=== PATIENT | female | born 1955 | race Caucasian/White ===

== ENCOUNTER → 2018-02-28 12:44 | Outpatient (CLI) | payer OTHER, SELFPAY ==
[2018-02-28 12:59] LABS: Microscopic, Urine URINE MICROSCOPIC (MICROSCOPIC)
[2018-02-28 13:26] LABS: Basophils % 0.4 % (0.1-2.0); Eosinophils # 0.1 K/mm3 (0.0-0.4); Eosinophils % 1.3 % (0.1-12.0); Hematocrit 43.3 % (37.0-47.0); Hemoglobin 14.2 g/dL (12.2-16.2); Lymphocytes # 1.5 K/mm3 (0.7-4.5); Lymphocytes % 29.9 K/mm3 (10-50); Mean Corpuscular HGB Conc 32.7 g/dL (31.8-35.4); Mean Corpuscular Hemoglobin 31.2 pg (27.0-31.2); Mean Corpuscular Volume 95.4 fl (81-99); Mean Platelet Volume 7.1 fl (7.4-10.4); Monocytes # 0.4 K/mm3 (0.1-1.0); Neutrophils % 60.4 % (37.0-80.0); Platelet Count 285 K/mm3 (142-424); Red Blood Count 4.54 M/mm3 (4.20-5.40); Red Cell Distribution Width 12.8 % (11.5-17.5)
[2018-02-28 13:27] LABS: Appearance,Urine CLEAR (Clear); Bilirubin,Urine Negative (Negative); Blood, Urine TRACE-L (Negative); Color,Urine YELLOW (Yellow); Glucose,Urine (UA) Negative (Negative); Ketones,Urine Negative (Negative); Leukocyte Esterase,Urine TRACE (Negative); Nitrate,Urine Negative (Negative); PH,Urine 5.5 (5.0-8.5); Protein,Urine Negative (Negative); Specific Gravity, Urine 1.015 (1.005-1.030); Urobilinogen,Urine 0.2 EU/dl (0.2)
[2018-02-28 13:50] LABS: Bacteria,Urine Trace /lpf
[2018-02-28 17:15] LABS: Alanine Aminotransferase 34 U/L (12-78); Albumin Level 4.1 gm/dL (3.4-5.0); Albumin/Globulin Ratio 1.1 (1.1-1.8); Alkaline Phosphatase 124 U/L (46-116); Anion Gap 12.9 mEq/L (5-15); Aspartate Amino Transferase 29 U/L (15-37); Bilirubin,Total 0.3 mg/dL (0.2-1.0); Blood Urea Nitrogen 11 mg/dL (7-18); Calcium 9.3 mg/dL (8.5-10.1); Carbon Dioxide 29 mmol/L (21.0-32.0); Chloride 103 mmol/L (98-107); Creatinine,Serum 0.99 mg/dL (0.55-1.02); Estimated Glomerular Filt Rate 57 ml/min (>60); GFR (African American) 69 ML/MIN (>60); Globulin 3.8 gm/dl (1.3-3.2); Glucose 93 mg/dL (74-106); Potassium 3.9 mmoL/L (3.5-5.1); Sodium 141 mmol/L (136-145); Total Protein,Serum 7.9 gm/dL (6.4-8.2)
[2018-03-01 09:12] LABS: Complement C3 163 mg/dL (82-167)
[2018-03-01 14:16] LABS: Sjogren's Anti-SS-A <0.2 AI (0.0-0.9); Sjogren's Anti-SS-B <0.2 AI (0.0-0.9)
[2018-03-02 06:40] LABS: Anti-DNA (DS) Ab Qn 1 IU/mL (0-9); Antinuclear Antibodies, IFA Positive (.)
[2018-03-02 09:15] LABS: Miscellaneous Test <0.2
== END ==
PROVIDERS: Visit Provider Dermatology
DX: L93.0 Discoid lupus erythematosus (principal)
CPT/HCPCS: 36415; 80053; 81001; 85025; 86038; 86161; 86225; 86235

== ENCOUNTER → 2019-07-09 11:09 | Outpatient (POV) | payer OTHER, SELFPAY ==
[2019-07-09 12:17] LABS: Basophils % 0.2 % (0.1-2.0); Eosinophils # 0.1 K/mm3 (0.0-0.4); Eosinophils % 1.2 % (0.1-12.0); Hematocrit 40.5 % (37.0-47.0); Hemoglobin 13.3 g/dL (12.2-16.2); Lymphocytes # 1.3 K/mm3 (0.7-4.5); Lymphocytes % 27.9 % (10-50); Mean Corpuscular HGB Conc 32.9 g/dL (31.8-35.4); Mean Corpuscular Hemoglobin 31.2 pg (27.0-31.2); Mean Platelet Volume 6.9 fl (7.4-10.4); Monocytes # 0.4 K/mm3 (0.1-1.0); Monocytes % 7.4 % (1.7-9.3); Neutrophils % 63.3 % (37.0-80.0); Platelet Count 278 K/mm3 (142-424); Red Blood Count 4.26 M/mm3 (4.20-5.40); Red Cell Distribution Width 13.2 % (11.5-17.5); White Blood Count 4.7 K/mm3 (4.8-10.8)
[2019-07-09 18:29] LABS: Alanine Aminotransferase 35 U/L (12-78); Albumin Level 3.8 gm/dL (3.4-5.0); Albumin/Globulin Ratio 1.1 (1.1-1.8); Alkaline Phosphatase 118 U/L (46-116); Anion Gap 15.2 mEq/L (5-15); Aspartate Amino Transferase 25 U/L (15-37); Bilirubin,Total 0.4 mg/dL (0.2-1.0); Blood Urea Nitrogen 13 mg/dL (7-18); Calcium 9.3 mg/dL (8.5-10.1); Carbon Dioxide 26 mmol/L (21.0-32.0); Chloride 104 mmol/L (98-107); Creatinine,Serum 0.98 mg/dL (0.55-1.02); Estimated Glomerular Filt Rate 58 ml/min (>60); GFR (African American) 70 ML/MIN (>60); Globulin 3.4 gm/dl (1.3-3.2); Glucose 95 mg/dL (74-106); Potassium 4.2 mmoL/L (3.5-5.1); Sodium 141 mmol/L (136-145); Total Protein,Serum 7.2 gm/dL (6.4-8.2)
== END ==
PROVIDERS: Dermatology; Visit Provider Dermatology
DX: L93.0 Discoid lupus erythematosus (principal)
CPT/HCPCS: 36415; 80053; 85025

== ENCOUNTER 2020-05-18 10:12 | Emergency (ER) | payer OTHER, SELFPAY ==
[2020-05-18 10:15] VITALS: BP 159/96; PULSE 71; RESP 20; TEMP 36.1; O2SAT 97; BMI 29.0
[2020-05-18 10:31] VITALS: BMI 29.0
--- NOTE | 2020-05-18 10:33 | CT_ITS ---
PROCEDURE: CT ABDOMEN PELVIS WO/W CON CLINICAL INDICATION: abd pain COMPARISON: No exams were available for comparison TECHNIQUE: IV Contrast: 75ML OPTIRAY 350 Oral Contrast None Axial images obtained with sagittal and coronal reformats. All CT scans at the facility use one or more dose reduction, viz: automated exposure control, ma/kV adjustment per patient size (including targeted exams where dose is matched to indication, i.e. head), or iterative reconstruction technique. FINDINGS: CT scan of the abdomen with without contrast: Lung bases are clear. Heart enlarged and there are coronary artery calcifications. There is a small hiatal hernia. Enhanced liver, adrenal glands, pancreas, spleen, kidneys, aorta, small and large bowel, and the appendix is unremarkable. There are scattered splenic calcifications. The patient is status post cholecystectomy. Soft tissues and bony structures are unremarkable. CT scan of the pelvis with and without contrast: The patient status posthysterectomy. Cervical stump, adnexal structures, bladder, soft tissue and bony structures are unremarkable for mass lesions. IMPRESSION: Status post cholecystectomy and hysterectomy, no mass lesions. Dictated by: Anibal Garcia 05/18/2020 11:58 Electronically signed by Anibal Garcia in [place] 05/18/2020 11:58
[2020-05-18 10:41] LABS: Microscopic, Urine URINE MICROSCOPIC (MICROSCOPIC)
[2020-05-18 10:43] LABS: Appearance,Urine CLEAR (Clear); Bilirubin,Urine Negative (Negative); Blood, Urine Negative (Negative); Color,Urine YELLOW (Yellow); Glucose,Urine (UA) Negative (Negative); Ketones,Urine Negative (Negative); Leukocyte Esterase,Urine 2+ (Negative); Nitrate,Urine Negative (Negative); Protein,Urine Negative (Negative)
[2020-05-18 10:55] LABS: Basophils % 0.6 % (0.1-2.0); Eosinophils # 0.1 K/mm3 (0.0-0.4); Eosinophils % 1.2 % (0.1-12.0); Hematocrit 42.3 % (37.0-47.0); Hemoglobin 14.6 g/dL (12.2-16.2); Lymphocytes # 1.4 K/mm3 (0.7-4.5); Lymphocytes % 21.6 % (10-50); Mean Corpuscular HGB Conc 34.6 g/dL (31.8-35.4); Mean Corpuscular Hemoglobin 32.2 pg (27.0-31.2); Mean Corpuscular Volume 93.1 fl (81-99); Mean Platelet Volume 7.2 fl (7.4-10.4); Monocytes # 0.5 K/mm3 (0.1-1.0); Monocytes % 6.9 % (1.7-9.3); Neutrophils # 4.6 K/mm3 (1.8-7.8); Neutrophils % 69.8 % (37.0-80.0); Platelet Count 290 K/mm3 (142-424); Red Blood Count 4.55 M/mm3 (4.20-5.40); Red Cell Distribution Width 13.1 % (11.5-17.5); White Blood Count 6.5 K/mm3 (4.8-10.8)
[2020-05-18 10:58] LABS: Alanine Aminotransferase 34 U/L (12-78); Albumin Level 4.7 g/dl (3.5-5.0); Albumin/Globulin Ratio 1.3 (1.1-1.8); Alkaline Phosphatase 126 U/L (38-126); Amylase 66 U/L (30-110); Anion Gap 16.2 mEq/L (5-15); Aspartate Amino Transferase 43 U/L (14-36); Bilirubin,Total 0.6 mg/dl (0.2-1.3); Blood Urea Nitrogen 13 mg/dl (7-17); Calcium 9.7 mg/dl (8.4-10.2); Carbon Dioxide 26 mmol/L (22.0-30.0); Chloride 103 mmol/L (98-107); Creatinine Clearance Estimated 77 mL/min (50-200); Estimated Glomerular Filt Rate 63 ml/min (>60); GFR (African American) 77 ML/MIN (>60); Globulin 3.6 g/dL (1.3-3.2); Glucose 105 mg/dl (74-100); Lipase 173 U/L (23-300); Potassium 4.2 mmoL/L (3.5-5.1); Sodium 141 mmol/L (136-145); Total Protein,Serum 8.3 g/dl (6.3-8.2)
[2020-05-18 11:04] LABS: Bacteria,Urine 1+ /lpf
[2020-05-18 12:06] VITALS: BP 132/87; PULSE 68; RESP 20; O2SAT 98
--- NOTE | 2020-05-18 12:08 | PC.NURSE ---
PT BACK FROM CT
--- NOTE | 2020-05-18 12:19 | HMH.EDABDPAI ---
ED Disposition Clinical Impression: UTI (urinary tract infection) Disposition: Home, Self-Care Condition on Discharge: Good Instructions: DI for Acute Abdomen Prescriptions: Sulfamethoxazole/Trimethoprim [Bactrim DS tablet] 1 each PO BID 10 Days #20 tab Prescription Printed Referrals: Cydney Cole APRN [Primary Care Provider] - - Critical Care Critical Care Time: No Attestation: On 05/18/20, the high probability of a clinically significant, sudden or life threatening deterioration of the following system(s) required my full and direct attention, intervention and personal management. The time I documented below is in addition to time spent performing reported procedures but includes the following listed in this critical care notation. Medical Decision Making - Medical Records Medical records reviewed: Yes: I reviewed the patient's medical records. - Adryan Inquiry Pt receiving controlled substance: No Vital Signs: 05/18/20 10:15 05/18/20 12:06 Temperature 97.0 F L Temperature Source Oral Pulse Rate [Right Radial] 71 68 Respiratory Rate 20 20 Blood Pressure [Right Arm] 159/96 H 132/87 Blood Pressure Mean [Right Arm] 117 102 Blood Pressure Source [Right Arm] Automatic Cuff Blood Pressure Position [Right Arm] Sitting 02 Sat by Pulse Oximetry 97 98 Oxygen Delivery Method Room Air Room Air - Lab Data Lab results reviewed: Yes: I reviewed the patient's lab results. Lab Results 05/18/20 10:30: Urine Color Yellow, Urine Appearance Clear, Urine pH 6.0, Ur Specific [place] 1.020, Urine Protein Negative, Urine Glucose (UA) Negative, Urine Ketones Negative, Urine Blood Negative, Urine Nitrate Negative, Urine Bilirubin Negative, Urine Urobilinogen 2.0, Ur Leukocyte Esterase 2+ A, Urine RBC 3-5, Urine WBC 10-20, Ur Squamous Epith Cells 5-10, Urine Bacteria 1+ 05/18/20 10:35: WBC 6.5, RBC 4.55, Hgb 14.6, Hct 42.3, MCV 93.1, MCH 32.2 H, MCHC 34.6, RDW 13.1, Plt Count 290, MPV 7.2 L, Neut % (Auto) 69.8, Lymph % (Auto) 21.6, [place] % (Auto) 6.9, Eos % (Auto) 1.2, Baso % (Auto) 0.6, Neut # (Auto) 4.6, Lymph # (Auto) 1.4, [place] # (Auto) 0.5, Eos # (Auto) 0.1, Baso # (Auto) 0.0 05/18/20 10:35: Sodium 141, Potassium 4.2, Chloride 103, Carbon Dioxide 26, Anion Gap 16.2 H, BUN 13, Creatinine 0.90, Estimated Creat Clear 77, Estimated GFR 63, Est GFR ( Amer) 77, Glucose 105 H, Calcium 9.7, Total Bilirubin 0.6, AST 43 H, ALT 34, Alkaline Phosphatase 126, Total Protein 8.3 H, Albumin 4.7, Globulin 3.6 H, Albumin/Globulin Ratio 1.3, Amylase 66, Lipase 173 Result diagrams: 05/18/20 10:35 05/18/20 10:35 Orders (Tests/Meds): ED MEDICATIONS Discontinued Medications Generic Name Dose Route Start Last Admin Trade Name Freq PRN Reason Stop Dose Admin Ioversol 75 ml 05/18/20 11:45 05/18/20 11:46 Rad-Optiray 350 100ml Vial IV 05/18/20 11:46 75 ml ONCE ONE Administration Protocol Sodium Chloride 10 ml 05/18/20 11:45 05/18/20 11:46 Rad-Saline Flush 10ml Syringe IV 05/18/20 11:46 10 ml ONCE ONE Administration ORDERS Category Date Time Status Urine Culture Stat Micro 05/18/20 10:30 Received - CT Data CT Scan: Abdomen, Pelvis Time Received: 11:30 Preliminary Findings: Normal/NAD Abdominal Pain HPI - General Chief Complaint: Abdominal Pain Stated Complaint: Abdominal Pain Time Seen by Provider: 05/18/20 11:20 Mode of Arrival: Ambulatory Limitations: No Limitations Description of Symptoms (Recalled from ER Triage Doc. by RN): PT C/O HIGH ABD PAIN THAT EXTENDS INTO HER BACK AT TIMES. PT STATES THAT SHE HAS BEEN BATTLING WITH CONSTIPATION X1 MONTH. ADVISES THAT PCP HAS SET HER UP AN APPT WITH [facility] ON JUNE 12, 2020. PT STATES THAT SHE HAS BEEN USING MIRILAX AT HOME, WHICH HAS RESULTED IN SUCCESSFUL BM'S BUT THAT IT'S STILL NOT HER NORMAL . - History of Present Illness MD complaint: abdominal pain Onset (ago): day(s) Consistency: constant Location: diffuse
[2020-05-18 12:40] VITALS: BP 135/78; PULSE 86; RESP 18; TEMP 36.8; O2SAT 98
== END 2020-05-18 12:40 | disposition home or self-care (01) ==
PROVIDERS: Emergency Provider Family Medicine; PCP Nurse Practitioner Family
DX: N30.00 Acute cystitis without hematuria (principal); K59.00 Constipation, unspecified; Z88.5 Allergy status to narcotic agent
CPT/HCPCS: 74178; 80053; 81001; 82150; 83690; 85025; 87086; 99283; Q9967

== ENCOUNTER → 2020-06-02 10:17 | Outpatient (POV) | payer OTHER, SELFPAY | PROVIDERS: PCP Nurse Practitioner Family; Visit Provider Dermatology | DX: Z00.00 Encounter for general adult medical examination without abnormal findings (principal) ==

== ENCOUNTER → 2021-08-11 14:12 | Outpatient (CLI) | payer OTHER, SELFPAY | PROVIDERS: PCP Nurse Practitioner Family; Visit Provider Nurse Practitioner | DX: Z20.822 Contact with and (suspected) exposure to COVID-19 (principal) | CPT/HCPCS: C9803; U0003; U0005 ==

== ENCOUNTER → 2021-08-16 10:32 | Outpatient (CLI) | payer OTHER, SELFPAY | PROVIDERS: PCP Nurse Practitioner Family; Visit Provider Nurse Practitioner | DX: Z20.822 Contact with and (suspected) exposure to COVID-19 (principal) | CPT/HCPCS: C9803; U0003; U0005 ==

== ENCOUNTER 2025-01-27 08:55 | Inpatient (IN) | payer MEDICARE, SELFPAY ==
--- NOTE | 2025-01-27 08:53 | ECG_ITS ---
APPROVED REPORT Exam: Resting ECG HR:132 bpm ECG Measurements Heart Rate 132 AXES QRSd 89 QRS 8 QT 304 T 35 QTc 382 Conclusion ATRIAL FIBRILLATION WITH RAPID VENTRICULAR RESPONSE POSSIBLE ANTERIOR MYOCARDIAL INFARCTION , PROBABLY OLD [30 ms Q WAVE IN V3/V4, OR R < 0.2 mV IN V4] ABNORMAL ECG UNCONFIRMED REPORT Electronically signed by : Sekou Barnard, 01/27/2025 15:34:55
[2025-01-27 08:55] VITALS: BP 170/95; PULSE 128; RESP 18; TEMP 36.6; O2SAT 99; BMI 28.1
--- NOTE | 2025-01-27 09:16 | XR_ITS ---
FINAL REPORT TECHNIQUE: Single view chest CLINICAL HISTORY: new onset afib COMPARISON: 02/14/2020 report FINDINGS: A single view of the chest was obtained. The heart and mediastinum are within normal limits. The lungs are clear. There is no pneumothorax. IMPRESSION: No acute cardiopulmonary process. Reviewed, Interpreted and Dictated by Kulwinder Green MD Transcribed by Suzette Dumont Authenticated and [facility]
[2025-01-27 09:23] LABS: Basophils % 0.4 % (0.1-2.0); Eosinophils % 0.8 % (0.1-12.0); Hematocrit 43.9 % (37.0-47.0); Hemoglobin 14.9 g/dL (12.2-16.2); Lymphocytes # 1.3 K/mm3 (0.7-4.5); Lymphocytes % 26.4 % (10-50); Mean Corpuscular HGB Conc 33.9 g/dL (31.8-35.4); Mean Corpuscular Hemoglobin 31.5 pg (27.0-31.2); Mean Corpuscular Volume 92.8 fl (81-99); Mean Platelet Volume 9.6 fl (7.4-10.4); Monocytes # 0.4 K/mm3 (0.1-1.0); Monocytes % 7.7 % (1.7-9.3); Neutrophils # 3.3 K/mm3 (1.8-7.8); Neutrophils % 64.3 % (37.0-80.0); Platelet Count 250 K/mm3 (142-424); Red Blood Count 4.73 M/mm3 (4.20-5.40); Red Cell Distribution Width 12.8 % (11.5-17.5); White Blood Count 5.1 K/mm3 (4.8-10.8)
[2025-01-27 09:36] LABS: Alanine Aminotransferase 39 U/L (12-78); Albumin Level 4.9 g/dl (3.5-5.0); Albumin/Globulin Ratio 1.4 (1.1-1.8); Alkaline Phosphatase 97 U/L (38-126); Anion Gap 8.3 mEq/L (5-15); Aspartate Amino Transferase 53 U/L (14-36); Bilirubin,Total 0.7 mg/dl (0.2-1.3); Blood Urea Nitrogen 15 mg/dl (7-17); Calcium 9.4 mg/dl (8.4-10.2); Carbon Dioxide 27 mmol/L (22.0-30.0); Chloride 107 mmol/L (98-107); Estimated Glomerular Filt Rate 62 ml/min (>60); GFR (African American) 76 ML/MIN (>60); Globulin 3.4 g/dL (1.3-3.2); Glucose 106 mg/dl (74-100); Magnesium 1.9 mg/dl (1.6-2.3); Potassium 4.3 mmoL/L (3.5-5.1); Sodium 138 mmol/L (136-145); Total Protein,Serum 8.3 g/dl (6.3-8.2)
--- NOTE | 2025-01-27 09:37 | ED_ITS ---
Discharge Plan Disposition Chief Complaint: Chest Pain Prescriptions Prescriptions: No Action amlodipine 5 mg tablet 5 mg PO DAILY Patient Comments: TAKE ONE (1) TABLET DAILY levothyroxine 75 mcg tablet 75 mcg PO DAILY Patient Comments: TAKE ONE (1) TABLET EVERY DAY BY ORAL ROUTE lisinopril 10 mg tablet 10 mg PO DAILY Patient Comments: TAKE ONE (1) TABLET BY MOUTH ONCE DAILY Referrals Follow up/Referrals: Memo Thompson MD [Primary Care Provider] - See instructions Clinical Impressions Clinical Impression: Atrial fibrillation with rapid ventricular response Print Language Print Language: Kosovan Discharge ED Provider: Jett Barnard General Adult HPI General Chief complaint: Chest Pain Stated complaint: Chest Pain Time Seen by Provider: 01/27/25 09:28 History of Present Illness HPI narrative: 69-year-old female with no significant past medical history presents today with just feeling abnormal. She has no history of arrhythmia that she is aware of. No chest pain or shortness of breath. She did feel that her heart was racing today at least. But a few days ago felt abnormal over the weekend as well without the palpitations but definitely did not feel normal at that time. No fevers or chills no chest pain shortness of breath no nausea vomiting diarrhea or other preceding symptoms. No change in medications etc. No strokelike symptoms. Related Data Home Medications ?Medication ?Instructions ?Recorded ?Confirmed amlodipine 5 mg tablet 5 mg PO DAILY 01/27/25 01/27/25 levothyroxine 75 mcg tablet 75 mcg PO DAILY 01/27/25 01/27/25 lisinopril 10 mg tablet 10 mg PO DAILY 01/27/25 01/27/25 Allergies Allergy/AdvReac Type Severity Reaction Status Date / Time codeine (CODEINE) Allergy Unknown Nausea Verified 01/27/25 10:38 cortisone (CORTISONE) Allergy Unknown Rash Verified 01/27/25 10:38 [facility] Disclaimer: The information contained in this section may have been updated after the patient was seen, as this information can be updated by other users. Social History Smoking Status: Never smoker alcohol intake: never current occupational status: other Travel in the last 8 weeks: None Have you lived/traveled outside US in past 30 days?: No Contact w/someone who lives/traveled outside US past 30 days?: No Exposure to someone with infectious disease in past 14 days?: No Do you have a fever (greater than 100.4 F or 38 C)?: No Have you tested positive for COVID-19: No Exposed to someone with COVID-19 in past 14 days?: No Do you have a sore throat?: No Do you have a cough?: No Do you have any weakness?: No Do you have any diarrhea?: No Are you experiencing any unusual bleeding?: No Do you have any muscle aches/pain?: No Do you have any abdominal pain?: No Are you experiencing loss of taste or smell?: No Other Medical History Have you received the Flu Vaccine for this season: No Have you received the Pneumonia Vaccine: No ROS Obtained: Yes All systems reviewed & no additional complaints except as documented Physical Exam General General appearance: alert and in no apparent distress Respiratory Respiratory exam: Present normal lung sounds bilaterally Cardiovascular Cardiovascular exam: Present tachycardia and irregular rhythm Neurological Exam Neurological exam: Present alert and oriented X3 Medical Decision Making Medical Records Screening: Per USPSTF and CDC recommendations, given the prevalence of disease in our region, it is our hospital?s policy to screen for HIV and viral Hepatitis for all patients aged 18 and over and those with ongoing risk factors. Adryan Inquiry Pt receiving controlled substance: No Vital Signs: 01/27/25 08:55 Temperature 97.9 F Temperature Source Oral Pulse Rate [Apical] 128 H Respiratory Rate 18 Blood Pressure [Right Arm] 170/95 H Blood Pressure Mean [Right Arm] 120 Blood Pressure Source [Right Arm] Automatic Cuff Blood Pressure Position [Right Arm] Sitting 02 Sat by Pulse Oximetry 99 Oxygen Delivery Method Room Air Lab Data Lab results reviewed: Yes I reviewed the patient's lab results. Lab Results 01/27/25 09:05: WBC 5.1, RBC 4.73, Hgb 14.9, Hct 43.9, MCV 92.8, MCH 31.5 H, MCHC 33.9, RDW 12.8, Plt Count 250, MPV 9.6, Neut % (Auto) 64.3, Lymph % (Auto) 26.4, [place] % (Auto) 7.7, Eos % (Auto) 0.8, Baso % (Auto) 0.4, Neut # (Auto) 3.3, Lymph # (Auto) 1.3, [place] # (Auto) 0.4, Eos # (Auto) 0.0, Baso # (Auto) 0.0, Sodium 138, Potassium 4.3, Chloride 107, Carbon Dioxide 27, Anion Gap 8.3, BUN 15, Creatinine 0.90, Estimated GFR 62, Est GFR ( Amer) 76, Glucose 106 H, Calcium 9.4, Magnesium 1.9, Total Bilirubin 0.7, AST 53 H, ALT 39, Alkaline Phosphatase 97, Troponin I < 0.01, Total Protein 8.3 H, Albumin 4.9, Globulin 3.4 H, Albumin/Globulin Ratio 1.4, TSH 1.88, Thyroxine (T4) 11.9 H 01/27/25 09:05 01/27/25 09:05 Orders (Tests/Meds): ED MEDICATIONS Generic Name Dose Route Start Last Admin Trade Name Freq PRN Reason Stop Dose Admin Diltiazem HCl 100 mg/ Sodium 100 mls @ 5 mls/hr 01/27/25 10:00 01/27/25 09:55 Chloride IV 02/26/25 09:59 5 mg/hr .Q20H HUYEN 5 mls/hr Administration Protocol 5 MG/HR Discontinued Medications Generic Name Dose Route Start Last Admin Trade Name Freq PRN Reason Stop Dose Admin Diltiazem HCl 20 mg 01/27/25 09:35 01/27/25 09:55 Diltiazem 25mg/5ml Vial IV 01/27/25 09:36 20 mg ONCE ONE Administration Lactated Ringer's 500 mls @ 999 mls/hr 01/27/25 09:45 01/27/25 09:56 Lactated Ringer's 1000 Ml Bag IV 01/27/25 10:15 999 mls/hr .Q31M HUYEN Administration ORDERS Category Date Time Status CXR --portable [XR chest portable] Stat Exams 01/27/25 09:16 Completed Complete Blood Count Auto Diff Stat Lab 01/27/25 09:05 Completed Comprehensive Metabolic Panel Stat Lab 01/27/25 09:05 Completed Magnesium Stat Lab 01/27/25 09:05 Completed T4 (Thyroxine) Stat Lab 01/27/25 09:05 Completed Thyroid Stimulating Hormone Stat Lab 01/27/25 09:05 Completed Troponin I Q3H Lab 01/27/25 09:05 Completed Troponin I Q3H Lab 01/27/25 12:30 Ordered ECG Data Tracing #1: I reviewed this ECG and interpreted as documented below: Ventricular rate of 132 A-fib with RVR no acute ischemic changes noted indeterminate axis Medical Decision Narrative: 69-year-old presenting today with an irregular irregular rhythm A-fib with RVR on EKG. This is a new diagnosis for her. She has no preceding symptoms to suggest a definitive cause of the etiology of this. Will get basic blood work including magnesium electrolytes troponin etc. However she did not have any ischemic symptoms preceding this. Goal will be rate control in this particular patient as the timing of this is unclear most likely started over the weekend. Will not cardiovert her at the moment. Anticipate admission with rate control transitioning to oral medications and anticoagulation and follow-up. Will reassess shortly after diltiazem bolus and infusion have begun. Reassessment 11:12 AM patient has spontaneously converted into normal sinus rhythm however is still on the diltiazem infusion. I gave the patient the opportunity to transition to oral medications and try to outpatient follow-up with anticoagulation however she is very anxious about this and would like to come in the hospital for that transition and observation. Which is reasonable. I discussed the case with hospital medicine. They are aware that I have not initiated any anticoagulation which they will do inpatient patient admitted still on the diltiazem infusion at the moment but stable. Critical Care Critical Care Time Critical Care Time: Yes Attestation: On 01/27/25, the high probability of a clinically significant, sudden or life threatening deterioration of the following system(s) required my full and direct attention, intervention and personal management. The time I documented below is in addition to time spent performing reported procedures but includes the following listed in this critical care notation. Total Time Total Critical Care Time: 35
[2025-01-27 09:48] LABS: Troponin I < 0.01 ng/ml (0.00-0.034)
[2025-01-27 09:52] LABS: T4 (Thyroxine) 11.9 ug/dl (5.53-11.0)
[2025-01-27] MEDS: dilTIAZem HCL 100 MG in 0.9 % SODIUM CHLORIDE 100 ML IV (09:55)
[2025-01-27] MEDS: dilTIAZem 25MG/5ML VIAL 20 MG IV (09:55)
[2025-01-27] MEDS: LACTATED RINGERS 1000ML 500 ML 999 ML IV (09:56)
[2025-01-27 10:06] LABS: Thyroid Stimulating Hormone 1.88 uIU/mL (0.465-4.68)
--- NOTE | 2025-01-27 10:37 | ECG_ITS ---
APPROVED REPORT Exam: Resting ECG HR:67 bpm ECG Measurements Heart Rate 67 AXES [place] 196 P 45 QRSd 96 QRS -8 QT 418 T 31 QTc 434 Conclusion SINUS RHYTHM POSSIBLE ANTERIOR MYOCARDIAL INFARCTION , OF INDETERMINATE AGE [30 ms Q WAVE IN V3/V4, OR R < 0.2 mV IN V4] ABNORMAL ECG UNCONFIRMED REPORT Electronically signed by : Sekou Barnard, 01/27/2025 15:34:37
--- NOTE | 2025-01-27 11:05 | PC.NURSE ---
DR HERNANDEZ SPEAKING WITH HOSPITALIST FOR ADMISSION
--- NOTE | 2025-01-27 11:10 | PC.NURSE ---
PACKAGING LINE ATTENDANT NOTIFIED OF ADMISSION
--- NOTE | 2025-01-27 11:22 | HMH.PHAINT1 ---
Pharmacy Intervention Comments: MEDICATION RECONCILIATION COMPLETED ON PATIENT USING EXTERNAL FILL HISTORY FROM PHARMACY. -XAVIER GRAVES, GIUSEPPED
[2025-01-27 11:34] VITALS: BP 136/80; PULSE 62; RESP 18; TEMP 36.6; O2SAT 97
--- NOTE | 2025-01-27 11:34 | PC.NURSE ---
REPORT CALLED TO Alana SHAHID RN
[2025-01-27 12:11] VITALS: BP 133/75; PULSE 54; RESP 11; O2SAT 97
--- NOTE | 2025-01-27 12:14 | CA_ITS ---
APPROVED REPORT EXAM: Comprehensive 2D, Doppler, and color-flow Echocardiogram Dry Goods Inspector: Gilda Duckworth RT(R) Ht: 5 ft 7 in Wt: 180lbs BSA: 1.93 BP: 170/95 mmHg Indications: AFIB, HTN, palpitatoins, fatigue 2D Dimensions LA Volume 47.80 mL LA Volume Index 24.64 mL/m2 (M/F) 16-34 EF AP4 82.40 % GL Strain -24.1 % M-Mode Dimensions RVDd 3.53 cm (0.9-2.6) LA Diam 4.04 cm (1.9-4.0) LVDd 4.42 cm (3.5-5.7) LVDs 3.29 cm (3.5-5.7) IVSd 0.80 cm (0.6-1.1) PWd 0.88 cm (0.6-1.1) EF (Teich) 50.60% FS 25.60% EDV (Teich) 88.60 mL ESV (Teich) 43.80 mL LV Diastology E Decel Time 197 (160-240 msec) E/A Ratio 1.6 Mitral Valve MV E Max Miguel Angel. 84.0 (40-130 cm/s) MV A Velocity 51.0 (40-130 cm/s) E/A Ratio 1.64 MV PHT 58.0 ms Left Ventricle The left ventricle is normal size. The left ventricular systolic function is normal. The left ventricular ejection fraction is within the normal range. Proximal septal thickening is noted. There is normal LV segmental wall motion. Diastolic function is indeterminate. LVEF is 65%. Right Ventricle The right ventricle is not very well-visualized, but grossly appears normal in size and function. Atria The left atrium is mildly dilated. Right atrium is mildly dilated. There is no Doppler evidence of interatrial shunt. Aortic Valve Aortic valve is mildly thickened. There is no aortic valvular stenosis. Trace aortic regurgitation. Mitral Valve The mitral valve leaflets are mildly thickened. No evidence of mitral valve stenosis. Trace mitral regurgitation. Tricuspid Valve Tricuspid valve is grossly normal in structure and function. Trace tricuspid regurgitation. There is insufficient TR jet to estimate RVSP. Pulmonic Valve The pulmonary valve is normal in structure. Trace pulmonic regurgitation. Great Vessels The aortic root is normal in size. The IVC is not well-visualized. Pericardium There is no pericardial effusion. Other Information Study Quality: Fair Conclusion Normal biventricular systolic function. Mild biatrial dilation. No significant valvular stenosis or regurgitation. Electronically signed by : Lucila Rubio MD 01/28/2025 11:54:52
[2025-01-27] MEDS: dilTIAZem ER 120MG CAPSULE 120 MG PO (12:48)
[2025-01-27] MEDS: ENOXAPARIN 80MG/0.8ML SYRINGE 80 MG SUBCUT (12:48)
--- NOTE | 2025-01-27 13:04 | ECG_ITS ---
APPROVED REPORT Exam: Resting ECG HR:52 bpm ECG Measurements Heart Rate 52 AXES [place] 179 P 21 QRSd 90 QRS -6 QT 452 T 20 QTc 432 Conclusion SINUS BRADYCARDIA BORDERLINE ECG UNCONFIRMED REPORT Electronically signed by : Radhames Figueroa MD 01/28/2025 08:05:15
[2025-01-27 13:08] LABS: Troponin I 0.06 ng/ml (0.00-0.034)
[2025-01-27 14:00] VITALS: BP 158/78; PULSE 54; RESP 18; O2SAT 97
--- NOTE | 2025-01-27 15:01 | P.HP_ITS ---
History of Present Illness *Admission Date: 01/27/25 *Reason for visit:: Heart racing *History of present illness: Gregg Otoole is a 69-year-old female with a medical history significant for hypertension, hypothyroidism who presents with symptoms of heart racing. She states that she she was feeling significant fatigue over the weekend, and woke up this morning feeling like her heart was racing. Denies chest pain, shortness of breath, abdominal pain, fever/chills, upper respiratory symptoms. No known cardiac, lung history. Non-smoker. Workup in the ED significant for HR 132 A- fib RVR converted to NSR after diltiazem bolus and drip. Patient remained stable, and was discussed whether patient wanted to go home with close follow-up with cardiology with new meds. However, patient wanted to be admitted for monitoring. Case discussed with ED provider and decision was made to admit patient for new onset A-fib RVR. [facility] Disclaimer: The information contained in this section may have been updated after the patient was seen, as this information can be updated by other users. Medical History (Updated 01/27/25 @ 12:46 by Joanna Miller RN) HTN (hypertension) Interstitial cystitis Social History (Updated 01/27/25 @ 12:46 by Joanna Miller RN) Smoking Status: Never smoker alcohol intake: never current occupational status: other Travel in the last 8 weeks: None Have you lived/traveled outside US in past 30 days?: No Contact w/someone who lives/traveled outside US past 30 days?: No Exposure to someone with infectious disease in past 14 days?: No Do you have a fever (greater than 100.4 F or 38 C)?: No Have you tested positive for COVID-19: No Exposed to someone with COVID-19 in past 14 days?: No Do you have a sore throat?: No Do you have a cough?: No Do you have any weakness?: No Are you experiencing any nausea/vomitting?: No Do you have any diarrhea?: No Are you experiencing any unusual bleeding?: No Do you have any muscle aches/pain?: No Do you have any abdominal pain?: No Are you experiencing loss of taste or smell?: No Other Medical History Have you received the Flu Vaccine for this season: No Have you received the Pneumonia Vaccine: No Meds Home Medications and Allergies Home Medications ?Medication ?Instructions ?Recorded ?Confirmed ?Type amlodipine 5 mg tablet 5 mg PO DAILY 01/27/25 01/27/25 History levothyroxine 75 mcg tablet 75 mcg PO DAILY 01/27/25 01/27/25 History lisinopril 10 mg tablet 10 mg PO DAILY 01/27/25 01/27/25 History New Prescriptions to Start Prescriptions: Allergies Allergy/AdvReac Type Severity Reaction Status Date / Time codeine (CODEINE) Allergy Unknown Nausea Verified 01/27/25 10:38 cortisone (CORTISONE) Allergy Unknown Rash Verified 01/27/25 10:38 Exam Data for Last 24 hours Vital signs and Labs for Last 24 Hours: Temp Pulse Resp BP Pulse Ox O2 Del Method 97.8 F 54 L 18 158/78 H 97 Room Air 01/27/25 11:34 01/27/25 14:00 01/27/25 14:00 01/27/25 14:00 01/27/25 14:00 01/27/25 14:00 Laboratory Results - last 24 hr 01/27/25 09:05: WBC 5.1, RBC 4.73, Hgb 14.9, Hct 43.9, MCV 92.8, MCH 31.5 H, MCHC 33.9, RDW 12.8, Plt Count 250, MPV 9.6, Neut % (Auto) 64.3, Lymph % (Auto) 26.4, [place] % (Auto) 7.7, Eos % (Auto) 0.8, Baso % (Auto) 0.4, Neut # (Auto) 3.3, Lymph # (Auto) 1.3, [place] # (Auto) 0.4, Eos # (Auto) 0.0, Baso # (Auto) 0.0, Sodium 138, Potassium 4.3, Chloride 107, Carbon Dioxide 27, Anion Gap 8.3, BUN 15, Creatinine 0.90, Estimated GFR 62, Est GFR ( Amer) 76, Glucose 106 H, Calcium 9.4, Magnesium 1.9, Total Bilirubin 0.7, AST 53 H, ALT 39, Alkaline Phosphatase 97, Troponin I < 0.01, Total Protein 8.3 H, Albumin 4.9, Globulin 3.4 H, Albumin/Globulin Ratio 1.4, TSH 1.88, Thyroxine (T4) 11.9 H 01/27/25 11:38: Troponin I 0.06 H I & O for Last 24 hours: Intake & Output 01/24/25 01/25/25 01/26/25 01/27/25 23:59 23:59 23:59 23:59 Intake Total Balance Weight 81.647 kg Constitutional Constitutional: no acute distress *Routine HEENT Exam Head: Present normocephalic Eye: Present EOMI and PERRL ENT: Present mucous membranes moist *Routine Neck Exam Neck: Present supple; Absent lymphadenopathy *Routine Respiratory Exam Respiratory: Present CTA bilaterally *Routine Cardiovascular Exam Cardiovascular: Present RRR *Routine Abdominal Exam Abdominal: Present soft and normoactive bowel sounds; Absent tenderness *Routine Rectal Exam Rectal:: deferred *Routine Genitalia Exam Genitalia:: deferred *Routine Extremities Exam Extremities: Absent cyanosis, clubbing or edema *Routine Skin Exam Skin: Present warm; Absent rash *Routine Neurological Exam Neurological: Present alert and oriented X3 Assessment and Plan *Assessment and plan (1) Atrial fibrillation with rapid ventricular response: Status: Acute Category: Medical Code(s): I48.91 - Unspecified atrial fibrillation Plan Gregg Otoole is a 69-year-old female with a medical history significant for hypertension, hypothyroidism who presents with symptoms of heart racing. She states that she she was feeling significant fatigue over the weekend, and woke up this morning feeling like her heart was racing. Denies chest pain, shortness of breath, abdominal pain, fever/chills, upper respiratory symptoms. No known cardiac, lung history. Non-smoker. Workup in the ED significant for HR 132 A- fib RVR converted to NSR after diltiazem bolus and drip. Patient remained stable, and was discussed whether patient wanted to go home with close follow-up with cardiology with new meds. However, patient wanted to be admitted for monitoring. Case discussed with ED provider and decision was made to admit patient for new onset A-fib RVR. #New onset A-fib #RVR, resolved ? Patient currently pleasant, comfortable. Vital stable. HR 54 NSR. ? Started diltiazem 120 mg daily. IV diltiazem drip stopped. ? Started Eliquis 5 mg twice daily. [id number] score 3. Therapeutic Lovenox initially given. ? Follow-up ECHO. ? Follow-up respiratory panel. ? TSH normal. No signs of infection at this time. ? Cardiology consulted, pending further recommendations. #NSTEMI, likely type II ? Troponin uptrending to 0.06. EKG without acute ischemic changes. ? Likely NSTEMI type II from demand from A-fib RVR. ? Follow-up repeat troponin. ? Aspirin, statin until cardiology evaluation. #Hypertension ? Continue home lisinopril 10 mg. Discontinue amlodipine after starting diltiazem as above. Full code DVT prophylaxis: Ilya
[2025-01-27] MEDS: ASPIRIN EC 81MG TABLET 81 MG PO (16:20)
[2025-01-27] MEDS: ACETAMINOPHEN 325MG TAB 650 MG PO (16:21)
[2025-01-27 20:00] VITALS: BP 136/89; PULSE 55; PULSE 56; TEMP 36.7; O2SAT 97
--- NOTE | 2025-01-27 21:20 | PC.NURSE ---
Pt refused HS meds stating that she would wait to see cardiology to take her eliquis and that Atorvastatin upset her stomach and she wasn't able to take it.
[2025-01-27 23:02] LABS: Adenovirus,PCR Not Detected (NotDetected); Bordetella Pertussis Not Detected (NotDetected); Chlamydophila Pneumoniae, PCR Not Detected (NotDetected); Coronavirus 19, PCR Not Detected (NotDetected); Coronavirus 229E Not Detected (NotDetected); Coronavirus NL63 Not Detected (NotDetected); Coronavirus OC43 Not Detected (NotDetected); Coronovirus HKU1,PCR Not Detected (NotDetected); Human Metapneumovirus Not Detected (NotDetected); Influenza A, PCR Not Detected (NotDetected); Influenza AH1, 2009 Not Detected (NotDetected); Influenza AH1, PCR Not Detected (NotDetected); Influenza AH3,PCR Not Detected (NotDetected); Influenza B, PCR Not Detected (NotDetected); Mycoplasma Pneumoniae, PCR Not Detected (NotDetected); Parainfluenza 1, PCR Not Detected (NotDetected); Parainfluenza 2, PCR Not Detected (NotDetected); Parainfluenza 3, PCR Not Detected (NotDetected); Parainfluenza 4, PCR Not Detected (NotDetected); Respiratory Syncytial Virus Not Detected (NotDetected); Rhinovirus/Enterovirus Not Detected (NotDetected)
[2025-01-28] VITALS: BP 106/57; PULSE 50; PULSE 55; TEMP 36.3; O2SAT 95
[2025-01-28 00:04] LABS: Troponin I 0.14 ng/ml (0.00-0.034)
[2025-01-28 01:40] LABS: PTT Heparin (inpatient only) 26.2 Seconds (50-75)
[2025-01-28] MEDS: HEPARIN SODIUM,PORCINE/D5W 500 ML 20 UNIT IV (01:46)
[2025-01-28] MEDS: HEPARIN SODIUM 5,000 UNIT/ML VIAL 5000 UNIT IV (01:46)
[2025-01-28] MEDS: HEPARIN DRIP CONSULT 1 EACH NOTAPPLIC (01:47)
[2025-01-28 03:56] VITALS: BMI 28.2
[2025-01-28 04:00] VITALS: BP 119/66; PULSE 50; PULSE 56; O2SAT 96
--- NOTE | 2025-01-28 05:20 | PC.NURSE ---
Pt is alert and oriented x4 and currently tolerating RA well at this time. Pt remains in NSR on telemetry. Pt did refuse her HS meds (see previous note). Heparin bolus and drip was started approx 0145. PT denies pain and other needs at this time. Pt has had no other acute changes this shift.
[2025-01-28] MEDS: LEVOTHYROXINE 75MCG (0.075MG) TAB 75 MCG PO (06:35)
[2025-01-28 07:51] LABS: Basophils % 0.2 % (0.1-2.0); Eosinophils # 0.1 K/mm3 (0.0-0.4); Eosinophils % 1.1 % (0.1-12.0); Hematocrit 41.1 % (37.0-47.0); Lymphocytes # 1.6 K/mm3 (0.7-4.5); Mean Corpuscular HGB Conc 34.1 g/dL (31.8-35.4); Mean Corpuscular Volume 94.1 fl (81-99); Mean Platelet Volume 9.5 fl (7.4-10.4); Monocytes # 0.3 K/mm3 (0.1-1.0); Monocytes % 4.7 % (1.7-9.3); Neutrophils # 3.5 K/mm3 (1.8-7.8); Neutrophils % 64.3 % (37.0-80.0); Platelet Count 232 K/mm3 (142-424); Red Blood Count 4.37 M/mm3 (4.20-5.40); Red Cell Distribution Width 13.1 % (11.5-17.5); White Blood Count 5.5 K/mm3 (4.8-10.8)
[2025-01-28 08:00] VITALS: BP 118/69; PULSE 50; PULSE 55; RESP 18; TEMP 36.6; O2SAT 97
[2025-01-28 08:03] LABS: Alanine Aminotransferase 40 U/L (12-78); Albumin Level 4.5 g/dl (3.5-5.0); Albumin/Globulin Ratio 1.6 (1.1-1.8); Alkaline Phosphatase 104 U/L (38-126); Anion Gap 11.7 mEq/L (5-15); Aspartate Amino Transferase 46 U/L (14-36); Bilirubin,Total 0.6 mg/dl (0.2-1.3); Blood Urea Nitrogen 13 mg/dl (7-17); Calcium 9.1 mg/dl (8.4-10.2); Carbon Dioxide 25 mmol/L (22.0-30.0); Chloride 106 mmol/L (98-107); Chol/HDL Ratio 4.4 (1-3.5); Cholesterol 302 mg/dl (140-200); Creatinine Clearance Estimated 70 mL/min (50-200); Estimated Glomerular Filt Rate 62 ml/min (>60); GFR (African American) 76 ML/MIN (>60); Globulin 2.8 g/dL (1.3-3.2); Glucose 107 mg/dl (74-100); HDL Cholesterol 68 mg/dl (40-60); Magnesium 1.9 mg/dl (1.6-2.3); Potassium 3.7 mmoL/L (3.5-5.1); Sodium 139 mmol/L (136-145); Total Protein,Serum 7.3 g/dl (6.3-8.2); Triglycerides 176 mg/dl (30-150); VLDL Cholesterol 35 mg/dL (0-40)
[2025-01-28] MEDS: ASPIRIN EC 81MG TABLET 81 MG PO (08:20)
[2025-01-28 08:46] LABS: PTT Heparin (inpatient only) 49.7 Seconds (50-75)
--- NOTE | 2025-01-28 08:49 | HMH.PHAHEP ---
[facility] Pharmacy Heparin Dosing Demographic Data Admission date:: 01/27/25 Date: 01/28/25 Time: 08:50 Allergies Allergy/AdvReac Type Severity Reaction Status Date / Time codeine (CODEINE) Allergy Unknown Nausea Verified 01/27/25 10:38 cortisone (CORTISONE) Allergy Unknown Rash Verified 01/27/25 10:38 Height: 1.7 m Weight: 81.647 kg Indication Medication therapy:: Heparin Current Indications:: ATRIAL FIBRILLATION - MEDIUM DOSE PROTOCOL Current Active Problems (Updated 01/29/25 @ 10:45 by Jocelyn Browne APRN) CAD (coronary artery disease) (Acute) Abnormal findings diagnostic imaging of heart and coronary circulation (Acute) Heart murmur (Acute) HTN (hypertension) (Acute) Elevated troponin (Acute) Atrial fibrillation with rapid ventricular response (Acute) CVA?: No Bleeding problem?: No Kidney disease?: No NM?: No Additional History:: CHEST PAIN, UTI, ATRIAL FIBRILLATION Desired PTT range:: 50-75 seconds Comments:: BASELINE PTT: 26.2 SECONDS Labs Anticoagulation Lab Results:: 01/27/25 01/28/25 09:05 07:35 Hgb 14.9 14.0 Hct 43.9 41.1 Plt Count 250 232 Monitoring Dose Monitor 1: Date: 01/28/25 Time: 01:13 PTT Result:: 26.2 SECONDS Infusion Rate:: FRANCINE RECOMMENDED INITIATING HEPARIN DRIP AT 1000 UNITS/HOUR = 20 ML/HOUR AND BOLUSING 5000 UNITS HEPARIN IV ONCE. Comment:: PLATELET COUNT = 232,000 Dose Monitor 2: Date: 01/28/25 Time: 07:35 PTT Result:: 49.7 SECONDS Infusion Rate:: RECOMMEND INCREASING HEPARIN DRIP TO 1150 UNITS/HOUR = 23 ML/HOUR. Dose Monitor 3: Date: 01/28/25 Time: 13:30 PTT Result:: 43.2 SECONDS Infusion Rate:: RECOMMEND INCREASING HEPARIN DRIP RATE TO 1300 UNITS/HOUR = 26 ML/HOUR AND BOLUSING 3000 UNITS HEPARIN IV ONCE. Dose Monitor 4: Date: 01/28/25 Time: 21:00 PTT Result:: 69.7 SECONDS Infusion Rate:: FRANCINE RECOMMENDED CONTINUING HEPARIN DRIP RATE AT 1300 UNITS/HOUR = 26 ML/HOUR Dose Monitor 5: Date: 01/29/25 Time: 02:59 PTT Result:: 71.7 SECONDS Infusion Rate:: FRANCINE RECOMMENDED CONTINUING HEPARIN DRIP RATE AT 1300 UNITS/HOUR = 26 ML/HOUR Dose Monitor 6: Date: 01/29/25 Time: 09:00 PTT Result:: 68.0 SECONDS Infusion Rate:: RECOMMENDED CONTINUING HEPARIN DRIP RATE AT 1300 UNITS/HOUR = 26 ML/HOUR Comment:: PLATELET COUNT = 232,000, PATIENT LIKELY GOING TO [facility] TODAY ([facility] ORDERS ENTERED BY DR BOO). Core Measures Is INR > or = 2 at discharge?: No Most Recent Labs:: Laboratory Results - last 24 hr 01/27/25 09:05: WBC 5.1, RBC 4.73, Hgb 14.9, Hct 43.9, MCV 92.8, MCH 31.5 H, MCHC 33.9, RDW 12.8, Plt Count 250, MPV 9.6, Neut % (Auto) 64.3, Lymph % (Auto) 26.4, [place] % (Auto) 7.7, Eos % (Auto) 0.8, Baso % (Auto) 0.4, Neut # (Auto) 3.3, Lymph # (Auto) 1.3, [place] # (Auto) 0.4, Eos # (Auto) 0.0, Baso # (Auto) 0.0, Sodium 138, Potassium 4.3, Chloride 107, Carbon Dioxide 27, Anion Gap 8.3, BUN 15, Creatinine 0.90, Estimated GFR 62, Est GFR ( Amer) 76, Glucose 106 H, Calcium 9.4, Magnesium 1.9, Total Bilirubin 0.7, AST 53 H, ALT 39, Alkaline Phosphatase 97, Troponin I < 0.01, Total Protein 8.3 H, Albumin 4.9, Globulin 3.4 H, Albumin/Globulin Ratio 1.4, TSH 1.88, Thyroxine (T4) 11.9 H 01/27/25 11:38: Troponin I 0.06 H 01/27/25 22:41: Chlamy pneumoniae PCR Not detected, Adenovirus (PCR) Not detected, B. pertussis DNA (PCR) Not detected, Coronavirus OC43 (PCR) Not detected, Coronavirus HKU1 (PCR) Not detected, Coronavirus 229E (PCR) Not detected, SARS-CoV-2 (PCR) Not detected, Coronavirus NL63 (PCR) Not detected, Human Metapneumovir PCR Not detected, Influenza A (H1) PCR Not detected, Influ A (H1N1/09) PCR Not detected, Influenza A (H3) PCR Not detected, Influenza Type A (PCR) Not detected, Influenza Type B (PCR) Not detected, M. pneumoniae (PCR) Not detected, Parainfluenza 1 (PCR) Not detected, Parainfluenza 2 (PCR) Not detected, Parainfluenza 3 (PCR) Not detected, Parainfluenza 4 (PCR) Not detected, RSV (PCR) Not detected, Entero/Rhino (PCR) Not detected 01/27/25 23:13: Troponin I 0.14 H 01/28/25 01:13: APTT 26.2 L 01/28/25 07:35: WBC 5.5, RBC 4.37, Hgb 14.0, Hct 41.1, MCV 94.1, MCH 32.0 H, MCHC 34.1, RDW 13.1, Plt Count 232, MPV 9.5, Neut % (Auto) 64.3, Lymph % (Auto) 29.0, [place] % (Auto) 4.7, Eos % (Auto) 1.1, Baso % (Auto) 0.2, Neut # (Auto) 3.5, Lymph # (Auto) 1.6, [place] # (Auto) 0.3, Eos # (Auto) 0.1, Baso # (Auto) 0.0, APTT 49.7 L, Sodium 139, Potassium 3.7, Chloride 106, Carbon Dioxide 25, Anion Gap 11.7, BUN 13, Creatinine 0.90, Estimated Creat Clear 70, Estimated GFR 62, Est GFR ( Amer) 76, Glucose 107 H, Calcium 9.1, Magnesium 1.9, Total Bilirubin 0.6, AST 46 H, ALT 40, Alkaline Phosphatase 104, Total Protein 7.3, Albumin 4.5, Globulin 2.8, Albumin/Globulin Ratio 1.6, Triglycerides 176 H, Cholesterol 302 H, LDL Cholesterol Direct 149.60 H, VLDL Cholesterol 35, HDL Cholesterol 68 H, Cholesterol/HDL Ratio 4.4 H Were Heparin and Warfarin started on the same day?: No If not, why?: STOPPED FOLLOWING [facility] PER NEELIMA.
--- NOTE | 2025-01-28 09:53 | PC.NURSE ---
wendy from pharmacy called and advised to increase heparin drip to 23 based on ptt result. pump increased and pt educated
[2025-01-28] MEDS: LISINOPRIL 10MG TABLET 10 MG PO (10:35)
[2025-01-28] MEDS: dilTIAZem ER 120MG CAPSULE 120 MG PO (10:36)
--- NOTE | 2025-01-28 10:36 | CT_ITS ---
APPROVED REPORT [employer] Consultant: CLINICAL INDICATION Elevated serum troponin TECHNIQUE Image Acquisition: A 128 slice MDCT scanner ([employer] View) was used for data acquisition. A noncontrast coronary calcium scan was performed. A CT attenuation threshold of 130 Hounsfield units (HU) was used for the detection of calcium in contiguous voxels of 1 sq mm in area to be counted as individual lesions. Bolus tracking in the ascending aorta with a threshold of 180 HU was performed. Immediately afterwards, ECG synchronized cardiac CT was then performed from the cardiac base to apex using retrospective gating with ECG tube current modulation. A total of 85 mL of Isovue 370 mg/mL contrast medium was administered at 5 mL/sec followed by a saline flush using a biphasic injection protocol. A tube voltage of 120 KVp was used. The patient received the following medications prior to the cardiac CT. 0.8 mg of sublingual nitroglycerin The average heart rate at the time of acquisition was 51 bpm and regular. Image Reconstruction Transaxial images were reconstructed at 0.67 mm slide thickness. Data was reviewed interactively on an advanced workstation capable of 2 and 3-dimensional displays in all conventional reconstruction formats, including multiplanar reformations, maximum intensity projections, curved multiplanar reformations, and volume rendered reconstructions. When applicable, selected routine images describing the relevant coronary anatomy and pathology were saved and sent to PACS. Complications None Technical Quality Overall image quality was suboptimal due to significant motion and blurring artifact. Coronary artery opacification was adequate. Total DLP (Dose-Length Product) is 3310.8 mGy-cm. The reported value represents the total of one or more individual components during the CT acquisition of this date and at this time, and as such, the same value may appear in more than one CT report depending on the interpreting/reporting physicians. COMPARISON None FINDINGS CT Coronary Calcium Scoring LMA (Left Main Artery) = 360 LAD (Left Anterior Descending) = 280 LCX (Left Coronary Circumflex) = 461 RCA (Right Coronary Artery) = 859 Total Calcium Score = 1960 using the AJ-130 method. The observed calcium score of 1960 is at 99th percentile for subjects of the same age, sex, and race/ethnicity. The interpretation of the calcium heart score is based on the following continuum*: 0 = no calcified plaque detected (risk of coronary artery disease is very low ??? less than 5%) 1-10 = calcium detected in extremely minimal levels (risk of coronary diseases is still low ??? less than 10%) 11-100 = mild levels of plaque detected with certainty (mild or minimal narrowing of heart arteries is likely) 101-400 = definite,at least moderate levels of plaque detected (relatively high risk of a heart attack within 3-5 years) >401-999 = extensive levels of plaque detected (high risk of heart attack, high levels of vascular disease are present, high likelihood of at least one significant coronary narrowing) *The calcium heart score quantifies the burden of coronary calcification/plaque in the coronary arteries. The calcium heart score is not able to evaluate the presence or burden of non-calcified (i.e. soft) plaque. There is also identifiable calcification in the aortic valve, mitral annulus, and the ascending, transverse, and descending thoracic aorta. Coronary CT Angiography The coronary arterial system is dominant. Quantitative Stenosis Grading: Left Main (LM): The left main originates normally from the left sinus of Valsalva. The LM bifurcates into the left anterior descending artery and left circumflex artery. There is mixed calcified/noncalcified plaque in the proximal LM, with luminal stenosis. < 25% Left Anterior Descending (LAD) and Diagonal Branches: The LAD gives off 3 diagonal branch(es). There is mixed calcified/noncalcified plaque in the proximal and mid LAD segments, with up to 50-70% luminal stenosis. There is no evidence of LAD-myocardial bridge. Left Circumflex (LCX) and Obtuse Marginals (OM): The LCX gives off 1 Obtuse Marginal (OM) branch(es). There is mixed calcified/noncalcified plaque in the proximal and mid LCx segments with up to 70-90% luminal stenosis. Right Coronary Artery (RCA): The RCA originates normally from the right sinus of Valsalva. The RCA gives off a posterior descending artery (PDA) and posterolateral (PL) branches. There is mixed calcified/noncalcified plaque along the RCA, with minimal flow after the proximal RCA segment, suggestive of possible subtotal or total occlusion. Non-Coronary Cardiac Findings: Analysis of the left ventricular (LV) structure and function was performed after 3-D reconstruction of the LV from axial images, with user-corrected automatic contouring for assessment of LV volumes and user-defined reconstruction from oblique planes for measurement of 3-D cardiac structure and function. -The left ventricle systolic function is normal. -There is no left atrial appendage filling defect. Two right pulmonary veins and two left pulmonary veins drain normally into the left atrium. -No pericardial thickening or calcification. -Central and branch pulmonary arteries in the [id number] are unremarkable. -Thoracic aorta within the visualized thoracic aortic-branches in the [id number] is unremarkable. Extracardiac Structures No significant extra-cardiac findings. Note, however, that this study is focused on the cardiac findings. IMPRESSION -Suboptimal image quality due to significant motion and blurring artifact. This may affect the diagnostic interpretation of the study findings. -Presence of extensive coronary calcification with an Agatston score = 1960 using the AJ-130 method. -The observed calcium score of 1960 is at 99th percentile for subjects of the same age, sex, and race/ethnicity. -Significant multivessel atherosclerotic coronary disease, with evidence of significant flow-limiting atherosclerosis of the coronary arteries, particularly in the proximal RCA and mid LCx segments. -CAD-RADS 5. Management recommendations per ACC/AHA guidelines*, as clinically appropriate. *Recommendations: CAD RADS 0: Reassurance. Consider non-atherosclerotic causes of chest pain. CAD RADS 1: Consider non-atherosclerotic causes of chest pain. Consider preventive therapy and risk factor modification. CAD RADS 2: Consider non-atherosclerotic causes of chest pain. Consider preventive therapy and risk factor modification, particularly for patients with nonobstructive plaque in multiple segments. CAD RADS 3: Consider further functional testing. Consider symptom-guided anti-ischemic and preventive pharmacotherapy as well as risk factor modification per published guideline statements. CAD RADS 4A: Consider further functional testing or invasive coronary angiography with revascularization per published guideline statements. Consider symptom-guided anti-ischemic and preventive pharmacotherapy as well as risk factor modification per published guideline statements. CAD RADS 4B: Invasive coronary angiography recommended with revascularization per published guideline statements. Consider symptom-guided anti-ischemic and preventive pharmacotherapy as well as risk factor modification per published guideline statements. CAD RADS 5: Consider invasive angiography and/or viability assessment with revascularization per published guideline statements. Consider symptom-guided anti-ischemic and preventive pharmacotherapy as well as risk factor modification per published guideline statements. CRITICAL RESULT None COMMUNICATION The above findings were communicated with the inpatient cardiology consult team at the time of image acquisition (prior to dictation of this report). The coronary and cardiac findings of this CCTA were reviewed, reported, and signed by Aime Rubio MD (Cooker Operator) Conclusion Electronically signed by : Lucila Rubio MD 01/30/2025 14:00:58
--- NOTE | 2025-01-28 10:59 | HMH.ITSTN ---
cholo nix to call back regarding cta coronary
--- NOTE | 2025-01-28 11:49 | P.CONCA_ITS ---
History of Present Illness History of Present Illness Consult date: 01/28/25 Requesting physician: Joe Enrique Consult reason: atrial fibrillation Chief complaint: racing of the heart History of present illness: This is a 69-year-old female who presented to the emergency department with complaints of palpitations/racing of the heart. The patient has a past medical history of hypertension and hypothyroidism. The patient reports feeling weak over the weekend and having intermittent episodes of dizziness. She states that she just kind of fell off and woke up yesterday morning with her heart racing. She states that after being up for approximately 10 minutes the racing heart would not subside so she decided to come to the emergency department. When she got to the emergency department she was found to have atrial fibrillation with RVR, heart rate was in the 130s. The patient was treated with a diltiazem bolus and drip and converted back to sinus rhythm. She denies any chest pain or pressure. She denies any shortness of breath or edema. She denies any fever, chills, nausea, vomiting, diarrhea, PND or orthopnea. She states that she has been feeling clammy and diaphoretic intermittently as well since having the palpitations of the heart. The patient's troponin did elevate consistent with a non-STEMI. [facility] Disclaimer: The information contained in this section may have been updated after the patient was seen, as this information can be updated by other users. Medical History (Updated 01/28/25 @ 14:41 by Jocelyn Browne APRN) Atrial fibrillation with rapid ventricular response Abnormal findings diagnostic imaging of heart and coronary circulation Heart murmur Elevated troponin HTN (hypertension) Interstitial cystitis Social History (Updated 01/27/25 @ 12:46 by Joanna Miller RN) Smoking Status: Never smoker alcohol intake: never current occupational status: other Travel in the last 8 weeks: None Have you lived/traveled outside [place] in past 30 days?: No Contact w/someone who lives/traveled outside US past 30 days?: No Exposure to someone with infectious disease in past 14 days?: No Do you have a fever (greater than 100.4 F or 38 C)?: No Have you tested positive for COVID-19: No Exposed to someone with COVID-19 in past 14 days?: No Do you have a sore throat?: No Do you have a cough?: No Do you have any weakness?: No Are you experiencing any nausea/vomitting?: No Do you have any diarrhea?: No Are you experiencing any unusual bleeding?: No Do you have any muscle aches/pain?: No Do you have any abdominal pain?: No Are you experiencing loss of taste or smell?: No Review of Systems Review of Systems Review of systems:: pertinent systems reviewed and negative unless documented below Constitutional Constitutional: Reports system reviewed and no additional complaints, except as documented, Reports fatigue and Reports lethargy Eyes Eyes: Reports system reviewed and no additional complaints, except as documented ENT Ears, Nose, Mouth, and Throat: Reports system reviewed and no additional complaints, except as documented *Cardiovascular Cardiovascular: Reports system reviewed and no additional complaints, except as documented, Reports diaphoresis, Reports palpitations and Reports rapid heart rate *Respiratory Respiratory: Reports system reviewed and no additional complaints, except as documented *Gastrointestinal Gastrointestinal: Reports system reviewed and no additional complaints, except as documented *Genitourinary Genitourinary: Reports system reviewed and no additional complaints, except as documented *Musculoskeletal Musculoskeletal: Reports system reviewed and no additional complaints, except as documented Integumentary/Breasts Skin/Breast: Reports system reviewed and no additional complaints, except as documented *Neurologic Neurologic: Reports system reviewed and no additional complaints, except as documented Psychiatric Psychiatric: Reports system reviewed and no additional complaints, except as documented Endocrine Endocrine: Reports system reviewed and no additional complaints, except as documented, Reports fatigue and Reports palpitations Hematologic/Lymphatic Hematologic/Lymphatic: Reports system reviewed and no additional complaints, except as documented Allergic/Immunologic Allergic/Immunologic: Reports system reviewed and no additional complaints, except as documented Exam Data for Last 24 hours Vital signs and Labs for Last 24 Hours: Temp Pulse Resp BP Pulse Ox O2 Del Method 97.8 F 55 L 18 118/69 97 Room Air 01/28/25 08:00 01/28/25 08:00 01/28/25 08:00 01/28/25 08:00 01/28/25 08:00 01/28/25 09:00 Laboratory Results - last 24 hr 01/27/25 11:38: Troponin I 0.06 H 01/27/25 22:41: Chlamy pneumoniae PCR Not detected, Adenovirus (PCR) Not detected, B. pertussis DNA (PCR) Not detected, Coronavirus OC43 (PCR) Not detected, Coronavirus HKU1 (PCR) Not detected, Coronavirus 229E (PCR) Not detected, SARS-CoV-2 (PCR) Not detected, Coronavirus NL63 (PCR) Not detected, Human Metapneumovir PCR Not detected, Influenza A (H1) PCR Not detected, Influ A (H1N1/09) PCR Not detected, Influenza A (H3) PCR Not detected, Influenza Type A (PCR) Not detected, Influenza Type B (PCR) Not detected, M. pneumoniae (PCR) Not detected, Parainfluenza 1 (PCR) Not detected, Parainfluenza 2 (PCR) Not detected, Parainfluenza 3 (PCR) Not detected, Parainfluenza 4 (PCR) Not detected, RSV (PCR) Not detected, Entero/Rhino (PCR) Not detected 01/27/25 23:13: Troponin I 0.14 H 01/28/25 01:13: APTT 26.2 L 01/28/25 07:35: WBC 5.5, RBC 4.37, Hgb 14.0, Hct 41.1, MCV 94.1, MCH 32.0 H, MCHC 34.1, RDW 13.1, Plt Count 232, MPV 9.5, Neut % (Auto) 64.3, Lymph % (Auto) 29.0, [place] % (Auto) 4.7, Eos % (Auto) 1.1, Baso % (Auto) 0.2, Neut # (Auto) 3.5, Lymph # (Auto) 1.6, [place] # (Auto) 0.3, Eos # (Auto) 0.1, Baso # (Auto) 0.0, APTT 49.7 L, Sodium 139, Potassium 3.7, Chloride 106, Carbon Dioxide 25, Anion Gap 11.7, BUN 13, Creatinine 0.90, Estimated Creat Clear 70, Estimated GFR 62, Est GFR ( Amer) 76, Glucose 107 H, Calcium 9.1, Magnesium 1.9, Total Bilirubin 0.6, AST 46 H, ALT 40, Alkaline Phosphatase 104, Total Protein 7.3, Albumin 4.5, Globulin 2.8, Albumin/Globulin Ratio 1.6, Triglycerides 176 H, Cholesterol 302 H, LDL Cholesterol Direct 149.60 H, VLDL Cholesterol 35, HDL Cholesterol 68 H, Cholesterol/HDL Ratio 4.4 H I & O for Last 24 hours: Intake & Output 01/25/25 01/26/25 01/27/25 01/28/25 23:59 23:59 23:59 23:59 Intake Total 311.167 / 671.167 600 / 600 Output Total 0 / 0 0 / 0 Balance 311.167 / 671.167 600 / 600 Weight 180 lb 180 lb 0.013 oz Constitutional Constitutional: no acute distress and average body habitus *Routine HEENT Exam Head: Present normocephalic and atraumatic ENT: Present mucous membranes moist *Routine Neck Exam Neck: Present supple, full ROM and normal carotid upstroke; Absent JVD, carotid bruit or lymphadenopathy *Routine Respiratory Exam Respiratory: Present CTA bilaterally, normal respiratory effort, able to speak in complete sentences and symmetric chest movement *Routine Cardiovascular Exam Cardiovascular: Present RRR, Normal S1, Normal S2 and murmur; Absent gallop *Routine Abdominal Exam Abdominal: Present soft and normoactive bowel sounds; Absent tenderness, distended or organomegaly *Routine Extremities Exam Extremities: Present full ROM, pulses intact and normal capillary refill; Absent cyanosis, clubbing or edema *Routine Skin Exam Skin: Present intact and warm; Absent erythema *Routine Neurological Exam Neurological: Present alert, oriented X3 and CN II-XII intact; Absent sensory deficit or motor deficit Routine Psychiatric Exam Psychiatric: Present normal affect Meds Home Medications and Allergies Home Medications ?Medication ?Instructions ?Recorded ?Confirmed ?Type amlodipine 5 mg tablet 5 mg PO DAILY 01/27/25 01/27/25 History levothyroxine 75 mcg tablet 75 mcg PO DAILY 01/27/25 01/27/25 History lisinopril 10 mg tablet 10 mg PO DAILY 01/27/25 01/27/25 History New Prescriptions to Start Prescriptions: Allergies Allergy/AdvReac Type Severity Reaction Status Date / Time codeine (CODEINE) Allergy Unknown Nausea Verified 01/27/25 10:38 cortisone (CORTISONE) Allergy Unknown Rash Verified 01/27/25 10:38 Assessment and Plan *Assessment and plan (1) Atrial fibrillation with rapid ventricular response: Status: Acute Category: Medical Code(s): I48.91 - Unspecified atrial fibrillation (2) Elevated troponin: Status: Acute Category: Medical Code(s): R79.89 - Other specified abnormal findings of blood chemistry (3) HTN (hypertension): Status: Acute Qualifiers: Hypertension type: primary hypertension Qualified Code(s): I10 - Essential (primary) hypertension Category: Medical Code(s): I10 - Essential (primary) hypertension (4) Heart murmur: Status: Acute Category: Medical Code(s): R01.1 - Cardiac murmur, unspecified (5) Abnormal findings diagnostic imaging of heart and coronary circulation: Status: Acute Category: Medical Code(s): R93.1 - Abnormal findings on diagnostic imaging of heart and coronary circulation Plan Plan: 1. The patient was admitted to the hospital with atrial fibrillation with RVR. She was given diltiazem bolus and drip and converted back to sinus rhythm. The diltiazem drip has been stopped and she has been started on oral diltiazem CD 120 mg daily. Continue oral diltiazem. 2. She is currently on heparin for anticoagulation. This will need to be switched over to Eliquis prior to discharge home. 3. The patient does have an elevated troponin consistent with a non-STEMI. Will proceed with a CTA of the coronary arteries to rule out ischemia due to her elevated troponin and new onset atrial fibrillation. 4. We will obtain an echocardiogram to evaluate her LV function secondary to her elevated troponin and heart murmur. 5. Her blood pressure is well-controlled. Continue lisinopril. 6. Her LDL goal is less than 55. Her LDL is 149. She has been started on a statin. She states that she has a history of not being able to tolerate cholesterol medications due to GI upset. She does not recall ever being on Lipitor. Will continue this medication at this time. 7. Continue aspirin 81 mg daily. 8. Further recommendations will be made pending the patient's response to treatment and the results of her echocardiogram and CTA of the coronary arteries today. Thank you for the opportunity to have participate in the care of this patient. All recommendations and orders are per Dr. Rubio. Addendum: CCTA is abnormal. The patient does have coronary calcifications to the LAD which are mild. The circumflex artery and right coronary arteries are inconclusive but she does have a heavy calcification burden to the circumflex artery and right coronary arteries. Left cardiac catheterization tomorrow is recommended due to her abnormal CCTA showing significant coronary calcifications possibly to the circumflex artery and right coronary artery. Continue aspirin and Lipitor. She will be n.p.o. after lunch tomorrow in preparation for left cardiac catheterization tomorrow afternoon.
[2025-01-28] MEDS: 0.9 % SODIUM CHLORIDE 50 ML VIAL IV ×2 (12:31→12:32)
[2025-01-28] MEDS: SODIUM CHLORIDE 0.9% 10ML SYR (RAD ONLY) 10 ML IV ×2 (12:32)
[2025-01-28] MEDS: IOPAMIDOL-370 (76%);100ML BOTTLE 85 ML IV ×2 (12:32)
[2025-01-28 14:56] LABS: PTT Heparin (inpatient only) 43.2 Seconds (50-75)
[2025-01-28] MEDS: ACETAMINOPHEN 325MG TAB 650 MG PO (14:57)
--- NOTE | 2025-01-28 15:06 | P.PN_ITS ---
Subjective *Date: 01/28/25 *Time: 16:19 Interval history: Patient denies any chest pain today. Heart rate better controlled. In sinus rhythm at this time. Did have a bump in troponin however. Cardiology assisting with care today. Respiratory panel returned negative, stable on room air. Medical Exam Vital signs and Labs for Last 24 Hours: Vital Signs Temp Pulse Pulse Resp BP Pulse Ox O2 Del Method 01/28/25 11:00 Room Air 01/28/25 09:00 Room Air 01/28/25 08:00 97.8 F 55 L 18 118/69 97 Room Air 01/28/25 08:00 50 L 01/28/25 06:41 Room Air 01/28/25 05:00 Room Air 01/28/25 04:00 50 L 01/28/25 04:00 56 L 119/66 96 Room Air 01/28/25 03:00 Room Air 01/28/25 01:00 Room Air 01/28/25 00:00 97.4 F L 50 L 106/57 L 95 Room Air 01/28/25 00:00 55 L 01/27/25 23:00 Room Air 01/27/25 21:00 Room Air 01/27/25 20:00 55 L 01/27/25 20:00 Room Air 01/27/25 20:00 98.0 F 56 L 136/89 97 Room Air 01/27/25 19:00 Room Air 01/27/25 17:00 Room Air Intake and Output 01/27/25 01/28/25 01/28/25 23:59 07:59 15:59 Intake Total 300 / 671.167 360 / 840 480 / 840 Output Total 0 / 0 0 / 0 Balance 300 / 671.167 360 / 840 480 / 840 Intake: Intake, Oral Amount 300 / 660 360 / 840 480 / 840 Output: Output, Urine Amount 0 / 0 0 / 0 Other: Number of Unmeasured Voids 1 1 Weight 81.647 kg 81.647 kg Patient Weight 01/28/25 23:59 Weight 81.647 kg Laboratory Results - last 24 hr 01/27/25 22:41: Chlamy pneumoniae PCR Not detected, Adenovirus (PCR) Not detected, B. pertussis DNA (PCR) Not detected, Coronavirus OC43 (PCR) Not detected, Coronavirus HKU1 (PCR) Not detected, Coronavirus 229E (PCR) Not detected, SARS-CoV-2 (PCR) Not detected, Coronavirus NL63 (PCR) Not detected, Human Metapneumovir PCR Not detected, Influenza A (H1) PCR Not detected, Influ A (H1N1/09) PCR Not detected, Influenza A (H3) PCR Not detected, Influenza Type A (PCR) Not detected, Influenza Type B (PCR) Not detected, M. pneumoniae (PCR) Not detected, Parainfluenza 1 (PCR) Not detected, Parainfluenza 2 (PCR) Not detected, Parainfluenza 3 (PCR) Not detected, Parainfluenza 4 (PCR) Not detected, RSV (PCR) Not detected, Entero/Rhino (PCR) Not detected 01/27/25 23:13: Troponin I 0.14 H 01/28/25 01:13: APTT 26.2 L 01/28/25 07:35: WBC 5.5, RBC 4.37, Hgb 14.0, Hct 41.1, MCV 94.1, MCH 32.0 H, MCHC 34.1, RDW 13.1, Plt Count 232, MPV 9.5, Neut % (Auto) 64.3, Lymph % (Auto) 29.0, [place] % (Auto) 4.7, Eos % (Auto) 1.1, Baso % (Auto) 0.2, Neut # (Auto) 3.5, Lymph # (Auto) 1.6, [place] # (Auto) 0.3, Eos # (Auto) 0.1, Baso # (Auto) 0.0, APTT 49.7 L, Sodium 139, Potassium 3.7, Chloride 106, Carbon Dioxide 25, Anion Gap 11.7, BUN 13, Creatinine 0.90, Estimated Creat Clear 70, Estimated GFR 62, Est GFR ( Amer) 76, Glucose 107 H, Calcium 9.1, Magnesium 1.9, Total Bilirubin 0.6, AST 46 H, ALT 40, Alkaline Phosphatase 104, Total Protein 7.3, Albumin 4.5, Globulin 2.8, Albumin/Globulin Ratio 1.6, Triglycerides 176 H, Cholesterol 302 H, LDL Cholesterol Direct 149.60 H, VLDL Cholesterol 35, HDL Cholesterol 68 H, Cholesterol/HDL Ratio 4.4 H 01/28/25 13:40: APTT 43.2 L I & O for Labs for Last 24 Hours: Intake & Output 01/25/25 01/26/25 01/27/25 01/28/25 23:59 23:59 23:59 23:59 Intake Total 311.167 / 671.167 840 / 840 Output Total 0 / 0 0 / 0 Balance 311.167 / 671.167 840 / 840 Weight 81.647 kg 81.647 kg Constitutional: Present no acute distress, average body habitus, chronically ill appearing and cooperative Head: Present atraumatic and normocephalic ENT: Present normal exam Respiratory: Present normal respiratory effort; Absent respiratory distress, rhonchi, stridor, wheezes or crackles Cardiac: Present Reg Rate and Rhythm GI: Present soft and normal bowel sounds; Absent distention or tenderness Extremities: Present normal inspection and full ROM Skin: Present intact; Absent erythema Neuro: Present Grossly Intact, alert, awake, oriented x 3 and moves all extremities Assessment and Plan *Assessment and plan (1) Atrial fibrillation with rapid ventricular response: Status: Acute Category: Medical Code(s): I48.91 - Unspecified atrial fibrillation (2) Abnormal findings diagnostic imaging of heart and coronary circulation: Status: Acute Category: Medical Code(s): R93.1 - Abnormal findings on diagnostic imaging of heart and coronary circulation (3) HTN (hypertension): Status: Acute Qualifiers: Hypertension type: primary hypertension Qualified Code(s): I10 - Essential (primary) hypertension Category: Medical Code(s): I10 - Essential (primary) hypertension (4) Elevated troponin: Status: Acute Category: Medical Code(s): R79.89 - Other specified abnormal findings of blood chemistry (5) CAD (coronary artery disease): Status: Acute Category: Medical Code(s): I25.10 - Atherosclerotic heart disease of [place] coronary artery without angina pectoris Randall Otoole is a 69-year-old female with a medical history significant for hypertension, hypothyroidism who presents with symptoms of heart racing. She states that she she was feeling significant fatigue over the weekend, and woke up this morning feeling like her heart was racing. Denies chest pain, shortness of breath, abdominal pain, fever/chills, upper respiratory symptoms. No known cardiac, lung history. Non-smoker. Workup in the ED significant for HR 132 A- fib RVR converted to NSR after diltiazem bolus and drip. Patient remained stable, and was discussed whether patient wanted to go home with close follow-up with cardiology with new meds. However, patient wanted to be admitted for monitoring. Case discussed with ED provider and decision was made to admit patient for new onset A-fib RVR. Patient's heart rate converted to sinus rhythm however given her bump in troponin, cardiology evaluating today. CCTA with abnormal calcium score. Planning on heart cath in the morning. Problems addressed as follows: #New onset A-fib #RVR, resolved # NSTEMI # CAD ? Patient currently pleasant, comfortable. Vital stable. HR 54 NSR. -Continued heparin drip as patient was unsure about Eliquis. [id number] score 3. Consider transitioning to NOAC tomorrow after heart cath -Discussed case with cardiology today, given patient's troponin of 0.14, recommend heart cath. Patient wanted to proceed with CCTA first. Found to have elevated calcium score and abnormal calcium burden in LAD. Will proceed with left heart cath in the morning. Further management pending thereafter. - Echo obtained, formal read pending. - Transition to oral diltiazem 120 mg daily ? TSH normal. No signs of infection at this time. -Statin and DAPT therapy pending cardiology eval and recommendations -White count normal at 5.5, hemoglobin stable at 14. Kidney function normal with BUN 13, creatinine 0.9. Repeat CBC, CMP, magnesium ordered for the morning. #Hypertension ? Continue home lisinopril 10 mg. Discontinue amlodipine after starting diltiazem as above. Full code DVT prophylaxis: Eliquis N.p.o. after midnight
[2025-01-28] MEDS: HEPARIN SODIUM 5,000 UNIT/ML VIAL 3000 UNIT IV (15:44)
[2025-01-28 16:00] VITALS: BP 106/57; PULSE 50; PULSE 51; RESP 18; TEMP 36.7; O2SAT 95
--- NOTE | 2025-01-28 17:42 | PC.NURSE ---
pt resting in the chair currently. pt tolerating RA with sats >90%. HR has remained bradycardic. no A fib noted on tele. pt had a CTA this shift and was very apprehensive. pt ended up tolerating well. vss. pt to have heart cath tomorrow. consent signed and on the chart. no chest pain reported. no needs at this time. call light within reach.
[2025-01-28] MEDS: NITROGLYCERIN 0.4MG SL TABLET SL (18:15)
[2025-01-28 20:00] VITALS: BP 103/63; PULSE 50; PULSE 55; RESP 17; TEMP 36.7; O2SAT 95
[2025-01-28] MEDS: ATORVASTATIN 40MG TABLET 40 MG PO (21:20)
[2025-01-28 21:34] LABS: PTT Heparin (inpatient only) 69.7 Seconds (50-75)
[2025-01-29] VITALS (17 sets, daily range): BP systolic 88–144; BP diastolic 52–76; PULSE 45–90; RESP 16–20; TEMP 36.5–37.3; O2SAT 92–99; BMI 32.3
[2025-01-29] MEDS: HEPARIN SODIUM,PORCINE/D5W 500 ML 26 UNIT IV (00:34)
[2025-01-29 03:21] LABS: PTT Heparin (inpatient only) 71.7 Seconds (50-75)
--- NOTE | 2025-01-29 03:30 | PC.NURSE ---
spoke with Delroy from [facility] regarding patient PTT results, continue heparin drip at 1300 units/hr, order next PTT for 0900
[2025-01-29] MEDS: LEVOTHYROXINE 75MCG (0.075MG) TAB 75 MCG PO (06:07)
[2025-01-29 07:04] LABS: Alanine Aminotransferase 36 U/L (12-78); Albumin Level 3.9 g/dl (3.5-5.0); Albumin/Globulin Ratio 1.6 (1.1-1.8); Alkaline Phosphatase 96 U/L (38-126); Anion Gap 7.7 mEq/L (5-15); Aspartate Amino Transferase 43 U/L (14-36); Bilirubin,Total 0.4 mg/dl (0.2-1.3); Blood Urea Nitrogen 13 mg/dl (7-17); Calcium 9.1 mg/dl (8.4-10.2); Carbon Dioxide 25 mmol/L (22.0-30.0); Chloride 108 mmol/L (98-107); Creatinine Clearance Estimated 81 mL/min (50-200); Estimated Glomerular Filt Rate 62 ml/min (>60); GFR (African American) 76 ML/MIN (>60); Globulin 2.5 g/dL (1.3-3.2); Glucose 100 mg/dl (74-100); Potassium 3.7 mmoL/L (3.5-5.1); Sodium 137 mmol/L (136-145); Total Protein,Serum 6.4 g/dl (6.3-8.2)
[2025-01-29 08:17] LABS: Eosinophils # 0.1 K/mm3 (0.0-0.4); Monocytes # 0.4 K/mm3 (0.1-1.0); Red Cell Distribution Width 13.2 % (11.5-17.5)
[2025-01-29 08:20] LABS: Basophils % 0.3 % (0.1-2.0); Eosinophils % 1.2 % (0.1-12.0); Hematocrit 37.6 % (37.0-47.0); Hemoglobin 12.5 g/dL (12.2-16.2); Lymphocytes % 33.4 % (10-50); Mean Corpuscular HGB Conc 33.2 g/dL (31.8-35.4); Mean Corpuscular Hemoglobin 31.1 pg (27.0-31.2); Mean Corpuscular Volume 93.5 fl (81-99); Mean Platelet Volume 10.5 fl (7.4-10.4); Monocytes % 6.8 % (1.7-9.3); Neutrophils # 3.4 K/mm3 (1.8-7.8); Neutrophils % 57.8 % (37.0-80.0); Platelet Count 229 K/mm3 (142-424); Red Blood Count 4.02 M/mm3 (4.20-5.40); White Blood Count 5.8 K/mm3 (4.8-10.8)
[2025-01-29] MEDS: LISINOPRIL 10MG TABLET 10 MG PO (08:49)
[2025-01-29] MEDS: dilTIAZem ER 120MG CAPSULE 120 MG PO (08:49)
[2025-01-29] MEDS: ASPIRIN EC 81MG TABLET 81 MG PO (08:49)
--- NOTE | 2025-01-29 10:35 | PC.NURSE ---
pt NPO ordered for 1230. cath scheduled for 1400. pt given breakfast. inside steward/stewardess spoke with lab technician RN and advised that pt be NPO immediately. educated pt on NPO status and agreeable.
--- NOTE | 2025-01-29 10:41 | EXP.CARD.PN ---
Subjective Subjective Date: 01/29/25 Time: 08:30 Interval history: This is a 69-year-old female who presented to the hospital with palpitations and racing of the heart. She was found to be in atrial fibrillation with RVR. She converted after receiving a bolus of diltiazem and being started on a drip. She remains in sinus rhythm at this time and is now on oral diltiazem. The patient also had an elevated troponin consistent with a non-STEMI and is scheduled to undergo left cardiac catheterization this morning. She denies any palpitations or racing of the heart today. She denies any chest pain or pressure. She denies any shortness of breath or edema. She denies any fever, chills, nausea, vomiting, diarrhea, PND or orthopnea. She states that she has been feeling clammy and diaphoretic intermittently as well since having the palpitations of the heart. Exam Data for Last 24 hours Vital signs and Labs for Last 24 Hours: Temp Pulse Resp BP Pulse Ox O2 Del Method 97.9 F 45 L 17 109/58 L 95 Room Air 01/29/25 08:00 01/29/25 08:00 01/29/25 08:00 01/29/25 08:00 01/29/25 08:00 01/29/25 09:00 Laboratory Results - last 24 hr 01/28/25 13:40: APTT 43.2 L 01/28/25 21:00: APTT 69.7 01/29/25 02:59: APTT 71.7 01/29/25 05:31: WBC 5.8, RBC 4.02 L, Hgb 12.5 D, Hct 37.6, MCV 93.5, MCH 31.1, MCHC 33.2, RDW 13.2, Plt Count 229, MPV 10.5 H, Neut % (Auto) 57.8, Lymph % (Auto) 33.4, [place] % (Auto) 6.8, Eos % (Auto) 1.2, Baso % (Auto) 0.3, Neut # (Auto) 3.4, Lymph # (Auto) 2.0, [place] # (Auto) 0.4, Eos # (Auto) 0.1, Baso # (Auto) 0.0, Sodium 137, Potassium 3.7, Chloride 108 H, Carbon Dioxide 25, Anion Gap 7.7, BUN 13, Creatinine 0.90, Estimated Creat Clear 81, Estimated GFR 62, Est GFR ( Amer) 76, Glucose 100, Calcium 9.1, Magnesium 2.0, Total Bilirubin 0.4, AST 43 H, ALT 36, Alkaline Phosphatase 96, Total Protein 6.4, Albumin 3.9 D, Globulin 2.5, Albumin/Globulin Ratio 1.6 01/29/25 09:00: APTT 68.0 I & O for Last 24 hours: Intake & Output 01/26/25 01/27/25 01/28/25 01/29/25 23:59 23:59 23:59 23:59 Intake Total 311.167 / 888.862 1827 / 2360 679 / 679 Output Total 0 / 0 0 / 0 Balance 311.167 / 153.654 1241 / 2360 679 / 679 Weight 180 lb 180 lb 0.013 oz 206 lb 4.8 oz Constitutional Constitutional: no acute distress and average body habitus *Routine HEENT Exam Head: Present normocephalic and atraumatic ENT: Present mucous membranes moist *Routine Neck Exam Neck: Present supple, full ROM and normal carotid upstroke; Absent JVD, carotid bruit or lymphadenopathy *Routine Respiratory Exam Respiratory: Present CTA bilaterally, normal respiratory effort, able to speak in complete sentences and symmetric chest movement *Routine Cardiovascular Exam Cardiovascular: Present RRR, Normal S1, Normal S2 and murmur; Absent gallop *Routine Abdominal Exam Abdominal: Present soft and normoactive bowel sounds; Absent tenderness, distended or organomegaly *Routine Extremities Exam Extremities: Present full ROM, pulses intact and normal capillary refill; Absent cyanosis, clubbing or edema *Routine Skin Exam Skin: Present intact and warm; Absent erythema *Routine Neurological Exam Neurological: Present alert, oriented X3 and CN II-XII intact; Absent sensory deficit or motor deficit Routine Psychiatric Exam Psychiatric: Present normal affect Progress Note: A&P Assessment and plan (1) Elevated troponin: Status: Acute (2) Atrial fibrillation with rapid ventricular response: Status: Acute (3) Abnormal findings diagnostic imaging of heart and coronary circulation: Status: Acute (4) HTN (hypertension): Status: Acute (5) CAD (coronary artery disease): Status: Acute (6) Hyperlipidemia: Status: Acute (7) Heart murmur: Status: Acute Assessment and Plan Assessment and Plan for All Diagnoses:: Plan: 1. The patient was admitted to the hospital with atrial fibrillation with RVR. She was given diltiazem bolus and drip and converted back to sinus rhythm. The diltiazem drip has been stopped and she has been started on oral diltiazem CD 120 mg daily. Continue oral diltiazem. 2. She is currently on heparin for anticoagulation. This will need to be switched over to Eliquis prior to discharge home. 3. The patient does have an elevated troponin consistent with a non-STEMI. Radha score is 106. CCTA did show possible significant coronary calcifications to the circumflex artery and right coronary arteries. The study was inconclusive. In the setting of her non-STEMI and new onset atrial fibrillation we will plan to proceed with left cardiac catheterization today to evaluate for coronary artery disease. 4. The patient has been educated risk and benefits of proceeding with left cardiac catheterization. The patient verbalized understanding and is agreeable to proceeding with the procedure. 5. The patient will be n.p.o. after lunch today in preparation for left cardiac catheterization. 6. Echocardiogram shows a normal ejection fraction and no significant valve disease. 7. Her blood pressure is well-controlled. Continue lisinopril. 8. Her LDL goal is less than 55. Her LDL is 149. She has been started on a statin. She states that she has a history of not being able to tolerate cholesterol medications due to GI upset. She does not recall ever being on Lipitor. Will continue this medication at this time. 9. Continue aspirin 81 mg daily. 10. Further recommendations will be made pending the patient's response to treatment and results of left cardiac catheterization today. Thank you for the opportunity to have participate in the care of this patient. All recommendations and orders are per Dr. Rubio.
--- NOTE | 2025-01-29 12:00 | IR_ITS ---
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 Left heart catheterization 2. Selective coronary arteriography 3. Left ventriculography 4. PTCA of the left circumflex INDICATION 1. Non-Q wave myocardial infarction, 2. Coronary artery disease SCAI INDICATION Patient is 69-year-old white female who had presented with tachycardia non-Q wave myocardial infarction. She will underwent a CT angio of the chest which showed calcification in the circumflex and right coronary artery and stenosis could not be excluded. Secondary to this referred for left heart catheterization Informed consent was obtained prior to the procedure. COMPLICATIONS None Estimated Blood Loss: Less than 10 mls TECHNIQUE One percent lidocaine used to anesthetize the right anterior aspect of the wrist. The right radial artery was accessed via the Seldinger technique. A 6 Prydeinig sheath was placed in the right radial artery. 2.5 mg of Verapamil, 800 mcg of nitroglycerin, 1mg Lidocaine and 5000 U Heparin were given through the arterial sheath. The papa catheter was also used to perform left heart catheterization, left ventriculogram and selective coronary angiogram. At the end of the procedure the sheath was removed good hemostasis was achieved using Traclet band, patient was transferred to the postop holding area in stable condition. ANGIOGRAPHIC RESULTS The left main artery Angiographically normal The left anterior descending artery With smooth 20% proximal and smooth 20% mid stenosis. Large first diagonal branch with mild luminal regularities The circumflex artery Had critical 99.9% proximal stenosis. This was right at the takeoff of a small obtuse marginal branch. There was a ramus intermedius as well that was moderate in size and angiographically normal. Right at that 99.9% stenoses patient then right after had the takeoff of a second obtuse marginal branch which was moderate in size and the true circumflex. The true circumflex itself was also subtotally occluded in its mid/distal portion. The vessel was very small at this area at 1.5 mm The right coronary artery Large and dominant. The right coronary artery was 100% occluded in its midportion. There is a very large acute marginal/high atrial branch that comes off that collateralizes briskly the distal right coronary artery. The distal right coronary artery is also being collateralized from the left coronary system The GOLDS[place]ITH ventriculogram reveals Normal left ventricular systolic function with an ejection fraction of 60 to 65% The left ventricular end-diastolic pressure 12 After diagnostic cardiac catheterization was performed I went in immediately to fix the circumflex artery. The right coronary artery has excellent collaterals. We gave additional heparin and the ACT was greater than 400. I went in with a Choice PT wire was able to cross the lesion into the second obtuse marginal branch. We ballooned a couple of times in the proximal vessel going into the obtuse marginal branch. We used multiple balloons. We used 1.25 balloons as well as 1.5 and even a 2.0 balloon. The only balloon that would go past the subtotally occluded area was a 1.25. Despite prolonged inflation the lesion at that level would not crack. We could not get a stent across. We cannot get any larger balloons across. This is despite even using a guide liner support system. We did get a little bit again with a 1.25 with a residual stenosis of around 80% and there was excellent KJ-3 flow to the second obtuse marginal when the procedure was complete but we were unable to pass any other hardware across that subtotal occlusion then a 1.25 mm balloon. The 1.5 mm would only cross into the very proximal portion and would not cross any further even with a guide liner catheter. Secondary to this we felt like we would continue with aggressive medical therapy. If patient fails aggressive medical therapy she may benefit from being brought back with a groin approach to try to use more supportive catheters. Radial sheath removed and right radial band placed without difficulty IMPRESSION 1. Critical 100% mid occlusion of the large dominant right coronary artery with moderate calcification at that level 2. Brisk right to right and [id number] collaterals filling the distal right coronary artery in its posterior descending and posterior lateral branches 3. Critical stenosis noted in the proximal/mid left circumflex prior to the takeoff of a moderate obtuse marginal branch. True circumflex in its mid/distal portion also with subtotal occlusion where the vessel was very small at 1.5 mm in size 4. Mild disease down the large left anterior descending 5. Preserved normal left ventricular systolic function 6. Normal left ventricular end-diastolic pressure 7. Angioplasty of the proximal/mid left circumflex at an area of moderate calcification with a residual 80% stenosis and inability to pass the stent at that level 8. Successful placement of a radial band on the right radial artery PLAN 1. Patient will continue with aggressive medical therapy. The right coronary artery is collateralized through 2 separate locations. There is a large collateral coming from a high acute marginal branch/atrial branch that comes around and feeds the distal vessel. There are also [id number] collaterals filling the distal vessel. Left anterior descending has minimal disease and this is very large in size. Ramus intermedius is moderate in size and angiographically normal. The circumflex does have critical stenosis with heavy calcification in the proximal/mid vessel. The true circumflex itself is subtotally occluded and small after the takeoff of the second obtuse marginal branch. Less than 1.5 mm in size. We attempted to intervene on the proximal/mid left circumflex to provide better flow to the second obtuse marginal branch. We used multiple balloons including 1.25, 1.5 and 2.0 balloons but the only balloon that would cross that heavily calcified stenosis in the proximal/mid circumflex was a 1.25 balloon. Despite taking that up to 22 janes and a couple of balloons actually rupturing because of the calcium we were unable to gain any ground in order to get anything else across even with a guide liner catheter. We will treat this medically. My recommendation is Plavix 600 mg x 1 and 75 mg daily. Ejection fraction is normal. Aggressive titration of medications as tolerated. If she fails aggressive medical therapy she can be brought back with an intervention on that circumflex tried via the groin approach as there may be more support. I will leave that up to her primary jinrikisha driver. In the meantime continue with aggressive medical therapy. Electronically signed by : Bradley Garrett MD 01/29/2025 15:45:39
[2025-01-29] MEDS: MIDAZOLAM HCL 1MG/ML 5ML VIAL 1 MG IV (14:39)
[2025-01-29] MEDS: diphenhydrAMINE 50MG/ML VIAL 50 MG IV (14:39)
[2025-01-29] MEDS: LIDOCAINE 1% 10ML MDV 20 ML IJ (14:39)
[2025-01-29] MEDS: FENTANYL 100MCG/2ML VIAL 50 MCG IV (14:39)
[2025-01-29] MEDS: VERAPAMIL 2.5MG/ML 2ML VIAL 2.5 MG IV (14:39)
[2025-01-29] MEDS: HEPARIN 1,000 UNITS/ML 10ML VIAL (CATH LAB) 10000 UNIT IV (14:40)
[2025-01-29] MEDS: NITROGLYCERIN 800MCG/8ML SYR (CATH LAB) 800 MCG IA (14:40)
[2025-01-29] MEDS: HEPARIN 1,000 UNITS/500ML NS (CATH LAB) 3000 UNIT IV (15:22)
[2025-01-29] MEDS: 0.9 % SODIUM CHLORIDE 500 ML 25 ML IV (15:23)
[2025-01-29] MEDS: IOPAMIDOL-370 (76%);100ML BOTTLE 150 ML IV (15:51)
[2025-01-29 15:55] LABS: CATHL Activated Clotting Time 188 SEC (74-125)
[2025-01-29 15:56] LABS: CATHL Activated Clotting Time > 400 SEC (74-125)
[2025-01-29] MEDS: CLOPIDOGREL 300MG TABLET 600 MG PO (15:58)
--- NOTE | 2025-01-29 18:49 | EXP.ACUTE.PN ---
Subjective *Date: 01/29/25 *Time: 19:55 Interval history: Remained stable on room air. Denies any chest pain or shortness of breath. No nausea or vomiting. Going for left heart cath today. Medical Exam Vital signs and Labs for Last 24 Hours: Vital Signs Temp Pulse Pulse Resp BP Pulse Ox O2 Del Method 01/29/25 18:45 55 L 18 141/76 H 97 Room Air 01/29/25 18:15 54 L 20 106/65 L 97 Room Air 01/29/25 17:45 57 L 20 144/73 H 96 Room Air 01/29/25 17:15 55 L 18 144/75 H 97 Room Air 01/29/25 17:00 Room Air 01/29/25 16:45 48 L 16 120/57 L 95 Room Air 01/29/25 16:30 47 L 20 97/72 L 93 L Room Air 01/29/25 16:15 98.1 F 55 L 18 97/61 L 94 L Room Air 01/29/25 16:00 98.2 F 57 L 20 138/68 97 Room Air 01/29/25 15:00 Room Air 01/29/25 13:00 Room Air 01/29/25 12:00 98 F 48 L 16 117/62 99 01/29/25 11:00 Room Air 01/29/25 09:00 Room Air 01/29/25 08:00 90 01/29/25 08:00 45 L Room Air 01/29/25 08:00 97.9 F 50 L 17 109/58 L 95 01/29/25 06:36 Room Air 01/29/25 05:00 Room Air 01/29/25 04:00 45 L 01/29/25 04:00 97.9 F 72 18 105/52 L 95 Room Air 01/29/25 03:00 Room Air 01/29/25 01:00 Room Air 01/29/25 00:00 98.0 F 45 L 19 101/58 L 96 Room Air 01/29/25 00:00 50 L 01/28/25 23:00 Room Air 01/28/25 21:00 Room Air 01/28/25 20:00 55 L 01/28/25 20:00 Room Air 01/28/25 20:00 98.1 F 50 L 17 103/63 L 95 Room Air Intake and Output 01/29/25 01/29/25 01/29/25 07:59 15:59 23:59 Intake Total 679 / 919 240 / 919 Balance 679 / 919 240 / 919 Intake: Intake, Oral Amount 240 / 480 240 / 480 Intake, Total IV Amount 439 / 439 Heparin Sodium,Porcine/D5w 500 439 / 439 ml @ 1,300 UNITS/HR 26 mls/hr IV .[id number] COUNTS INCLUDE 234 BEDS AT THE [facility] Rx#:[id number] Other: Weight 93.576 kg Patient Weight 01/29/25 23:59 Weight 93.576 kg Laboratory Results - last 24 hr 01/28/25 21:00: APTT 69.7 01/29/25 02:59: APTT 71.7 01/29/25 05:31: WBC 5.8, RBC 4.02 L, Hgb 12.5 D, Hct 37.6, MCV 93.5, MCH 31.1, MCHC 33.2, RDW 13.2, Plt Count 229, MPV 10.5 H, Neut % (Auto) 57.8, Lymph % (Auto) 33.4, [place] % (Auto) 6.8, Eos % (Auto) 1.2, Baso % (Auto) 0.3, Neut # (Auto) 3.4, Lymph # (Auto) 2.0, [place] # (Auto) 0.4, Eos # (Auto) 0.1, Baso # (Auto) 0.0, Sodium 137, Potassium 3.7, Chloride 108 H, Carbon Dioxide 25, Anion Gap 7.7, BUN 13, Creatinine 0.90, Estimated Creat Clear 81, Estimated GFR 62, Est GFR ( Amer) 76, Glucose 100, Calcium 9.1, Magnesium 2.0, Total Bilirubin 0.4, AST 43 H, ALT 36, Alkaline Phosphatase 96, Total Protein 6.4, Albumin 3.9 D, Globulin 2.5, Albumin/Globulin Ratio 1.6 01/29/25 09:00: APTT 68.0 01/29/25 16:01: Activated Clotting Time > 400 H* 01/29/25 16:33: Activated Clotting Time 188 H* D I & O for Labs for Last 24 Hours: Intake & Output 01/26/25 01/27/25 01/28/25 01/29/25 23:59 23:59 23:59 23:59 Intake Total 311.167 / 697.764 1107 / 0 Output Total 0 / 0 0 / 0 Balance 311.167 / 000.134 4158 / 2360 / Weight 81.647 kg 81.647 kg 93.576 kg Constitutional: Present no acute distress, average body habitus, chronically ill appearing and cooperative Head: Present atraumatic and normocephalic ENT: Present normal exam Respiratory: Present normal respiratory effort; Absent respiratory distress, rhonchi, stridor, wheezes or crackles Cardiac: Present Reg Rate and Rhythm GI: Present soft and normal bowel sounds; Absent distention or tenderness Extremities: Present normal inspection and full ROM Skin: Present intact; Absent erythema Neuro: Present Grossly Intact, alert, awake, oriented x 3 and moves all extremities Assessment and Plan *Assessment and plan (1) Atrial fibrillation with rapid ventricular response: Status: Acute Category: Medical Code(s): I48.91 - Unspecified atrial fibrillation (2) Abnormal findings diagnostic imaging of heart and coronary circulation: Status: Acute Category: Medical Code(s): R93.1 - Abnormal findings on diagnostic imaging of heart and coronary circulation (3) HTN (hypertension): Status: Acute Qualifiers: Hypertension type: primary hypertension Qualified Code(s): I10 - Essential (primary) hypertension Category: Medical Code(s): I10 - Essential (primary) hypertension (4) Elevated troponin: Status: Acute Category: Medical Code(s): R79.89 - Other specified abnormal findings of blood chemistry (5) CAD (coronary artery disease): Status: Acute Category: Medical Code(s): I25.10 - Atherosclerotic heart disease of [place] coronary artery without angina pectoris Randall Otoole is a 69-year-old female with a medical history significant for hypertension, hypothyroidism who presents with symptoms of heart racing. She states that she she was feeling significant fatigue over the weekend, and woke up this morning feeling like her heart was racing. Denies chest pain, shortness of breath, abdominal pain, fever/chills, upper respiratory symptoms. No known cardiac, lung history. Non-smoker. Workup in the ED significant for HR 132 A-fib RVR converted to NSR after diltiazem bolus and drip. Patient remained stable, and was discussed whether patient wanted to go home with close follow-up with cardiology with new meds. However, patient wanted to be admitted for monitoring. Case discussed with ED provider and decision was made to admit patient for new onset A-fib RVR. Patient's heart rate converted to sinus rhythm however given her bump in troponin, cardiology evaluating today. CCTA with abnormal calcium score. Taken for left heart cath today. Unable to intervene on stenotic lesions. Will monitor overnight. Anticipate discharge tomorrow. Problems addressed as follows: #New onset A-fib #RVR, resolved # NSTEMI # CAD ? Remains in sinus rhythm. Continue heparin drip, anticipate transition to Eliquis tomorrow. [id number] score 3. -Discussed case with cardiology today, taken for left heart cath today. Per cath report, patient had occlusion of RCA with collateralization. Has 80% stenosis of circumflex that was not amenable to angioplasty. Will manage medically aggressively at this time. Continue aspirin 81 mg daily and Plavix 75 mg daily. Cardiology to evaluate in the morning for further recommendations and close outpatient follow-up. No stents placed - Echo obtained, formal read with heart function appears preserved. -Continue diltiazem 120 mg daily ? TSH normal. -White count normal at 5, hemoglobin 12. Kidney function normal BUN 13, creatinine 0.9. Potassium 3.7, magnesium 2.0 Repeat CBC, CMP, magnesium ordered for the morning. #Hypertension ? Continue home lisinopril 10 mg. Discontinued amlodipine after starting diltiazem as above. Full code DVT prophylaxis: hep gtt Cardiac diet
--- NOTE | 2025-01-29 19:16 | PC.NURSE ---
pt resting supine in bed. a&ox4. vss. radial band removed and site c/d/i. tegaderm and gauze applied. hospitalist updated pt on procedure findings. pt tolerating po intake. no complaints of pain. call light within reach. no needs at this time.
[2025-01-29] MEDS: ATORVASTATIN 40MG TABLET 40 MG PO (21:03)
[2025-01-30] VITALS: BP 97/58; PULSE 51; RESP 18; TEMP 36.6; O2SAT 95
[2025-01-30 04:00] VITALS: BP 107/45; PULSE 49; RESP 16; TEMP 36.6; O2SAT 96; BMI 32.8
--- NOTE | 2025-01-30 04:00 | PC.NURSE ---
Patient is alert and oriented x4. Upon assessment, she stated that she has been feeling very tired since returning from her cath procedure but is overall well. She was observed to have eyes closed, respirations even and unlabored on room air, and no apparent distress for the majority of the night. Post-angio + vital sign assessments were completed this shift. Right radial cath site and dressing remain clean, dry, and intact, with no bleeding or pain around the site present. Pulses intact, +2. Patient verbalized awareness/understanding to avoid putting pressure on her right wrist. Blood pressures remain soft and heart rate remains bradycardic. Normal sinus rhythm. Other vital signs stable. She has not had any complaints of dizziness or lightheadedness this shift. Auscultation of her heart, lungs, and bowel sounds were within normal findings. Scheduled medications administered as appropriately per JAN. Patient is ambulatory (baseline independent). She has been self-turning in bed. At this time, the patient is resting in bed without any further complaints. No acute changes noted thus far. Call light within reach.
[2025-01-30] MEDS: LEVOTHYROXINE 75MCG (0.075MG) TAB 75 MCG PO (06:18)
[2025-01-30 06:31] LABS: Basophils % 0.5 % (0.1-2.0); Eosinophils # 0.1 K/mm3 (0.0-0.4); Eosinophils % 0.9 % (0.1-12.0); Hematocrit 38.4 % (37.0-47.0); Hemoglobin 12.8 g/dL (12.2-16.2); Lymphocytes # 1.4 K/mm3 (0.7-4.5); Lymphocytes % 23.4 % (10-50); Mean Corpuscular HGB Conc 33.3 g/dL (31.8-35.4); Mean Corpuscular Hemoglobin 31.2 pg (27.0-31.2); Mean Corpuscular Volume 93.7 fl (81-99); Mean Platelet Volume 9.8 fl (7.4-10.4); Monocytes # 0.4 K/mm3 (0.1-1.0); Monocytes % 7.6 % (1.7-9.3); Neutrophils # 3.9 K/mm3 (1.8-7.8); Neutrophils % 67.1 % (37.0-80.0); Platelet Count 210 K/mm3 (142-424); Red Cell Distribution Width 13.2 % (11.5-17.5); White Blood Count 5.8 K/mm3 (4.8-10.8)
[2025-01-30 06:47] LABS: Alanine Aminotransferase 40 U/L (12-78); Albumin Level 3.7 g/dl (3.5-5.0); Albumin/Globulin Ratio 1.4 (1.1-1.8); Alkaline Phosphatase 90 U/L (38-126); Anion Gap 7.9 mEq/L (5-15); Aspartate Amino Transferase 51 U/L (14-36); Bilirubin,Total 0.4 mg/dl (0.2-1.3); Blood Urea Nitrogen 14 mg/dl (7-17); Calcium 8.5 mg/dl (8.4-10.2); Carbon Dioxide 26 mmol/L (22.0-30.0); Chloride 108 mmol/L (98-107); Creatinine Clearance Estimated 82 mL/min (50-200); Estimated Glomerular Filt Rate 55 ml/min (>60); GFR (African American) 67 ML/MIN (>60); Globulin 2.6 g/dL (1.3-3.2); Glucose 92 mg/dl (74-100); Potassium 3.9 mmoL/L (3.5-5.1); Sodium 138 mmol/L (136-145); Total Protein,Serum 6.3 g/dl (6.3-8.2)
--- NOTE | 2025-01-30 07:05 | P.DS_ITS ---
General Admission date:: 01/27/25 Discharge date: 01/30/25 HPI HPI HPI: Gregg Otoole is a 69-year-old female with a medical history significant for hypertension, hypothyroidism who presents with symptoms of heart racing. She states that she she was feeling significant fatigue over the weekend, and woke up this morning feeling like her heart was racing. Denies chest pain, shortness of breath, abdominal pain, fever/chills, upper respiratory symptoms. No known cardiac, lung history. Non-smoker. Workup in the ED significant for HR 132 A- fib RVR converted to NSR after diltiazem bolus and drip. Patient remained stable, and was discussed whether patient wanted to go home with close follow-up with cardiology with new meds. However, patient wanted to be admitted for monitoring. Case discussed with ED provider and decision was made to admit patient for new onset A-fib RVR. Hospital Course Hospital Course Hospital Course: Gregg Otoole is a 69-year-old female with a medical history significant for hypertension, hypothyroidism who presents with symptoms of heart racing. She states that she she was feeling significant fatigue over the weekend, and woke up this morning feeling like her heart was racing. Denies chest pain, shortness of breath, abdominal pain, fever/chills, upper respiratory symptoms. No known cardiac, lung history. Non-smoker. Workup in the ED significant for HR 132 A- fib RVR converted to NSR after diltiazem bolus and drip. Patient remained stable, and was discussed whether patient wanted to go home with close follow-up with cardiology with new meds. However, patient wanted to be admitted for monitoring. Case discussed with ED provider and decision was made to admit patient for new onset A-fib RVR. Patient's heart rate converted to sinus rhythm however given her bump in troponin, cardiology was consulted. CCTA showed abnormal calcium score. Was taken for left heart cath but had chronic blockages that were not amenable to stenting. Recommended aggressive medical management at this time. Will reevaluate as an outpatient for further intervention if symptoms recur. Stable to discharge home. Problems addressed as follows: #New onset A-fib #RVR, resolved # NSTEMI # CAD # Hypertension ? Patient presented in A-fib. Converted to sinus rhythm after starting diltiazem drip. Was continued on heparin drip and diltiazem orally until day of discharge. At that time was transition to Eliquis 5 mg twice daily due to a [id number] score of 3. In light of her CAD, decision made to transition to metoprolol succinate 50 mg daily for rate control and benefit to heart function. Will also continue Plavix due to CAD 75 mg daily and lisinopril 10 mg daily. Initiated on Lipitor 40 mg nightly for hyperlipidemia. Was taken for left heart cath on 01/29/2025, patient had occlusion of RCA with collateralization. Has 80% stenosis of circumflex that was not amenable to angioplasty. Will manage medically aggressively at this time. Plan for close follow-up as an outpatient. - Echo obtained, formal read with heart function appears preserved. -Discontinued home amlodipine #Hypothyroid: TSH normal. Continue levothyroxine 75 mcg daily Total time spent on discharge 32 minutes in counseling, documentation, chart review, and direct care with patient. Exam Data for Last 24 hours Vital signs and Labs for Last 24 Hours: Temp Pulse Resp BP Pulse Ox O2 Del Method 97.9 F 72 18 105/52 L 95 Room Air 01/29/25 04:00 01/29/25 04:00 01/29/25 04:00 01/29/25 04:00 01/29/25 04:00 01/29/25 06:36 Laboratory Results - last 24 hr 01/28/25 07:35: WBC 5.5, RBC 4.37, Hgb 14.0, Hct 41.1, MCV 94.1, MCH 32.0 H, MCHC 34.1, RDW 13.1, Plt Count 232, MPV 9.5, Neut % (Auto) 64.3, Lymph % (Auto) 29.0, [place] % (Auto) 4.7, Eos % (Auto) 1.1, Baso % (Auto) 0.2, Neut # (Auto) 3.5, Lymph # (Auto) 1.6, [place] # (Auto) 0.3, Eos # (Auto) 0.1, Baso # (Auto) 0.0, APTT 49.7 L, Sodium 139, Potassium 3.7, Chloride 106, Carbon Dioxide 25, Anion Gap 11.7, BUN 13, Creatinine 0.90, Estimated Creat Clear 70, Estimated GFR 62, Est GFR ( Amer) 76, Glucose 107 H, Calcium 9.1, Magnesium 1.9, Total Bilirubin 0.6, AST 46 H, ALT 40, Alkaline Phosphatase 104, Total Protein 7.3, Albumin 4.5, Globulin 2.8, Albumin/Globulin Ratio 1.6, Triglycerides 176 H, Cholesterol 302 H, LDL Cholesterol Direct 149.60 H, VLDL Cholesterol 35, HDL Cholesterol 68 H, Cholesterol/HDL Ratio 4.4 H 01/28/25 13:40: APTT 43.2 L 01/28/25 21:00: APTT 69.7 01/29/25 02:59: APTT 71.7 01/29/25 05:31: Sodium 137, Potassium 3.7, Chloride 108 H, Carbon Dioxide 25, Anion Gap 7.7, BUN 13, Creatinine 0.90, Estimated Creat Clear 81, Estimated GFR 62, Est GFR ( Amer) 76, Glucose 100, Calcium 9.1, Magnesium 2.0, Total Bilirubin 0.4, AST 43 H, ALT 36, Alkaline Phosphatase 96, Total Protein 6.4, Albumin 3.9 D, Globulin 2.5, Albumin/Globulin Ratio 1.6 I & O for Last 24 hours: Intake & Output 01/26/25 01/27/25 01/28/25 01/29/25 23:59 23:59 23:59 23:59 Intake Total 311.167 / 430.601 6589 / 2360 Output Total 0 / 0 0 / 0 Balance 311.167 / 402.659 6989 / 2360 Weight 81.647 kg 81.647 kg 93.576 kg Constitutional Constitutional: no acute distress, obese and cooperative *Routine HEENT Exam Head: Present normocephalic Eye: Present EOMI and PERRL ENT: Present mucous membranes moist *Routine Neck Exam Neck: Present supple; Absent lymphadenopathy *Routine Respiratory Exam Respiratory: Present CTA bilaterally; Absent respiratory distress, rhonchi, stridor, wheezes or crackles *Routine Cardiovascular Exam Cardiovascular: Present RRR *Routine Abdominal Exam Abdominal: Present soft and normoactive bowel sounds; Absent tenderness *Routine Rectal Exam Patient deferred: visual exam *Routine Exam Patient deferred: external exam *Routine Extremities Exam Extremities: Absent cyanosis, clubbing or edema *Routine Skin Exam Skin: Present warm; Absent rash *Routine Neurological Exam Neurological: Present alert, oriented X3 and moving all extremities; Absent altered mental status Results Data Completed and Pending Labs on day of discharge: Labs from last 24 hours 01/29/25 01/29/25 01/28/25 05:31 02:59 21:00 WBC RBC Hgb Hct MCV MCH MCHC RDW Plt Count MPV Neut % (Auto) Lymph % (Auto) [place] % (Auto) Eos % (Auto) Baso % (Auto) Neut # (Auto) Lymph # (Auto) [place] # (Auto) Eos # (Auto) Baso # (Auto) APTT 71.7 69.7 Sodium 137 Potassium 3.7 Chloride 108 H Carbon Dioxide 25 Anion Gap 7.7 BUN 13 Creatinine 0.90 Estimated Creat Clear 81 Estimated GFR 62 Est GFR ( Amer) 76 Glucose 100 Calcium 9.1 Magnesium 2.0 Total Bilirubin 0.4 AST 43 H ALT 36 Alkaline Phosphatase 96 Total Protein 6.4 Albumin 3.9 D Globulin 2.5 Albumin/Globulin Ratio 1.6 Triglycerides Cholesterol LDL Cholesterol Direct VLDL Cholesterol HDL Cholesterol Cholesterol/HDL Ratio 01/28/25 01/28/25 13:40 07:35 WBC 5.5 RBC 4.37 Hgb 14.0 Hct 41.1 MCV 94.1 MCH 32.0 H MCHC 34.1 RDW 13.1 Plt Count 232 MPV 9.5 Neut % (Auto) 64.3 Lymph % (Auto) 29.0 Cotton % (Auto) 4.7 Eos % (Auto) 1.1 Baso % (Auto) 0.2 Neut # (Auto) 3.5 Lymph # (Auto) 1.6 [place] # (Auto) 0.3 Eos # (Auto) 0.1 Baso # (Auto) 0.0 APTT 43.2 L 49.7 L Sodium 139 Potassium 3.7 Chloride 106 Carbon Dioxide 25 Anion Gap 11.7 BUN 13 Creatinine 0.90 Estimated Creat Clear 70 Estimated GFR 62 Est GFR ( Amer) 76 Glucose 107 H Calcium 9.1 Magnesium 1.9 Total Bilirubin 0.6 AST 46 H ALT 40 Alkaline Phosphatase 104 Total Protein 7.3 Albumin 4.5 Globulin 2.8 Albumin/Globulin Ratio 1.6 Triglycerides 176 H Cholesterol 302 H LDL Cholesterol Direct 149.60 H VLDL Cholesterol 35 HDL Cholesterol 68 H Cholesterol/HDL Ratio 4.4 H DS: Diagnosis Discharge Diagnosis (1) Atrial fibrillation with rapid ventricular response: Status: Acute Code(s): I48.91 - Unspecified atrial fibrillation (2) Abnormal findings diagnostic imaging of heart and coronary circulation: Status: Acute Code(s): R93.1 - Abnormal findings on diagnostic imaging of heart and coronary circulation (3) HTN (hypertension): Status: Acute Code(s): I10 - Essential (primary) hypertension Qualifiers: Hypertension type: primary hypertension Qualified Code(s): I10 - Essential (primary) hypertension (4) Elevated troponin: Status: Acute Code(s): R79.89 - Other specified abnormal findings of blood chemistry (5) CAD (coronary artery disease): Status: Acute Code(s): I25.10 - Atherosclerotic heart disease of [place] coronary artery without angina pectoris Meds Home Medications and Allergies Home Medications ?Medication ?Instructions ?Recorded ?Confirmed ?Type levothyroxine 75 mcg tablet 75 mcg PO DAILY 01/27/25 01/27/25 History lisinopril 10 mg tablet 10 mg PO DAILY 01/27/25 01/27/25 History apixaban 5 mg tablet (Eliquis) 5 mg PO BID 30 days #60 tabs 01/30/25 Rx atorvastatin 40 mg tablet 40 mg PO HS 30 days #30 tabs 01/30/25 Rx clopidogrel 75 mg tablet 75 mg PO DAILY 30 days #30 tabs 01/30/25 Rx metoprolol succinate 50 mg 50 mg PO DAILY #30 tabs 01/30/25 Rx tablet,extended release 24 hr New Prescriptions to Start Prescriptions: apixaban [Eliquis] Sekou Sandhu atorvastatin Sekou Sandhu clopidogrel Sekou Sandhu metoprolol succinate Sekou Sandhu Allergies Allergy/AdvReac Type Severity Reaction Status Date / Time codeine (CODEINE) Allergy Unknown Nausea Verified 01/27/25 10:38 cortisone (CORTISONE) Allergy Unknown Rash Verified 01/27/25 10:38 Discharge Plan Disposition Patient Disposition: Home, Self-Care Condition: Fair Discharge Order Discharge Orders: Discharge Order (Routine); Ordered 01/30/25 Ordered By: Sekou Sandhu Follow up Plan Follow up with: Jocelyn Browne APRN [Nurse Practitioner] - 02/11/25 10:15 am Memo Thompson MD [Primary Care Provider] - 02/04/25 11:20 am Prescriptions/Medication Reconciliation: New atorvastatin 40 mg Tablet 40 mg PO HS 30 Days Qty: 30 0RF clopidogrel 75 mg Tablet 75 mg PO DAILY 30 Days Qty: 30 0RF Eliquis 5 mg Tablet 5 mg PO BID 30 Days Qty: 60 0RF metoprolol succinate 50 mg tablet extended release 24 hr 50 mg PO DAILY Qty: 30 0RF Continued levothyroxine 75 mcg tablet 75 mcg PO DAILY Patient Comments: TAKE ONE (1) TABLET EVERY DAY BY ORAL ROUTE lisinopril 10 mg tablet 10 mg PO DAILY Patient Comments: TAKE ONE (1) TABLET BY MOUTH ONCE DAILY Discontinued amlodipine 5 mg tablet 5 mg PO DAILY Patient Comments: TAKE ONE (1) TABLET DAILY Problem Reconciliation Problems Reviewed?: Yes Patient Discharge Instructions ACTIVITY: Continue current activity DIET: continue same diet Patient Instructions: DI for Cardiac Catheterization, DI for Coronary Stenting, DI for Atrial Fibrillation, DI for Surgical Site Infection Print Language: Azeri Providers Primary Care Provider: Memo Thompson Admit Provider: Joe Enrique Attending Provider: Joe Enrique
[2025-01-30 08:00] VITALS: BP 115/63; PULSE 57; RESP 16; TEMP 36.6; O2SAT 97
[2025-01-30] MEDS: CLOPIDOGREL 75MG TAB 75 MG PO (09:04)
[2025-01-30] MEDS: dilTIAZem ER 120MG CAPSULE 120 MG PO (09:04)
[2025-01-30] MEDS: ASPIRIN EC 81MG TABLET 81 MG PO (09:04)
[2025-01-30] MEDS: LISINOPRIL 10MG TABLET 10 MG PO (09:04)
--- NOTE | 2025-01-30 12:54 | P.PN_ITS ---
Subjective Subjective Date: 01/30/25 Time: 09:00 Principal diagnosis: Afib with RVR, non-stemi Interval history: This is a 69-year-old female who presented to hospital with palpitations and racing of the heart. She was found to be in atrial fibrillation with RVR and converted back to sinus rhythm with a diltiazem bolus and drip. She remains in sinus rhythm on oral diltiazem. She also had an elevated troponin consistent with a non-STEMI. Patient underwent left cardiac catheterization yesterday and was found to have 100% occluded right coronary artery filling via right to right and [id number] collaterals. She also had critical stenosis noted to the proximal/mid left circumflex artery and a subtotal occlusion in the mid to distal portion. Intervention was attempted on the proximal/mid left circumflex artery. Multiple balloons were used but he was not able to cross the lesion. She was started on Plavix and had a residual 80% stenosis left to the circumflex artery following the procedure. This morning she denies any chest pain or pressure. She denies any shortness of breath or edema. She denies any fever, chills, nausea, vomiting, diarrhea, PND orthopnea. She states that she still feels a little tired from the sedation yesterday. Exam Data for Last 24 hours Vital signs and Labs for Last 24 Hours: Temp Pulse Resp BP Pulse Ox O2 Del Method 98 F 57 L 16 115/63 97 Room Air 01/30/25 08:00 01/30/25 08:00 01/30/25 08:00 01/30/25 08:00 01/30/25 08:00 01/30/25 11:00 Laboratory Results - last 24 hr 01/29/25 16:01: Activated Clotting Time > 400 H* 01/29/25 16:33: Activated Clotting Time 188 H* D 01/30/25 05:50: WBC 5.8, RBC 4.10 L, Hgb 12.8, Hct 38.4, MCV 93.7, MCH 31.2, MCHC 33.3, RDW 13.2, Plt Count 210, MPV 9.8, Neut % (Auto) 67.1, Lymph % (Auto) 23.4, [place] % (Auto) 7.6, Eos % (Auto) 0.9, Baso % (Auto) 0.5, Neut # (Auto) 3.9, Lymph # (Auto) 1.4, [place] # (Auto) 0.4, Eos # (Auto) 0.1, Baso # (Auto) 0.0, Sodium 138, Potassium 3.9, Chloride 108 H, Carbon Dioxide 26, Anion Gap 7.9, BUN 14, Creatinine 1.00, Estimated Creat Clear 82, Estimated GFR 55 L, Est GFR ( Amer) 67, Glucose 92, Calcium 8.5, Magnesium 2.0, Total Bilirubin 0.4, AST 51 H, ALT 40, Alkaline Phosphatase 90, Total Protein 6.3, Albumin 3.7, Globulin 2.6, Albumin/Globulin Ratio 1.4 I & O for Last 24 hours: Intake & Output 01/27/25 01/28/25 01/29/25 01/30/25 23:59 23:59 23:59 23:59 Intake Total 311.167 / 327.896 2683 / 2360 919 / 1119 440 / 440 Output Total 0 / 0 0 / 0 0 / 0 Balance 311.167 / 991.240 1199 / 2360 919 / 1119 440 / 440 Weight 180 lb 180 lb 0.013 oz 206 lb 4.8 oz 209 lb 9.6 oz Constitutional Constitutional: no acute distress and average body habitus *Routine HEENT Exam Head: Present normocephalic and atraumatic ENT: Present mucous membranes moist *Routine Neck Exam Neck: Present supple, full ROM and normal carotid upstroke; Absent JVD, carotid bruit or lymphadenopathy *Routine Respiratory Exam Respiratory: Present CTA bilaterally, normal respiratory effort, able to speak in complete sentences and symmetric chest movement *Routine Cardiovascular Exam Cardiovascular: Present RRR, Normal S1, Normal S2 and murmur; Absent gallop *Routine Abdominal Exam Abdominal: Present soft and normoactive bowel sounds; Absent tenderness, distend ed or organomegaly *Routine Extremities Exam Extremities: Present full ROM, pulses intact and normal capillary refill; Absent cyanosis, clubbing or edema *Routine Skin Exam Skin: Present intact and warm; Absent erythema *Routine Neurological Exam Neurological: Present alert, oriented X3 and CN II-XII intact; Absent sensory deficit or motor deficit Routine Psychiatric Exam Psychiatric: Present normal affect Progress Note: A&P Assessment and plan (1) Elevated troponin: Status: Acute (2) CAD (coronary artery disease): Status: Acute (3) Atrial fibrillation with rapid ventricular response: Status: Acute (4) Abnormal findings diagnostic imaging of heart and coronary circulation: Status: Acute (5) HTN (hypertension): Status: Acute (6) Hyperlipidemia: Status: Acute Assessment and Plan Assessment and Plan for All Diagnoses:: Plan: 1. The patient was admitted to the hospital with atrial fibrillation with RVR. She was given diltiazem bolus and drip and converted back to sinus rhythm. The diltiazem drip has been stopped and she has been started on oral diltiazem CD 120 mg daily. 2. Stop diltiazem and switch her to Toprol XL 50 mg p.o. daily because she does have coronary artery disease and also to suppress her atrial fibrillation. 3. The patient will be started on Eliquis 5 mg p.o. twice daily for long-term anticoagulation secondary to her paroxysmal atrial fibrillation. 4. The patient had an elevated troponin consistent with a non-STEMI. Patient underwent left cardiac catheterization yesterday and was found to have 100% occluded right coronary artery filling via right to right and [id number] collaterals. She also had critical stenosis noted to the proximal/mid left circumflex artery and a subtotal occlusion in the mid to distal portion. Intervention was attempted on the proximal/mid left circumflex artery. Multiple balloons were used but he was not able to cross the lesion. She was started on Plavix and had a residual 80% stenosis left to the circumflex artery following the procedure. Continue Plavix [address] Downs will review films when he returns from vacation to see if lithrotripsy would be an option for this patient. However, she is asymptomatic so medical management for CAD at this time. 6. Echocardiogram shows a normal ejection fraction and no significant valve disease. 7. Her blood pressure is well-controlled. Continue lisinopril. 8. Her LDL goal is less than 55. Her LDL is 149. She has been started on a statin. She states that she has a history of not being able to tolerate cholesterol medications due to GI upset. She does not recall ever being on Lipitor. Continue Lipitor 9. No further recommendations at this time from a cardiac standpoint. She is stable for discharge home today from a cardiac standpoint with follow-up in cardiology clinic next week. 10. The patient will need to be discharged on the following cardiac medications: Eliquis 5 mg p.o. twice daily, Lipitor 40 mg p.o. nightly, Plavix 75 mg daily, lisinopril 10 mg daily and Toprol XL 50 mg daily. Thank you for the opportunity to have participate in the care of this patient. All recommendations and orders are per Dr. Rubio.
[2025-01-30] MEDS: APIXABAN 5MG TABLET 5 MG PO (13:02)
--- NOTE | 2025-01-31 10:31 | SW/DCPLANNER ---
Spoke with patient on the phone. Patient stated that she had a dizzy spell and came back to the er to have her blood pressure taken. Patient stated that she got a blood pressure cuff last night and have been taking her blood pressure. Patient stated that she was able to get her medicine picked up. Patient stated that she has no concerns or questions at this time. Patient wanted a number for she can call to express her gratitude for the care she was given by her nurses. Maude Giraldo
== END 2025-01-30 13:59 | disposition home or self-care (01) | DRG 250 ==
LOC: ER 09:19 → ICU 11:23 → 2ND 15:27
PROVIDERS: Internal Medicine Adolescent Medicine; Internal Medicine Cardiovascular Disease; Admitting Provider Student in an Organized Health Care Education/Training Program; Emergency Provider Student in an Organized Health Care Education/Training Program; PCP Family Medicine; Visit Provider Student in an Organized Health Care Education/Training Program
PROC: 02703ZZ Dilation of Coronary Artery, One Artery, Percutaneous Approach (ICD-10-PCS; principal; 2025-01-29 14:00)
DX: I48.20 Chronic atrial fibrillation, unspecified (principal); I21.4 Non-ST elevation (NSTEMI) myocardial infarction; I21.A1 Myocardial infarction type 2; I10 Essential (primary) hypertension; I25.10 Atherosclerotic heart disease of native coronary artery without angina pectoris; E78.5 Hyperlipidemia, unspecified; I77.1 Stricture of artery; E03.9 Hypothyroidism, unspecified; N30.10 Interstitial cystitis (chronic) without hematuria; Z79.01 Long term (current) use of anticoagulants; Z79.899 Other long term (current) drug therapy; Z88.5 Allergy status to narcotic agent
CPT/HCPCS: 36415; 71045; 75574; 80053; 80061; 83735; 84436; 84443; 84484; 85025; 85347; 85730; 87633; 92920; 93005; 93306; 99152; 99153; 99291; C1725; C1769; J1200; J1644; J1650; J2250; J3010; J7120; Q9967

== ENCOUNTER 2025-02-01 18:55 | Emergency (ER) | payer MEDICARE, SELFPAY ==
[2025-02-01 18:56] VITALS: BP 164/68; PULSE 43; RESP 18; TEMP 36.7; O2SAT 98; BMI 28.1
--- NOTE | 2025-02-01 19:02 | ECG_ITS ---
APPROVED REPORT Exam: Resting ECG HR:44 bpm ECG Measurements Heart Rate 44 AXES IA 181 P 150 QRSd 112 QRS 196 QT 496 T 154 QTc 448 Conclusion ECTOPIC ATRIAL BRADYCARDIA POSSIBLE RIGHT VENTRICULAR HYPERTROPHY [SOME/ALL OF: PROMINENT R IN V1, LATE TRANSITION, RAD, VICKIE, SSS] ABNORMAL ECG Electronically signed by : HANH MAGAÑA, 02/04/2025 23:41:49
--- NOTE | 2025-02-01 19:04 | PC.NURSE ---
Report given to Dena Banerjee RN. abstract searcher performing EKG at this time.
--- NOTE | 2025-02-01 19:06 | ED_ITS ---
Discharge Plan Disposition Patient Disposition: Home, Self-Care Prescriptions Prescriptions: No Action levothyroxine 75 mcg tablet 75 mcg PO DAILY Patient Comments: TAKE ONE (1) TABLET EVERY DAY BY ORAL ROUTE lisinopril 10 mg tablet 10 mg PO DAILY Patient Comments: TAKE ONE (1) TABLET BY MOUTH ONCE DAILY atorvastatin 40 mg Tablet 40 mg PO HS 30 Days Qty: 30 0RF clopidogrel 75 mg Tablet 75 mg PO DAILY 30 Days Qty: 30 0RF Eliquis 5 mg Tablet 5 mg PO BID 30 Days Qty: 60 0RF metoprolol succinate 50 mg tablet extended release 24 hr 50 mg PO DAILY Qty: 30 0RF Referrals Follow up/Referrals: Memo Thompson MD [Primary Care Provider] - See instructions Activity Restrictions/Add. Instructions Additional Instructions/Restrictions: Continue home medications as previously prescribed. Follow-up with primary care doctor. Please return the emerged part with any new, concerning, worsening symptoms. Clinical Impressions Clinical Impression: Hypertension Headache Qualifiers: Headache type: unspecified Headache chronicity pattern: acute headache I ntractability: not intractable Qualified Code(s): R51.9 - Headache, unspecified Print Language Print Language: Uzbek Discharge ED Provider: Alli Hair General Adult HPI General Chief complaint: Headache Stated complaint: HBP Time Seen by Provider: 02/01/25 19:06 Mode of Arrival: Ambulatory Source of Information: Patient Description of Symptoms (Recalled from ER Triage Doc. by RN): Patient presents ambulatory to triage. States she was admitted to the hospital on Monday for A- fib and underwent a heart catheterization. States she was discharged on Monday. States she has been checking her blood pressure at home and it, shot up. Reports the highest at home was 180/85. Patient states she is on blood pressure medication. States it is only daily with no breakthrough medication. History of Present Illness HPI narrative: This is a 69-year-old female with a history of hypertension, hypothyroidism, CAD, recently diagnosed atrial fibrillation on Eliquis presenting with concern for hypertension. States that she has been checking her blood pressure at home and it shot up. States that the highest at home was 180/85. Has been taking her antihypertensives as prescribed. States that she has a headache that began about an hour ago. Denies any chest pain or shortness of breath. Related Data Home Medications ?Medication ?Instructions ?Recorded ?Confirmed levothyroxine 75 mcg tablet 75 mcg PO DAILY 01/27/25 02/01/25 lisinopril 10 mg tablet 10 mg PO DAILY 01/27/25 02/01/25 Previous Rx's ?Medication ?Instructions ?Recorded apixaban 5 mg tablet (Eliquis) 5 mg PO BID 30 days #60 tabs 01/30/25 atorvastatin 40 mg tablet 40 mg PO HS 30 days #30 tabs 01/30/25 clopidogrel 75 mg tablet 75 mg PO DAILY 30 days #30 tabs 01/30/25 metoprolol succinate 50 mg 50 mg PO DAILY #30 tabs 01/30/25 tablet,extended release 24 hr Allergies Allergy/AdvReac Type Severity Reaction Status Date / Time codeine (CODEINE) Allergy Unknown Nausea Verified 01/27/25 10:38 cortisone (CORTISONE) Allergy Unknown Rash Verified 01/27/25 10:38 [facility] Disclaimer: The information contained in this section may have been updated after the patient was seen, as this information can be updated by other users. Medical History (Updated 02/01/25 @ 19:56 by Alli Hair MD) Hyperlipidemia Atrial fibrillation with rapid ventricular response Abnormal findings diagnostic imaging of heart and coronary circulation Heart murmur Elevated troponin HTN (hypertension) Interstitial cystitis Surgical History (Updated 02/01/25 @ 19:23 by Cary Banerjee RN) Hx of cardiac cath Social History Smoking Status: Never smoker alcohol intake: never current occupational status: other Travel in the last 8 weeks: None Have you lived/traveled outside [place] in past 30 days?: No Contact w/someone who lives/traveled outside [place] past 30 days?: No Exposure to someone with infectious disease in past 14 days?: No Do you have a fever (greater than 100.4 F or 38 C)?: No Have you tested positive for COVID-19: No Exposed to someone with COVID-19 in past 14 days?: No Do you have a sore throat?: No Do you have a cough?: No Do you have any weakness?: No Do you have any diarrhea?: No Are you experiencing any unusual bleeding?: No Do you have any muscle aches/pain?: No Do you have any abdominal pain?: No Are you experiencing loss of taste or smell?: No Other Medical History Have you received the Flu Vaccine for this season: No Have you received the Pneumonia Vaccine: No ROS Obtained: Yes All systems reviewed & no additional complaints except as documented Physical Exam General General appearance: alert and in no apparent distress Eye Eye exam: Present normal appearance, PERRL and EOMI Respiratory Respiratory exam: Present normal lung sounds bilaterally; Absent respiratory distress Cardiovascular Cardiovascular exam: Present regular rate and normal rhythm Abdominal Exam Abdominal exam: Present soft and distention; Absent tenderness, guarding or rebound Extremities Exam Extremities exam: Present normal inspection Neurological Exam Neurological exam: Present alert and oriented X3 Skin Skin exam: Present warm and dry Medical Decision Making Medical Records Medical records reviewed: Yes I reviewed the patient's medical records. Screening: Per USPSTF and CDC recommendations, given the prevalence of disease in our region, it is our hospital?s policy to screen for HIV and viral Hepatitis for all patients aged 18 and over and those with ongoing risk factors. MR Comment: Reviewed internal medicine discharge summary from 01/30/2025 notable for patient's past medical history of hypertension, hypothyroidism, atrial fibrillation Adryan Inquiry Pt receiving controlled substance: No Vital Signs: 02/01/25 18:56 02/01/25 19:16 02/01/25 19:31 Temperature 98.0 F Temperature Source Oral Pulse Rate 45 L 45 L Pulse Rate [Radial] 43 L Respiratory Rate 18 15 16 Blood Pressure 144/76 H 132/72 Blood Pressure [R Arm] 164/68 H Blood Pressure Mean [R Arm] 100 Blood Pressure Source [R Arm] Automatic Cuff Blood Pressure Position [R Arm] Sitting 02 Sat by Pulse Oximetry 98 98 97 02/01/25 19:45 Temperature Temperature Source Pulse Rate 51 L Pulse Rate [Radial] Respiratory Rate 13 Blood Pressure 149/101 H Blood Pressure [R Arm] Blood Pressure Mean [R Arm] Blood Pressure Source [R Arm] Blood Pressure Position [R Arm] 02 Sat by Pulse Oximetry 97 Lab Data Lab Results 02/01/25 19:15: WBC 6.5, RBC 4.13 L, Hgb 13.0, Hct 38.7, MCV 93.7, MCH 31.5 H, MCHC 33.6, RDW 12.9, Plt Count 257, MPV 9.7, Neut % (Auto) 59.4, Lymph % (Auto) 30.9, [place] % (Auto) 7.1, Eos % (Auto) 1.5, Baso % (Auto) 0.5, Neut # (Auto) 3.9, Lymph # (Auto) 2.0, [place] # (Auto) 0.5, Eos # (Auto) 0.1, Baso # (Auto) 0.0, Sodium 136, Potassium 4.3, Chloride 102, Carbon Dioxide 29, Anion Gap 9.3, BUN 14, Creatinine 1.00, Estimated Creat Clear 70, Estimated GFR 55 L, Est GFR ( Amer) 67, Glucose 107 H, Calcium 9.5, Total Bilirubin 0.4, AST 51 H, ALT 45, Alkaline Phosphatase 101, Total Protein 7.8, Albumin 4.7, Globulin 3.1, Albumin/Globulin Ratio 1.5 02/01/25 19:15 02/01/25 19:15 Orders (Tests/Meds): ED MEDICATIONS Generic Name Dose Route Start Last Admin Trade Name Freq PRN Reason Stop Dose Admin Levothyroxine Sodium 75 mcg 02/01/25 19:47 Levothyroxine 100mcg (0.1mg) Tab PO 02/01/25 19:48 ONCE ONE Lisinopril 10 mg 02/01/25 19:47 Lisinopril 10mg Tablet PO 02/01/25 19:48 ONCE ONE ORDERS Category Date Time Status CBC w/Auto Diff [Complete Blood Count Auto Diff] Stat Lab 02/01/25 19:15 Completed CMP [Comprehensive Metabolic Panel] Stat Lab 02/01/25 19:15 Completed ECG Data Tracing #1: I reviewed this ECG and interpreted as documented below: Ectopic atrial bradycardia at a rate of 44, QTc 448, normal axis, no STEMI Medical Decision Narrative: In summary, this 69-year-old female with a history of hypertension, hyperlipidemia, CAD, recently diagnosed atrial fibrillation presents to the emergency department today with hypertension and headache. On initial evaluation patient is afebrile, hemodynamically stable, nontoxic-appearing, mildly hypertensive with SBP in the 150s, GCS 15 and neurologically intact. Differential diagnosis includes but is not limited to subarachnoid hemorrhage, hypertensive urgency, hypertensive emergency. Based on these concerns, I ordered CBC, CMP, CT head, CTAs of the head and neck, EKG. ECG personally interpreted as noted above. She was bradycardic however reported that she was bradycardic during her hospital admission after rate control was initiated. Was otherwise asymptomatic and hypertensive. Labs personally reviewed demonstrate unremarkable CBC and CMP. Prior to obtaining CT imaging, the patient stated that she did not realize that she was prescribed lisinopril 10 mg to take at home. She has not been taking this since she was discharged a couple days ago. She declined CT imaging and stated that her headache was consistent with chronic headaches that she has had in the past. Denied thunderclap headache. Requested discharge so she could just resume her home medications. Was given a dose of lisinopril and levothyroxine here and ultimately discharged in stable condition. Critical Care Critical Care Time Critical Care Time: No
[2025-02-01 19:16] VITALS: BP 144/76; PULSE 45; RESP 15; O2SAT 98
[2025-02-01 19:29] LABS: Basophils % 0.5 % (0.1-2.0); Eosinophils # 0.1 K/mm3 (0.0-0.4); Eosinophils % 1.5 % (0.1-12.0); Hematocrit 38.7 % (37.0-47.0); Lymphocytes % 30.9 % (10-50); Mean Corpuscular HGB Conc 33.6 g/dL (31.8-35.4); Mean Corpuscular Hemoglobin 31.5 pg (27.0-31.2); Mean Corpuscular Volume 93.7 fl (81-99); Mean Platelet Volume 9.7 fl (7.4-10.4); Monocytes # 0.5 K/mm3 (0.1-1.0); Monocytes % 7.1 % (1.7-9.3); Neutrophils # 3.9 K/mm3 (1.8-7.8); Neutrophils % 59.4 % (37.0-80.0); Platelet Count 257 K/mm3 (142-424); Red Blood Count 4.13 M/mm3 (4.20-5.40); Red Cell Distribution Width 12.9 % (11.5-17.5); White Blood Count 6.5 K/mm3 (4.8-10.8)
[2025-02-01 19:30] LABS: Albumin Level 4.7 g/dl (3.5-5.0); Chloride 102 mmol/L (98-107); Potassium 4.3 mmoL/L (3.5-5.1); Sodium 136 mmol/L (136-145)
[2025-02-01 19:31] VITALS: BP 132/72; PULSE 45; RESP 16; O2SAT 97
[2025-02-01 19:32] LABS: Blood Urea Nitrogen 14 mg/dl (7-17); Creatinine Clearance Estimated 70 mL/min (50-200); Estimated Glomerular Filt Rate 55 ml/min (>60); GFR (African American) 67 ML/MIN (>60)
[2025-02-01 19:33] LABS: Alanine Aminotransferase 45 U/L (12-78); Albumin/Globulin Ratio 1.5 (1.1-1.8); Alkaline Phosphatase 101 U/L (38-126); Anion Gap 9.3 mEq/L (5-15); Aspartate Amino Transferase 51 U/L (14-36); Bilirubin,Total 0.4 mg/dl (0.2-1.3); Calcium 9.5 mg/dl (8.4-10.2); Carbon Dioxide 29 mmol/L (22.0-30.0); Globulin 3.1 g/dL (1.3-3.2); Glucose 107 mg/dl (74-100); Total Protein,Serum 7.8 g/dl (6.3-8.2)
[2025-02-01 19:45] VITALS: BP 149/101; PULSE 51; RESP 13; O2SAT 97
[2025-02-01] MEDS: LISINOPRIL 10MG TABLET 10 MG PO (20:05)
[2025-02-01 20:16] VITALS: BP 139/69; PULSE 45; RESP 14; TEMP 36.6; O2SAT 94
== END 2025-02-01 20:18 | disposition home or self-care (01) ==
PROVIDERS: Emergency Provider Student in an Organized Health Care Education/Training Program; PCP Family Medicine
DX: R51.9 Headache, unspecified (principal); I10 Essential (primary) hypertension
CPT/HCPCS: 80053; 85025; 93005; 99283

== ENCOUNTER 2025-02-11 09:25 | Outpatient (CLI) | payer MEDICARE, SELFPAY ==
[2025-02-11 10:00] LABS: Basophils % 0.2 % (0.1-2.0); Eosinophils # 0.1 K/mm3 (0.0-0.4); Eosinophils % 1.3 % (0.1-12.0); Hematocrit 38.2 % (37.0-47.0); Hemoglobin 12.6 g/dL (12.2-16.2); Lymphocytes # 1.2 K/mm3 (0.7-4.5); Lymphocytes % 22.1 % (10-50); Mean Corpuscular Hemoglobin 31.1 pg (27.0-31.2); Mean Corpuscular Volume 94.3 fl (81-99); Mean Platelet Volume 9.8 fl (7.4-10.4); Monocytes # 0.4 K/mm3 (0.1-1.0); Neutrophils # 3.8 K/mm3 (1.8-7.8); Neutrophils % 68.9 % (37.0-80.0); Platelet Count 260 K/mm3 (142-424); Red Blood Count 4.05 M/mm3 (4.20-5.40); Red Cell Distribution Width 13.1 % (11.5-17.5); White Blood Count 5.6 K/mm3 (4.8-10.8)
[2025-02-11 10:21] LABS: Anion Gap 9.2 mEq/L (5-15); Blood Urea Nitrogen 13 mg/dl (7-17); Calcium 9.1 mg/dl (8.4-10.2); Carbon Dioxide 29 mmol/L (22.0-30.0); Chloride 105 mmol/L (98-107); Estimated Glomerular Filt Rate 55 ml/min (>60); GFR (African American) 67 ML/MIN (>60); Glucose 105 mg/dl (74-100); Potassium 4.2 mmoL/L (3.5-5.1); Sodium 139 mmol/L (136-145)
== END 2025-02-11 23:59 | disposition home or self-care (01) ==
LOC: LAB 09:26
PROVIDERS: PCP Family Medicine; Visit Provider Nurse Practitioner Family
DX: I25.10 Atherosclerotic heart disease of native coronary artery without angina pectoris (principal); I10 Essential (primary) hypertension; R53.83 Other fatigue
CPT/HCPCS: 36415; 80048; 85025

== ENCOUNTER 2025-02-14 09:07 | Outpatient (CLI) | payer MEDICARE, SELFPAY ==
--- NOTE | 2025-02-14 09:26 | CA_ITS ---
FINAL REPORT TECHNIQUE: Arterial Doppler examination of the right radial and brachial arteries CLINICAL HISTORY: Patient had a heart cath with right radial access 01/29/25. She states she has had pain in right wrist, elbow, and shoulder since 1 week post cath. No knot or bruising noted. She currently takes blood thinners, HTN, HLD. COMPARISON: None FINDINGS: DUPLEX RIGHT WRIST ARTERIAL DOPPLER: The brachial and radial arteries visualized are patent with normal triphasic waveforms. No evidence of pseudoaneurysm, fistula, or arterial thrombosis is identified in either artery. IMPRESSION: Unremarkable brachial and radial arteries, which are patent with normal triphasic waveforms. Reviewed, Interpreted and Dictated by Kulwinder Green MD Transcribed by Erika Haque Authenticated and [facility]
== END 2025-02-14 23:59 | disposition home or self-care (01) ==
LOC: RT 09:07
PROVIDERS: PCP Family Medicine; Visit Provider Nurse Practitioner Family
DX: Z03.89 Encounter for observation for other suspected diseases and conditions ruled out (principal); M25.531 Pain in right wrist; M89.8X3 Other specified disorders of bone, forearm; Z98.890 Other specified postprocedural states
CPT/HCPCS: 93931

== ENCOUNTER 2025-03-01 17:47 | Emergency (ER) | payer MEDICARE, SELFPAY ==
--- NOTE | 2025-03-01 17:45 | ECG_ITS ---
APPROVED REPORT Exam: Resting ECG HR:64 bpm ECG Measurements Heart Rate 64 AXES MA 182 P 38 QRSd 106 QRS -2 QT 450 T 42 QTc 459 Conclusion Sinus rhythm Electronically signed by : PERCY KEANE, 03/01/2025 23:09:53
[2025-03-01 17:52] VITALS: BP 133/68; PULSE 60; RESP 16; TEMP 36.7; O2SAT 97; BMI 24.3
--- NOTE | 2025-03-01 17:57 | XR_ITS ---
PROCEDURE INFORMATION: Exam: XR Chest Exam date and time: 03/01/2025 5:59 PM Age: 69 years old Clinical indication: Shortness of breath; Additional info: yun VALERA TECHNIQUE: Imaging protocol: Radiologic exam of the chest. Views: 2 views. COMPARISON: CR XR CHEST PORTABLE 01/27/2025 9:20 AM FINDINGS: Lungs: Lung volumes are mildly diminished. A few granulomata are stable. The lungs appear otherwise clear. No focal areas of consolidation. Pleural spaces: No pleural effusions. Negative for pneumothorax. Heart/Mediastinum: Cardiac silhouette and pulmonary vasculature are within range of normal. Bones/joints: There is no evidence of acute fracture. The thoracic spine demonstrates mild degenerative changes at multiple levels. IMPRESSION: Negative for an acute cardiopulmonary abnormality. Stable chest radiograph.
[2025-03-01 18:00] VITALS: BP 133/68; PULSE 52; RESP 14; O2SAT 95
--- NOTE | 2025-03-01 18:01 | [facility].EDCP ---
Discharge Plan Disposition Patient Disposition: Home, Self-Care Condition: Good Prescriptions Prescriptions: No Action lisinopril 10 mg tablet 10 mg PO DAILY Qty: 90 3RF Eliquis 5 mg tablet 0RF metoprolol succinate 25 mg tablet extended release 24 hr 12.5 mg PO DAILY Qty: 90 3RF Eliquis 5 mg tablet 5 mg PO BID 90 Days Qty: 180 3RF clopidogrel 75 mg tablet 75 mg PO DAILY 90 Days Qty: 90 3RF atorvastatin 40 mg tablet 40 mg PO HS 90 Days Qty: 90 3RF levothyroxine 75 mcg tablet 75 mcg PO DAILY Patient Comments: TAKE ONE (1) TABLET EVERY DAY BY ORAL ROUTE Referrals Follow up/Referrals: Provider,Referral, MD [Primary Care Provider] - See instructions Activity Restrictions/Add. Instructions Additional Instructions/Restrictions: Follow-up with cardiology as soon as possible If symptoms return or worsen return to the ER for eval Clinical Impressions Clinical Impression: Chest pain Qualifiers: Chest pain type: other chest pain Qualified Code(s): R07.89 - Other chest pain Instructions Patient Instructions: DI for Atypical Chest Pain Print Language Print Language: Albanian Discharge ED Provider: Chivo Hamilton HPI <Ana Paula Medina ([facility]), CREDIT ADMINISTRATION SPECIALIST - Last Filed: 03/01/25 19:51> General Chief Complaint: Chest Pain Stated Complaint: Chest Pain Time Seen by Provider: 03/01/25 17:56 History of Present Illness HPI narrative: 69-year-old female presents for complaints of chest pain and pressure that started yesterday. Patient states she chose to come in today because the pain was still there. Patient states she was in the hospital about a month ago had a heart cath and did not need stents. Related Data Home Medications ?Medication ?Instructions ?Recorded ?Confirmed levothyroxine 75 mcg tablet 75 mcg PO DAILY 01/27/25 02/20/25 Previous Rx's ?Medication ?Instructions ?Recorded lisinopril 10 mg tablet 10 mg PO DAILY #90 tabs 02/11/25 metoprolol succinate 25 mg 12.5 mg (1/2 x 25 mg) PO DAILY #90 02/20/25 tablet,extended release 24 hr tabs apixaban 5 mg tablet (Eliquis) 5 mg PO BID 90 days #180 tabs 02/24/25 atorvastatin 40 mg tablet 40 mg PO HS 90 days #90 tabs 02/24/25 clopidogrel 75 mg tablet 75 mg PO DAILY 90 days #90 tabs 02/24/25 Allergies Allergy/AdvReac Type Severity Reaction Status Date / Time codeine (CODEINE) Allergy Unknown Nausea Verified 02/20/25 10:53 cortisone (CORTISONE) Allergy Unknown Rash Verified 02/20/25 10:53 PFSH <[facility] CREDIT ADMINISTRATION SPECIALIST - Last Filed: 03/01/25 19:51> PFS Disclaimer: The information contained in this section may have been updated after the patient was seen, as this information can be updated by other users. Medical History , CREDIT ADMINISTRATION SPECIALIST) Bruising Fatigue Pain in right radius Abnormal ECG Bradycardia NSTEMI (non-ST elevated myocardial infarction) PAF (paroxysmal atrial fibrillation) Hyperlipidemia Atrial fibrillation with rapid ventricular response Abnormal findings diagnostic imaging of heart and coronary circulation Heart murmur Elevated troponin HTN (hypertension) Interstitial cystitis Surgical History , CREDIT ADMINISTRATION SPECIALIST) Hx of cardiac cath Social History , CREDIT ADMINISTRATION SPECIALIST) Smoking Status: Never smoker alcohol intake: never current occupational status: other Travel in the last 8 weeks: None Have you lived/traveled outside [place] in past 30 days?: No Contact w/someone who lives/traveled outside US past 30 days?: No Exposure to someone with infectious disease in past 14 days?: No Do you have a fever (greater than 100.4 F or 38 C)?: No Have you tested positive for COVID-19: No Exposed to someone with COVID-19 in past 14 days?: No Do you have a sore throat?: No Do you have a cough?: No Do you have any weakness?: No Do you have any diarrhea?: No Are you experiencing any unusual bleeding?: No Do you have any muscle aches/pain?: No Do you have any abdominal pain?: No Are you experiencing loss of taste or smell?: No Other Medical History Have you received the Flu Vaccine for this season: No Have you received the Pneumonia Vaccine: No <[facility] CREDIT ADMINISTRATION SPECIALIST - Last Filed: 03/01/25 19:51> ROS Obtained: Yes Systems reviewed as appropriate & no additional complaints except as documented Cardiovascular Cardiovascular: Reports system reviewed and no additional complaints, except as documented, Reports as per HPI and Reports chest pain Physical Exam <Betocoltkhushboo Ratliffkelly ([facility]), CREDIT ADMINISTRATION SPECIALIST - Last Filed: 03/01/25 19:51> General General appearance: alert and in no apparent distress ENT ENT exam: Present normal exam Respiratory Respiratory exam: Present normal lung sounds bilaterally Cardiovascular Cardiovascular exam: Present regular rate and normal rhythm Neurological Exam Neurological exam: Present alert and oriented X3 Skin Skin exam: Present warm and intact HEART Score <Betosammy kelly ([facility]), CREDIT ADMINISTRATION SPECIALIST - Last Filed: 03/01/25 19:51> HEART Score HEART Score assessment performed?: Yes History (anamnesis): Slightly suspicious ECG: Normal Age: >65 years Risk factors: 3 or more risk factors Troponin: </= normal limit HEART Score: 4 <Chivo Hamilton MD - Last Filed: 03/01/25 20:07> HEART Score HEART Score: 4 Critical Care <Ana Paula Ratliffkelly ([facility]), CREDIT ADMINISTRATION SPECIALIST - Last Filed: 03/01/25 19:51> Critical Care Time Critical Care Time: Yes Attestation: On 03/01/25, the high probability of a clinically significant, sudden or life threatening deterioration of the following system(s) required my full and direct attention, intervention and personal management. The time I documented below is in addition to time spent performing reported procedures but includes the following listed in this critical care notation. Total Time Total Critical Care Time: 35 Medical Decision Making <Betosammy kelly ([facility]), CREDIT ADMINISTRATION SPECIALIST - Last Filed: 03/01/25 19:51> Medical Records Medical records reviewed: Yes I reviewed the patient's medical records. Adryan Inquiry Pt receiving controlled substance: No Adryan was queried for this patient: No Vital Signs Vital Signs: 03/01/25 17:52 03/01/25 18:00 03/01/25 18:30 Temperature 98.0 F Temperature Source Oral Pulse Rate 52 L 48 L Pulse Rate [Right] 60 Respiratory Rate 16 14 18 Blood Pressure 133/68 147/70 H Blood Pressure [Right Arm] 133/68 Blood Pressure Mean [Right Arm] 89 Blood Pressure Source Blood Pressure Position 02 Sat by Pulse Oximetry 97 95 96 Oxygen Delivery Method Room Air Room Air Room Air 03/01/25 19:00 03/01/25 19:58 Temperature 98.0 F Temperature Source Oral Pulse Rate 48 L 48 L Pulse Rate [Right] Respiratory Rate 18 20 Blood Pressure 140/76 137/65 Blood Pressure [Right Arm] Blood Pressure Mean [Right Arm] Blood Pressure Source Automatic Cuff Blood Pressure Position Sitting 02 Sat by Pulse Oximetry 97 Oxygen Delivery Method Room Air Lab Data Lab results reviewed: Yes I reviewed the patient's lab results. Labs: Lab Results 03/01/25 17:54: WBC 7.2, RBC 4.15 L, Hgb 13.3, Hct 38.6, MCV 93.0, MCH 32.0 H, MCHC 34.5, RDW 13.0, Plt Count 232, MPV 9.4, Neut % (Auto) 77.7, Lymph % (Auto) 14.4, Emanuel % (Auto) 6.5, Eos % (Auto) 0.7, Baso % (Auto) 0.3, Neut # (Auto) 5.6, Lymph # (Auto) 1.0, Emanuel # (Auto) 0.5, Eos # (Auto) 0.1, Baso # (Auto) 0.0, Total Counted 100, Neutrophils % (Manual) 81 H, Lymphocytes % (Manual) 18, Eosinophils % (Manual) 1, Platelet Estimate Normal, RBC Morphology Normal, Sodium 140, Potassium 4.0, Chloride 105, Carbon Dioxide 27, Anion Gap 12.0, BUN 13, Creatinine 0.90, Estimated Creat Clear 66, Estimated GFR 62, Est GFR ( Amer) 76, Glucose 103 H, Calcium 9.7, Total Bilirubin 0.7, AST 41 H, ALT 30, Alkaline Phosphatase 130 H, Troponin I < 0.01, NT-Pro-B Natriuret Pep 170 H, Total Protein 7.9, Albumin 4.5, Globulin 3.4 H, Albumin/Globulin Ratio 1.3 03/01/25 17:54 03/01/25 17:54 Response Orders (Tests/Meds): ORDERS Category Date Time Status Chest XR 2 view (NOT portable) [XR chest 2V] Stat Exams 03/01/25 17:57 Completed BNP [NT Pro Brain Natriuretic Pep.] Stat Lab 03/01/25 17:54 Completed CBC Man Diff [Complete Blood Count Man Dif] Stat Lab 03/01/25 17:54 Completed CMP [Comprehensive Metabolic Panel] Stat Lab 03/01/25 17:54 Completed Trop I [Troponin I] Stat Lab 03/01/25 17:54 Completed MDM Narrative Medical Decision Narrative: In summary patient is a 69-year-old female who presents to the emergency department for evaluation of chest pain, and pressure since yesterday. Patient states she waited on coming in to see if the pain would go away and as the day progressed the pain and pressure remained. Patient states she was seen at [facility] a month ago and had a heart cath and did not need stents. Patient is hemodynamically stable upon arrival, afebrile. Unremarkable physical exam. Differential diagnosis includes RI, angina. Initial workup will be conducted with labs, chest x-ray, EKG. Initial inventions include EKG. Initial workup reviewed by de labs unremarkable, EKG and chest x-ray normal. Upon repeat evaluation patient was laying comfortably in bed with no complaints. Given this patient is appropriate for discharge at this time will discharge home with close follow-up with cardiology on Monday. <Chivo Hamilton MD - Last Filed: 03/01/25 20:07> Vital Signs Vital Signs: 03/01/25 17:52 03/01/25 18:00 03/01/25 18:30 Temperature 98.0 F Temperature Source Oral Pulse Rate 52 L 48 L Pulse Rate [Right] 60 Respiratory Rate 16 14 18 Blood Pressure 133/68 147/70 H Blood Pressure [Right Arm] 133/68 Blood Pressure Mean [Right Arm] 89 Blood Pressure Source Blood Pressure Position 02 Sat by Pulse Oximetry 97 95 96 Oxygen Delivery Method Room Air Room Air Room Air 03/01/25 19:00 03/01/25 19:58 Temperature 98.0 F Temperature Source Oral Pulse Rate 48 L 48 L Pulse Rate [Right] Respiratory Rate 18 20 Blood Pressure 140/76 137/65 Blood Pressure [Right Arm] Blood Pressure Mean [Right Arm] Blood Pressure Source Automatic Cuff Blood Pressure Position Sitting 02 Sat by Pulse Oximetry 97 Oxygen Delivery Method Room Air Lab Data Labs: Lab Results 03/01/25 17:54: WBC 7.2, RBC 4.15 L, Hgb 13.3, Hct 38.6, MCV 93.0, MCH 32.0 H, MCHC 34.5, RDW 13.0, Plt Count 232, MPV 9.4, Neut % (Auto) 77.7, Lymph % (Auto) 14.4, Emanuel % (Auto) 6.5, Eos % (Auto) 0.7, Baso % (Auto) 0.3, Neut # (Auto) 5.6, Lymph # (Auto) 1.0, Emanuel # (Auto) 0.5, Eos # (Auto) 0.1, Baso # (Auto) 0.0, Total Counted 100, Neutrophils % (Manual) 81 H, Lymphocytes % (Manual) 18, Eosinophils % (Manual) 1, Platelet Estimate Normal, RBC Morphology Normal, Sodium 140, Potassium 4.0, Chloride 105, Carbon Dioxide 27, Anion Gap 12.0, BUN 13, Creatinine 0.90, Estimated Creat Clear 66, Estimated GFR 62, Est GFR ( Amer) 76, Glucose 103 H, Calcium 9.7, Total Bilirubin 0.7, AST 41 H, ALT 30, Alkaline Phosphatase 130 H, Troponin I < 0.01, NT-Pro-B Natriuret Pep 170 H, Total Protein 7.9, Albumin 4.5, Globulin 3.4 H, Albumin/Globulin Ratio 1.3 Response Orders (Tests/Meds): ORDERS Category Date Time Status Chest XR 2 view (NOT portable) [XR chest 2V] Stat Exams 03/01/25 17:57 Completed BNP [NT Pro Brain Natriuretic Pep.] Stat Lab 03/01/25 17:54 Completed CBC Man Diff [Complete Blood Count Man Dif] Stat Lab 03/01/25 17:54 Completed CMP [Comprehensive Metabolic Panel] Stat Lab 03/01/25 17:54 Completed Trop I [Troponin I] Stat Lab 03/01/25 17:54 Completed ECG Data Tracing #1: Attestation: I reviewed this ECG and interpreted as documented below: (1745: Sinus rhythm 64 bpm with TN 182, QRS 106, QTc 459. No acute ischemic change and normal axis) MDM Narrative Medical Decision Narrative: In summary patient is a 69-year-old female who presents to the emergency department for evaluation of chest pain, and pressure since yesterday. Patient states she waited on coming in to see if the pain would go away and as the day progressed the pain and pressure remained. Patient states she was seen at [facility] a month ago and had a heart cath and did not need stents. Patient is hemodynamically stable upon arrival, afebrile. Unremarkable physical exam. Differential diagnosis includes RI, angina. Initial workup will be conducted with labs, chest x-ray, EKG. Initial inventions include EKG. Initial workup reviewed by me labs unremarkable, EKG and chest x-ray normal. Upon repeat evaluation patient was laying comfortably in bed with no complaints. Given this patient is appropriate for discharge at this time will discharge home with close follow-up with cardiology on Monday. I was consulted by the RUSS, and we discussed the complexity of the problems being addressed. I approved the treatment and management plan for this patient's care in the Emergency Department, thus performing a substantive portion of the medical decision making. Chivo Hamilton MD
[2025-03-01 18:02] LABS: MANUAL DIFFERENTIAL MANUAL DIFFERENTIAL (MANUAL DIFF)
[2025-03-01 18:05] LABS: Basophils % 0.3 % (0.1-2.0); Eosinophils # 0.1 K/mm3 (0.0-0.4); Eosinophils % 0.7 % (0.1-12.0); Hematocrit 38.6 % (37.0-47.0); Hemoglobin 13.3 g/dL (12.2-16.2); Lymphocytes % 14.4 % (10-50); Mean Corpuscular HGB Conc 34.5 g/dL (31.8-35.4); Mean Platelet Volume 9.4 fl (7.4-10.4); Monocytes # 0.5 K/mm3 (0.1-1.0); Monocytes % 6.5 % (1.7-9.3); Neutrophils # 5.6 K/mm3 (1.8-7.8); Neutrophils % 77.7 % (37.0-80.0); Platelet Count 232 K/mm3 (142-424); Red Blood Count 4.15 M/mm3 (4.20-5.40); White Blood Count 7.2 K/mm3 (4.8-10.8)
[2025-03-01 18:07] LABS: Albumin Level 4.5 g/dl (3.5-5.0); Chloride 105 mmol/L (98-107); Sodium 140 mmol/L (136-145)
[2025-03-01 18:10] LABS: Alanine Aminotransferase 30 U/L (12-78); Albumin/Globulin Ratio 1.3 (1.1-1.8); Alkaline Phosphatase 130 U/L (38-126); Aspartate Amino Transferase 41 U/L (14-36); Bilirubin,Total 0.7 mg/dl (0.2-1.3); Blood Urea Nitrogen 13 mg/dl (7-17); Calcium 9.7 mg/dl (8.4-10.2); Carbon Dioxide 27 mmol/L (22.0-30.0); Creatinine Clearance Estimated 66 mL/min (50-200); Estimated Glomerular Filt Rate 62 ml/min (>60); GFR (African American) 76 ML/MIN (>60); Globulin 3.4 g/dL (1.3-3.2); Glucose 103 mg/dl (74-100); Total Protein,Serum 7.9 g/dl (6.3-8.2)
[2025-03-01 18:20] LABS: NT Pro Brain Natriuretic Pep. 170 pg/mL (0-125)
[2025-03-01 18:30] VITALS: BP 147/70; PULSE 48; RESP 18; O2SAT 96
[2025-03-01 18:54] LABS: Eosinophils % 1 % (0-3); Lymphocytes % 18 % (10-50); Neutrophils % 81 % (42-76); Total Cells Counted 100
[2025-03-01 18:59] LABS: Platelet Estimate Normal; RBC Morphology Normal
[2025-03-01 19:00] VITALS: BP 140/76; PULSE 48; RESP 18; O2SAT 97
[2025-03-01 19:30] LABS: Troponin I < 0.01 ng/ml (0.00-0.034)
[2025-03-01 19:58] VITALS: BP 137/65; PULSE 48; RESP 20; TEMP 36.7; O2SAT 97
--- OUTSIDE RECORDS SUMMARY | 2025-03-06 19:50 | XMS_ITS | Data Portability ---
Author Organization [facility] Address [address] [place] [id number] Care Team Providers Care Sieve Grader Tender Name Role Phone ALIN DAN Primary Care Provider Assessment No assessment recorded. Plan of Treatment Reminders Order Date Submit Date Provider Last Modified By Organization Details Last Modified Time Details Appointments None record ed. Lab amylas e + lipase , serum 2023 024 [facility] (Registration ), [place], [address], 4 16:07:27 hepati c functi on panel, serum 2023 024 [facility] (Registration ), [place], [address], 4 14:40:07 Referral None record ed. Procedures esopha gogast roduod enosco py with biopsy (PROC) - PHYSIC PILAR ORDERS 1. Ensure patien t is NPO.0. 9% normal saline @kvo prefer ably in right arm; IV patent to gravit y.3. verify consen t. EGD with possib le biopsy with possib le dilati on.4. On-Klaus l to Endosc opy.5. Draw pt/inr if patien t on Coumad in Hold 2023 024 [facility] (Outpatient Surgery), [place], [address], 4 16:08:07 Surgeries None record ed. Imaging None record ed. Medication Orders sucral fate 1 gram tablet 2023 024 [facility] - [address], [address], 4 14:25:49 sucral fate 1 gram tablet 2023 024 [facility] - [address], [address], 4 13:40:44 Pepcid 40 mg tablet 2023 024 sarabjit sanz [facility] - [address], [address], 4 13:07:02 Patient TargetsNo targets recorded. Patient InstructionsNo instructions recorded. Reason for Referral None Reported. Results Created Date Observation Date Name Description Value Unit Range Abnormal Flag Note LastModifiedBy Organization Detail LastModifiedTime 02/08/2002/08/2024 LIVER PROFI LE note SEE NOTE Order ing Provi zane: Rashad faith MD Not Available [address] , [place], [address], 02/08/2024 14:40:07 02/08/20 24 02/08/2024 LIVER PROFI LE total protein 7.3 g/dL 6.4-8. 2 normal Not Available [address] [place], [address], 02/08/2024 14:40:07 02/08/20 24 02/08/2024 LIVER PROFI LE albumin 3.8 g/dL 3.4-5. 0 normal Not Available [address] , [place], [address], 02/08/2024 14:40:07 02/08/20 24 02/08/2024 LIVER PROFI LE bilirubin total 0.5 mg/dL 0.2-1. 0 normal Use of this assay is not recom darren d for patie nts under going treat ment with Eltro mbopa g due to the poten tial for false ly eleva quan resul ts. Not Available [address] , [place], [address], 02/08/2024 14:40:07 02/08/20 24 02/08/2024 LIVER PROFI LE bilirubin direct 0.1 mg/dL 0.0-0. 3 normal Not Available [address] , [place], [address], 02/08/2024 14:40:07 02/08/20 24 02/08/2024 LIVER PROFI LE bilirubin indirect 0.4 mg/dL 0-0.7 normal Not Available [address] , [place], [address], 02/08/2024 14:40:07 02/08/20 24 02/08/2024 LIVER PROFI LE SGOT/AST 36 U/L 15-37 normal Not Available [address] , [place], [address], 02/08/2024 14:40:07 02/08/20 24 02/08/2024 LIVER PROFI LE SGPT/ALT 42 U/L 14-59 normal Not Available [address] , [place], [address], 02/08/2024 14:40:07 02/08/20 24 02/08/2024 LIVER PROFI LE alkaline phosphatase total 110 U/L 46-116 normal Not Available [address] , [place], [address], 02/08/2024 14:40:07 02/08/20 24 02/08/2024 LIVER PROFI LE performing lab SEE NOTE - [facility] [address] [employer] [facility] [address] Not Available [address] , [place], [address], 02/08/2024 14:40:07 02/08/20 24 02/08/2024 AMYLA SE note See Note Order ing Provi zane: Rashad faith MD Not Available [address] , [place], [address], 02/08/2024 14:40:09 02/08/20 24 02/08/2024 AMYLA SE amylase 31 U/L 25-115 normal Not Available [address] , [place], [address], 02/08/2024 14:40:09 02/08/20 24 02/08/2024 AMYLA SE performing lab see note ML - [facility] [address] [place] [address] Not Available [address] , [place], [address], 02/08/2024 14:40:09 02/08/20 24 02/08/2024 LIPAS E note See Note Order ing Provi zane: Rashad faith MD Not Available [address] , [place], [address], 02/08/2024 14:40:09 02/08/20 24 02/08/2024 LIPAS E lipase 45 U/L 16-77 normal Not Available [address] , [place], [address], 02/08/2024 14:40:09 02/08/20 24 02/08/2024 LIPAS E performing lab see note ML - [facility] [address] [place] [address] Not Available [address] , [place], [address], 02/08/2024 14:40:09 03/14/20 24 03/14/2024 AB ANTI PARIE INGA CELL note SEE NOTE Order ing Provi zane: Rashad faith MD Not Available [address] , [place], [address], 03/17/2024 14:09:39 03/14/20 24 03/14/2024 AB ANTI PARIE INGA CELL Ab anti parietal cell 62.9 units 0.0-20 .0 high Negat leander 0.0 - 20.0 Equiv ocal 20.1 - 24.9 Posit leander >24.9 . Parie inga Cell Antib odies are found in 90% of patie nts with perni cious anemi a and 30% of first degre e relat georgie with perni cious anemi a. Not Available [address] , [place], [address], 03/17/2024 14:09:39 03/14/20 24 03/14/2024 AB ANTI PARIE INGA CELL performing lab SEE NOTE LC2 - [facility] BARBARA T# [id number] 022 [address] [place] [address] Not Available [address] , [place], [address], 03/17/2024 14:09:39 03/14/20 24 03/14/2024 AB INTRI NSIC FACTO R note SEE NOTE Order ing Provi zane: Rashad faith MD Not Available [address] , [place], [address], 03/17/2024 14:09:40 03/14/20 24 03/14/2024 AB INTRI NSIC FACTO R Ab intrinsic factor 1.0 AU/mL 0.0-1. 1 Perfo rmed At: CB, [facility] [place] [address] [place], [address] Raz medina, PhD, Phone : [phone] Perfo rmed At: BN, [facility] [place] [address] [facility] , [place], [address] Yasemin man MD, Phone : [phone] Not Available [address] , [place], [address], 03/17/2024 14:09:40 03/14/20 24 03/14/2024 AB INTRI NSIC FACTO R performing lab SEE NOTE LC2 - [facility] RP CLIEN T# [id number] [id number] [address] [place] [address] Not Available [address] , [place], [address], 03/17/2024 14:09:40 03/19/20 24 03/19/2024 CBC W/AUT O DIFFE RENTI AL note SEE NOTE Order ing Provi zane: Rashad faith MD Not Available [address] , [place], [address], 03/19/2024 13:44:11 03/19/20 24 03/19/2024 CBC W/AUT O DIFFE RENTI AL white blood cell 5.1 10e3/ uL 4.5-13 .0 normal Not Available [address] , [place], [address], 03/19/2024 13:44:11 03/19/20 24 03/19/2024 CBC W/AUT O DIFFE RENTI AL red blood cell 4.31 10e6/ uL 3.80-5 .10 normal Not Available [address] , [place], [address], 03/19/2024 13:44:11 03/19/20 24 03/19/2024 CBC W/AUT O DIFFE RENTI AL hemoglobin 13.9 g/dL 11.5-1 5.3 normal Not Available [address] [place], [place], [address], 03/19/2024 13:44:11 03/19/20 24 03/19/2024 CBC W/AUT O DIFFE RENTI AL hematocrit 40.9 % 34.0-4 6.0 normal Not Available [address] [place], [place], [address], 03/19/2024 13:44:11 03/19/20 24 03/19/2024 CBC W/AUT O DIFFE RENTI AL mean cell volume 95 fL 78.0-9 8.0 normal Not Available [address] [place], [place], [address], 03/19/2024 13:44:11 03/19/20 24 03/19/2024 CBC W/AUT O DIFFE RENTI AL mean cell HGB 32.3 pg 25.0-3 5.0 normal Not Available [address] [place], [place], [address], 03/19/2024 13:44:11 03/19/20 24 03/19/2024 CBC W/AUT O DIFFE RENTI AL mean cell HGB concentratio n 34.0 g/dL 31.0-3 6.0 normal Not Available [address] [place], [place], [address], 03/19/2024 13:44:11 03/19/20 24 03/19/2024 CBC W/AUT O DIFFE RENTI AL red cell distribution width 12.6 % 11.0-1 5.0 normal Not Available [address] [place], [place], [address], 03/19/2024 13:44:11 03/19/20 24 03/19/2024 CBC W/AUT O DIFFE RENTI AL platelet count 263 10e3/ uL 150-40 0 normal Not Available [address] [place], [place], [address], 03/19/2024 13:44:11 03/19/20 24 03/19/2024 CBC W/AUT O DIFFE RENTI AL immature granulocyte % 0 0-1 normal Not Available [address] , [place], [address], 03/19/2024 13:44:11 03/19/20 24 03/19/2024 CBC W/AUT O DIFFE RENTI AL neutrophil % 61 % 35-75 normal Not Available [address] , [place], [address], 03/19/2024 13:44:11 03/19/20 24 03/19/2024 CBC W/AUT O DIFFE RENTI AL lymphocyte % 30 % 10-50 normal Not Available [address] , [place], [address], 03/19/2024 13:44:11 03/19/20 24 03/19/2024 CBC W/AUT O DIFFE RENTI AL monocyte % 7 % 0-15 normal Not Available [address] [place], [place], [address], 03/19/2024 13:44:11 03/19/20 24 03/19/2024 CBC W/AUT O DIFFE RENTI AL eosinophil % 1 % 0-5 normal Not Available [address] [place], [place], [address], 03/19/2024 13:44:11 03/19/20 24 03/19/2024 CBC W/AUT O DIFFE RENTI AL basophil % 0 % 0-5 normal Not Available [address] [place], [place], [address], 03/19/2024 13:44:11 03/19/20 24 03/19/2024 CBC W/AUT O DIFFE RENTI AL immature granulocyte # 0.02 x1000 /uL 0-0.05 normal Not Available [address] [place], [place], [address], 03/19/2024 13:44:11 03/19/20 24 03/19/2024 CBC W/AUT O DIFFE RENTI AL neutrophil # 3.15 x1000 /uL 1.50-8 .00 normal Not Available [address] [place], [place], [address], 03/19/2024 13:44:11 03/19/20 24 03/19/2024 CBC W/AUT O DIFFE RENTI AL lymphocyte # 1.52 x1000 /uL 1.20-5 .20 normal Not Available [address] [place], [place], [address], 03/19/2024 13:44:11 03/19/20 24 03/19/2024 CBC W/AUT O DIFFE RENTI AL monocyte # 0.36 x1000 /uL 0.40-0 .90 low Not Available [address] [place], [place], [address], 03/19/2024 13:44:11 03/19/20 24 03/19/2024 CBC W/AUT O DIFFE RENTI AL eosinophil # 0.07 x1000 /uL 0.00-0 .50 normal Not Available [place] [address], [place], [address], 03/19/2024 13:44:11 03/19/20 24 03/19/2024 CBC W/AUT O DIFFE RENTI AL basophil # 0.01 x1000 /uL 0.00-0 .30 normal Not Available [address] [place], [place], [address], 03/19/2024 13:44:11 03/19/20 24 03/19/2024 CBC W/AUT O DIFFE RENTI AL NRBC automated 0.0 /100_ WBC Not Available [address] , [place], [address], 03/19/2024 13:44:11 03/19/20 24 03/19/2024 CBC W/AUT O DIFFE RENTI AL performing lab SEE NOTE ML - [facility] [address] [address] Not Available [address] , [place], [address], 03/19/2024 13:44:11 03/19/20 24 03/19/2024 FE W/TOT AL IRON LAURA NG CAP note See Note Order ing Provi zane: Rashad faith MD Not Available [address] , [place], [address], 03/19/2024 14:35:51 03/19/20 24 03/19/2024 FE W/TOT AL IRON LAURA NG CAP iron 68 ug/dL 50-170 normal Not Available [address] , [place], [address], 03/19/2024 14:35:51 03/19/20 24 03/19/2024 FE W/TOT AL IRON LAURA NG CAP total iron binding capacity 327 ug/dL 260-44 5 normal Not Available [address] , [place], [address], 03/19/2024 14:35:51 03/19/20 24 03/19/2024 FE W/TOT AL IRON LAURA NG CAP iron saturation 21 % 20-50 normal Not Available [address] , [place], [address], 03/19/2024 14:35:51 03/19/20 24 03/19/2024 FE W/TOT AL IRON LAURA NG CAP performing lab see note ML - [facility] [address] [facility] [address] Not Available [address] , [place], [address], 03/19/2024 14:35:51 03/19/20 24 03/19/2024 BRANDON TIN note See Note Order ing Provi zane: Rashad faith MD Not Available [address] , [place], [address], 03/19/2024 15:04:53 03/19/20 24 03/19/2024 BRANDON TIN ferritin 149 NG/mL 8-252 normal Not Available [address] , [place], [address], 03/19/2024 15:04:53 03/19/20 24 03/19/2024 BRANDON TIN performing lab see note ML [facility] [address] [facility] [address] Not Available [address] , [place], [address], 03/19/2024 15:04:53 03/19/20 24 03/19/2024 VITAM IN B12 FOLAT E note See Note Order ing Provi zane: Rashad faith MD Not Available [address] , [place], [address], 03/20/2024 10:38:12 03/19/20 24 03/19/2024 VITAM IN B12 FOLAT E vitamin B12 62 pg/mL 232-12 45 low Not Available [address] , [place], [address], 03/20/2024 10:38:12 03/19/20 24 03/19/2024 VITAM IN B12 FOLAT E folic acid 11.3 NG/mL >3.0 . A serum folat e alfredito ntrat ion of less than 3.1 ng/mL is consi dered to repre sent clini klaus defic iency . Perfo rmed At: CB, [facility] [place] [address], [place], [address] [address] Raz medina, PhD, Phone : [phone] Not Available [address] , [place], [address], 03/20/2024 10:38:12 03/19/20 24 03/19/2024 VITAM IN B12 FOLAT E performing lab see note LC2 - [facility] RP CLIEN T# [id number] [address] [place] [address] Not Available [address] , [place], [address], 03/20/2024 10:38:12 03/19/20 24 03/19/2024 GASTR IN note SEE NOTE Order ing Provi zane: Rashad faith MD Not Available [address] , [place], [address], 03/21/2024 16:15:26 03/19/20 24 03/19/2024 GASTR IN gastrin 1778 pg/mL 0-115 high Res ults verif ied by repea t testi ng Sieme ns Immul ite 1999 Immun ochem ilumi nomet travon assay (ICMA ) . Value s obtai warren with diffe rent assay metho ds or kits canno t be used inter cardenas eably . Resul ts canno t be inter prete d as absol [place] evide nce of the prese nce or absen ce of alivia carrion . Perfo rmed At: BN, [facility] [place] [address] [facility] , [place], [address] Yasemin man MD, Phone : [phone] Not Available [address] , [place], [address], 03/21/2024 16:15:26 03/19/20 24 03/19/2024 GASTR IN performing lab SEE NOTE LC2 - [facility] CLIEN T# [id number] [id number] [address] [place] [address] Not Available [address] , [place], [address], 03/21/2024 16:15:26 Result Notes None recorded. Problems Name Problem SNOMED Code Status Onset Date Resolution Date Notes Provider Name and Address Organization Details Recorded Time Sensorineural hearing loss 49727311 Active 2022 SHAQUILLE Landeros - [facility] - [place] & [place] 3 09:29:47 Abdominal pain 88646812 Active 2022 SHAQUILLE Landeros - [facility] - [place] & [place] 3 09:29:46 Hypercholester olemia 60729219 Active SHAQUILLE Landeros - [facility] - [place] & [place] 3 09:29:46 History of hysterectomy 838914497 Active 2018 Michelet bhakta [place] - [facility] - [place] & [place] 3 09:29:46 Body mass index 30+ - obesity 565450521 Active 2018 SHAQUILLE Landeros - [facility] - [place] & [place] 3 09:29:46 Discoid lupus erythematosus 693825441 Active 2018 SHAQUILLE Landeros - [facility] - [place] & [place] 3 09:29:46 Panic attack 777015649 Active SHAQUILLE Landeros - [facility] - [place] & [place] 3 09:29:46 Vulvodynia 119505222 Active 2018 Michelet bhakta [place] - [facility] - [place] & [place] 3 09:29:46 Interphalangea l joint of toe stiff 812703467 Active 2021 Michelet Magana null, [place] - LP[facility] - [facility] & [place] 3 09:29:46 Graves' disease 830680919 Active Michelet Magana null, [place] - [facility] - [facility] & [place] 3 09:29:46 Hypothyroidism 18121336 Active Michelet Magana null, [place]QU[place] - [facility] - & [place] 3 09:29:47 Obesity 324044987 Active 2016 Michelet Magana null, [place] [facility] & [place] 3 09:29:47 Hyperlipidemia 66591319 Active 2018 Michelet Magana null, [place] - [facility] - [facility] & [place] 3 09:29:47 Essential hypertension 21765120 Active Michelet Magana null, [place] - [facility] - & [place] 3 09:29:47 Osteoporosis 28865318 Active 2018 Michelet Magana null, [place] - [facility] - & [place] 3 09:29:47 Urinary tract infectious disease 72606927 Active 2020 Michelet Magana null, [place] - [facility] - & [place] 3 09:29:47 History of supracervical hysterectomy 793540254 Active Michelet Magana null, [place] - [facility] - & [place] 3 09:29:47 Degeneration of intervertebral disc 47463097 Active Michelet Magana null, [place] - [facility] & [place] 3 09:29:47 Steatosis of liver 051975381 Active 2022 Kumar Jackson MD [address] [facility],[address], [place], [address], [place] - LP[facility] - [facility] & [place] 3 15:02:50 Epigastric pain 63255265 Active 2023 Kumar Jackson MD [address], [place], [address], [place] - LP[facility] - [facility] & [place] 4 14:12:18 Chronic gastritis 2355790 Active 2023 Kumar Jackson MD [address] [place] [address],[place] [address], [place], [address] [facility] SHAQU[place] - JAIRONNT [facility] & [place] 4 13:39:22 Notes:Some problems listed i n Document: #[id number] could not be added to this patient's chart. Please review this document and add these problems to the patient's chart manually as needed. Problem Notes None recorded. Procedures Surgical History Date Name Laterality Status Provider Name and Address Organization Details Recorded Time 02/03/20 23 Liver elastography completed Michelet CORBIN - [facility] - [place] & [place] 04/03/2023 14:04:48 06/04/20 20 Colonoscopy completed Michelet CORBIN - [facility] - [place] & [place] 01/30/2023 09:32:13 09/07/20 16 Colonoscopy [facility] CORBIN [facility] [place] 01/30/2023 09:32:21 mammography completed Michelet CORBIN - LPNT [facility] & [place] 01/30/2023 09:32:02 Carpal tunnel surgery completed Michelet CORBIN - [facility] - [place] & [place] 01/30/2023 09:32:34 Hysterectomy completed Michelet CORBIN - [facility] - [place] & [place] 01/30/2023 09:32:50 Cholecystectomy completed Michelet CORBIN - [facility] - [place] & [place] 01/30/2023 09:32:59 fasciotomy of foot completed William CORBIN - LPNT [facility] & [place] 01/30/2023 09:33:24 Imaging Results None recorded. Procedure Notes None recorded. Medical Equipment None Reported. Allergies Allergen ID Allergen Name Allergen Category Reaction Reaction Severity Criticality Documentation Date Start Date Code Code System Note Provider Name and Address Organization Details Recorded Time 24389 ergocalci ferol medicatio n Not available Not available Not available 01/30/20232011 4018 RxNorm SHAQUILLE Landeros - [facility] - [place] & [place] 3 09:29:41 06706 Cipro medicatio n Not available Not available Not available 01/30/20232012 97981 3 RxNorm SHAQUILLE Landeros [facility] & [place] 3 09:29:41 48683 Lipitor medicatio n nausea Not available Not available 01/30/20232015 35790 5 RxNorm SHAQUILLE Landeros [facility] & [place] 3 09:29:41 33861 Macrobid medicatio n diarrhea severe Not available 01/30/2023 16733 1 RxNorm SHAQUILLE Landeros [facility] & [place] 3 09:29:41 35095 codeine sulfate medicatio n Not available Not available Not available 01/30/20232011 80119 RxNorm SHAQUILLE Landeros [facility] & [place] 3 09:29:41 09619 cortisone acetate medicatio n Not available Not available Not available 01/30/20232011 99537 RxNorm SHAQUILLE Landeros [facility] & [place] 3 09:29:41 49341 ergocalci ferol medicatio n Not available Not available Not available 01/30/2023 4018 RxNorm SHAQUILLE Landeros [facility] & [place] 3 09:30:22 83264 cholecalc iferol medicatio n Not available Not available Not available 01/30/2023 2418 RxNorm SHAQUILLE Landeros [facility] & [place] 3 09:30:37 Medications Name Sig Start Date Stop Date Status Note LastModified by Organization Details LastModified Time cyclobenzap rine 10 mg tablet Take 1 tablet 3 times a day by oral route. 12/20 completed Not Available Not Available Not Available Cleocin HCl 300 mg capsule take 1 capsule by oral route 3 times a day for 5 days 10/06 completed Not Available Not Available Not Available amoxicillin 500 mg capsule 01/30 completed Not Available Not Available Not Available Miralax 17 gram/dose oral powder Take 17 g every day by oral route as needed. 07/29 completed Not Available Not Available Not Available atorvastati n 40 mg tablet TAKE ONE TABLET BY MOUTH ONCE DAILY 01/30 completed Not Available Not Available Not Available desonide 0.05 % topical cream 07/23 completed Not Available Not Available Not Available terconazole 0.4 % vaginal cream insert 1 applicato rful by vaginal route once daily at bedtime for 7 days 05/02 completed Not Available Not Available Not Available betamethaso ne valerate 0.1 % topical ointment 07/23 completed Not Available Not Available Not Available neomycin-po lymyxin-hyd rocort 3.5 mg/mL-10,00 0 unit/mL-1 % ear solution INSTILL 4 DROPS INTO AFFECTED EAR(S) BY OTIC ROUTE 3 TIMES PER DAY 07/23 completed Not Available Not Available Not Available diclofenac 3 % topical gel APPLY TO LESION AREAS BY TOPICAL ROUTE 2 TIMES PER DAY 12/20 completed Not Available Not Available Not Available ketoconazol e 2 % shampoo WASH EARS DAILY DIRECTED FOR ITCH AND SCALE 07/29 completed Not Available Not Available Not Available triamcinolo ne acetonide 0.5 % topical cream APPLY SMALL AMOUNT TO AFFECTED AREA TWICE DAILY DIRECTED 02/08 completed Not Available Not Available Not Available oxybutynin chloride ER 10 mg tablet,exte nded release 24 hr TAKE ONE (1) TABLET EVERY DAY BY ORAL ROUTE. 01/19 completed Not Available Not Available Not Available azithromyci n 250 mg tablet TAKE TWO (2) TABLETS BY MOUTH ON DAY ONE (1) THEN TAKE ONE (1) TABLET BY MOUTH DAILY FOR FOUR (4) DAYS. 01/19 completed Not Available Not Available Not Available Lidocaine Viscous 2 % mucosal solution 05/31 completed Not Available Not Available Not Available valacyclovi r 1 gram tablet 2000 mg PO q12h x2 days 07/15 completed Not Available Not Available Not Available Lotrisone 1 %-0.05 % topical cream apply to the affected and surroundi ng areas of skin by topical route 2 times per day in the morning and evening for 28 days 10/16 completed Not Available Not Available Not Available Patanol 0.1 % eye drops instill 1 drop into affected eye(s) by ophthalmi c route 2 times per day at an interval of 6 to 8 hours for 7 days 04/20 completed Not Available Not Available Not Available fluconazole 200 mg tablet 02/04 completed Not Available Not Available Not Available sucralfate 1 gram tablet TAKE ONE (1) TABLET FOUR (4) TIMES A DAY BY ORAL ROUTE FOR 30 DAYS. active Not Available Not Available No t Available phenazopyri dine 200 mg tablet TAKE ONE (1) TABLET THREE (3) TIMES A DAY BY ORAL ROUTE. 01/19 completed Not Available Not Available Not Available metronidazo le 0.75 % (37.5 mg/5 gram) vaginal gel INSERT 1 APPLICATO RFUL VAGINALLY AT BEDTIME FOR 5 DAYS 12/04 completed Not Available Not Available Not Available famotidine 40 mg tablet TAKE ONE (1) TABLET EVERY DAY BY ORAL ROUTE FOR 30 DAYS. 02/11 completed Not Available Not Available Not Available Pyridium 100 mg tablet Take 1 tablet 3 times a day by oral route as needed for 2 days. 01/30 completed Not Available Not Available Not Available terconazole 0.8 % vaginal cream insert 1 applicato rful by vaginal route once daily at bedtime for 3 days 05/31 completed Not Available Not Available Not Available pimecrolimu s 1 % topical cream APPLY ONCE DAILY TO ANY BODY AREA, SAFE FOR LONG-TERM USE active Not Available Not Available No t Available Elmiron 100 mg capsule TAKE ONE (1) CAPSULE THREE (3) TIMES A DAY BY ORAL ROUTE. 02/11 completed Not Available Not Available Not Available clobetasol 0.05 % topical cream apply a thin layer by topical route 2 times per day to the affected area(s) for 10 days, daily x 10 days, repeat prn 02/04 completed Not Available Not Available Not Available metronidazo le 500 mg tablet TAKE ONE (1) TABLET (500 MG) BY ORAL ROUTE EVERY 12 HOURS FOR 7 DAYS 01/19 completed Not Available Not Available Not Available hydroxyzine HCl 50 mg tablet TAKE ONE (1) TABLET EVERY DAY BY ORAL ROUTE AT BEDTIME FOR 14 DAYS. 01/19 completed Not Available Not Available Not Available acetaminoph en 300 mg-codeine 30 mg tablet TAKE ONE (1) TABLET THREE (3) TIMES A DAY BY ORAL ROUTE AFTER MEAL(S) FOR 7 DAYS. active Not Available Not Available No t Available amlodipine 5 mg tablet TAKE ONE (1) TABLET DAILY BY MOUTH active Not Available Not Available No t Available sulfamethox azole 800 mg-trimetho prim 160 mg tablet 01/30 completed Not Available Not Available Not Available peg-electro lyte solution 420 gram oral solution 07/15 completed Not Available Not Available Not Available ondansetron 8 mg disintegrat ing tablet PLACE ONE (1) TABLET TWICE A DAY BY TRANSLING UAL ROUTE FOR TWO (2) DAYS. active Not Available Not Available No t Available lidocaine-p rilocaine 2.5 %-2.5 % topical cream 01/24 completed Not Available Not Available Not Available fenofibrate micronized 134 mg capsule Take 1 capsule every day by oral route for 30 days. 01/30 completed Not Available Not Available Not Available clobetasol 0.05 % topical gel APPLY ONCE DAILY TO AFFECTED AREA FOR UP TO A MONTH AT A TIME 02/11 completed Not Available Not Available Not Available levothyroxi ne 75 mcg tablet TAKE ONE (1) TABLET EVERY DAY BY ORAL ROUTE active Not Available Not Available No t Available dexamethaso ne 0.5 mg/5 mL oral solution SWISH AND SPIT ONE (1) TEASPOONF UL(5ML) FOR TWO (2) MINUTES FOUR TIMES DAILY PRN 02/11 completed Not Available Not Available Not Available nystatin-tr iamcinolone 100,000 unit/gram-0 .1 % topical ointment APPLY SMALL AMOUNT TO THE OUTER EAR AND CANAL USING Q TIP TWICE DAILY FOR 14 DAYS AND THEN NEEDED 02/08 completed Not Available Not Available Not Available alprazolam 0.5 mg tablet TAKE 1 TABLET BY MOUTH (1/2) HOUR BEFORE FLIGHT TIME 02/04 completed Not Available Not Available Not Available famotidine 20 mg tablet TAKE ONE (1) TABLET TWICE A DAY BY ORAL ROUTE. 01/19 completed Not Available Not Available Not Available amitriptyli ne 25 mg tablet TAKE 1 TABLET BY MOUTH ONCE DAILY 04/03 completed Not Available Not Available Not Available desonide 0.05 % topical ointment active Not Available Not Available Not Available lorazepam 2 mg tablet TAKE 1 TABLET BY MOUTH IF NEEDED FOR ANXIETY (15-30 MINUTES BEFORE MRI) FOR UP TO 1 DOSE 01/19 completed Not Available Not Available Not Available cephalexin 500 mg capsule Take 1 capsule 3 times a day by oral route for 10 days. 03/16 completed Not Available Not Available Not Available erythromyci n 5 mg/gram (0.5 %) eye ointment 01/19 completed Not Available Not Available Not Available tacrolimus 0.1 % topical ointment APPLY OINTMENT DAILY TOPICALLY TO AFFECTED AREA. SAFE FOR PRISON USE 01/19 completed Not Available Not Available Not Available Cipro 500 mg tablet take 1 tablet (500 mg) by oral route 2 times per day for 10 days 03/27 completed Not Available Not Available Not Available nystatin 100,000 unit/gram topical cream APPLY TO THE AFFECTED AREA(S) BY TOPICAL ROUTE TWO (2) TIMES PER DAY 10/04 completed Not Available Not Available Not Available lisinopril 10 mg tablet TAKE ONE (1) TABLET BY MOUTH ONCE DAILY active Not Available Not Available No t Available clobetasol 0.05 % topical foam APPLY TOPICALLY TO AFFECTED AREA TWICE DAILY NEEDED TO SCALP 02/08 completed Not Available Not Available Not Available fluocinolon e 0.01 % topical body oil APPLY OIL TOPICALLY TO AFFECTED AREA IN THE EVENING ONCE DAILY 12/20 completed Not Available Not Available Not Available gabapentin 300 mg capsule take 1 capsule (300 mg) by oral route 3 times per day 03/01 completed Not Available Not Available Not Available pravastatin 20 mg tablet take 1 tablet (20 mg) by oral route once daily at bedtime for 30 days 05/31 completed Not Available Not Available Not Available mometasone 0.1 % topical ointment 05/21 completed Not Available Not Available Not Available clobetasol 0.05 % topical ointment Apply 3 times a week by topical route for 30 days. 12/20 completed Not Available Not Available Not Available fluocinolon e 0.01 % topical solution 07/15 completed Not Available Not Available Not Available hydroxychlo roquine 200 mg tablet TAKE 1 TABLET BY MOUTH ONCE DAILY WITH BREAKFAST 02/08 completed Not Available Not Available Not Available fluocinonid e 0.05 % topical solution APPLY A FEW DROPS TO EARS AND ON ELBOW 1 TO 2 TIMES DAILY NEEDED FOR ITCHING 07/29 completed Not Available Not Available Not Available levofloxaci n 500 mg tablet TAKE 1 TABLET BY MOUTH ONCE DAILY 02/04 completed Not Available Not Available Not Available Vitamin D2 1,250 mcg (50,000 unit) capsule take 1 capsule (50,000 unit) by oral route once weekly for 30 days 03/06 completed Not Available Not Available Not Available ipratropium bromide 42 mcg (0.06 %) nasal spray 02/08 completed Not Available Not Available Not Available clobetasol 0.05 % scalp solution 08/14 completed Not Available Not Available Not Available Zocor 40 mg tablet take 1 tablet (40 mg) by oral route once daily in the evening 12/03 completed Not Available Not Available Not Available fluticasone propionate 50 mcg/actuati on nasal spray,suspe nsion [place] 1 spray every day by intranasa l route for 7 days. 01/30 completed Not Available Not Available Not Available doxycycline hyclate 100 mg tablet take 1 tablet (100 mg) by oral route 2 times per day for 10 days 04/20 completed Not Available Not Available Not Available diazepam 5 mg tablet TAKE DIRECTED PRIOR TO MRI 01/19 completed Not Available Not Available Not Available neomycin-po lymyxin-hyd rocort 3.5 mg-10,000 unit/mL-1 % ear drops,susp INSTILL 4 DROPS INTO AFFECTED EAR(S) BY OTIC ROUTE 3 TIMES PER DAY 05/13 completed Not Available Not Available Not Available Mucinex 600 mg tablet, extended release 1 tab BID 04/20 completed Not Available Not Available Not Available Premarin 0.625 mg/gram vaginal cream insert 1 gram by vaginal route 2x weekly 04/20 completed Not Available Not Available Not Available clobetasol 0.05 % shampoo APPLY TO SCALP AND WASH ONCE DAILY DIRECTED 07/29 completed Not Available Not Available Not Available nitrofurant oin monohydrate /macrocryst als 100 mg capsule TAKE ONE (1) CAPSULE TWICE A DAY BY ORAL ROUTE FOR 7 DAYS. 01/19 completed Not Available Not Available Not Available Tricor 145 mg tablet take 1 tablet (145 mg) by oral route once daily for 30 days 03/01 completed Not Available Not Available Not Available Constulose 10 gram/15 mL oral solution take 15 millilite rs (10 gram) by oral route once daily for 7 days 07/15 completed Not Available Not Available Not Available chlorhexidi ne gluconate 0.12 % mouthwash Place 15 mL twice a day by mucous membrane route for 10 days. active Not Available Not Available No t Available fluocinolon e acetonide oil 0.01 % ear drops INSTILL 5 DROPS INTO AFFECTED EAR(S) BY OTIC ROUTE 2 TIMES PER DAY 07/23 completed Not Available Not Available Not Available diclofenac 1 % topical gel APPLY 2 GRAMS TO THE AFFECTED AREA BY TOPICAL ROUTE 4 TIMES PER DAY 01/30 completed Not Available Not Available Not Available Vagifem 10 mcg vaginal tablet INSERT ONE (1) TABLET TWICE A WEEK BY VAGINAL ROUTE PRN 02/11 completed Not Available Not Available Not Available Tucks (witedin maherel) 50 % topical pads Apply to affected area as needed up to 6 times per day 04/05 completed Not Available Not Available Not Available lidocaine 5 % topical ointment APPLY TO AFFECTED AREA(S) BY TOPICAL ROUTE 1-4 TIMES DAILY NEEDED active Not Available Not Available No t Available Vascepa 1 gram capsule Take 2 capsules 3 times a day by oral route for 30 days. 01/19 completed Not Available Not Available Not Available Preparation H 0.25 %-14 %-74.9 % ointment Apply to affected area up to 4 times per day 04/05 completed Not Available Not Available Not Available Procto-Med HC 2.5 % topical cream perineal applicator 01/30 completed Not Available Not Available Not Available Shingrix (PF) 50 mcg/0.5 mL intramuscul ar suspension, kit 12/04 completed Not Available Not Available Not Available Vitals Date Recorded Body height Body mass index (BMI) Body weight Body temperature Respiratory rate Heart rate Systolic blood pressure Diastolic blood pressure Provider Name and Address Organization Details Last Updated DateTime 4 170.18 cm 31.3 kg/m2 09277.7 6 g 97.6 [degF] 16 /min 67 /min 132 mm[Hg] 83 mm[Hg] Rosa Durand [facility] [place] 4 13:35:29 Date Recorded Body height Body mass index (BMI) Body weight Body temperature Heart rate Systolic blood pressure Diastolic blood pressure Provider Name and Address Organization Details Last Updated DateTime 4 170.18 cm 31.4 kg/m2 00478.6 3 g 98.1 [degF] 65 /min 130 mm[Hg] 94 mm[Hg] Jose Montes [facility] [place] 4 13:12:45 Date Recorded Body height Body mass index (BMI) Body weight Body temperature Heart rate Systolic blood pressure Diastolic blood pressure Provider Name and Address Organization Details Last Updated DateTime 4 170.18 cm 30.6 kg/m2 34114.2 3 g 97.3 [degF] 71 /min 132 mm[Hg] 78 mm[Hg] Jocelyn Navarro [facility] [place] 4 14:02:50 Social History Question Answer Notes LastModified by [employer] Details LastModified Time Tobacco Smoking Status Never Smoker Michelet Montanoeri [facility] [place] 01/30/2023 09:31:14 What Is Your Level Of Alcohol Consumption? None Information not available 01/30/2023 What Is Your Level Of Caffeine Consumption? Moderate Information not available 01/30/2023 What Type Of Diet Are You Following? REGULAR Information not available 01/30/2023 What Was The Date Of Your Most Recent Tobacco Screening? 01/19/2024 [email or web address] Information not available 01/19/2024 Do You Use Any Illicit Or Recreational Drugs? No [email or web address] Information not available 01/19/2024 Sex: Unknown Functional Status Question Answer Note LastModified by [employer] ion Details LastModified Time What is your exercise level? Occasional Information not available 01/30/2023 Mental Status None recorded. Family History Relationship Description Onset Age of this Age Resolved Age Notes LastModified by Organization Details LastModified Time Father No current problems or disability efe Not available 01/30 09:30:55 Mother No current problems or disability efe Not available 01/30 09:30:55 Medical History Condition Response Coronary Artery Disease N None N Gout N Colon Cancer N Kidney Stones N Hyperthyroidism N Hypothyroidism Y Depression N COPD N Osteoporosis/Osteopenia Y Diverticulitis/Diverticulosis N Colon Polyps N Anxiety Disorder N Diabetes N Bleeding Disorder N Arthritis N Seizures/Epilepsy N Tuberculosis N Hyperlipidemia Y Cancer N Stroke N Asthma N Sleep Apnea N GERD/Reflux N Hepatitis N Cirrhosis N Liver Disease N Heart Disease N Hypertension Y Kidney Disease N Gynecological HistoryNo gynecological history recorded. Obstetrics History GPAL:G 0 P 0 0 0 0 Immunizations Vaccine Type Date Status Note Provider Nam e and Address Organization Details Recorded Time zoster recombinant 04/17/2019 completed Michelet Magana null, [place] - [facility] [place] 01/30/2023 09:29:47 zoster recombinant 09/18/2019 completed Michelet Magana null, [place] - [facility] [place] 01/30/2023 09:29:47 COVID-19, mRNA, LNP-S, PF, 30 mcg/0.3 mL dose 01/27/2021 completed Michelet Magana null[place] - [facility] [place] 01/30/2023 09:29:47 COVID-19, mRNA, LNP-S, PF, 30 mcg/0.3 mL dose 02/19/2021 completed Michelet Magana null, [place] - [facility] [place] 01/30/2023 09:29:47 COVID-19, mRNA, LNP-S, PF, 30 mcg/0.3 mL dose 10/06/2021 completed Michelet Magana null, [place] - [facility] [place] 01/30/2023 09:29:47 COVID-19, mRNA, LNP-S, PF, 30 mcg/0.3 mL dose, alexsander-sucrose 03/29/2022 completed Michelet Magana null, [place] - [facility] [place] 01/30/2023 09:29:47 COVID-19, mRNA, LNP-S, bivalent, PF, 30 mcg/0.3 mL dose 10/26/2022 completed Michelet Magana SHAQUILLE bhakta [facility] - [place] [facility] [place] 01/30/2023 09:29:47 Td (adult) 11/27/2014 completed Michelet Magana livia, SHAQUILLE Toro [facility] - [place] [facility] [place] 01/30/2023 09:29:47 Past Encounters Encounter ID Performer Location Encounter Start Date Encounter Closed Date Diagnosis/Indication Diagnosis SNOMED-CT Code Diagnosis ICD10 Code Diagnosis Note [id number] ELIZABETH GRIM[facility]DO [facility] [address] M[place] [address] [place] [address] 8 09/05/2022 14:27:42 09/05/2022 14:49:35 Sensorineural hearing loss 55910059 H90.3 [id number] [facility] [address] M[place]SA [address] [place] [address] 8 10/24/2022 15:01:38 10/24/2022 15:17:24 Sensorineural hearing loss 80014228 H90.3 [id number] ELIZABETH GRIMALDO [address] [place] [address] [place] [address] 8 11/04/2022 08:41:38 11/04/2022 09:14:30 Sensorineural hearing loss 95112495 H90.3 [id number] [facility]ABETH GR[facility]DO [facility] [place] [address] 8 12/26/2022 14:54:36 12/26/2022 15:07:50 Sensorineural hearing loss 88294152 H90.3 [id number] Kumar Jackson MD [facility] [address] [place] [address] Drive,[address] [place] [phone] 01/30/2023 14:00:20 01/30/2023 15:08:39 Steatosis of liver 089068461 K76.0 The patient's imaging suggests steatosis, but with normal LFTs. Given the patient's obesity, some degree of hepatic steatosis would not be unexpected , and we have discussed with the patient the importance of regular aerobic exercise, and a low-fat diet. With regular exercise, and diet control weight loss often will follow, and with weight loss the sympatheti c steatosis should improved. At this time we will also obtain a Fibroscan to assess for the degree of fibrosis that might be present, and see the patient back in 2 months. Based on the Fibroscan findings, and the patient's response to 2 months of exercise and diet further recommenda tion will follow. [id number] Kumar Jackson MD [facility] [address] [place] [phone] 02/02/2023 09:31:11 02/02/2023 10:41:15 Steatosis of liver K76.0 The patient's imaging suggests steatosis, but with normal LFTs. Given the patient's obesity, some degree of hepatic steatosis would not be unexpected , and we have discussed with the patient the importance of regular aerobic exercise, and a low-fat diet. With regular exercise, and diet control weight loss often will follow, and with weight loss the sympatheti c steatosis should improved. At this time we will also obtain a Fibroscan to assess for the degree of fibrosis that might be present, and see the patient back in 2 months. Based on the Fibroscan findings, and the patient's response to 2 months of exercise and diet further recommenda tion will follow. [id number] [facility] [address] TORRES [address] [place] [id number] 02/20/2023 13:50:33 02/20/2023 14:10:59 Sensorineural hearing loss 17275517 H90.3 [id number] [facility] [address] [place] [address],[address] [phone] 04/03/2023 13:32:54 04/03/2023 14:17:57 Steatosis of liver 330777372 K76.0 Additional examinatio n via Fibroscan demonstrat ed no significan t steatosis, or fibrosis. Given LFTs are also unremarkab le no further investigat ion is necessary at this time. We did encourage the patient to remain active, suggesting an aerobic activity 5 times a week being ideal, and continued weight control, follow-up p.r.n. History of polyp of colon 033336526 Z86.010 follow-up colonoscop y 2024 [id number] ELIZABETH GRIMALDO [address] TORRES [address] [place], [place] [address] 8 04/26/2023 13:11:43 04/26/2023 13:42:17 Sensorineural hearing loss 30902095 H90.3 [id number] ELIZABETH GRIMALDO [address] [place] [address] 8 10/13/2023 08:55:29 10/13/2023 09:10:51 Sensorineural hearing loss 13871809 H90.3 [id number] ELIZABETH GRIMALDO [address] TORRES [address] [place] [address] 8 10/27/2023 09:48:44 10/27/2023 10:02:50 Sensorineural hearing loss 94133914 H90.3 [id number] Kumar Jackson MD [facility] [address] [place] [address],[address] [phone] 01/19/2024 13:03:20 01/19/2024 14:27:21 Steatosis of liver 629197531 K76.0 Previous studies demonstrat ed normal LFTs, and no significan t fibrosis. Weight stable, recheck LFTs today. Continue to encourage regular aerobic activity. History of polyp of colon 102346044 Z86.010 follow-up colonoscop y 2024 Epigastric pain 32039141 R10.13 Chronic intermitte nt epigastric pain. Etiology unclear differenti al is broad, check pancreatic enzymes, LFTs, begin Pepcid and schedule EGD for evaluation . 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 Additional serologies have been ordered but have not returned yet. At this time will start the patient on Carafate to try to avoid the potential gastric stimulatin g effects of acid suppressiv e therapy. 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 Additional serologies have been ordered but Apparently were never completed, on Carafate the patient is entirely asymptomat ic. Will reorder serologies , continue Carafate follow-up 6 months biopsies also demonstrat ed intestinal metaplasia , as well as mild neuroendoc rine hyperplasi a Steatosis of liver 12526 1007 K76.0 normal LFTs, and no significan t fibrosis. Weight stable, encourage regular aerobic activity. [id number] ELIZABETH GRIMALDO [facility] [address] [place] [address] [address] [place] [address] 10/23/2024 11:13:29 10/23/2024 11:31:18 Sensorineural hearing loss 98544169 H90.3 Health Concerns Section Related Observation LastModified by Organization Detai ls LastModified Time None Recorded Concern Status LastModified by Organization Details LastModified Time None Recorded Advance Directives Directive None Recorded Payers Encounter Date Sequence Insurance Name Policy Number Policy Ortiz Covered Member ID Ortiz Member ID Guarantor Name 10/27/2023 1 [place]ACEMENT [place]IONAL PPO[place] [id number] Twanpam Blake Xiang [id number] 10/27/2023 2 [place] Gregg Lou Xiang [id number] Gregg [place] 01/19/2024 1 [place] [id number] Gregg Lou Xiang [id number] 01/19/2024 2 [place] Gregg Otoole [id number] 1 Gregg [place]to[place] 02/12/2024 1 [place] [id number] Gregg Otoole [id number] [address] [place] 03/14/2024 1 [place] [id number] Gregg Otoole [id number] [address] [place] 10/23/2024 1 [place] [id number] Gregg Otoole [id number] [address] [place] Notes Date Note Type Note Provider Name and Address Organization Details Recorded Time 10/27/2023 text/html Patient was seen today for a hearing aid service. Cleaned and adjusted hearing aids this date. ELIZABETH GRIMALOD [address] [place] [address],[address], [place], [address], [facility] 10/27/2023 10:19:50 01/19/2024 text/html this is a 68-year-old female referred back to the practice by Dr. Newman for evaluation of epigastric pain. The patient has been seen in this practice previously, she has some hepatic steatosis without elevated LFTs, the patient notes that she from time to time however has been having increasing upper abdominal discomfort in the midline that is dull in nature. It is associated with food intake. No heartburn, no indigestion, no nausea and no vomiting. The pain may last several hours, there has been no weight loss. The patient is on no proton pump inhibitors. There is no radiation of the pain. The patient denies any diarrhea or constipation problems. Kumar Jackson MD [address] [place] [address],[address], [place], [address], [facility] 01/19/2024 14:18:36 02/12/2024 text/html this this is a 68-year-old female who underwent an EGD for evaluation of epigastric pain. The patient's EGD demonstrated gastritis, biopsies demonstrate moderate gastritis with intestinal metaplasia without dysplasia also with areas of neuroendocrine hyperplasia noted. 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 The patient had additional serologic studies ordered that have not returned the patient was found to be H pylori negative she continues with episodic epigastric pain. Occurs maybe 3 times a week, worsened by food intake. No weight loss. Some globus but no heartburn. Kumar Jackson MD [address] [place] [address],[address], [place], [address], [facility] & [place] 02/12/2024 13:45:01 03/14/2024 text/html this 68-year-old female presents in follow-up regarding chronic gastritis. We saw her last anti intrinsic antibodies and antiparietal cell antibodies were ordered the patient was started on Carafate. The patient notes that with Carafate her abdominal symptomatology has resolved entirely no epigastric pain no nausea or vomiting no heartburn or indigestion. The patient also has a history of fatty liver, LFTs were normal the patient however appears never to have had the blood work we ordered at her last visit. Kumar Jackson MD [address] [place] [address] Drive,[address], [place], [address], [facility] [place] [facility] [place] 03/14/2024 14:25:51 10/23/2024 text/html Patient was seen today for a hearing aid service. Cleaned and adjusted hearing aids this date. ELIZABETH GRIMALDO [address] [place] [address],[address], [place], [address], [facility] [place] [facility] [place] 10/23/2024 12:08:21 OBGyn Episode No OBEpisode recorded.
== END 2025-03-01 20:01 | disposition home or self-care (01) ==
PROVIDERS: Nurse Practitioner Family; Emergency Provider Emergency Medicine
DX: R07.89 Other chest pain (principal); R07.9 Chest pain, unspecified; I48.0 Paroxysmal atrial fibrillation; I25.10 Atherosclerotic heart disease of native coronary artery without angina pectoris; R01.1 Cardiac murmur, unspecified; I10 Essential (primary) hypertension; E78.5 Hyperlipidemia, unspecified; Z79.01 Long term (current) use of anticoagulants
CPT/HCPCS: 71046; 80053; 83880; 84484; 85007; 85014; 85018; 85048; 85049; 93005; 99291

== ENCOUNTER 2025-05-19 22:11 | Emergency (ER) | payer MEDICARE, SELFPAY ==
--- OUTSIDE RECORDS SUMMARY | 2025-04-10 10:00 | XMS_ITS | Encounter Summary ---
Author Organization [place] [address] Care Team Providers Care Emissions Testing And Repair Technician Name Role Phone Jeronimo Browne MD, [facility] Primary Care Provid er Reason for Visit * Reason Comments Procedure Cysto * In Office Procedure (Routine) - Authorization Not Needed Specialty Diagnoses / Procedures Referred By Contac t Referred To Contact Urology Diagnoses Interstitial cystitis Recurrent urinary tract infection Cysto Procedures PA CYSTOURETHROSCOPY PROCEDURE Racheal Escobedo MD [address] [place] [phone] Phone: tel: fax: Racheal Escobedo MD [address] [place] [phone] Phone: tel: fax: Referral ID Status Reason Start Date Expiration Date Visits Requested Visits Authorized [id number] Authorization Not Needed 04/10/2025 04/10/2026 1 1 Encounter Details Date Type Department Care Team (Latest Contact Info) Description 04/10/2025 10:00 AM EDT Procedure visit [facility] [address] [place] [place] [phone] Racheal Escobedo MD [address] [place] [address] Interstitial cystitis (Primary Dx); Chronic pelvic pain in female; Atrophic urethritis; Recurrent UTI Social History Tobacco Use Types Packs/Day Years Used Date Smoking Tobacco: Never Smokeless Tobacco: Never Tobacco Cessation:Counseling Given: Not Answered Alcohol Use Standard Drinks/Week Comments No 0 (1 standard drink = 0.6 oz pur e alcohol) Sexually Active Control Partners Comments Not Currently Surgical Male Hysterectomy Comments No Sex and Gender Information Value Date Recorded Sex Assigned at Not on file Legal Sex Female 8:47 PM EDT Gender Identity Not on file Sexual Orientation Not on file documented as of this encounter Last Filed Vital Signs Vital Sign Reading Time Taken Comments Blood Pressure 130/80 04/10/2025 10:43 AM EDT Pulse 93 04/10/2025 10:43 AM EDT Temperature 36.3 C (97.3 F) 04/10/2025 10:43 AM EDT Respiratory Rate - - Oxygen Saturation 97% 04/10/2025 10:43 AM EDT Inhaled Oxygen Concentration - - Weight 89.9 kg (198 lb 3.1 oz) 04/10/2025 10:43 AM EDT Height 170.2 cm (5' 7 ) 04/10/2025 10:43 AM EDT Body Mass Index 31.04 04/10/2025 10:43 AM EDT documented in this encounter Ordered Prescriptions Prescription Sig Dispense Quantity Refills Last Filled Start Date End Date estradioL (ESTRACE) 0.01 % (0.1 mg/gram) Vagl CreamIndications:R ecurrent UTI,Atrophic urethritis Apply a toothpaste-siz ed amount (1gm) to urethral opening (pee hole) nightly for two weeks then 3 times a week at night after that 42.5 g 3 04/10/2025 documented in this encounter Progress Notes * Racheal Escobedo MD - 04/10/2025 10:00 AM EDT Images from the original note were not included. [facility] Urology OFFICE E/M + CYSTOSCOPY PROCEDURE NOTE Patient Name: Gregg Otoole : 1955 Medical Record: [id number] PROCEDURE DATE: 04/10/2025 PRE-OPERATIVE DIAGNOSIS: irritative voiding symptoms, chronic pelvic pain, IC POST-OPERATIVE DIAGNOSIS: same, negative cysto, severe postmenopausal atrophic urethritis/vaginitis PROCEDURE: Flexible Cystoscopy SURGEON: Racheal Escobedo MD ANESTHESIA: local EBL: none SPECIMENS: voided culture COMPLICATIONS: none FINDINGS: negative cysto, good emptying + severe atrophic urethritis and vaginitis changes CONDITION: stable HPI: The patient is a 69 y.o. female with PMHx of eczema referred for evaluation of recurrent UTI, possible IC. Says she was seeing her PCP and OBGYN for what she thought was recurrent UTIs, but cultures often come back negative. Says her OBGYN treated her with some bladder flushes (?bladder instillations) which helped temporarily. OB is retiring and wants to reestablish care. She would like to know for sure if her issues are IC or something else. Asymptomatic today. Last flare-up was ~ 3-4 mo ago. Typical IC flare-up symptoms include urgency, dysuria before and after urination, nocturia, weak flow, abdominal pain. Sometimes improves with abx, but not sure abx helped or symptoms got better withtime regardless. -Says she can often suppress a full flareup with Azo and drinking a lot of water when the symptoms first start. -Cannot determine if there are any triggers -Bought an IC book and tried exercises/diet/behavioral changes without much improvement. -has not had a cysto before Lives in [place], [place]. Gets most of care in [place]. So no much data /labs in our system She presents today for cystoscopic examination and review of urologic issues. Patient's medications, allergies, past medical, surgical, social and family histories were reviewedand updated as appropriate. The risks, benefits, complications, treatment options, and expected outcomes were discussed with the patient. The patient concurred with the proposed plan, giving informedconsent. All questions were answered. Physical Exam: Vitals: 04/10/25 1043 BP: 130/80 Pulse: 93 Temp: 97.3 ??F (36.3 ??C) SpO2: 97% Body mass index is 31.04 kg/m??. Vitals and point of care testing has been reviewed General appearance - well appearing, and in no distress, atraumatic, normocephalic Mental status - awake and alert Chest - symmetric air entry,normal inspiratory effort Heart - normal rate Abdomen - soft, nontender, nondistended - no CVAT, no suprapubic distension or tenderness noted Female exam - External genitalia: normal appearance, no lesions Vagina: vaginal tissues with severe atrophic changes, nontender, no abnormal discharge, cervix not visualized, no obvious lesions, no adnexal tenderness or masses palpable Pelvic Floor - no significant pelvic organ prolapse Meatus/Urethra: severely atrophic meatus, urethra without lesions or caruncles, no urethral diverticulum Perineum: intact, no masses, no crepitus PROCEDURE DETAILS After risks and benefits were explained and consent was obtained, patient was brought to the procedure room and placed in the dorsal lithotomy position. The urethra and surrounding area was prepped and draped in the standard, sterile fashion. 2% lidocaine jelly was inserted into the urethra for local anesthesia. A flexible cystoscope was then inserted into the urethra and then the bladder. There was minimal residual of urine in the bladder on insertion of the scope. The bladder was examined in its entirety in a systematic fashion. Retroflexion of the scope was used to examine the bladder neck, which was normal. No tumors, stones, or trabeculations were noted. No mucosal abnormalites were noted. Both ureteral orifices were visualized in the correct anatomic position and found to have clear, non-bloody efflux. NBI image enhancement was used and examination of the bladder was again performed without evidenceof abnormality. After complete inspection of the bladder, the cystoscope was removed. The patient tolerated the procedure well. Results for orders placed or performed in visit on 04/10/25 SEP URINALYSIS POC Result Value Ref Range UA Color POC Yellow Color UA Appear POC Clear Clear UA Gluc POC Negative Negative mg/dL UA Bili POC Negative Negative UA Ketones POC Negative Negative mg/dL UA SG POC 1.010 1.001 - 1.035 no units UA Blood POC Trace-Intact (A) Negative UA pH POC 6.0 5.0 - 8.0 pH UA Protein POC Negative Negative mg/dL UA Urobilinogen POC 0.2 0.2, 1.0 UA Nitrite POC Negative Negative UA Leuk Est POC Small (A) Negative ASSESSMENT: 1. Interstitial cystitis PA CYSTOURETHROSCOPY 2. Chronic pelvic pain in female PA CYSTOURETHROSCOPY 3. Recurrent UTI PA CYSTOURETHROSCOPY URINE CULTURE (NO STAIN) 4. Atrophic urethritis PLAN: Assessment & Plan Interstitial cystitis Chronic pelvic pain in female -negative cystoscopy with completely normal appearing bladder - pt reassured -agree with treating as IC in terms of avoiding bladder irritants and continuing with behavioral modifications to prevent IC flare ups Orders: SEP URINALYSIS POC PA CYSTOURETHROSCOPY Atrophic urethritis -Noted to have severe atrophic changes of the urethra especially anterior vagina on pelvic exam -Discussed how postmenopausal genitourinary syndrome may increase risk for UTIs, but also cause symptoms similar to UTIs in the absence of bacteria -Topical vaginal estrogen can help both of these issues would use long-term. Patient reports havingside effects (headache and abdominal pain) from oral estrogen in the past but has not tried vaginalestrogen. Systemic side effects could be less. She is willing to try it -Start vaginal estrogen topically using applicator or fingertip administration (toothpaste-sized amount) nightly for two weeks then 3 x per week at night after that. Rx sent to pharmacy. She was instructed in application. Risks of and contraindications to estrogen use discussed, but are extremely low with low dose fingertip vaginal application. Also given printed literature about this subject. Orders: SEP URINALYSIS POC estradioL (ESTRACE) 0.01 % (0.1 mg/gram) Vagl Cream; Apply a toothpaste-sized amount (1gm) to urethral opening (pee hole) nightly for two weeks then 3 times a week at night after that Recurrent UTI - No evidence of true bacterial UTIs. She does feel symptomatic today so we will send urine for culture to confirm, but UA is not suggestive of infection -Would not treat with antibiotics unless positive UA/culture in addition to symptoms -Topical vaginal estrogen will also help decrease risk of bacterial UTIs Orders: SEP URINALYSIS POC PA CYSTOURETHROSCOPY estradioL (ESTRACE) 0.01 % (0.1 mg/gram) Vagl Cream; Apply a toothpaste-sized amount (1gm) to urethral opening (pee hole) nightly for two weeks then 3 times a week at night after that URINE CULTURE (NO STAIN) FU in 4 mo to review Signed: Racheal Escobedo MD 04/10/2025 [facility] Urology [address], [address] [place] [address] documented in this encounter Miscellaneous Notes * Patient Instructions - Racheal Escobedo MD - 04/10/2025 10:00 AM EDT Images from the original note were not included. Fingertip Application of Estrogen Cream Why? Vaginal estrogen creams deliver estrogen directly to the vagina with minimal absorption to the restof the body. This restores thickness to the vaginal skin as well as flexibility. Vaginal estrogen creams can also normalize the vaginal environment decreasing the risk for urinary tract infections. It is a very safe medication and very little of it gets absorbed into the blood stream or the rest ofthe body when used vaginally. Apply estrogen cream to vaginal opening every night for two weeks then 2-3 times per week at night. How? 1. Wash your hands with soap and water and dry thoroughly. 2. Squeeze tube to express ?? gram of cream (about a toothpaste-sized amount or 1/3 of your index finger) 3. Locate the vaginal opening. Immediately above the vaginal opening is the urethra (a small opening where urine is eliminated from your body). The urethra may not be as easily identified as the vagina because the opening is much smaller; however, use the diagram to determine its approximate location. 4. Carefully spread the cream into the vaginal/urethral area (opening to the vagina and near the hole where pee comes out of). As the cream is spread, make sure to cover the opening and just inside of the vagina as this is where most of estrogen receptors are located; however, it is not necessary to push the cream high into the vagina. Don't worry - the cream will ???mush around?? in the vagina as you move and cover the tissue it needs to. documented in this encounter Plan of Treatment Upcoming Encounters Date Type Department Care Team (Late st Contact Info) Description 08/11/2025 1:30 PM EDT Office Visit [facility] [address] [phone] Echo Barreto, AUTOMATIC PINSETTER ADJUSTER [address] [place] [address] 01/07/2026 1:10 PM EST Office Visit [facility] [address] [place] [address] Markell Ayoub MD [address] [facility] [address] [place] [address] Scheduled Orders Name Type Priority Associated Diagnoses Orde r Schedule PA CYSTOURETHROSCOPY PA Charge Routine Interstitial cystitis Chronic pelvic pain in female Recurrent UTI Ordered: 04/10/2025 documented as of this encounter Procedures Procedure Name Priority Date/Time Associated Diagnosis Comments URINE CULTURE (NO STAIN) Routine 04/10/2025 3:24 PM EDT Recurrent UTI SEP URINALYSIS POC Routine 04/10/2025 10 :20 AM EDT Interstitial cystitis Chronic pelvic pain in female Recurrent UTI Atrophic urethritis documented in this encounter Results * URINE CULTURE (NO STAIN) (04/10/2025 3:24 PM EDT) Culture No growth at 30 hours. 04/12/2025 7:30 AM EDT PREFERRED Respiratory Motion Urine STRUCTURE OF URINARY TRACT PROPER / Unknown 04/10/2025 3:24 PM EDT 04/10/2025 3:24 PM EDT us Racheal Escobedo MD MICROBIOLOGY - GENERAL ORDERAB LES Final Result Gradient X [address] [facility] , [address] [place] [address] * (ABNORMAL) SEP URINALYSIS POC (04/10/2025 10:20 AM EDT) UA Color POC Yellow Color 04/10/2025 10:23 AM EDT [facility] UA Appear POC Clear Clear 04/10/2025 10:23 AM EDT [facility] UA Gluc POC Negative Negative mg/dL 04/10/2025 10:23 AM EDT [facility] UA Bili POC Negative Negative 04/10/2025 10:23 AM EDT [facility] UA Ketones POC Negative Negative mg/dL 04/10/2025 10:23 AM EDT [facility] UA SG POC 1.010 1.001 - 1.035 no units 04/10/2025 10:23 AM EDT [facility] UA Blood POC Trace-Intact (A) Negative 04/10/2025 10:23 AM EDT [facility] UA pH POC 6.0 5.0 - 8.0 pH 04/10/2025 10:23 AM EDT [facility] UA Protein POC Negative Negative mg/dL 04/10/2025 10:23 AM EDT [facility] UA Urobilinogen POC 0.2 0.2, 1.0 04/10/2025 10:23 AM EDT [facility] UA Nitrite POC Negative Negative 04/10/2025 10:23 AM EDT [facility] UA Leuk Est POC Small(A) Negative 10:23 AM EDT [facility] Urine STRUCTURE OF URINARY TRACT PROPER / Unknown 04/10/2025 10:20 AM EDT 04/10/2025 10:23 AM EDT us Racheal Escobedo MD POINT OF CARE TEST ORDERABLES Final Result [facility] [address] [place] [address] documented in this encounter Visit Diagnoses Diagnosis Interstitial cystitis- Primary Chronic interstitial cystitis Chronic pelvic pain in female Unspecified symptom associated with female genital organs Atrophic urethritis Other urethritis Recurrent UTI Urinary tract infection, site not specified documented in this encounter Historical Medications * This list may reflect changes made after this encounter. metoprolol succinate (TOPROL-XL) 25 mg Oral Tablet Sustained Release 24 hr Take 12.5 mg by mouth daily. 02/20/2025 clopidogreL (PLAVIX) 75 mg Oral Tablet Take 75 mg by mouth daily. 02/24/2025 atorvastatin (LIPITOR) 40 mg Oral Tablet Take 40 mg by mouth nightly. 02/24/2025 ELIQUIS 5 mg Oral Tablet Take 5 mg by mouth 2 times daily. 02/19/2025 added in this encounter Additional Health Concerns Assessment Noted Time A fall risk assessment has been complete d for the patient 04/10/2025 1:14 PM EDT documented as of this encounter Care Teams Emissions Testing And Repair Technician Relationship Specialty Start Date End Date Vern Decker Sr., MD [address] [place] [phone] PCP - General 05/31/12 documented as of this encounter
--- OUTSIDE RECORDS SUMMARY | 2025-04-10 13:30 | XMS_ITS | Encounter Summary ---
Author Organization [place] [address] Care Team Providers Care Practice Professional Name Role Phone Jeronimo Browne MD, [facility] Primary Care [facility] er Reason for Referral * DEXA (Routine) - Pending Review Specialty Diagnoses / Procedures Referred By Contac t Referred To Contact Radiology Diagnoses Osteoporosis screening Other specified menopausal and perimenopausal disorders Procedures DX BONE DENSITY AXIAL SKELETON Miri Lane MD [address] [place] [address] Phone: tel: fax: Referral ID Status Reason Start Date Expiration Date V isits Requested Visits Authorized [id number] Pending Review 04/10/2025 04/10/2026 1 1 * Mammography (Routine) - Pending Review Specialty Diagnoses / Procedures Referred By Contac t Referred To Contact Radiology Diagnoses Visit for screening mammogram Procedures MM MAMMO DIGITAL BARBARA SCREEN BILAT Miri Lane MD [address] [place] [address] Phone: tel: fax: Referral ID Status Reason Start Date Expiration Date V isits Requested Visits Authorized [id number] Pending Review 04/10/2025 04/10/2027 1 1 Reason for Visit * Reason Comments Gynecologic Exam Annual Encounter Details Date Type Department Care Team ([facility] st Contact Info) Description 04/10/2025 1:30 PM EDT Office Visit [facility] [address] [place] [address] MD [address] [place] [address] Encounter for routine gynecologic examination in Medicare patient (Primary Dx); Visit for screening mammogram; Osteoporosis screening; Other specified menopausal and perimenopausal disorders Social History Tobacco Use Types Packs/Day Years Used Date Smoking Tobacco: Never Smokeless Tobacco: Never Alcohol Use Standard Drinks/Week Comments No 0 [...] Sign Reading Time Taken Comments Blood Pressure 114/72 04/10/2025 1:12 PM EDT Pulse - - Temperature - - Respiratory Rate - - Oxygen Saturation - - Inhaled Oxygen Concentration - - Weight 90.3 kg (199 lb) 04/10/2025 1:12 PM EDT Height 170.2 cm (5' 7 ) 04/10/2025 1:12 PM EDT Body Mass Index 31.17 04/10/2025 1:12 PM EDT documented in this encounter Progress Notes * Miri Lane MD - 04/10/2025 1:30 PM EDT Chief Complaint Patient presents with Gynecologic Exam Annual Pt is a 69 y.o. here for annual exam. Last urogynecology physician in - doctor retiring (still has another appt with her in future?). No bleeding. Not sexually active. Active, no structured exercise. +SBE. No LMP recorded. Patient is postmenopausal. Hysterectomy ~30-35yo for grapefruit size mass Incontinence symptoms no Bulging/pressure symptoms no Last pap: prior to pap all normal History of abnormal pap? no Domestic/sexual violence screen: negative Mammogram: DUE Colonoscopy: has had - believes due penny few more years DEXA: due ROS: Pertinent positives above as indicated BP 114/72 (BP Location: Left arm, Patient Position: Sitting) Ht 5' 7 (1.702 m) Wt 199 lb (90.3kg) No BMI 31.17 kg/m?? General Exam Burial Vault Deliverer And Installer present Gen: NAD, pleasant well-nourished female HEENT: NC/AT, no scleral icterus Thyroid: not enlarged, non-tender, no nodules Heart: RRR Resp: CTAB, no wheezes or rhonchi Breast: symmetric, no skin discoloration or dimpling, no nipple retraction or drainage, no lumps, non-tender, no adenopathy bilaterally Abd: overweight, soft, non-tender, no masses Ext: no edema, full ROM Skin: no rashes or ecchymoses Neuro: A&Ox3 Psych: normal thought processes, no depression Pelvic: nml ext genitalia, no labial lesions, urethra normal, vaginal mucosa pale zaheer trophic, good wall and apical support, cervix surgically absent Bimanual: cuff intact, uterus surgically absent, no adnexal masses or tenderness appreciated, no rectovaginal masses Assessment/Plan: Gregg was seen today for gynecologic exam. Diagnoses and all orders for this visit: Encounter for routine gynecologic examination in Medicare patient - OR CA SCREEN;PELVIC/BREAST EXAM Visit for screening mammogram - MM MAMMO DIGITAL BARBARA SCREEN BILAT; Future Osteoporosis screening - DX BONE DENSITY AXIAL SKELETON; Future Other specified menopausal and perimenopausal disorders - DX BONE DENSITY AXIAL SKELETON; Future - Next pap due not indicated - Discussed breast awareness/SBE - Discussed healthy lifestyle habits/exercise F/U 2 year or prn. Patient was scheduled for a preventative medicine service. A preventative medicine service includesage and gender appropriate history, examination, counseling/anticipatory guidance/risk factor reduction interventions, and the ordering of laboratory/diagnostic procedures. If patient requests acute care or chronic disease management, if an abnormality is encountered, or if a preexisting problem needs to be addressed in the process of performing the preventative medicine service, a separate service may be required for which an additional charge may be incurred. documented in this encounter Plan of Treatment Upcoming Encounters Date Type Department Care Team (Late st Contact Info) Description 08/11/2025 1:30 PM EDT Office Visit [facility] [place] [address] [address] [place] [address] Echo Barreto, TEMPLATE FITTER [address] [place] [id number] 01/07/2026 1:10 PM EST Office Visit [facility] [address] [place] [address] Markell Ayoub MD [address] [facility] [address] [place] [address] Scheduled Orders Name Type Priority Associated Diagnoses Orde r Schedule MM MAMMO DIGITAL BARBARA SCREEN BILAT Imaging Routine Visit for screening mammogram 1 Occurrences starting 04/10/2025 until 04/10/2027 DX BONE DENSITY AXIAL SKELETON Imaging Routine Osteoporosis screening Other specified menopausal and perimenopausal disorders 1 Occurrences starting 04/10/2025 until 04/10/2026 OR CA SCREEN;PELVIC/BREAS T EXAM OR Charge Routine Encounter for routine gynecologic examination in Medicare patient Ordered: 04/10/2025 documented as of this encounter Visit Diagnoses Diagnosis Encounter for routine gynecologic examination in Medicare patient- Primary Visit for screening mammogram Other screening mammogram Osteoporosis screening Special screening for osteoporosis Other specified menopausal and perimenopausal disorders documented in this encounter Additional Health Concerns Assessment Noted Time A fall risk assessment has been complete d for the patient 04/10/2025 1:14 PM EDT documented as of this encounter Care Teams Practice Professional Relationship Specialty Start Date End Date Vern Decker Sr., MD [address] [place] [phone] PCP - General 05/31/12 documented as of this encounter
--- OUTSIDE RECORDS SUMMARY | 2025-05-01 13:03 | XMS_ITS | Encounter Summary ---
Author Organization [facility] Address [address] [place] [address] Care Team Providers Care Public Transit Specialist Name Role Phone Jasvir Abbott MD Unavailable [phone] Cydney Cole APRN Primary Care Provider [phone] Rashel Hernandez MD Unavailable [phone] Reason for Referral * Imaging (Routine) - Closed Specialty Diagnoses / Procedures Referred By Prince willson Referred To Contact Radiology Diagnoses Meningioma (CMS/HCC) Procedures MR Head w and wo IV Contrast Rashel Hernandez MD [address] [address] Phone: tel: fax: Referral ID Status Reason Start Date Expiration Date Visits Re quested Visits Authorized [id number] Closed 01/18/2024 07/19/2025 1 1 Reason for Visit * Imaging (Routine) - Closed Specialty Diagnoses / Procedures Referred By Prince willson Referred To Contact Radiology Diagnoses Meningioma (CMS/HCC) Procedures MR Head w and wo IV Contrast Rashel Hernandez MD [address] [address] Phone: tel: fax: Referral ID Status Reason Start Date Expiration Date Visits Re quested Visits Authorized [id number] Closed 01/18/2024 07/19/2025 1 1 Encounter Details Date Type Department Care Team (Latest Contact Info) Description 05/01/2025 1:03 PM EDT - 05/01/2025 11:59 PM EDT Hospital Encounter P[facility] G Radiology [address] [place] [address] Meningioma ([facility]) Discharge Disposition: Home or Self Care Social [...] DAILY TOPICALLY TO AFFECTED AREA. SAFE FOR BLEACH PACKER USE 09/06/2022 triamcinolone (Kenalog) 0.1 % cream [...] to confirm the finding. Drafted by Niki Lee MD on 05/06/2025 9:07 AM Final report [...] documented as of this encounter Care Teams Public Transit Specialist Relationship Specialty Start Date End Date Cydney Cole APRN [address] [place] [address] PCP - General 12/01/21 Jasvir Abbott MD [address] [address] Consulting Physician Neurology 11/24/21 Rashel Hernandez MD [address] [address] Surgeon Neurosurgery 01/06/22 documented as of this encounter
--- OUTSIDE RECORDS SUMMARY | 2025-05-01 14:45 | XMS_ITS | Encounter Summary ---
Author Organization Healthcare Address [address] [place] [address] Care Team Providers Care Convertible Power Shovel Operator Name Role Phone Jasvir Abbott MD Unavailable [phone] Cydney Cole APRN Primary Care Provider [phone] Rashel Hernandez MD Unavailable [phone] Reason for Visit * Reason Comments Follow-up Encounter Details Date Type Department Care Team (Late st Contact Info) Description 05/01/2025 2:45 PM EDT Office Visit [place] [facility] [address] [place] [address] Rashel Hernandez MD [address] [place] [address] Meningioma (CMS/HCC) (Primary Dx) Social History Tobacco Use Types Packs/Day Years [...] Sign Reading Time Taken Comments Blood Pressure 164/84 05/01/2025 2:35 PM EDT Pulse - - Temperature - - Respiratory Rate - - Oxygen Saturation - - Inhaled Oxygen Concentration - - Weight 83 kg (183 lb) 05/01/2025 2:35 PM EDT Height 167.6 cm (5' 6 ) 05/01/2025 2:35 PM EDT Body Mass Index 29.54 05/01/2025 2:35 PM EDT documented in this encounter Miscellaneous Notes * Progress Notes - Vashti Arredondo MD - 05/01/2025 2:45 PM EDT We had the pleasure of seeing your patient in our clinic today for Neurosurgical follow up. Chief Complaint Follow up, brain mass History Of Present Illness Gregg Otoole is a 69 y.o. 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 She returns today for a 1-year follow-up scan. Patientstates that she has been doing very well. She denies any weakness, numbness, tingling, or any new deficits or concerns. She has some mild, infrequent headaches but this is unchanged. Current medications & allergies and past medical, surgical, family, and social history all reviewed. Review of Systems 14 point review of systems was performed and was negative except as noted per HPI. Neuro Exam GCS (EMV): 465 Awake, alert, oriented Follows commands appropriately Speech clear PERRL, EOMI CN 2-12 grossly intact No drift Strength 5/5 throughout Sensation intact throughout Last Recorded Vitals Visit Vitals Vitals: 05/01/25 1435 BP: (!) 164/84 Imaging I personally reviewed, independently interpreted, and read available radiology reports (as available) for the following studies, and with the following findings: MRI Repeat MRI head with and without contrast from today demonstrating stable parafalcine meningiomas and left cavernous sinus meningioma. Assessment and Plan Gregg Otoole is a 69 y.o. 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 She returns today for a 1-year follow-up scan. Since last seen patient has remained at neurologic baseline with no new neurologic deficits or concerns. MRI stable with no new intracranial findings. We will plan to see the patient back in 2 years with repeat MRI head w/w/o contrast. Thank you for allowing us to be a part of your patient's care. Please do not hesitate to contact usat the [facility] if there are any questions or concerns. Vashti Arredondo MD Resident Physician, PGY-2 Department of Neurosurgery [facility] Cosigned by Rashel Hernandez MD at 05/01/2025 3:07 PM EDT Associated attestation - Rashel Hernandez MD - 05/01/2025 3:07 PM EDT I saw and evaluated the patient with the resident/fellow. I discussed the case with the resident/fellow and agree with the findings and plan as documented. documented in this encounter Plan of Treatment Not on file documented as of this encounter Visit Diagnoses Diagnosis Meningioma (CMS/HCC)- Primary Benign neoplasm of cerebral meninges documented in this encounter Additional Health Concerns Assessment Noted Time A fall risk assessment has been complete d for the patient 05/01/2025 2:41 PM EDT A Body Mass Index follow-up plan has been documented for the patient 05/01/2025 3:07 PM EDT documented as of this encounter Care Teams Convertible Power Shovel Operator Relationship Specialty Start Date End Date Cydney Cole APRN [address] [place] [address] PCP - General 12/01/21 Jasvir Abbott MD [address] [place] [address] Consulting Physician Neurology 11/24/21 Rashel Hernandez MD [address] [place] [address] Surgeon Neurosurgery 01/06/22 documented as of this encounter
--- NOTE | 2025-05-19 22:14 | ECG_ITS ---
APPROVED REPORT Exam: Resting ECG HR:75 bpm ECG Measurements Heart Rate 75 AXES OK 188 P 57 QRSd 98 QRS -1 QT 409 T 27 QTc 438 Conclusion SINUS RHYTHM NORMAL ECG UNCONFIRMED REPORT Electronically signed by : JADIEL HOLLIDAY, 05/20/2025 06:35:13
[2025-05-19 22:16] VITALS: BP 201/101; PULSE 82; RESP 16; TEMP 37.2; O2SAT 97; BMI 29.0
--- OUTSIDE RECORDS SUMMARY | 2025-05-19 22:17 | XMS_ITS | Continuity of Care Document ---
Author Organization [place] - [facility] Address [address] [place] [address] [place] [address] Assessment No assessment recorded. Plan of Treatment Reminders Order Date Submit Date Provider Last Modified By Organization Details Last Modified Time Details Appointments None recorded. Lab None recorded. Referral None recorded. Procedures None recorded. Surgeries None recorded. Imaging XR, knee, 3 view 2024 025 [facility], [address] [place] [address] Rd., [place], [address], 09:03:30 Medication Orders diclofenac 1 % topical gel 2024 025 [facility], [address] [place] [address], [place], [address], 13:36:44 Patient TargetsNo targets recorded. Patient Instructions Encounter Date Encounter Id Patient Instructions Last Modified By Organization Details Last Modified Time 03/24/2025 [id number] knee arthritis: exercises [id number] Not available 03/24/2025 13:36:41 Reason for Referral None Reported. Results Created Date Observation Date Name Description Value Unit Range Abnormal Flag Note LastModifiedBy Organization Detail LastModifiedTime 03/26/2003/26/2025 XR, knee, 3 view No observ ation record ed. [address] [place], [address], 04/01/2025 09:48:43 05/09/20 25 05/09/2025 - scn dig breas t tomos yn carmen [facility] Name: PREET BELLA iovation Phys: [place] [address] : 1954 Age: 69 Sex: F Acct: [id number] Loc: Louis.MAMM PHONE #: [phone] Exam Date: 2024 Status : REG CLI FAX #: Rad# [id number] Unit# [id number] Admit Date: 2024 EXAMS: CPT CODE: [id number] [id number] SCN DIG BREAST TOMOSY N CARMEN [id number] EXAM DESCRI PTION: SCN DIG BREAST TOMOSY N CARMEN CLINIC AL HISTOR Y: 69 years Female . Screen ing examin ation. COMPAR JOAN: Dating back to 2019. Techni que: Low dose full field digita l breast mammog carrie with tomosy nthesi s was perfor med with 2D/3D tomosy nthesi s acquis itions in the CC and MLO projec tions. Comput er-aid ed detect ion was utiliz ed for final interp retati on of images . FINDIN GS: BREAST DENSIT Y: There are scatte red areas of fibrog landul ar densit y. Stable and negati ve mammog collin. No suspic ious findin g. The result s of this report will be commun icated to the patien t in layman 's terms. IMPRES SCARLET: No mammog raphic eviden ce of malign emperatriz. BI-RAD S CATEGO RY: CATEGO RY 1, NEGATI VE RECOMM ENDATI ON: ANNUAL SCREEN ING IN 12 MONTHS Electr onical ly signed by: Mariposa willson MD 2024 06:39 PM EDT RP Workst ation: SEALWR [id number] [facility] BIRADS [facility] FOLLOW -UP CODE Electr onical ly Signed by MARIPOSA Willson on 2024 at 1836 Report ed and signed by: HARINDER HUANG PAGE 1 Signed Report (PHILL NUED) [facility] Name: PREET BELLA iovation Phys: [place] [address] : 1954 Age: 69 Sex: F Acct: [id number] Loc: Louis.MAMM PHONE #: Exam Date: 2024 Status : REG CLI FAX #: Rad# [id number] Unit# [id number] Admit Date: 2024 EXAMS: CPT CODE: [id number] [id number] SCN DIG BREAST TOMOSY N CARMEN [id number] CC: ALIN DAN MD; Milind Bhagat Dictat ed Date/T edgardo: 2024 (1835) Techno logist : IRENA BECKET T Transc ribed Date/T edgardo: 2024 (1835) Transc riptio nist: DR.THA RIKA [place] onic Signat ure Date/T edgardo: 2024 (1835) Printe d Date/T edgardo: 2024 (1841) BATCH NO: N/A PAGE 2 Signed Report CC'ed Logic: Orderi ng Provid er: SHOWER MILIND Attend ing Provid er: SHOWER MILIND Referr ing Provid er: SHOWER MILIND Consul ting Provid er: SY luke[address], [address], 05/13/2025 10:45:44 05/13/20 25 05/12/2025 DEXA, verte bral fract ure asses ent [facility] Name: PREET BELLA [facility] iovation Phys: [place] [address] : 1954 Age: 69 Sex: F Acct: [id number] Loc: Louis.MAMM PHONE #: [phone] Exam Date: 2024 Status : DEP CLI FAX #: Rad# [id number] Unit# [id number] Admit Date: 06/13/ 2025 EXAMS: CPT CODE: [id number] [id number] DEXA BONE DENSIT Y WITH VFA 16416 EXAMIN ATION: DUAL X-RAY ABSORP TIOMET RY (DXA) FOR BONE MINERA L DENSIT Y. CLINIC AL INDICA TION: 69 years old, Female . Postme nopaus al. Osteop orosis screen ing. TECHNI QUE: An axial (e.g., hips, spine) and/or append icular (e.g., radius ) exam was perfor med, as approp riate, using My[employer] Prodig y densit ometer . Images are obtain ed for bone minera l densit y measur ement and are not obtain ed for diagno stic purpos es. [id number] 2 Verteb ral fractu re assess ment was perfor med. COMPAR JOAN: 2018. FINDIN GS: Scan qualit y: Good. LUMBAR SPINE (L1-L4 ): BMD (in g/cm*2 ): 1.256. T-scor e: 0.5. Z-scor e: 2.1. Rate of change from previo us exam: 4.5%. LEFT FEMORA L NECK: BMD (in g/cm*2 ): 0.871. T-scor e: -1.2. Z-scor e: 0.4. Rate of change from previo us exam: -4.4%. RIGHT FEMORA L NECK: BMD (in g/cm*2 ): 0.934. T-scor e: -0.7. Z-scor e: 0.8. No signif icant rate of change from previo us exam. FRAX 10-YEA R PROBAB ILITY OF FRACTU RE: 10-yea r fractu re risk is perfor med using the Univer sity of [employer] hernandes FRAX calcul ator based on patien t-repo rted risk factor s. Major osteop orotic fractu re: 8.6%. Hip fractu re: 0.8%. VERTEB RAL FRACTU RE ASSESS MENT: Verteb ral fractu re assess ment from T4-L4 is perfor med using Genant visual semi-q uantit ative method . PAGE 1 Signed Report (PHILL NUED) [facility] Name: PREET BELLA [facility] WEEZEVENT Phys: [place] [address] : 1954 Age: 69 Sex: F Acct: [id number] Loc: CORA PHONE #: Exam Date: 2024 Status : DEP CLI FAX #: Rad# [id number] Unit# [id number] Admit Date: 2024 EXAMS: CPT CODE: [id number] [id number] DEXA BONE DENSIT Y WITH VFA 45947 No fractu re is identi fied. IMPRES SCARLET: Osteop enia based on BMD. World Health Organi zation criter ia for BMD impres scarlet classi fy patien ts as: - Normal (T-sco re at or above -1.0). - Osteop enia (T-sco re betwee n -1.0 and -2.5). - Osteop orosis (T-sco re at or below -2.5). Per the Bone Health and Osteop orosis Founda tion the FRAX tool is most useful in patien ts with low femora l neck bone minera l densit y (osteo penia) . FRAX is calcul ated per reques t. RECOMM ENDATI ONS: 1. All patien ts should optimi ze their calciu m and vitami n D intake . 2. Consid er FDA-ap proved medica l therap ies in postme nopaus al women and men aged 50 years and older, based on the follow ing: - A hip or verteb ral (clini klaus or morpho metric ) fractu re. - T-scor e less than or equal to -2.5 at the femora l neck or spine after approp riate evalua tion to exclud e second erick causes . - Low bone densit y (T-sco re betwee n -1.0 and -2.5 at the femora l neck or spine) and a 10-yea r probab ility of a hip fractu re greate r than or equal to 3% or a 10-yea r probab ility of a major osteop orosis -relat ed fractu re greate r than or equal to 20% based on FRAX calcul ation. - Clinic angel judgme nt and/or patien t prefer ences may indica te treatm ent for people with 10-yea r fractu re probab ilitie s above or below these levels . - Furthe r rhondasamina ce on treatm ent can be found at the Nation al Osteop orosis Founda tion's websit e boneso urce.o rg. 3. Patien ts with diagno sis of osteop orosis or at high risk for fractu re should have regula r bone minera l densit y tests. For patien ts eligib le for Medica re, routin e testin g is allowe d once every 2 years. The testin g freque ncy can be increa sed to one year for patien ts who have rapidl y progre ssing diseas e, those who are receiv ing or discon tinuin g medica l therap y to restor e bone mass or have additi onal risk factor s. Electr onical ly signed by: Denis Claros MD 2024 08:13 AM EDT RP Workst ation: [id number] PAGE 2 Signed Report (PHILL NUED) [facility] Name: PREET BELLA [facility] [place] Phys: [place] [address] : 1954 Age: 69 Sex: F Acct: [id number] Loc: G.MAMM PHONE #: [phone] Exam Date: 2024 Status : DEP CLI FAX #: Rad# [id number] Unit# [id number] Admit Date: 2024 EXAMS: CPT CODE: [id number] 806 DEXA BONE DENSIT Y WITH VFA 86674 Electr onical ly Signed by DENIS CLAROS on 2024 at 1534 Report ed and signed by: Nico CLAROS CC: ALIN DAN MD; Milind Bhagat Dictat ed Date/T edgardo: 2024 (1534) Techno logist : IRENA ECHAVARRIA T Transc ribed Date/T edgardo: 2024 (1534) Transc riptio nist: DR.BUC ELICEO cline Signat ure Date/T edgardo: 2024 (1534) Printe d Date/T edgardo: 2024 (0816) BATCH NO: N/A PAGE 3 Signed Report CC'ed Logic: Orderi ng Provid er: SHOWER MILIND Attend ing Provid er: SHOWER MILIND Referr ing Provid er: SHOWER MILIND Consul ting Provid er: SY OGDEN [address] [place], [address], 05/15/2025 15:51:16 Result Notes None recorded. 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 2018 Denis Chivo null, [place] - [facility] 9 11:39:14 Osteopor osis 32748661 Completed 201810/30/2023 Emma Pitts null, [place] - [facility] 3 12:19:39 History of hysterec navya 574862703 Completed 201808/11/2020 Emma Pitts null, [place] - [facility] 0 13:47:14 Hyperlip idemia 50032605 Active 2018 Milind Bhagat MD [address], [place], [address], [place] - [facility] 9 13:44:52 Body mass index 30+ - obesity 245357789 Completed 201808/11/2020 Milind Bhagat MD [address], [place], [address], [place] [facility] 0 23:32:12 Vulvodyn ia 051128298 Active 2018 Milind Bhagat MD [address], [place], [address], [place] [facility] 9 13:47:53 Body mass index 30+ - obesity 920270941 Active 2019 Milind Bhagat MD [address], [place], [address], [place] - [facility] 0 23:32:12 Urinary tract infectio us disease 07296288 Completed 202010/30/2023 Emma Hong null, [place] - [facility] 3 12:19:44 Menopaus e Active 2021 Milind Bhagat MD [address], [place], [address], [place] - [facility] 2 20:09:13 Interpha langeal joint of toe stiff 341391801 Active 2021 Cydney Ryan null, [place] - [facility] 2 17:13:20 Steatoti c liver disease 747049924 Active 2022 Emma Chaneyrus null, [place] - [facility] 3 10:06:44 Chronic intersti tial cystitis 215601130 Active 2022 Milind Bhagat MD [address], [place], [address], [place] - [facility] 3 22:19:35 Trigger finger of right hand 7142049074 4315139 Active 2022 Cydney Ryan null, [place] - [facility] 3 10:01:52 Bone spur of vertebra 0020809204 83789 Active 2022 Cydney Ryan null, [place] - [facility] 3 10:03:16 History of adenomat ous polyp of colon 168515596 Active 2022 Milind Bhagat MD [address], [place], [address], [place] - [facility] 5 15:18:52 Situatio nal panic attack 091994027 Active 2024 Miri Fong, [employer] [address], [place], [address], [place] - [facility] 5 09:52:13 Pain of knee region 6843343130 Active 2024 Alli Jones, [employer] [address], [place], [address], [place] [facility] 5 13:24:45 Allergic contact dermatit is caused by plant material 1812089770 3710151 Active 2024 Sekou Cortez MD [address], [place], [address], [place] [facility] 5 16:26:41 Atrial fibrilla tion 49630866 Active 2024 Diagnosi s spring 2024. Was successf ully cardiove rted and being maintain ed on metoprol ol Eliquis and Plavix. Followed by [facility] cardiolo Milind Bhagat MD [address], [place], [address], [place] [facility] 5 15:22:35 Endocrin e/metabo lic screenin g Active 2024 Alli Jones APRN [address], [place], [address], [place] - [facility] 5 08:19:30 Pain of right wrist 5435144455 22434 Active 2024 Alli Jones APRN [address], [place], [address], [place] - [facility] 5 09:20:56 Posterio r rhinorrh ea 88651565 Active 2024 Alli Jones APRN [address], [place], [address], [place] [facility] 5 09:28:39 Serum creatini ne above referenc e range 000977746 Active 2024 Alli Jones APRN [address], [place], [address], [place] [facility] 5 14:57:57 Alkaline phosphat ase above referenc e range 166912279 Active 2024 Alli Jones APRN [address], [place], [address], [place] - [facility] 5 14:58:08 History of supracer vical hysterec navya 098124972 Active Jaime Epps RN [address], [place], [address], [facility] - [facility] 7 08:48:21 Hypercho lesterol emia 61354147 Active statin rx's document ed 2011, 11/2015 and 04/2016- all listed as DC'd Milind Bhagat MD [address], [place], [address], [facility] - [facility] 7 22:30:56 Essentia l hyperten scarlet 86238988 Active Jaime Epps RN [address], [place], [address], [facility] - [facility] 7 08:49:54 Graves' disease 400070738 Active Jaime Epps RN [address], [place], [address], [facility] - [facility] 7 08:50:05 Panic attack 796017117 Completed 08/14/2017 Linda Menon [facility] 7 14:17:28 Degenera tion of interver tebral disc 50612975 Active Jaime Epps RN [address], [place], [address], [facility] - [facility] 7 08:50:49 Hypothyr oidism 04307668 Active Jaime Epps RN [address], [place], [address], [facility] - [facility] 7 08:51:06 Problem Notes None recorded. Procedures Surgical History Date Name Laterality Status Provider Name and Address Organization Details Recorded Time 025 Advance Care Planning completed [facility] 04/28/2025 07:38:08 025 Functional Status Assessed completed [facility] 04/28/2025 07:38:08 025 Date of Last Mammogram completed Cary Pond [facility] 05/13/2025 10:45:57 025 Most Recent Bone Density completed Milind Bhagat MD [address], [place], [address], [facility] [email or web address]] [facility] 05/13/2025 21:32:08 025 Medication Reconcilliation completed Daina Forrest [place] - [facility] 02/04/2025 10:56:09 024 Advance Care Planning completed Vaughn Vergaranico [place] - [facility] 10/08/2024 14:03:25 024 Functional Status Assessed completed Vaughn Davis [place] - [facility] 10/08/2024 14:03:26 024 Dimethyl Sulfoxide (DMSO) completed Emma Pitts [place] - [facility] 01/05/2024 11:36:06 023 Dimethyl Sulfoxide (DMSO) completed Emma Pitts [place] - [facility] 11/24/2023 13:13:08 023 Dimethyl Sulfoxide (DMSO) completed Milind Bhagat MD [address], [place], [address], [place] [facility] 10/13/2023 22:18:08 023 Dimethyl Sulfoxide (DMSO) completed Milind Bhagat MD [address], [place], [address], [place] [facility] 08/30/2023 16:11:56 023 Dimethyl Sulfoxide (DMSO) completed Milind Bhagat MD [address], [place], [address], [place] [facility] 06/22/2023 16:34:48 023 Dimethyl Sulfoxide (DMSO) completed Emma Pitts [place] - [facility] 06/01/2023 14:38:03 023 Dimethyl Sulfoxide (DMSO) completed Milind Bhagat MD [address], [place], [address], [place] [facility] 05/06/2023 15:36:06 023 Advance Care Planning completed March [place] - [facility] 03/30/2023 08:03:14 023 Functional Status Assessed completed March [place] - [facility] 03/30/2023 08:03:14 023 Dimethyl Sulfoxide (DMSO) completed Milind Bhagat MD [address], [place], [address], [place] [facility] 03/25/2023 11:12:47 023 potassium sensitivity test- MOB completed Emma Pitts [place] - [facility] 01/25/2023 15:36:37 023 In and Out Catheterization completed Milind Bhagat MD [address], [place], [address], [place] [facility] 01/03/2023 22:18:15 022 Date of Last Pap Smear completed Emma Pitts [place] - [facility] 10/10/2022 13:55:57 020 Date of Last Colonoscopy completed Milind Bhagat MD [address], [place], [address], [place] [facility] 08/12/2020 16:00:24 020 Medication Reconcilliation completed Krissy Sharp [place] - [facility] 05/25/2020 13:35:17 019 Systolic B/P less than 130 mm Hg completed Kellykatey Akerss [place] - [facility] 01/01/2019 11:10:38 019 Diastolic B/P 80-89 mm Hg completed Kellykatey Akerss [place] - [facility] 01/01/2019 11:10:40 015 Vulvar Biopsy completed Emma Pitts [place] [facility] 01/03/2023 10:03:20 994 Hysterectomy completed Milind Bhagat MD [address], [place], [address], [place] [facility] 07/20/2017 20:58:31 cardiac catheterization completed Milind Bhagat MD [address], [place], [address], [place] [facility] 04/29/2025 15:23:09 Carpal tunnel surgery completed Asuncion Cook [place] - [facility] 01/24/2017 13:00:12 Cholecystectomy, laparoscopic completed Asuncion [employer] [place] - [facility] 01/24/2017 13:00:19 Imaging Results None recorded. Procedure Notes None recorded. Medical Equipment None Reported. Allergies Allergen ID Allergen Name Allergen Category Reaction Reaction Severity Criticality Documentation Date Start Date Code Code System Note Provider Name and Address Organization Details Recorded Time 140934 Macrobid medicatio n diarrhea severe Not available 07/02/2019 80302 1 RxNorm DID use 11/17 and 1/23 witou t SE DOUBT true aller gy/ll s Milind Bhagat MD [address], [place], [address], [place] - [facility] 3 10:21:59 66836 codeine sulfate medicatio n Not available Not available Not available 09/02/20162011 45193 RxNorm Not Available [facility] 6 08:53:10 53882 Lipitor medicatio n nausea Not available Not available 09/02/20162015 66423 5 RxNorm React ion: nause a; Not Available [facility] 6 08:53:10 32393 Cipro medicatio n Not available Not available Not available 09/02/20162012 39405 3 RxNorm hurts stoma ch, no hives Milind Bhagat MD [address], [place], [address], [place] - [facility] 3 10:24:03 85331 cortisone acetate medicatio n Not available Not available Not available 09/02/20162011 41447 RxNorm Not Available [facility] 6 08:53:10 32071 cholecalc iferol medicatio n Not available Not available Not available 09/02/20162011 2418 RxNorm React ion: Sever e GI upset ; Comme nt: Lilli ol and OTC form; OnSet Date: 2011; Not Available [facility] 6 09:23:37 Medications Name Sig Start Date Stop Date Status Note LastModified by Organization Details LastModified Time cyclobenz aprine 10 mg tablet Take 1 tablet 3 times a day by oral route. 12/20 completed Not Available Not Available Not Available Cleocin HCl 300 mg capsule take 1 capsule by oral route 3 times a day for 5 days 10/06 completed Cleocin 300 mg oral capsule; Prescrib e Status: Prescrib ed on: 01/06/20 15 10:07AM; Disconti nued Status: Disconti nued on: 10/06/20 9:58AM;U ser: dickenc; Est. Completi on: 01/11/20 15;Pharm acyVerif ied: 01/06/20 15 10:07AM Not Available Not Available Not Available amoxicill in 500 mg capsule Take 1 capsule every 12 hours by oral route for 5 days. 01/25 completed Not Available Not Available Not Available Miralax 17 gram/dose oral powder Take 17 g every day by oral route as needed. 07/29 completed Not Available Not Available Not Available atorvasta tin 40 mg tablet TAKE ONE (1) TABLET BY MOUTH EVERY NIGHT AT BEDTIME active Not Available Not Available No t Available desonide 0.05 % topical cream 07/23 completed Not Available Not Available Not Available terconazo le 0.4 % vaginal cream insert 1 applicat orful by vaginal route once daily at bedtime for 7 days 05/02 completed terconaz ole 0.4 % vaginal cream;Re corded Status: Recorded on: 04/09/20 13 4:00PM;D iscontin ued Status: Disconti nued on: 05/02/20 13 10:53AM; User: hazel Kramer on: 04/16/20 13;Print ed: 04/10/20 13 Not Available Not Available Not Available betametha sone valerate 0.1 % topical ointment 07/23 completed Not Available Not Available Not Available neomycin- polymyxin -hydrocor t 3.5 mg/mL-10, 000 unit/mL-1 % ear solution INSTILL 4 DROPS INTO AFFECTED EAR(S) BY OTIC ROUTE 3 TIMES PER DAY 07/23 completed Not Available Not Available Not Available diclofena c 3 % topical gel APPLY TO LESION AREAS BY TOPICAL ROUTE 2 TIMES PER DAY 12/20 completed Not Available Not Available Not Available ketoconaz ole 2 % shampoo WASH EARS DAILY DIRECTED FOR ITCH AND SCALE 07/29 completed Not Available Not Available Not Available triamcino lone acetonide 0.5 % topical cream APPLY SMALL AMOUNT TO AFFECTED AREA TWICE DAILY DIRECTED 02/08 completed Not Available Not Available Not Available oxybutyni n chloride ER 10 mg tablet,ex tended release 24 hr TAKE ONE (1) TABLET EVERY DAY BY ORAL ROUTE. 10/31 completed Not Available Not Available Not Available azithromy nikki 250 mg tablet TAKE TWO (2) TABLETS BY MOUTH ON DAY ONE (1) THEN TAKE ONE (1) TABLET BY MOUTH DAILY FOR FOUR (4) DAYS. 08/22 completed Not Available Not Available Not Available Lidocaine Viscous 2 % mucosal solution 05/31 completed Lidocain e Viscous 2 % mucous membrane solution ;Recorde d Status: Recorded on: 04/26/20 12 9:30AM;D iscontin ued Status: Disconti nued on: 05/31/20 12 10:51AM; User: monica Not Available Not Available Not Available metoprolo l succinate ER 50 mg tablet,ex tended release 24 hr TAKE ONE TABLET BY MOUTH EVERY DAY 03/24 completed Not Available Not Available Not Available valacyclo vir 1 gram tablet 2000 mg PO q12h x2 days 07/15 completed Not Available Not Available Not Available Lotrisone 1 %-0.05 % topical cream apply to the affected and surround ing areas of skin by topical route 2 times per day in the morning and evening for 28 days 10/16 completed Lotrison e 1-0.05 % topical cream;Pr escribe Status: Prescrib ed on: 05/09/20 13 2:36PM;D iscontin ued Status: Disconti nued on: 10/16/20 14 1:36PM;U ser: monica; Est. Completi on: 06/06/20 13;Pharm acyVwarrenf ied: 05/09/20 13 2:36PM Not Available Not Available Not Available Patanol 0.1 % eye drops instill 1 drop into affected eye(s) by ophthalm ic route 2 times per day at an interval of 6 to 8 hours for 7 days 04/20 completed Patanol 0.1 % ophthalm ic drops;Pr escribe Status: Prescrib ed on: 03/01/20 16 1:42PM;D iscontin ued Status: Disconti nued on: 04/20/20 16 1:06PM;U ser: chaim;Es t. Completi on: 03/08/20 16;Indic ation: Allergic Conjunct ivitis - (.[phone]);Phar macyVeri fied: 03/01/20 16 1:42PM Not Available Not Available Not Available fluconazo le 200 mg tablet 02/04 completed Not Available Not Available Not Available sucralfat e 1 gram tablet TAKE ONE (1) TABLET FOUR (4) TIMES A DAY BY ORAL ROUTE FOR 30 DAYS. 03/24 completed Not Available Not Available Not Available phenazopy ridine 200 mg tablet TAKE ONE (1) TABLET THREE (3) TIMES A DAY BY ORAL ROUTE. 02/12 completed Not Available Not Available Not Available metronida zole 0.75 % (37.5 mg/5 gram) vaginal gel INSERT 1 APPLICAT ORFUL VAGINALL Y AT BEDTIME FOR 5 DAYS 12/04 completed Not Available Not Available Not Available famotidin e 40 mg tablet TAKE ONE (1) TABLET EVERY DAY BY ORAL ROUTE FOR 30 DAYS. 02/12 completed Not Available Not Available Not Available Pyridium 100 mg tablet Take 1 tablet 3 times a day by oral route as needed for 2 days. 01/03 completed Not Available Not Available Not Available terconazo le 0.8 % vaginal cream insert 1 applicat orful by vaginal route once daily at bedtime for 3 days 05/31 completed terconaz ole 0.8 % vaginal cream;Re corded Status: Recorded on: 04/26/20 12 10:19AM; Disconti nued Status: Disconti nued on: 05/31/20 12 10:51AM; User: [email or web address]; Est. Completi on: 04/29/20 12;Indic ation: Candidia sis, Vulvovag inal - (616.10) ;Printed : 04/26/20 12 Not Available Not Available Not Available pimecroli mus 1 % topical cream APPLY ONCE DAILY TO ANY BODY AREA, SAFE FOR LONG-TER M USE active Not Available Not Available No t Available Elmiron 100 mg capsule TAKE ONE (1) CAPSULE THREE (3) TIMES A DAY BY ORAL ROUTE. active Patient never started Not Available Not Available Not Available clobetaso l 0.05 % topical cream apply a thin layer by topical route 2 times per day to the affected area(s) for 10 days, daily x 10 days, repeat prn 02/04 completed Not Available Not Available Not Available metronida zole 500 mg tablet TAKE ONE (1) TABLET (500 MG) BY ORAL ROUTE EVERY 12 HOURS FOR 7 DAYS 01/05 completed Not Available Not Available Not Available hydroxyzi ne HCl 50 mg tablet TAKE ONE (1) TABLET EVERY DAY BY ORAL ROUTE AT BEDTIME FOR 14 DAYS. 02/12 completed Not Available Not Available Not Available acetamino phen 300 mg-codein e 30 mg tablet TAKE ONE (1) TABLET THREE (3) TIMES A DAY BY ORAL ROUTE AFTER MEAL(S) FOR 7 DAYS. 01/06 completed Not Available Not Available Not Available clopidogr el 75 mg tablet TAKE 1 TABLET BY MOUTH EVERY DAY active Not Available Not Available No t Available amlodipin e 5 mg tablet TAKE ONE (1) TABLET DAILY 03/24 completed Not Available Not Available Not Available sulfameth oxazole 800 mg-trimet hoprim 160 mg tablet Take 1 tablet every 12 hours by oral route for 5 days. 01/03 completed Not Available Not Available Not Available peg-elect rolyte solution 420 gram oral solution 07/15 completed Not Available Not Available Not Available aspirin 81 mg tablet,de layed release TAKE ONE (1) TABLET BY MOUTH DAILY active Not Available Not Available No t Available triamcino lone acetonide 0.1 % topical cream APPLY A THIN LAYER TO HANDS BY TOPICAL ROUTE TWO (2) TIMES PER DAY active Not Available Not Available No t Available ondansetr on 8 mg disintegr ating tablet PLACE ONE (1) TABLET TWICE A DAY BY TRANSLIN GUAL ROUTE FOR TWO (2) DAYS. 01/06 completed Not Available Not Available Not Available lidocaine -prilocai ne 2.5 %-2.5 % topical cream 01/24 completed Not Available Not Available Not Available fenofibra te micronize d 134 mg capsule Take 1 capsule every day by oral route for 30 days. 01/03 completed Not Available Not Available Not Available clobetaso l 0.05 % topical gel APPLY ONCE DAILY TO AFFECTED AREA FOR UP TO A MONTH AT A TIME 02/12 completed Not Available Not Available Not Available levothyro xine 75 mcg tablet Take 1 tablet every day by oral route for 90 days. 2024 active Not Available Not Available Not Avai lable dexametha sone 0.5 mg/5 mL oral solution SWISH AND SPIT ONE (1) TEASPOON FUL(5ML) FOR TWO (2) MINUTES FOUR TIMES DAILY 05/03 completed Not Available Not Available Not Available dexametha sone 0.5 mg/5 mL oral elixir 08/12 completed Not Available Not Available Not Available nystatin- triamcino lone 100,000 unit/gram -0.1 % topical ointment APPLY SMALL AMOUNT TO THE OUTER EAR AND CANAL USING Q TIP TWICE DAILY FOR 14 DAYS AND THEN NEEDED 02/08 completed Not Available Not Available Not Available alprazola m 0.5 mg tablet TAKE 1 TABLET BY MOUTH (1/2) HOUR BEFORE FLIGHT TIME 02/04 completed Not Available Not Available Not Available famotidin e 20 mg tablet TAKE ONE (1) TABLET TWICE A DAY BY ORAL ROUTE. 02/12 completed Not Available Not Available Not Available amitripty line 25 mg tablet TAKE 1 TABLET BY MOUTH ONCE DAILY 05/03 completed Not Available Not Available Not Available desonide 0.05 % topical ointment 03/24 completed Not Available Not Available Not Available lorazepam 2 mg tablet TAKE 1 TABLET BY MOUTH IF NEEDED FOR ANXIETY (15-30 MINUTES BEFORE MRI) FOR UP TO 1 DOSE 02/08 completed Not Available Not Available Not Available diazepam 2 mg tablet TAKE ONE (1) TABLET BY MOUTH ONE HOUR PRIOR TO FLIGHT 03/24 completed Not Available Not Available Not Available cephalexi n 500 mg capsule Take 1 capsule 3 times a day by oral route for 10 days. 03/16 completed Not Available Not Available Not Available erythromy nikki 5 mg/gram (0.5 %) eye ointment 02/12 completed Not Available Not Available Not Available tacrolimu s 0.1 % topical ointment APPLY OINTMENT DAILY TOPICALL Y TO AFFECTED AREA. 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 01/03 completed Not Available Not Available Not Available Cipro 500 mg tablet take 1 tablet (500 mg) by oral route 2 times per day for 10 days 03/27 completed Cipro 500 mg oral tablet;R ecorded Status: Recorded on: 03/26/20 13 11:20AM; Disconti nued Status: Disconti nued on: 03/27/20 13 12:54PM; User: claire;Mattie Kramer on: 04/05/20 13;Print ed: 03/26/20 13 Not Available Not Available Not Available nystatin 100,000 unit/gram topical cream APPLY TO THE AFFECTED AREA(S) BY TOPICAL ROUTE TWO (2) TIMES PER DAY 10/04 completed Not Available Not Available Not Available lisinopri l 10 mg tablet TAKE ONE (1) TABLET BY MOUTH EVERY DAY active Not Available Not Available No t Available clobetaso l 0.05 % topical foam APPLY TOPICALL Y TO AFFECTED AREA TWICE DAILY NEEDED TO SCALP 02/08 completed Not Available Not Available Not Available fluocinol one 0.01 % topical body oil APPLY OIL TOPICALL Y TO AFFECTED AREA IN THE EVENING ONCE DAILY 12/20 completed Not Available Not Available Not Available gabapenti n 300 mg capsule take 1 capsule (300 mg) by oral route 3 times per day 03/01 completed gabapent in 300 mg oral capsule; Prescrib e Status: Prescrib ed on: 12/29/19 16 3:30PM;D iscontin ued Status: Disconti nued on: 03/01/20 16 1:12PM;U ser: [email or web address];Mattie Kramer on: 01/28/20 16;Pharm acyVerif ied: 12/29/19 16 3:30PM Not Available Not Available Not Available hydroxyzi ne HCl 25 mg tablet TAKE ONE (1) TABLET THREE (3) TIMES A DAY BY ORAL ROUTE NEEDED. active Not Available Not Available No t Available pravastat in 20 mg tablet take 1 tablet (20 mg) by oral route once daily at bedtime for 30 days 05/31 completed pravasta tin 20 mg oral tablet;R ecorded Status: Recorded on: 03/08/20 12 10:34AM; Disconti nued Status: Disconti nued on: 05/31/20 12 10:51AM; User: nelli;Mattie Kramer on: 06/06/20 12 Not Available Not Available Not Available mometason e 0.1 % topical ointment 05/21 completed Not Available Not Available Not Available metoprolo l succinate ER 25 mg tablet,ex tended release 24 hr TAKE (1/2) TABLET BY MOUTH TWICE DAILY active Not Available Not Available No t Available clobetaso l 0.05 % topical ointment Apply 3 times a week by topical route for 30 days. 12/20 completed Not Available Not Available Not Available fluocinol one 0.01 % topical solution 07/15 completed Not Available Not Available Not Available hydroxych loroquine 200 mg tablet TAKE 1 TABLET BY MOUTH ONCE DAILY WITH BREAKFAS T 02/08 completed Not Available Not Available Not Available fluocinon judi 0.05 % topical solution APPLY A FEW DROPS TO EARS AND ON ELBOW 1 TO 2 TIMES DAILY NEEDED FOR ITCHING 07/29 completed Not Available Not Available Not Available levofloxa nikki 500 mg tablet TAKE 1 TABLET BY MOUTH ONCE DAILY 02/04 completed Not Available Not Available Not Available estradiol 0.01% (0.1 mg/gram) vaginal cream APPLY A TOOTHPAS TE-SIZED AMOUNT (1 GRAM) TO URETHRAL OPENING (PEE HOLE) NIGHTLY FOR 2 WEEKS, THEN 3 TIMES WEEKLY AT NIGHT THEREAFT ER active Not Available Not Available No t Available SSD 1 % topical cream APPLY A 1/16 INCH (1.5 MM) THICK LAYER TO ENTIRE BURN AREA BY TOPICAL ROUTE TWO (2) TIMES PER DAY 03/24 completed Not Available Not Available Not Available Vitamin D2 1,250 mcg (50,000 unit) capsule take 1 capsule (50,000 unit) by oral route once weekly for 30 days 03/06 completed Vitamin D2 50,000 unit oral capsule; Recorded Status: Recorded on: 03/06/20 12 11:33AM; Disconti nued Status: Disconti nued on: 03/06/20 12 11:35AM; User: Jayna Kramer on: 06/04/20 12;Indic ation: Vitamin D Deficien cy - (2689 );Prin quan: 03/06/20 12 Not Available Not Available Not Available ipratropi um bromide 42 mcg (0.06 %) nasal spray 02/08 completed Not Available Not Available Not Available clobetaso l 0.05 % scalp solution 08/14 completed Not Available Not Available Not Available Zocor 40 mg tablet take 1 tablet (40 mg) by oral route once daily in the evening 12/03 completed Zocor 40 mg oral tablet;P rescribe Status: Prescrib ed on: 10/06/20 15 10:28AM; Disconti nued Status: Disconti nued on: 12/03/19 16 11:59AM; User: chaim;Mattie Kramer on: 04/03/20 16;Indic ation: Hypercho lesterol emia - ();Phar macyVeri fied: 10/06/20 15 10:28AM Not Available Not Available Not Available fluticaso ne propionat e 50 mcg/actua tion nasal spray,vanessa pension [place] 1 spray every day by intranas al route for 7 days. 01/03 completed Not Available Not Available Not Available doxycycli ne hyclate 100 mg tablet take 1 tablet (100 mg) by oral route 2 times per day for 10 days 04/20 completed doxycycl ine hyclate 100 mg oral tablet;P rescribe Status: Prescrib ed on: 03/01/20 16 1:42PM;D iscontin ued Status: Disconti nued on: 04/20/20 16 1:06PM;U ser: chaim;Mtatie Kramer on: 03/11/20 16;Pharm acyVerif ied: 03/01/20 16 1:42PM Not Available Not Available Not Available mometason e 0.1 % topical cream 03/24 completed Not Available Not Available Not Available diazepam 5 mg tablet Take 1 tablet every day by oral route as needed for 4 days. 03/24 completed VINOD [facility] [place] Not Available Not Available Not Available neomycin- polymyxin -hydrocor t 3.5 mg-10,000 unit/mL-1 % ear drops,vanessa p INSTILL 4 DROPS INTO AFFECTED EAR(S) BY OTIC ROUTE 3 TIMES PER DAY 05/13 completed Not Available Not Available Not Available Mucinex 600 mg tablet, extended release 1 tab BID 04/20 completed Mucinex 600 mg oral tablet extended release 12hr;Pre scribe Status: Prescrib ed on: 03/01/20 16 1:42PM;D iscontin ued Status: Disconti nued on: 04/20/20 16 1:06PM;U ser: [email or web address];Es t. Completi on: 03/15/20 16;Pharm acyVerif ied: 03/01/20 16 1:42PM Not Available Not Available Not Available Premarin 0.625 mg/gram vaginal cream INSERT ONE HALF (1/2) GRAM BY VAGINAL ROUTE TWICE WEEKLY active Not Available Not Available No t Available clobetaso l 0.05 % shampoo APPLY TO SCALP AND WASH ONCE DAILY DIRECTED 07/29 completed Not Available Not Available Not Available nitrofura ntoin monohydra te/macroc rystals 100 mg capsule TAKE ONE (1) CAPSULE TWICE A DAY BY ORAL ROUTE FOR 7 DAYS. 10/13 completed Not Available Not Available Not Available Tricor 145 mg tablet take 1 tablet (145 mg) by oral route once daily for 30 days 03/01 completed Tricor 145 mg oral tablet;P rescribe Status: Prescrib ed on: 12/03/19 16 11:59AM; Disconti nued Status: Disconti nued on: 03/01/20 16 1:12PM;U ser: [email or web address]; Est. Completi on: 05/31/20 16;Pharm acyVerif ied: 12/03/19 16 11:59AM Not Available Not Available Not Available Constulos e 10 gram/15 mL oral solution take 15 millilit ers (10 gram) by oral route once daily for 7 days 07/15 completed Not Available Not Available Not Available chlorhexi dine gluconate 0.12 % mouthwash Place 15 mL twice a day by mucous membrane route for 10 days. 01/06 completed Not Available Not Available Not Available Vitamin D take 1 capsule (50,000 unit) by oral route once weekly for 30 days 05/31 completed Vitamin D Oral;Rec orded Status: Recorded on: 03/08/20 12 10:34AM; Disconti nued Status: Disconti nued on: 05/31/20 12 10:51AM; User: nelli;Es t. Completi on: 06/06/20 12 Not Available Not Available Not Available fluocinol one acetonide oil 0.01 % ear drops INSTILL 5 DROPS INTO AFFECTED EAR(S) BY OTIC ROUTE 2 TIMES PER DAY 07/23 completed Not Available Not Available Not Available diclofena c 1 % topical gel APPLY TWO (2) GRAMS TO THE AFFECTED AREA(S) BY TOPICAL ROUTE TWO (2) TIMES PER DAY NEEDED active Not Available Not Available No t Available Vagifem 10 mcg vaginal tablet INSERT ONE (1) TABLET TWICE A WEEK BY VAGINAL ROUTE. 02/12 completed Not Available Not Available Not Available Joe (camilo sánchez) 50 % topical pads Apply to affected area as needed up to 6 times per day 04/05 completed Not Available Not Available Not Available lidocaine 5 % topical ointment APPLY TO AFFECTED AREA(S) BY TOPICAL ROUTE 1-4 TIMES DAILY NEEDED active Not Available Not Available No t Available icosapent ethyl 1 gram capsule Take 2 capsules twice a day by oral route for 30 days. 08/22 completed Not Available Not Available Not Available Eliquis 5 mg tablet TAKE 1 TABLET BY MOUTH TWICE DAILY active Not Available Not Available No t Available Preparati on H 0.25 %-14 %-74.9 % ointment Apply to affected area up to 4 times per day 04/05 completed Not Available Not Available Not Available Procto-Me d HC 2.5 % topical cream perineal applicato r APPLY A THIN LAYER TO THE AFFECTED AREA(S) BY TOPICAL ROUTE 2-4 TIMESDAI LY 01/03 completed Not Available Not Available Not Available Shingrix (PF) 50 mcg/0.5 mL intramusc ular suspensio n, kit 12/04 completed Not Available Not Available Not Available Vitals Date Recorded Body height Body mass index (BMI) Body weight Heart rate Oxygen saturation Oxygen saturation in Arterial blood by Pulse oximetry Respiratory rate Body temperature Systolic blood pressure Diastolic blood pressure Provider Name and Address Organization Details Last Updated DateTime 5 170.18 cm 30.9 kg/m2 06063.4 g 54 /min 98 % 98 % 18 /min 97.9 [degF] 100 mm[Hg] 72 mm[Hg] Daina kaur [place] - [facility] 5 13:03:55 Social History Question Answer Notes LastModified by Organizat ion Details LastModified Time Tobacco Smoking Status Never Smoker Not Available [employer] 09/11/2020 03:13:29 Do You Have An Advance Directive? Yes [id number] Information not available 09/11/2020 Are You Blind Or Do You Have Difficulty Seeing? No [id number] Information not available 09/11/2020 Is Blood Transfusion Acceptable In An Emergency? Yes [id number] Information not available 09/11/2020 What Is Your Level Of Caffeine Consumption? Heavy [id number] Information not available 09/11/2020 How Much Tobacco Do You Chew? None [id number] Information not available 09/11/2020 Are You Deaf Or Do You Have Serious Difficulty Hearing? No [id number] Information not available 09/11/2020 What Type Of Diet Are You Following? REGULAR [id number] Information not available 09/11/2020 Which Illicit Or Recreational Drugs Have You Used? None [id number] Information not available 09/11/2020 What Is The Highest Grade Or Level Of School You Have Completed Or The Highest Degree You Have Received? [id number] Information not available 09/11/2020 How Many Days Of Moderate To Strenuous Exercise, Like A Brisk Walk, Did You Do In The Last 7 Days? 1 [id number] Information not available 09/11/2020 On Those Days That You Engage In Moderate To Strenuous Exercise, How Many Minutes, On Average, Do You Exercise? 1 [id number] Information not available 09/11/2020 Have There Been Any Changes To Your Family Or Social Situation? No Information no t available 01/06/2025 How Hard Is It For You To Pay For The Very Basics Like Food, Housing, Medical Care, And Heating? [id number] [email or web address] Information not available 12/20/2019 Live Alone Or With Others? With Others Information not available 01/24/2017 What Was The Date Of Your Most Recent Tobacco Screening? 04/29/2025 Information not available 04/29/2025 How Many Children Do You Have? 3 [id number] Information not available 09/11/2020 Performs Monthly Self-breast Exam? Yes Information no t available 01/24/2017 What Is Your Relationship Status? [id number] Information not available 09/11/2020 Seat Belts Used Routinely Yes Information not available 01/24/2017 Are You Sexually Active? No [id number] Information not available 09/11/2020 Do You Have Smoke And Carbon Monoxide Detectors In Your Home? Yes Information not available 01/06/2025 Are You Passively Exposed To Smoke? No Information no t available 01/06/2025 How Much Tobacco Do You Smoke? No [id number] Information not available 09/11/2020 General Stress Level Medium Information not available 01/24/2017 Do You Use Sunscreen Routinely? Yes [id number] Information not available 09/11/2020 Has Tobacco Cessation Counseling Been Provided? No Information not available 02/13/2024 How Many Years Have You Smoked Tobacco? 0 [id number] Information not available 09/11/2020 Do You Have Difficulty Walking Or Climbing Stairs? No [id number] Information not available 09/11/2020 Sex: Female Functional Status Question Answer Note LastModified by Coferonat ion Details LastModified Time Do you or have you ever used smokeless tobacco? Never used smokeless tobacco [id number] Information not available 09/11/2020 Are you currently employed? No [id number] Information not available 09/11/2020 Do you have transportation difficulties? No Information not available 02/13/2024 Urinary incontinence assessment performed? Yes [email or web address] Information not available 07/20/2017 Are you able to care for yourself? Yes Information n ot available 02/13/2024 Do you have difficulty dressing or bathing? No [id number] Information not available 09/11/2020 Do you or have you ever used e-cigarettes or vape? Never used electronic cigarettes [id number] Information not available 09/11/2020 What is your exercise level? Moderate [id number] Information not available 09/11/2020 Do you use any illicit or recreational drugs? No Information not available 02/13/2024 Do you or have you ever used any other forms of tobacco or nicotine? No Information not available 02/13/2024 What is your level of alcohol consumption? None [id number] Information not available 09/11/2020 Are you able to walk? YESWOREST [id number] Information not available 09/11/2020 Do you have difficulty doing errands alone? No [id number] Information not available 09/11/2020 Mental Status Question Answer Note LastModified by Organizat ion Details LastModified Time Do you feel stressed (tense, restless, nervous, or anxious, or unable to sleep at night)? [id number] Information not available 09/11/2020 Do you have difficulty concentrating, remembering or making decisions? No [id number] Information no t available 09/11/2020 Family History Relationship Description Onset Age of this Age Resolved Age Notes LastModified by Organization Details LastModified Time Maternal Grandmother Malignant tumor of breast 40 Not available 2016 12:59:29 Mother Arthritis Not available 01/24/2017 12:59:36 Medical History Condition Response Pancreatitis N Other N Atrial Fibrillation N congenital heart disease N Blood Diseases N Hyperthyroidism N Blood Transfusion N Rheumatoid arthritis N Erectile Dysfunction N amputation N Skin Lesions N Depression N Pneumonia N Incontinence N Murmur N Edema N Alzheimer's Disease N Migraine Headaches N Tobacco Abuse N Anxiety Disorder N Hemorrhoids N Obesity N Vision or Eye Problems N Arthritis Y Restless Leg Syndrome N Polyps N Infertility N Carpal Tunnel N Acid Reflux (GERD) N Cancer N Varicosities N Stroke N Tendonitis N Crohn's Disease N Hypercholesterolemia Y Skin Cancer N Headaches Y Fibromyalgia N Irritable Bowel Syndrome N Anal Fissure N Kidney Disease N Heart Problems N Hospitalizations N Gallstones N Kidney or Bladder Problems N Goiter N Acne N Eating Disorder N Maurice's Esophagus N Hypertriglyceridemia N Constipation N Embolism N Vitamin B12 Deficiency N Deviated Septum N AIDS/HIV N Myocardial Infarction N Asthma N Mitral Valve Disorders N Vertigo N Hepatitis N Thyroid Cancer N Neuropathy N History of DVT N Herniated Disc N Chicken Pox N Von Willebrands Disease N Thrombophilias N Breast Cancer N Hernia N Plantar Fasciitis N Hypothyroidism Y Lung Disease N Defects or Inherited Disease N Breast Problem N Ovarian Cyst N Anesthesia Complications N Testosterone Deficiency N Interstitial Cystitis N Congenital Anomalies N Hypoglycemia N Blood clot N Vitamin D Deficiency N Cellulitis N Endometriosis N Bladder or Kidney Problems N Fracture N Panic Disorder Y Schizophrenia N Concussion N Spina Bifida N Osteoarthritis N Parkinson's Disease N Disc Protrusion N STI N Esophagitis N Angina N Thyroid Problems N GI Problems N ADD/ADHD N Anemia N Multiple Sclerosis N Abnormal PAP N Lumbago N Mental Illness N Psychiatric Illness N Diabetes N Ovarian Cancer N Degenerative Disc Disease N Seizures/Epilepsy N Hyperlipidemia N Syncope N Insomnia N Eczema N Abuse/Domestic Violence N Attention Deficient Disorder N Dementia N Ulcerative colitis N Cerebrovascular Disease N Depression N Guillain-[place] N Sleep Apnea N Aneurysm N Bronchitis N Heart Disease N Hypertension Y Pre-Eclampsia N Suicidal Ideation N Osteoporosis N Gynecological History Statement/Question Response Abnormal Pap N Date of Last Mammogram 05/09/2025 Post Menopausal Bleeding N Current Control Method Hysterectom y Age at First Child 20 Last Lipids 01/2022 Last Annual Exam/Provider 01/09/25 LLS If Post Menopausal, Age at Menopause 38 Date of Last Colonoscopy 06/10/2020 Most Recent Bone Density 05/09/2025 Sexually Active? N Menses Monthly N Date of Last Pap Smear 10/04/2022 Sexual Problems? N Hormone Replacement Therapy N Obstetrics History GPAL:G 4 P 3 0 1 3 Type Value Multiple Births 0 Full Term 3 Induced 0 Spontaneous 1 Premature 0 Living 3 Ectopics 0 Total 4 Immunizations Vaccine Type Date Status Note Provider Name and Address Organization Details Recorded Time Influenza, split virus, quadrivalent, PF 022 cancelled patient objection Milind Bhagat MD [address] [place] [address], [id number], [facility] - [facility] 10/04/2022 20:13:27 pneumococcal polysaccharide PPV23 022 cancelled patient objection Cydney bhakta, [place] - [facility] 10/19/2022 17:17:13 pneumococcal polysaccharide PPV23 023 cancelled patient objection Cydney bhakta, [place] - [facility] 03/30/2023 10:09:06 Td (adult) 015 completed Not Available [facility] 11:07:25 COVID-19, mRNA, LNP-S, PF, 30 mcg/0.3 mL dose 021 completed Crystal May null, [place] - [facility] 10/19/2022 14:02:04 COVID-19, mRNA, LNP-S, PF, 30 mcg/0.3 mL dose, alexsander-sucrose 022 completed Crystal March null, [place] - [facility] 10/19/2022 14:02:04 COVID-19, mRNA, LNP-S, PF, 30 mcg/0.3 mL dose 021 completed Crystal March null, [place] - [facility] 10/19/2022 14:02:04 COVID-19, mRNA, LNP-S, PF, 30 mcg/0.3 mL dose 021 completed Crystal March null, [place] - [facility] 10/19/2022 14:02:04 zoster recombinant 019 completed Miri Zornes null, [place] - [facility] 12/02/2022 13:10:07 COVID-19, mRNA, LNP-S, bivalent, PF, 30 mcg/0.3 mL dose completed Miri Zornes null, [place] - [facility] 12/02/2022 13:10:07 zoster recombinant 019 completed Miri Zornes null, [place] - [facility] 12/02/2022 13:10:08 Past Encounters Encounter ID Performer Location Encounter Start Date Encounter Closed Date Diagnosis/Indication Diagnosis SNOMED-CT Code Diagnosis ICD10 Code Diagnosis Note [id number] Alli Jones APRN [facility] [address] [place] [id number] 03/24/2025 12:52:43 03/24/2025 13:40:15 Pain of knee region [id number] M25.561 M25.562 S89.90XA PE noted with bilateral good ROM, no edema, healing ecchymosis below and lateral knee, mild crepitus left knee, mild TTP left anterior knee. Due to falling to knee, will check with xray. Advised for pain management can use tylenol as needed. She reports stomach sensitivit y to ibuprofen. Advised she can use diclofenac cream to knees as needed and cool/warm compresses as needed. Consider PT if xray is negative. If continued pain/weakn ess would consider ortho consult. Health Concerns Section Related Observation LastModified by Organization Beti solis LastModified Time None Recorded Concern Status LastModified by Organization Details LastModified Time None Recorded Payers Encounter Date Sequence Insurance Name Policy Number Policy Ortiz Covered Member ID Ortiz Member ID Guarantor Name 03/24/2025 1 [place]MEDICARE REPLACEMENT HMO) [id number] Preet Bella [id number] Preet Bella Notes Date Note Type Note Provider Name and Address Organization Details Recorded Time 03/24/2025 text/html 69 yo presents f or bilateral knee pain for last 3-4 weeks. She reports that she had a fall while on trip in [place]. She reports that she fell directly down on both knees. She states she is having pain around center of knee cap of left knee and then right knee more to lateral side is still causing pain. She rates pain 4-5/10 now. She states that left knee only hurts with pressure/ambulation . She reports that right knee is having some weakness when she is going up/down steps feels like going to give out. She reports tenderness in left knee with touch but none in right knee. She states initially after fall that she had a lot of bruising but is resolving with some light yellow discoloration left. She does have old healing ecchymosis to right lateral side of lower leg below knee, states this occurred from resting her leg on side of kayak on trip. She reports she recently has been diagnosed with afib in last 2 months and reports she is on blood thinner, taking plavix and eliquis, she reports that heart cath showed blockage but she did not require any stents as she had collateral circulation. She had seen Dr. Downs. She denies any other concerns today. 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
--- OUTSIDE RECORDS SUMMARY | 2025-05-19 22:17 | XMS_ITS | Clinical Summary ---
Author Organization [facility] Address [address] 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 Role Phone Jasvir Abbott MD Unavailable [phone] Cydney Cole APRN Primary Care Provider [phone] Rashel Hernandez MD Unavailable [phone] Allergies Active Allergy Reactions Criticality Noted Date Comments Atorvastatin Nausea 05/10/2016 Cholecalciferol Other - please docum ent in the comment field Low 04/10/2012 Ciprofloxacin Other - please docum ent in the comment field Low 03/27/2013 Codeine Other - please docum ent in the comment field Low 04/26/2017 rash rash rash Cortisone Other - please docum ent in the comment field Low 04/26/2017 rash rash rash Ergocalciferol Other - please docum ent in the comment field Low 04/10/2012 Lidocaine Other - please docum ent in the comment field Low 04/26/2017 headache headache headache Nitrofurantoin Diarrhea High 01/18/2024 Medications amLODIPine (Norvasc) 5 MG tablet Take by mouth 1 (one) time each day. Active hydroxychloroquin e (Plaquenil) 200 MG tablet Take 200 mg by mouth 1 (one) time each day. Active levothyroxine (Synthroid, Levoxyl) 75 MCG tablet Take 1 tablet (75 mcg) by mouth 1 (one) time each day. Active lisinopril 10 MG tablet Take 1 tablet (10 mg) by mouth 1 (one) time each day. Active LORazepam (Ativan) 2 MG tabletIndications :Mixed conductive and sensorineural hearing loss, bilateral,Meningi roberto (CMS/HCC) Take 1 tablet (2 mg total) by mouth 1 (one) time if needed for anxiety (15-30 minutes before MRI) for up to 1 dose. 1 tablet 1 Active diclofenac (Voltaren) 1 % topical gel APPLY 2 GRAMS TO THE AFFECTED AREA BY TOPICAL ROUTE 4 TIMES PER DAY 2 Active fluticasone (Flonase) 50 MCG/ACT nasal spray 2 Active nystatin (Mycostatin) cream APPLY TO THE AFFECTED AREA(S) BY TOPICAL ROUTE TWO (2) TIMES PER DAY 2 Active pimecrolimus (Elidel) 1 % cream 2 Active tacrolimus (Protopic) 0.1 % ointment APPLY OINTMENT DAILY TOPICALLY TO AFFECTED AREA. 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 4 Active clobetasol (Temovate) 0.05 % gel APPLY ONCE DAILY TO AFFECTED AREA FOR UP TO A MONTH AT A TIME 3 Active lidocaine (Xylocaine) 5 % ointment APPLY TO AFFECTED AREA(S) BY TOPICAL ROUTE 1-4 TIMES DAILY NEEDED Active apixaban (Eliquis) 5 MG tablet Take 1 tablet by mouth 2 times a day. Active Aspirin Low Dose 81 MG EC tablet take one (1) tablet by mouth daily 5 Active atorvastatin (Lipitor) 40 MG tablet TAKE ONE (1) TABLET BY MOUTH EVERY NIGHT AT BEDTIME Active clopidogrel (Plavix) 75 MG tablet Take 1 tablet by mouth daily. Active estradiol (Estrace) 0.1 MG/GM vaginal cream APPLY A TOOTHPASTE-SIZ ED AMOUNT (1 GRAM) TO URETHRAL OPENING (PEE HOLE) NIGHTLY FOR 2 WEEKS, THEN 3 TIMES WEEKLY AT NIGHT THEREAFTER 5 Active Premarin vaginal cream Insert 1/2 gram by vaginal route 2x weekly 5 Active hydrOXYzine HCl (Atarax) 25 MG tablet take one (1) tablet three (3) times a day by oral route as needed. 5 Active metoprolol succinate XL (Toprol-XL) 25 MG 24 hr tablet TAKE (1/2) TABLET BY MOUTH TWICE DAILY 5 Active mometasone (Elocon) 0.1 % cream Apply small amount with Q-Tip to outer ear twice a day for 14 days then use prn. 5 Active SSD 1 % cream APPLY A 1/16 INCH (1.5 MM) THICK LAYER TO ENTIRE BURN AREA BY TOPICAL ROUTE TWO (2) TIMES PER DAY 5 Active sucralfate (Carafate) 1 g tablet TAKE ONE (1) TABLET FOUR (4) TIMES A DAY BY ORAL ROUTE FOR 30 DAYS. Active triamcinolone (Kenalog) 0.1 % cream APPLY A THIN LAYER TO HANDS BY TOPICAL ROUTE TWO (2) TIMES PER DAY Active Active Problems Problem Noted Date Diagnosed Date Meningioma 01/05/2022 Mixed conductive and sensorineural hearing loss, bilateral 11/24/2021 Encounters Date Type Department Care Team Description 05/01/2025 2:45 PM EDT Office Visit [facility] [address], [address] [place] [address] Rashel Hernandez MD Meningioma ([facility]/HCC) (Primary Dx) 05/01/2025 1:03 PM EDT - 05/01/2025 11:59 PM EDT Hospital Encounter [facility] [address] [place] [address] Meningioma ([facility]) Discharge Disposition: Home or Self Care 05/01/2025 Travel 02/17/2025 Telephone [facility] [address], [address] [place] [address] Rashel Hernandez MD from Last 3 Months Social History Tobacco Use Types Packs/Day Years Used Date Smoking Tobacco: Never Smokeless Tobacco: Never Tobacco Cessation:Counseling Given: Not Answered Alcohol Use Standard Drinks/Week Comments Never 0 (1 standard drink = 0.6 oz pur e alcohol) Comments Unknown Sex and Gender Information Value Date Recorded Sex Assigned at Not on file Legal Sex Female 4:07 PM EST Gender Identity Not on file Sexual Orientation Not on file Last Filed Vital Signs Vital Sign Reading Time Taken Comments Blood Pressure 164/84 05/01/2025 2:35 PM EDT Pulse 81 12/01/2021 10:45 AM EST Temperature - - Respiratory Rate - - Oxygen Saturation 96% 12/01/2021 10:45 AM EST Inhaled Oxygen Concentration - - Weight 83 kg (183 lb) 05/01/2025 2:35 PM EDT Height 167.6 cm (5' 6 ) 05/01/2025 2:35 PM EDT Body Mass Index 29.54 05/01/2025 2:35 PM EDT Plan of Treatment Health Maintenance Due Date Last Done Comments [facility]-Bone Density Scan 1957 [facility]-Depression Screening 1957 [facility]-Hepatitis C Screening 1957 [facility]-Medicare Annual Wellness (AWV) 1957 [facility]-Infant/Child/Adol SDOH Screenings 1957 [facility]- SDOH Screenings 1975 [facility]-Adult SDOH Screenings 1975 CT Colonography 2002 Colonoscopy 2002 FIT-DNA 2002 FIT 2002 FOBT 2002 Sigmoidoscopy 2002 [facility]-Colorectal Cancer Screening 2002 [facility]-Pneumococcal Vaccine: 50+ Years (1 of 1 - PCV) 2007 [facility]-Breast Cancer Screening 10/25/2014 10/25/2012 [facility]-DTaP,Tdap,and Td Vaccines (1 - Tdap) 11/28/2014 11/27/2014 [facility]-RSV Vaccine: 60+ Years or (1 - Risk 60-74 years 1-dose series) 2017 [id number] Vaccine ( season) 2024 10/26/2022, 03/29/2022, 10/06/2021, Additional history exists [facility]-Influenza Vaccine (Season Ended) 2025 [facility]-Zoster Vaccines Completed 09/18/2019, 9 [facility]-Obesity Intervention Completed 025, 01/18/2024, 01/19/2023 HPV Vaccines Aged Out No longer eligi ble based on patient's age to complete this topic [facility]-HIB Vaccines Aged Out No longer e ligible based on patient's age to complete this topic [facility]-Hepatitis A Vaccines Aged Out No longer eligible based on patient's age to complete this topic [facility]-IPV Vaccines Aged Out No longer e ligible based on patient's age to complete this topic [facility]-Rotavirus Vaccines Aged Out No lo nger eligible based on patient's age to complete this topic Procedures Procedure Name Priority Date/Time Associated Diagnosis Comments MR HEAD W AND WO IV CONTRAST Routine 05/01/2025 2:11 PM EDT Meningioma (CMS/HCC) from Last 3 Months Results * MR Head w and wo [...] MRI PROCEDURES Edited Resu lt - Final from Last 3 Months Insurance [facility] MEDICARE Care Teams Livestock Producer Relationship Specialty Start Date End Date Cydney Cole APRN [address] [place] [id number] PCP - General 12/01/21 Jasvir Abbott MD [address] [place] [address] Consulting Physician Neurology 11/24/21 Rashel Hernandez MD [address] [place] [address] Surgeon Neurosurgery 01/06/22
--- OUTSIDE RECORDS SUMMARY | 2025-05-19 22:17 | XMS_ITS | Continuity of Care Document ---
Author Organization SHAQUILLE Van Amaro [facility] Address [address] [place] [address] [address] Assessment No assessment recorded. Plan of Treatment Reminders Order Date Submit Date Provider Last Modified By Organization Details Last Modified Time Details Appointments None recorded. Lab None recorded. Referral None recorded. Procedures None recorded. Surgeries None recorded. Imaging None recorded. Medication Orders triamcinolo ne acetonide 0.1 % topical cream 2024 025 [email or web address] [facility] - [address], [address], 5 15:38:38 hydroxyzine HCl 25 mg tablet 2024 025 [email or web address] [facility] - [address], [address], 5 15:38:38 Patient TargetsNo targets recorded. Patient Instructions Encounter Date Encounter Id Patient Instructions Last Modified By Organization Details Last Modified Time 04/24/2025 [id number] high blood pressure: care instructions [email or web address] Not available 04/24/2025 16:29:18 learning about high blood pressure [email or web address] Not available 04/24/2025 16:29:18 This lady comes in with with a rash on her hands on her right hand she also notices little itching or little irritation below her left eye. 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 Advised her not to use any of the cream or up and around her eye. Hopefully this will take care of it if she has any recurrence or gets more ocular involvement she is to let us know otherwise she seems fairly stable appears to be in sinus rhythm at this moment thank you [email or web address] Not available 04/24/2025 16:28:48 Reason for Referral None Reported. Results Created Date Observation Date Name Description Value Unit Range Abnormal Flag Note LastModifiedBy Organization Detail LastModifiedTime 03/26/2003/26/2025 XR, knee, 3 view No observ ation record ed. [facility] [address] [place], [address], 04/01/2025 09:48:43 05/09/2005/09/2025 - scn dig breas t tomos yn camren [facility] Name: VARSHA BELLAANGIE [address] [place], [place] [address]a [facility] Phys: [place] [address] : 1954 Age: 69 Sex: F Acct: [id number] Loc: G.MAMM PHONE #: Exam Date: 2024 Status : REG CLI FAX #: [phone] Rad# [id number] Unit# [id number] Admit Date: 2024 EXAMS: CPT CODE: [id number] 805 SCN DIG BREAST TOMOSY N CARMEN 18204 EXAM DESCRI PTION: SCN DIG BREAST TOMOSY [...] PM EDT RP Workst ation: SEALWR [id number] [facility] FOLLOW -UP CODE Electr onical ly Signed by MARIPOSA Willson on 2024 at 1836 Report ed and signed by: HARINDER HUANG PAGE 1 Signed Report (PHILL NUMARIN) [facility] Name: PREET BELLA [employer] Phys: MD [place] [address] : 1954 Age: 69 Sex: F Acct: [id number] Loc: G.MAMM PHONE #: [phone] Exam Date: 2024 Status : REG CLI FAX #: [phone] Rad# [id number] Unit# [id number] Admit Date: 2024 EXAMS: CPT CODE: [id number] 805 SCN DIG BREAST TOMOSY N CARMEN 04563 CC: ALIN DAN MD; Milind Bhagat Dictat ed Date/T edgardo: 2024 (1835) Techno logist : IRENA ECHAVARRIA T Transc ribed Date/T edgardo: 2024 (1835) Transc riptio nist: DR.THA MELÉNDEZ Electr onic Signat ure Date/T edgardo: 2024 (1835) Printe d Date/T edgardo: 2024 (1841) BATCH NO: N/A PAGE 2 Signed Report CC'ed Logic: Orderi ng Provid er: SHOWER MILIND Attend ing Provid er: SHOWER MILIND Referr ing Provid er: SHOWER MILIND Consul ting Provid er: SY [email or web address] [place] [address] [facility] , [place], [address], 05/13/2025 10:45:44 05/13/20 25 05/12/2025 DEXA, verte bral fract ure asses [facility] Ce Name: PREET BELLA [facility] [address] Phys: [place] [address] : 1954 Age: 69 Sex: F Acct: [id number] Loc: G.MAMM PHONE #: [phone] Exam Date: 2024 Status : DEP CLI FAX #: Rad# [id number] Unit# [id number] Admit Date: 2024 EXAMS: CPT CODE: [id number] 806 DEXA BONE DENSIT Y WITH VFA 75836 EXAMIN ATION: DUAL X-RAY ABSORP TIOMET RY (DXA) FOR BONE MINERA L DENSIT Y. CLINIC AL INDICA TION: 69 years old, Female . Postme nopaus al. Osteop orosis screen ing. TECHNI QUE: An axial (e.g., hips, spine) and/or append icular (e.g., radius ) exam was perfor med, as approp riate, using [place] [employer] y densit ometer . Images are [...] . PAGE 1 Signed Report (PHILL NUED) [facility] Ce Name: PREET BELLA [employer] Phys: MD [place] [address] : 1954 Age: 69 Sex: F Acct: [id number] Loc: G.MAMM PHONE #: Exam Date: 2024 Status : DEP CLI FAX #: [phone] Rad# [id number] Unit# [id number] Admit Date: 2024 EXAMS: CPT CODE: [id number] 806 DEXA BONE DENSIT Y WITH VFA 49687 No fractu re is identi fied. IMPRES [...] above or below these levels . - Caterina patel ce on treatm ent can be found at the [facility] Osteop [facility]rosis Found[facility] tion's websit e [...] 2HQ9 PAGE 2 Signed Report (PHILL NUED) [facility] Name: PREET BELLA [employer] [facility] [employer] [place]: [place] [address] : 1954 Age: 69 Sex: F Acct: [id number] Loc: CORA PHONE #: Exam Date: 2024 Status : DEP CLI FAX #: Rad# [id number] Unit# [id number] Admit Date: 2024 EXAMS: CPT CODE: [id number] 806 DEXA BONE DENSIT Y WITH VFA 01239 Electr onical ly Signed by DENIS CLAROS on 2024 at 1534 Report ed and signed by: Nico CLAROS CC: ALIN DAN MD; Milind Bhagat Dictat ed Date/T edgardo: 2024 (1534) Techno logist : IRENA BECKET T Transc ribed Date/T edgardo: 2024 (1534) Transc riptio nist: DR.BUC ELICEO [place] onic Signat ure Date/T edgardo: 2024 (1534) Printe d Date/T edgardo: 2024 (0816) BATCH NO: N/A PAGE 3 Signed Report CC'ed Logic: Orderi ng Provid er: SHOWER MILIND Attend ing Provid er: SHOWER MILIND Referr ing Provid er: SHOWER MILIND Consul ting Provid er: SY OGDEN [address] [place], [address], 05/15/2025 15:51:16 Result Notes None recorded. Problems Name Problem SNOMED Code Status Onset Date Resolution Date Notes Provider Name and Address Organization Details Recorded Time Obesity 958565038 Active 2016 Jaime Epps, RN [address], [place], [address], [place] - [facility] 7 15:23:16 Discoid lupus erythema tosus 909712426 Active 2018 SHAQUILLE Vargas - [facility] 9 11:39:14 Osteopor osis 35743353 Completed 201810/30/2023 SHAQUILLE Argueta - [facility] 3 12:19:39 History of hysterec navya 989442025 Completed 201808/11/2020 Emma Pitts null, [place] - [facility] 0 13:47:14 Hyperlip idemia 72376172 Active 2018 Milind Bhagat MD [address], [place], [address], [place] - [facility] 9 13:44:52 Body mass index 30+ - obesity 925630292 Completed 201808/11/2020 Milind Bhagat MD [address], [place], [address], [place] [facility] 0 23:32:12 Vulvodyn ia 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 Active 2018 Milind Bhagat MD [address], [place], [address], [place] [facility] 9 13:47:53 Body mass index 30+ - obesity 082011367 Active 2019 Milind Bhagat MD [address], [place], [address], [place] [facility] 0 23:32:12 Urinary tract infectio us disease 08055240 Completed 202010/30/2023 Emma Pitts null, [place] - [facility] 3 12:19:44 Menopaus e Active 2021 Milind Bhagat MD [address], [place], [address], [place] - [facility] 2 20:09:13 Interpha langeal joint of toe stiff 916410996 Active 2021 Cydney Cole null, [place] - [facility] 2 17:13:20 Steatoti c liver disease 740118080 Active 2022 Emma Pitts null, [place] - [facility] 3 10:06:44 Chronic intersti tial cystitis 599327684 Active 2022 Milind Bhagat MD [address], [place], [address], [place] [facility] 3 22:19:35 Trigger finger of right hand 3925938525 3415384 Active 2022 Cydneyjuliette Cole null, [place] - [facility] 3 10:01:52 Bone spur of vertebra 0277043256 94908 Active 2022 Cydneyjuliette Cole null, [place] - [facility] 3 10:03:16 History of adenomat ous polyp of colon 367881011 Active 2022 Milind Bhagat MD [address], [place], [address], [place] - [facility] 5 15:18:52 Situatio nal panic attack 505007395 Active 2024 Miri Fong, YOLANDA [address], [place], [address], [place] - [facility] 5 09:52:13 Pain of knee region 0698607309 Active 2024 Alli Jones APRN [address], [place], [address], [place] - [facility] 5 13:24:45 Allergic contact dermatit is caused by plant material 6875366893 7053654 Active 2024 Sekou Cortez MD [address], [place], [address], [place] - [facility] 5 16:26:41 Atrial fibrilla tion 17252973 Active 2024 Diagnosi s spring 2024. Was successf ully cardiove rted and being maintain ed on metoprol ol Eliquis and Plavix. Followed by [facility] cardiolo gy Milind Bhagat MD [address], [place], [address], [place] - [facility] 5 15:22:35 Endocrin e/metabo lic screenin g Active 2024 Alli Jones APRN [address], [place], [address], [place] - [facility] 5 08:19:30 Pain of right wrist 5949550438 62777 Active 2024 Alli Jones APRN [address], [place], [address], [place] [facility] 5 09:20:56 Posterio r rhinorrh ea 65949305 Active 2024 Alli Jones, [employer] [address], [place], [address], [facility] - [facility] 5 09:28:39 Serum creatini ne above referenc e range 721090616 Active 2024 Alli Jones, [employer] [address], [place], [place], [address] [place] [address], [facility] - [facility] 5 14:57:57 Alkaline phosphat ase above referenc e range 924127209 Active 2024 Alli Jones, [employer] SERV[employer] HEL[employer] [address], [place], [address] [place] [address], [facility] - [facility] 5 14:58:08 History of supracer vical hysterec navya 554212110 Active Jaime Epps RN [address], [place], [address], [facility] 7 08:48:21 Hypercho lesterol emia 07169843 Active statin rx's document ed 2011, 11/2015 and 04/2016- all listed as DC'd Milind Bhagat MD [address], [place], [address] [place] [address], [facility] - [facility] 7 22:30:56 Essentia l hyperten scarlet 44372678 Active Jaime Epps RN [address], [place], [address], [facility] - [facility] 7 08:49:54 Graves' disease 229672088 Active Jaime Epps RN [address], [place], [address], [facility] - [facility] 7 08:50:05 Panic attack 417566196 Completed 08/14/2017 [facility], [place] - [facility] 7 14:17:28 Degenera tion of interver tebral disc 93873984 Active Jaime Epps RN [address], [place], [address], [facility] - [facility] 7 08:50:49 Hypothyr oidism 36972732 Active Jaime Epps RN [address], [place], [address], [place] - [facility] 7 08:51:06 Problem Notes None recorded. Procedures Surgical History Date Name Laterality Status Provider Name and Address Organization Details Recorded Time 025 [facility] 04/28/2025 07:38:08 025 Functional Status Assessed completed [facility] - [facility] 04/28/2025 07:38:08 025 Date of Last Mammogram completed [place] - [facility] 05/13/2025 10:45:57 025 Most Recent Bone Density completed Milind Bhagat MD [address], [place], [address], [facility] - [facility] 05/13/2025 21:32:08 025 Medication Reconcilliation completed Daina Forrest [place] - [facility] 02/04/2025 10:56:09 024 Advance Care Planning completed Vaughn Davis [place] - [facility] 10/08/2024 14:03:25 024 Functional Status Assessed completed Vaughn Davis [place] [facility] 10/08/2024 14:03:26 024 Dimethyl Sulfoxide (DMSO) completed Emma Pitts [place] - [facility] 01/05/2024 11:36:06 023 Dimethyl Sulfoxide (DMSO) completed Emma Hong [place] - [facility] 11/24/2023 13:13:08 023 Dimethyl Sulfoxide (DMSO) completed Milind Bhagat MD [address], [place], [address], [place] - [facility] 10/13/2023 22:18:08 023 Dimethyl Sulfoxide (DMSO) completed Milind Bhagat MD [address], [place], [address], [place] [facility] 08/30/2023 16:11:56 023 Dimethyl Sulfoxide (DMSO) completed Milind Bhagat MD [address], [place], [address], [place] [facility] 06/22/2023 16:34:48 023 Dimethyl Sulfoxide (DMSO) completed Emma Pitts [place] - [facility] 06/01/2023 14:38:03 023 Dimethyl Sulfoxide (DMSO) completed Milind Bhagat MD [address], [place], [address], [place] [facility] 05/06/2023 15:36:06 023 Advance Care Planning completed March [place] - [facility] 03/30/2023 08:03:14 023 Functional Status Assessed completed March [place] - [facility] 03/30/2023 08:03:14 023 Dimethyl Sulfoxide (DMSO) completed Milind Bhagat MD [address], [place], [address], [facility] - [facility] 03/25/2023 11:12:47 023 potassium sensitivity test- MOB completed Emma Pitts [place] - [facility] 01/25/2023 15:36:37 023 In and Out Catheterization completed Milind Bhagat MD [address], [place], [address], [place] [facility] 01/03/2023 22:18:15 022 Date of Last Pap Smear completed Emma Hong [place] - [facility] 10/10/2022 13:55:57 020 Date of Last Colonoscopy completed Milind Bhagat MD [address], [place], [address], [place] [facility] 08/12/2020 16:00:24 020 Medication Reconcilliation completed Krissy Sharp [place] - [facility] 05/25/2020 13:35:17 019 Systolic B/P less than 130 mm Hg completed Kelly Gnozalez [place] - [facility] 01/01/2019 11:10:38 019 Diastolic B/P 80-89 mm Hg completed Kelly Gonzalez [place] - [facility] 01/01/2019 11:10:40 015 Vulvar Biopsy completed Emma Hong [place] - [facility] 01/03/2023 10:03:20 994 Hysterectomy completed Milind Bhagat MD [address], [place], [address], [facility] - [facility] 07/20/2017 20:58:31 cardiac catheterization completed Milind Bhagat MD [address], [place], [address], [facility] - [facility] 04/29/2025 15:23:09 Carpal tunnel surgery completed Asuncion Nichols [place] - [facility] 01/24/2017 13:00:12 Cholecystectomy, laparoscopic completed Asuncion Nichols [facility] 01/24/2017 13:00:19 Imaging Results None recorded. Procedure Notes None recorded. Medical Equipment None Reported. Allergies Allergen ID Allergen Name Allergen Category Reaction Reaction Severity Criticality Documentation Date Start Date Code Code System Note Provider Name and Address Organization Details Recorded Time 727934 Macrobid medicatio n diarrhea severe Not available 07/02/2019 36341 1 RxNorm DID use 11/17 and 12/19 witou t SE DOUBT true aller gy/ll s Milind Bhagat MD [address], [place], [address], [facility] - [facility] 3 10:21:59 23772 codeine sulfate medicatio n Not available Not available Not available 09/02/20162011 35879 RxNorm Not Available [facility] 6 08:53:10 52421 Lipitor medicatio n nausea Not available Not available 09/02/20162015 72244 5 RxNorm React ion: nause a; Not Available [facility] 6 08:53:10 33852 Cipro medicatio n Not available Not available Not available 09/02/20162012 80063 3 RxNorm hurts stoma ch, no hives Milind Bhagat MD [address], [place], [address], [facility] - [facility] 3 10:24:03 70661 cortisone acetate medicatio n Not available Not available Not available 09/02/20162011 62974 RxNorm Not Available [facility] 6 08:53:10 77801 cholecalc iferol medicatio n Not available Not available Not available 09/02/20162011 2418 RxNorm React ion: Mally gordon GI upset ; Comme nt: Drisd ol and OTC form; OnSet Date: 2011; Not Available [facility] 6 09:23:37 Medications Name Sig Start Date [...] Disconti nued Status: Disconti nued on: 10/06/20 15 9:58AM;U ser: karina; Est. Completi on: 01/11/20 15;Pharm acyVerif ied: [...] Disconti nued on: 05/02/20 13 10:53AM; User: angela; Est. Completi on: 04/16/20 13;Print ed: 04/10/20 13 Not [...] ser: monica; Est. Completi on: 06/06/20 13;Pharm Yara ied: 05/09/20 13 2:36PM Not Available Not [...] Disconti nued on: 04/20/20 16 1:06PM;U ser: chaunceyn;Es t. Completi on: 03/08/20 16;Indic ation: Allergic Conjunct ivitis - (06.3728 40);Phar Jarrod fied: 03/01/20 16 1:42PM Not Available Not [...] Disconti nued on: 05/31/20 12 10:51AM; User: angela; Est. Completi on: 04/29/20 12;Indic ation: Candidia [...] TOPICALL Y TO AFFECTED AREA. 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 01/03 completed Not Available Not Available [...] Disconti nued on: 03/01/20 16 1:12PM;U ser: grayn;Es roberto Completneel on: 01/28/20 16;Pharm acyVerif ied: 12/29/19 16 [...] Disconti nued on: 03/06/20 12 11:35AM; User: mauri;Mattie Kramer on: 06/04/20 12;Indic ation: Vitamin D Deficien cy - (865);Prin quan: 03/06/20 12 Not Available Not Available [...] 04/03/20 16;Indic ation: Hypercho lesterol emia - (225);Phar Jarrod fied: 10/06/20 15 10:28AM Not Available Not Available Not Available fluticaso ne propionat e 50 mcg/actua tion nasal spray,vanessa pension Chauncey 1 spray every day by intranas al [...] Disconti nued on: 04/20/20 16 1:06PM;U ser: chaim;aMttie Kramer on: 03/11/20 16;Pharm acyVerif ied: 03/01/20 [...] Disconti nued on: 05/31/20 12 10:51AM; User: Brock Kramer on: 06/06/20 12 Not Available Not [...] Shingrix (PF) 50 mcg/0.5 mL intramusc ular ninoska sanz kit 12/04 completed Not Available Not Available Not Available Vitals Date Recorded Body temperature Systolic blood pressure Diastolic blood pressure Provider Name and Address Organization Details Last Updated DateTime 04/24/2025 98.1 [degF] 106 mm[Hg] 80 mm[Hg] [facility] [place] - [facility] 04/24/2025 13:06:17 Social History Question Answer Notes LastModified by Organizat ion Details LastModified Time Tobacco Smoking Status Never Smoker Not Available [employer] 09/11/2020 03:13:29 Do You Have An Advance Directive? Yes [id number] Information not available 09/11/2020 Are You Blind Or Do You Have Difficulty Seeing? No [id number] Information not available 09/11/2020 Is Blood Transfusion Acceptable In An Emergency? Yes [id number] Information not available 09/11/2020 What Is Your Level Of Caffeine Consumption? Heavy [id number] Information not available 09/11/2020 How Much Tobacco Do You Chew? None [id number] Information not available 09/11/2020 Are You Deaf Or Do You Have Serious Difficulty Hearing? No [id number] Information not available 09/11/2020 What Type Of Diet Are You Following? REGULAR [id number] Information not available 09/11/2020 Which Illicit Or Recreational Drugs Have You Used? None [id number] Information not available 09/11/2020 What Is The Highest Grade Or Level Of School You Have Completed Or The Highest Degree You Have Received? FQ68030-2 [id number] Information not available 09/11/2020 How Many Days Of Moderate To Strenuous Exercise, Like A Brisk Walk, Did You Do In The Last 7 Days? 1 [id number] Information not available 09/11/2020 On Those Days That You Engage In Moderate To Strenuous Exercise, How Many Minutes, On Average, Do You Exercise? 1 [id number] Information not available 09/11/2020 Have There Been Any Changes To Your Family Or Social Situation? No Information no t available 01/06/2025 How Hard Is It For You To Pay For The Very Basics Like Food, Housing, Medical Care, And Heating? [id number] [email or web address] Information not available 12/20/2019 Live Alone Or With Others? With Others Information not available 01/24/2017 What Was The Date Of Your Most Recent Tobacco Screening? 04/29/2025 [email or web address] Information not available 04/29/2025 How Many Children Do You Have? 3 [id number] Information not available 09/11/2020 Performs Monthly Self-breast Exam? Yes Information no t available 01/24/2017 What Is Your Relationship Status? [id number] Information not available 09/11/2020 Seat Belts Used Routinely Yes Information not available 01/24/2017 Are You Sexually Active? No [id number] Information not available 09/11/2020 Do You Have Smoke And Carbon Monoxide Detectors In Your Home? Yes Information not available 01/06/2025 Are You Passively Exposed To Smoke? No Information no t available 01/06/2025 How Much Tobacco Do You Smoke? No [id number] Information not available 09/11/2020 General Stress Level Medium Information not available 01/24/2017 Do You Use Sunscreen Routinely? Yes [id number] Information not available 09/11/2020 Has Tobacco Cessation Counseling Been Provided? No Information not available 02/13/2024 How Many Years Have You Smoked Tobacco? 0 [id number] Information not available 09/11/2020 Do You Have Difficulty Walking Or Climbing Stairs? No [id number] Information not available 09/11/2020 Sex: Female Functional Status Question Answer Note LastModified by Organizat ion Details LastModified Time Do you or have you ever used smokeless tobacco? Never used smokeless tobacco [id number] Information not available 09/11/2020 Are you currently employed? No [id number] Information not available 09/11/2020 Do you have transportation difficulties? No Information not available 02/13/2024 Urinary incontinence assessment performed? Yes [email or web address] Information not available 07/20/2017 Are you able to care for yourself? Yes Information n ot available 02/13/2024 Do you have difficulty dressing or bathing? No [id number] Information not available 09/11/2020 Do you or have you ever used e-cigarettes or vape? Never used electronic cigarettes [id number] Information not available 09/11/2020 What is your exercise level? Moderate [id number] Information not available 09/11/2020 Do you use any illicit or recreational drugs? No Information not available 02/13/2024 Do you or have you ever used any other forms of tobacco or nicotine? No Information not available 02/13/2024 What is your level of alcohol consumption? None [id number] Information not available 09/11/2020 Are you able to walk? YESWOREST [id number] Information not available 09/11/2020 Do you have difficulty doing errands alone? No [id number] Information not available 09/11/2020 Mental Status Question Answer Note LastModified by Organizat ion Details LastModified Time Do you feel stressed (tense, restless, nervous, or anxious, or unable to sleep at night)? [id number] Information not available 09/11/2020 Do you have difficulty concentrating, remembering or making decisions? No [id number] Information no t available 09/11/2020 Family History Relationship Description Onset Age of this Age Resolved Age Notes LastModified by Organization Details LastModified Time Maternal Grandmother Malignant tumor of breast 40 Not available 2016 12:59:29 Mother Arthritis Not available 01/24/2017 12:59:36 Medical History Condition Response Pancreatitis N Other N Atrial Fibrillation N congenital heart disease N Blood Diseases N Hyperthyroidism N Rheumatoid arthritis N Blood Transfusion N Erectile Dysfunction N amputation N Skin Lesions N Depression N Pneumonia N Incontinence N Murmur N Edema N Alzheimer's Disease N Migraine Headaches N Tobacco Abuse N Anxiety Disorder N Hemorrhoids N Obesity N Vision or Eye Problems N Restless Leg Syndrome N Arthritis Y Infertility N Polyps N Carpal Tunnel N Acid Reflux (GERD) N Cancer N Stroke N Varicosities N Tendonitis N Crohn's Disease N Hypercholesterolemia Y Skin Cancer N Fibromyalgia N Headaches Y Anal Fissure N Irritable Bowel Syndrome N Kidney Disease N Heart Problems N [...] colitis N Cerebrovascular Disease N Depression N Guillain-Starr N Sleep Apnea N Aneurysm N Bronchitis [...] 022 cancelled patient objection Milind Bhagat MD [address], [place], [address], [place] - [facility] 10/04/2022 20:13:27 pneumococcal polysaccharide PPV23 022 cancelled patient objection Cydney Hatfield null, [place] - [facility] 10/19/2022 17:17:13 pneumococcal polysaccharide PPV23 023 cancelled patient objection Cydney Hatfield null, [place] - [facility] 03/30/2023 10:09:06 Td (adult) 015 completed Not Available [facility] 01/05/2024 11:07:25 COVID-19, mRNA, LNP-S, PF, 30 mcg/0.3 mL dose completed Crystal May null, [place] - [facility] 10/19/2022 14:02:04 COVID-19, mRNA, LNP-S, PF, 30 mcg/0.3 mL dose, alexsander-sucrose 022 completed Crystal May null, [place] - [facility] 10/19/2022 14:02:04 COVID-19, mRNA, LNP-S, PF, 30 mcg/0.3 mL dose 021 completed Crystal May null, [place] - [facility] 10/19/2022 14:02:04 COVID-19, mRNA, LNP-S, PF, 30 mcg/0.3 mL dose 021 completed Crystal May null, [place] - [facility] 10/19/2022 14:02:04 zoster recombinant 019 completed Miri Zornes [place] - [facility] 12/02/2022 13:10:07 COVID-19, mRNA, LNP-S, bivalent, PF, 30 mcg/0.3 mL dose completed Miri Zornes null, [place] - [facility] 12/02/2022 13:10:07 zoster recombinant 019 completed Miri [place]orn[place] [facility] 12/02/2022 13:10:08 Past Encounters Encounter ID Performer Location Encounter Start Date Encounter Closed Date Diagnosis/Indication Diagnosis SNOMED-CT Code Diagnosis ICD10 Code Diagnosis Note [id number] Sekou Cortez MD Count Includes [facility] [address] [place] [address] 04/24/2025 12:56:50 04/24/2025 13:32:29 Pruritic rash 56928777 L28.2 Essential hypertension 36340836 I10 Health Concerns Section Related Observation LastModified by Organization Detai ls LastModified Time None Recorded Concern Status LastModified by Organization Details LastModified Time None Recorded Payers Encounter Date Sequence Insurance Name Policy Number Policy Ortiz Covered Member ID Ortiz Member ID Guarantor Name 04/24/2025 1 [place]MEDICARE REPLACEMENT HMO) [id number] Preet Bella [id number] Preet Bella Notes Date Note Type Note Provider Name and Address Organization Details Recorded Time 04/24/2025 text/html rash facialleft eye painpatient verbalizes she has been doing yard work and is allergic to poison elmer Cortez MD [address], [place], [address], [facility] - [facility] 04/24/2025 16:29:22 OBGyn Episode No OBEpisode recorded.
--- OUTSIDE RECORDS SUMMARY | 2025-05-19 22:17 | XMS_ITS | Encounter Summary ---
Author Organization [facility] Address [address] [place] [address] Care Team Providers Care Washer Carcass Name Role Phone Jasvir Abbott MD Unavailable [phone] Cydney Cole APRN Primary Care Provider [phone] Rashel Hernandez MD Unavailable [phone] Encounter Details Date Type Department Care Team (Latest Contact Info) Description 05/01/2025 Travel Social History Tobacco Use Types Packs/Day Years [...] on file documented as of this encounter Plan of Treatment Not on file documented as of this encounter Visit Diagnoses Not on filedocumented in this encounter Additional Health Concerns Assessment Noted Time A fall risk assessment has been complete d for the patient 05/01/2025 2:41 PM EDT A Body Mass Index follow-up plan has been documented for the patient 05/01/2025 3:07 PM EDT documented as of this encounter Care Teams Washer Carcass Relationship Specialty Start Date End Date Cydney Cole APRN [address] [place], [place] [id number] PCP - General 12/01/21 Jasvir Abbott MD [address] [facility] [address] [place] [address] Consulting Physician Neurology 11/24/21 Rashel Hernandez MD [address] [facility] [address] [place] [address] Surgeon Neurosurgery 01/06/22 documented as of this encounter
--- OUTSIDE RECORDS SUMMARY | 2025-05-19 22:17 | XMS_ITS | Encounter Summary ---
Author Organization [facility] Address [address] [place] [address] Care Team Providers Care Continuity Coordinator Name Role Phone Jasvir Abbott MD Unavailable [phone] Cydney Cole APRN Primary Care Provider [phone] Rashel Hernandez MD Unavailable [phone] Encounter Details Date Type Department Care Team ([facility] st Contact Info) Description 10/16/2024 [facility] [address] [place] [address] Memo Thompson MD [address] [place] [address] Social History Tobacco Use Types Packs/Day Years [...] has been complete d for the patient 01/18/2024 10:03 AM EST A Body Mass Index follow-up plan has been documented for the patient 02/28/2024 9:00 AM EDT documented as of this encounter Care Teams Continuity Coordinator Relationship Specialty Start Date End Date Cydney Cole APRN [address] [place] [id number] PCP - General 12/01/21 Jasvir Abbott MD [address] [place] [address] Consulting Physician Neurology 11/24/21 Rashel Hernandez MD [address] [place] [address] Surgeon Neurosurgery 01/06/22 documented as of this encounter
--- OUTSIDE RECORDS SUMMARY | 2025-05-19 22:17 | XMS_ITS | Encounter Summary ---
Author [place] [address] Care Team Providers Care Registered Nurse Behavioral Health Name Role Phone Jeronimo Browne MD, [facility] Primary Care Provid er Reason for Visit * Reason Onset Date Comments Vaginal Pain 04/11/2025 Encounter Details Date Type Department Care Team (Late st Contact Info) Description 04/11/2025 Telephone [facility] [place] [address] [place] [address] Yasmeen Dominguez RN Vaginal Pain Social History Tobacco Use Types Packs/Day Years [...] on file documented as of this encounter Miscellaneous Notes * Telephone Encounter - Ary Barrett RN - 04/28/2025 11:17 AM EDT Pt aware. States her symptoms have resolved. * Telephone Encounter - Ary Barrett RN - 04/22/2025 12:23 PM EDT LMTCB and letter sent. Lost to follow up. * Telephone Encounter - Ary Barrett RN - 04/15/2025 9:27 AM EDT LMTCB * Telephone Encounter - Opal Sebastian RN - 04/11/2025 1:21 PM EDT LVM * Telephone Encounter - Miri Lane MD - 04/11/2025 1:10 PM EDT Could just be a shallow break in the vaginal mucosa or skin from speculum stretching the area (likea paper cut) that is stingy with urine hitting that area. Would just monitor. Nothing out of ordinary on her exam yesterday. * Telephone Encounter - Yasmeen Dominguez RN - 04/11/2025 11:47 AM EDT Pt c/o vaginal pain on her left side whenever she urinates ever since her pap smear yesterday. ?? Asked pt to clarify if it jones in her urethra or if it is pelvic pain. Pt states it's the left side of my vagina Explained to pt that there could be irritation from the speculum and to alternate between Tylenol and ibuprofen Pt asked that message be sent to Dr Lane to see if she has any other recommendations documented in this encounter Plan of Treatment Upcoming Encounters Date Type Department Care Team (Late st Contact Info) Description 08/11/2025 1:30 PM EDT Office Visit [facility] [address] [address] Echo Barreto APRN [address] [place] [address] 01/07/2026 1:10 PM EST Office Visit [facility] [address] [place] [address] Markell Ayoub MD [address] [facility] [address] [place] [address] documented as of this encounter Visit Diagnoses Not on filedocumented in this encounter Additional Health Concerns Assessment Noted Time A fall risk assessment has been complete d for the patient 04/10/2025 1:14 PM EDT documented as of this encounter Care Teams Registered Nurse Behavioral Health Relationship Specialty Start Date End Date Vern Decker Sr., MD [address] [place] [address] PCP - General 05/31/12 documented as of this encounter
--- OUTSIDE RECORDS SUMMARY | 2025-05-19 22:17 | XMS_ITS | Continuity of Care Document ---
Author Organization [place] - Prem Sanjana hajirenay COMPUTER SECURITY MANAGER Address [address] [place] [address] Assessment Encounter Date Assessment Date Assessment LastModified by Organization Details LastModified Time 04/29/2025 04/29/2025 Annual gynecological exam performed. Patient will come back in a year unless there are new symptoms. Not available 01/06/2025 09:49:41 Plan of Treatment Reminders Order Date Submit Date Provider Last Modified By Organization Details Last Modified Time Details Appointments None recorded. Lab None recorded. Referral gastroenter ologist referral - Should be due for surveillanc e colonoscopy May 2025 per our records, history of adenomatous polyps 2024 025 PAN Jackson MD, [facility] [address], [address], [address], 5 08:36:01 Procedures None recorded. Surgeries None recorded. Imaging DEXA, vertebral fracture assessment 2024 025 [place] (Centralized Scheduling), [facility] [address], [place], [address], 5 11:16:19 Medication Orders Premarin 0.625 mg/gram vaginal cream 2024 025 lshower [facility] [place], [place], [address], 5 15:44:16 Patient TargetsNo targets recorded. Patient Instructions Encounter Date Encounter Id Patient Instructions Last Modified By Organization Details Last Modified Time 04/29/2025 [id number] medical record request* - Requesting any office or procedure notes from visits within the last year. 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 Referral for Screening for malignant neoplasm of colon Should be due for surveillance colonoscopy May 2025 per our records, history of adenomatous polyps Referring Physician: Milind Bhagat, COMPUTER SECURITY MANAGER, Encounter Date: 04/29/2025 Results Created Date Observation Date Name Description Value Unit Range Abnormal Flag Note LastModifiedBy Organization Detail LastModifiedTime 05/09/2005/09/2025 - scn dig breas t tomos yn carmen [facility] Name: PREET OTOOLE [facility] Phys: MD Milind Bhagat [facility] [place] [address] : 1954 Age: 69 Sex: F Acct: [id number] Loc: G.MAMM PHONE #: [phone] Exam Date: 2024 Status : REG CLI FAX #: Rad# [id number] Unit# [id number] Admit Date: 2024 EXAMS: CPT CODE: [id number] 805 SCN DIG BREAST TOMOSY N CARMEN 23196 EXAM DESCRI PTION: SCN DIG BREAST TOMOSY [...] PM EDT RP Workst ation: SEALWR [id number] [facility] FOLLOW -UP CODE Electr onical ly Signed by MARIPOSA Willson on 2024 at 1836 Report ed and signed by: HARINDER HUANG PAGE 1 Signed Report (PHILL NUVIANNEY) [facility] Name: PREET OTOOLE [facility] Phys: MD Milind Bhagat [facility] [place] [facility] [place] [address] : 1954 Age: 69 Sex: F Acct: [id number] Loc: G.MAMM PHONE #: Exam Date: 2024 Status : REG CLI FAX #: Rad# [id number] Unit# [id number] Admit Date: 2024 EXAMS: CPT CODE: [id number] 805 SCN DIG BREAST TOMOSY N CARMEN [id number] CC: ALIN DAN MD; Milind Bhagat Dictat ed Date/T edgardo: 2024 (1835) Techno logist : IRENA ECHAVARRIA T Transc ribed Date/T edgardo: 2024 (1835) Transc riptio nist: DR.THA MELÉNDEZ Electr onic Signat ure Date/T edgardo: 2024 (1835) Printe d Date/T edgardo: 2024 (184) BATCH NO: N/A PAGE 2 Signed Report CC'ed Logic: Orderi ng Provid er: SHOWER MILIND Attend ing Provid er: SHOWER MILIND Referr ing Provid er: SHOWER MILIND Consul ting Provid er: SY ALIN [address] , [place], [address], 05/13/2025 10:45:44 05/13/20 25 05/12/2025 DEXA, verte bral fract ure asses [facility] Name: PREET OTOOLE [facility] [address] Phys: [place] [address] : 1954 Age: 69 Sex: F Acct: [id number] Loc: G.MAMM PHONE #: Exam Date: 2024 Status : DEP CLI FAX #: [phone] Rad# [id number] Unit# [id number] Admit Date: 2024 EXAMS: CPT CODE: [id number] 806 DEXA BONE DENSIT Y WITH VFA 71715 EXAMIN ATION: DUAL X-RAY ABSORP TIOMET RY (DXA) FOR BONE MINERA L DENSIT Y. CLINIC AL INDICA TION: 69 years old, Female . Postme nopaus al. Osteop orosis screen ing. TECHNI QUE: An axial (e.g., hips, spine) and/or append icular (e.g., radius ) exam was perfor med, as approp riate, using Digabitar Prodig y densit ometer . Images are [...] . PAGE 1 Signed Report (PHILL NUED) [facility] Name: VARSHA OTOOLEANGIE [facility] Phys: MD Milind Bhagat [facility] [place] [address] : 1954 Age: 69 Sex: F Acct: [id number] Loc: G.MAMM PHONE #: Exam Date: 2024 Status : DEP CLI FAX #: Rad# [id number] Unit# [id number] Admit Date: 2024 EXAMS: CPT CODE: [id number] 806 DEXA BONE DENSIT Y WITH VFA 15192 No fractu re is identi fied. IMPRES [...] treatm ent can be found at the [facility] Osteop orosis Founda tion's websit e [...] 2HQ9 PAGE 2 Signed Report (PHILL NUED) [facility] Name: PREET OTOOLE [facility] Phys: [place] [address] : 1954 Age: 69 Sex: F Acct: [id number] Loc: CORA PHONE #: Exam Date: 2024 Status : DEP CLI FAX #: Rad# [id number] Unit# [id number] Admit Date: 2024 EXAMS: CPT CODE: [id number] 806 DEXA BONE DENSIT Y WITH VFA 12769 Electr onical ly Signed by DENIS CLAROS on 2024 at 1534 Report ed and signed by: Nico CLAROS CC: ALIN DAN MD; Milind Bhagat Dictat ed Date/T edgardo: 2024 (1534) Techno logist : IRENA BECKET T Transc ribed Date/T edgardo: 2024 (1534) Transc riptio nist: ELICEO Electr onic Signat ure Date/T edgardo: 2024 (1534) Printe d Date/T edgardo: 2024 (0816) BATCH NO: N/A PAGE 3 Signed Report CC'ed Logic: Orderi ng Provid er: SHOWER MILIND Attend ing Provid er: SHOWER MILIND Referr ing Provid er: SHOWER MILIND Consul ting Provid er: SY OGDEN [address] [place], [address], 05/15/2025 15:51:16 Result Notes None recorded. 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 Active 2018 Denis [place], [place] - [facility] 9 11:39:14 Osteopor osis 29630916 Completed 201810/30/2023 Emma Pitts null, [place] - [facility] 3 12:19:39 History of hysterec navya 432275135 Completed 201808/11/2020 Emma Pitts null, [place] - [facility] 0 13:47:14 Hyperlip idemia 47833229 Active 2018 Milind Bhagat MD [address], [place], [address], [place] - [facility] 9 13:44:52 Body mass index 30+ - obesity 156148711 Completed 201808/11/2020 Milind Bhagat MD [address], [place], [address], [place] [facility] 0 23:32:12 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 2018 Milind Bhagat MD [address], [place], [address], [place] [facility] 9 13:47:53 Body mass index 30+ - obesity 664994362 Active 2019 Milind Bhagat MD [address], [place], [address], [place] [facility] 0 23:32:12 Urinary tract infectio us disease 05348779 Completed 202010/30/2023 Emma Pitts null[place] - [facility] 3 12:19:44 Menopaus e Active 2021 Milind Bhagat MD [address], [place], [address], [place] [facility] 2 20:09:13 Interpha langeal joint of toe stiff 230066056 Active 2021 Cydney Cole null, [place] - [facility] 2 17:13:20 Steatoti c liver disease 567011734 Active 2022 Emma Pitts null, [place] - [facility] 3 10:06:44 Chronic intersti tial cystitis 419800375 Active 2022 iMlind Bhagat MD [address], [place], [address], [place] - [facility] 3 22:19:35 Trigger finger of right hand 4882205138 2146290 Active 2022 Cydneyjuliette Cole null, [place] - [facility] 3 10:01:52 Bone spur of vertebra 5054165891 54244 Active 2022 Cydneyjuliette Cole null[place] - [facility] 3 10:03:16 History of adenomat ous polyp of colon 761518803 Active 2022 Milind Bhagat MD [address], [place], [address], [place] - [facility] 5 15:18:52 Situatio nal panic attack 450088960 Active 2024 Miri Fong, CAN FEEDER [address], [place], [address], [place] - [facility] 5 09:52:13 Pain of knee region 7756466266 Active 2024 Alli Jones, CAN [employer]EDER [address], [place], [address], [place] - [facility] 5 13:24:45 Allergic contact dermatit is caused by plant material 5481385060 3309456 Active 2024 Sekou Cortez MD [address], [place], [address], [place] - [facility] 5 16:26:41 Atrial fibrilla tion 25750796 Active 2024 Diagnosi s spring 2024. Was successf ully cardiove rted and being maintain ed on metoprol ol Eliquis and Plavix. Followed by [facility] cardiolo gy Milind Bhagat MD [address], [place], [address], [place] - [facility] 5 15:22:35 Endocrin e/metabo lic screenin g Active 2024 Alli Jones, CAN FEEDER [address], [place], [address], [place] - [facility] 5 08:19:30 Pain of right wrist 0310973468 92287 Active 2024 Alli Jones, CAN FEEDER [address], [place], [address], [place] - [facility] 5 09:20:56 Posterio r rhinorrh ea 38412204 Active 2024 ZohrehMeghan Jones, CAN FEEDER [address], [place], [address], [facility] - [facility] 5 09:28:39 Serum creatini ne above referenc e range 178715380 Active 2024 ZohrehMeghan Jones, CAN FE[employer]ER [address], [place], [address], [facility] - [facility] 5 14:57:57 Alkaline phosphat ase above referenc e range 768738499 Active 2024 ZohrehMeghan Jones, CAN [employer]ER [address], [place], [address] [place] [address], [facility] - [facility] 5 14:58:08 History of supracer vical hysterec navya 526734332 Active Jaime Epps RN [address], [place], [address], [facility] - [facility] 7 08:48:21 Hypercho lesterol emia 19191419 Active statin rx's document ed 2011, 11/2015 and 04/2016- all listed as DC'd Milind Bhagat MD [address], [place], [address] [place] [address], [facility] - [facility] 7 22:30:56 Essentia l hyperten scarlet 86643033 Active Jaime Epps RN [address], [place], [address], [facility] - [facility] 7 08:49:54 Graves' disease 996766009 Active Jaime Epps RN [address], [place], [address], [facility] - [facility] 7 08:50:05 Panic attack 182664032 Completed 08/14/2017 Linda Menon [place], [place] - [facility] 7 14:17:28 Degenera tion of interver tebral disc 68548925 Active Jaime Epps RN [address], [place], [address], [facility] - [facility] 7 08:50:49 Hypothyr oidism 97908466 Active Jaime Epps, RN [address], [place], [address], [facility] - [facility] 7 08:51:06 Problem Notes None recorded. Procedures Surgical History Date Name Laterality Status Provider Name and Address Organization Details Recorded Time 025 Advance Care Planning completed [facility] - [facility] 04/28/2025 07:38:08 025 Functional Status Assessed completed [facility] - [facility] 04/28/2025 07:38:08 025 Date of Last Mammogram completed [place] Pond [place] - [facility] 05/13/2025 10:45:57 025 Most Recent Bone Density completed Milind Bhagat MD [address], [place], [address], [facility] - [facility] 05/13/2025 21:32:08 025 Medication Reconcilliation completed Daina Forrest [facility] 02/04/2025 10:56:09 024 Advance Care Planning completed Vaughn Davis [place] - [facility] 10/08/2024 14:03:25 024 Functional Status Assessed completed Vaughn Davis [place] - [facility] 10/08/2024 14:03:26 024 Dimethyl Sulfoxide (DMSO) completed Emma Pitts [place] - [facility] 01/05/2024 11:36:06 023 Dimethyl Sulfoxide (DMSO) completed Emma Bones [place] - [facility] 11/24/2023 13:13:08 023 Dimethyl Sulfoxide (DMSO) completed Milind Bhagat MD [address], [place], [address], [facility] - [facility] 10/13/2023 22:18:08 023 Dimethyl Sulfoxide (DMSO) completed Milind Bhagat MD [address], [place], [address], [facility] - [facility] 08/30/2023 16:11:56 023 Dimethyl Sulfoxide (DMSO) completed Milind Bhagat MD [address], [place], [address], [place] - [facility] 06/22/2023 16:34:48 023 Dimethyl Sulfoxide (DMSO) completed Emma Chaneyrus [place] - [facility] 06/01/2023 14:38:03 023 Dimethyl Sulfoxide (DMSO) completed Milind Bhagat MD [address], [place], [address], [place] [facility] 05/06/2023 15:36:06 023 Advance Care Planning completed March [place] - [facility] 03/30/2023 08:03:14 023 Functional Status Assessed completed March [place] - [facility] 03/30/2023 08:03:14 023 Dimethyl Sulfoxide (DMSO) completed Milind Bhagat MD [address], [place], [address], [place] [facility] 03/25/2023 11:12:47 023 potassium sensitivity test- MOB completed Emma Chaneyrus [place] - [facility] 01/25/2023 15:36:37 023 In and Out Catheterization completed Milind Bhagat MD [address], [place], [address], [place] [facility] 01/03/2023 22:18:15 022 Date of Last Pap Smear completed Emma Hong [place] - [facility] 10/10/2022 13:55:57 020 Date of Last Colonoscopy completed Milind Bhagat MD [address], [place], [address], [place] [facility] 08/12/2020 16:00:24 020 Medication Reconcilliation completed Krissy Sharp [place] - [facility] 05/25/2020 13:35:17 019 Systolic B/P less than 130 mm Hg completed Kelly Akerss [place] - [facility] 01/01/2019 11:10:38 019 Diastolic B/P 80-89 mm Hg completed Kelly Gonzalez [place] - [facility] 01/01/2019 11:10:40 015 Vulvar Biopsy completed Emma Hong [place] - [facility] 01/03/2023 10:03:20 994 Hysterectomy completed Milind Bhagat MD [address], [place], [address], [facility] - [facility] 07/20/2017 20:58:31 cardiac catheterization completed Milind Bhagat MD [address], [place], [address], [facility] - [facility] 04/29/2025 15:23:09 Carpal tunnel surgery completed Asuncion Nichols [place] - [facility] 01/24/2017 13:00:12 Cholecystectomy, laparoscopic completed Asuncion [employer] [facility] 01/24/2017 13:00:19 Imaging Results None recorded. Procedure Notes None recorded. Medical Equipment None Reported. Allergies Allergen ID Allergen Name Allergen Category Reaction Reaction Severity Criticality Documentation Date Start Date Code Code System Note Provider Name and Address Organization Details Recorded Time 855192 Macrobid medicatio n diarrhea severe Not available 07/02/2019 09919 1 RxNorm DID use 11/17 and 12/19 witou t SE DOUBT true aller gy/ll s Milind Bhagat MD [address], [place], [address], [facility] 3 10:21:59 99320 codeine sulfate medicatio n Not available Not available Not available 09/02/20162011 59826 RxNorm Not Available [facility] 6 08:53:10 82598 Lipitor medicatio n nausea Not available Not available 09/02/20162015 03844 5 RxNorm React ion: nause a; Not Available [facility] 6 08:53:10 77631 Cipro medicatio n Not available Not available Not available 09/02/20162012 28034 3 RxNorm hurts stoma ch, no hives Milind Bhagat MD [address], [place], [address], [facility] 3 10:24:03 18972 cortisone acetate medicatio n Not available Not available Not available 09/02/20162011 45677 RxNorm Not Available [facility] 6 08:53:10 98816 cholecalc iferol medicatio n Not available Not available Not available 09/02/20162011 6548 RxNorm React ion: Sever e GI upset ; Comme nt: Lilli ol and OTC form; OnSet Date: 2011; Not Available [facility] 6 09:23:37 Medications Name Sig Start Date [...] on: 04/26/20 12 9:30AM;D iscontin ued Status: Discboaz nuvianney on: 05/31/20 12 10:51AM; User: monica Not [...] Disconti nued on: 10/16/20 14 1:36PM;U ser: concepciónj; Est. Completi on: 06/06/20 13;Pharm Yara ied: [...] 03/08/20 16;Indic ation: Allergic Conjunct ivitis - (06.3726 40);Phar Jarrod fied: 03/01/20 16 1:42PM Not [...] TOPICALL Y TO AFFECTED AREA. SAFE FOR [facility] USE 01/03 completed Not Available Not Available Not Available Cipro 500 mg tablet take 1 tablet (500 mg) by oral route 2 times per day for 10 days 03/27 completed Cipro 500 mg oral tablet;R ecorded Status: Recorded on: 03/26/20 13 11:20AM; Disconti nued Status: Disconti nued on: 03/27/20 13 12:54PM; User: claire;Mattie t. Completi on: 04/05/20 13;Print ed: 03/26/20 13 Not [...] nued on: 03/01/20 16 1:12PM;U ser: grayn;Es rboerto Kramer on: 01/28/20 16;Pharm acyVerif ied: 12/29/19 [...] Disconti nued on: 03/06/20 12 11:35AM; User: mauriSusana Avilaneel on: 06/04/20 12;Indic ation: Vitamin D Deficien cy - (9940 00);Prin quan: 03/06/20 12 Not Available Not Available [...] Disconti nued on: 12/03/19 16 11:59AM; User: chaimSusana Avilaneel on: 04/03/20 16;Indic ation: Hypercho lesterol emia - (8532 00);Phar Jarrod fied: 10/06/20 15 10:28AM Not Available Not Available Not Available fluticaso ne propionat e 50 mcg/actua tion nasal spray,vanessa pension [place] 1 spray every day by intranas al [...] 16 1:06PM;U ser: grayn;Es t. Completi on: 03/11/20 16;Pharm acyVerif ied: 03/01/20 16 [...] 16 1:06PM;U ser: chaunceyn;Es t. Completi on: 03/15/20 16;Pharm acyVerif ied: [...] Disconti nued on: 03/01/20 16 1:12PM;U ser: cecelia; Est. Completi on: 05/31/20 16;Pharm acyVerif ied: [...] completed Not Available Not Available Not Available Tucaprices (camilo sánchez) 50 % topical pads Apply [...] Not Available Not Available Vitals Date Recorded Heart rate Oxygen saturation Oxygen saturation in Arterial blood by Pulse oximetry Provider Name and Address Organization Details Last Updated DateTime 04/29/2025 43 /min 97 % 97 % Milind Bhagat MD [address], [place], [address], [place] - [facility] 04/29/2025 15:21:47 Date Recorded Body height Body mass index (BMI) Body weight Systolic blood pressure Diastolic blood pressure Provider Name and Address Organization Details Last Updated DateTime 04/29/2025 170.18 cm 31.2 kg/m2 48983.88 g 130 mm[Hg] 82 mm[Hg] Cary Wilde [place] - [facility] 11:03:14 Social History Question Answer Notes LastModified by Organizat ion Details LastModified Time Tobacco Smoking Status Never Smoker Not Available [employer] 09/11/2020 03:13:29 Do You Have An Advance Directive? Yes [id number] Information not available 09/11/2020 Are You Blind Or Do You Have Difficulty Seeing? No [id number] Information not available 09/11/2020 Is Blood Transfusion Acceptable In An Emergency? Yes [id number] Information not available 09/11/2020 What Is Your Level Of Caffeine Consumption? Heavy [id number] Information not available 09/11/2020 How Much Tobacco Do You Chew? None [id number] Information not available 09/11/2020 Are You Deaf Or Do You Have Serious Difficulty Hearing? No [id number] Information not available 09/11/2020 What Type Of Diet Are You Following? REGULAR [id number] Information not available 09/11/2020 Which Illicit Or Recreational Drugs Have You Used? None [id number] Information not available 09/11/2020 What Is The Highest Grade Or Level Of School You Have Completed Or The Highest Degree You Have Received? [id number] [id number] Information not available 09/11/2020 How Many Days Of Moderate To Strenuous Exercise, Like A Brisk Walk, Did You Do In The Last 7 Days? 1 [id number] Information not available 09/11/2020 On Those Days That You Engage In Moderate To Strenuous Exercise, How Many Minutes, On Average, Do You Exercise? 1 [id number] Information not available 09/11/2020 Have There Been Any Changes To Your Family Or Social Situation? No Information no t available 01/06/2025 How Hard Is It For You To Pay For The Very Basics Like Food, Housing, Medical Care, And Heating? [id number] Information not available 12/20/2019 Live Alone Or With Others? With Others Information not available 01/24/2017 What Was The Date Of Your Most Recent Tobacco Screening? 04/29/2025 Information not available 04/29/2025 How Many Children Do You Have? 3 [id number] Information not available 09/11/2020 Performs Monthly Self-breast Exam? Yes Information no t available 01/24/2017 What Is Your Relationship Status? [id number] Information not available 09/11/2020 Seat Belts Used Routinely Yes Information not available 01/24/2017 Are You Sexually Active? No [id number] Information not available 09/11/2020 Do You Have Smoke And Carbon Monoxide Detectors In Your Home? Yes Information not available 01/06/2025 Are You Passively Exposed To Smoke? No Information no t available 01/06/2025 How Much Tobacco Do You Smoke? No [id number] Information not available 09/11/2020 General Stress Level Medium Information not available 01/24/2017 Do You Use Sunscreen Routinely? Yes [id number] Information not available 09/11/2020 Has Tobacco Cessation Counseling Been Provided? No Information not available 02/13/2024 How Many Years Have You Smoked Tobacco? 0 [id number] Information not available 09/11/2020 Do You Have Difficulty Walking Or Climbing Stairs? No [id number] Information not available 09/11/2020 Sex: Female Functional Status Question Answer Note LastModified by Organizat ion Details LastModified Time Do you or have you ever used smokeless tobacco? Never used smokeless tobacco [id number] Information not available 09/11/2020 Are you currently employed? No [id number] Information not available 09/11/2020 Do you have transportation difficulties? No Information not available 02/13/2024 Urinary incontinence assessment performed? Yes [employer] Information not available 07/20/2017 Are you able to care for yourself? Yes Information n ot available 02/13/2024 Do you have difficulty dressing or bathing? No [id number] Information not available 09/11/2020 Do you or have you ever used e-cigarettes or vape? Never used electronic cigarettes [id number] Information not available 09/11/2020 What is your exercise level? Moderate [id number] Information not available 09/11/2020 Do you use any illicit or recreational drugs? No Information not available 02/13/2024 Do you or have you ever used any other forms of tobacco or nicotine? No Information not available 02/13/2024 What is your level of alcohol consumption? None [id number] Information not available 09/11/2020 Are you able to walk? YESWOREST [id number] Information not available 09/11/2020 Do you have difficulty doing errands alone? No [id number] Information not available 09/11/2020 Mental Status Question Answer Note LastModified by Organizat ion Details LastModified Time Do you feel stressed (tense, restless, nervous, or anxious, or unable to sleep at night)? [id number] Information not available 09/11/2020 Do you have difficulty concentrating, remembering or making decisions? No [id number] Information no t available 09/11/2020 Family History [...] colitis N Cerebrovascular Disease N Depression N Guillain-Sumrall N Sleep Apnea N Aneurysm N Bronchitis [...] Recorded Time Influenza, split virus, quadrivalent, PF cancelled patient objection Milind Bhagat MD [address], [place], [address], [place] [facility] 10/04/2022 20:13:27 pneumococcal polysaccharide PPV23 022 cancelled patient objection Cydney [place] null, [place] - [facility] 10/19/2022 17:17:13 pneumococcal polysaccharide PPV23 023 cancelled patient objection Cydney [place] null, [facility] 03/30/2023 10:09:06 Td (adult) 015 completed Not Available [facility] 01/05/2024 11:07:25 COVID-19, mRNA, LNP-S, PF, 30 mcg/0.3 mL dose 021 completed Crystal May null, [facility] 10/19/2022 14:02:04 COVID-19, mRNA, LNP-S, PF, 30 mcg/0.3 mL dose, alexsander-sucrose 022 completed Crystal May null, [facility] [facility] 10/19/2022 14:02:04 COVID-19, mRNA, LNP-S, PF, 30 mcg/0.3 mL dose 021 completed Crystal May null, [facility] 10/19/2022 14:02:04 COVID-19, mRNA, LNP-S, PF, 30 mcg/0.3 mL dose 021 completed Crystal May null, [facility] 10/19/2022 14:02:04 zoster recombinant 019 completed Miri Jefferson null, [place] - [facility] 12/02/2022 13:10:07 COVID-19, mRNA, LNP-S, bivalent, PF, 30 mcg/0.3 mL dose 022 completed Miri Jefferson null, [facility] 12/02/2022 13:10:07 zoster recombinant 019 completed Miri bhakta, [place] - [facility] 12/02/2022 13:10:08 Past Encounters Encounter ID Performer Location Encounter Start Date Encounter Closed Date Diagnosis/Indication Diagnosis SNOMED-CT Code Diagnosis ICD10 Code Diagnosis Note [id number] MD Donny Joy COMPUTER SECURITY MANAGER [address] [facility] [place] [address] 04/29/2025 10:38:36 04/29/2025 12:10:28 Gynecologic examination 24161513 Z01.419 .Pap test no longer indicated due to patient age, with history of adequate and normal previous screening, Depression screening 171 819778 Z13.31 Negative Hypertensi on screening 081054557 Z13.6 Patient currently iswithin goal of less than 140/90. Exercises education, guidance, and counseling 901626559 Z71.82 Advise 30 minutes 3 times a week at a minimum of purposeful exercise. Patient currently meeting this goal. Body mass index 30+ - obesity 371210092 Z68.31 Obesity 389506651 E66.9 Screening for osteoporosis 025958477 Z13.820 Z78.0 Screening for malignant neoplasm of breast 373994703 Z12.31 Patient is scheduled for next week, April 2025. Screening for malignant neoplasm of colon 888832289 Z12.11 Previous adenomatou s polyp. Due summer 2024 Vaginal dryness 77542514 N89.8 No current daily symptoms, not attempted intercours e but would encourage maintenanc e use given history of intermitte nt urinary symptoms. Previous use of Vagifem had been successful Bradycardia 01805510 R00 .1 Pulse in the low 40s, mild symptoms of lightheade dness. Consulted cardiology today, patient advised to take Metoprolol 25 mg 1/2 tablet ONCE daily, instead of TWICE daily., To maintain monitoring of this with home blood pressure cuff and follow-up sooner than currently advised May cardiology visit if baseline pulse not improving or any new symptoms History of supracervical hysterectomy 154426876 Z90.711 1993. Still has cervix. Has had adequate cervical screening up until age 67 and held currently History of adenomatous polyp of colon 065402369 Z86.0101 Chronic pr imary bladder pain syndrome 5650190653 7104 N30.10 Diagnosis here 2022. Being managed well with dietary changes and as needed Azo and/or topical lidocaine. Does not need refills. States has had urology visit at [facility] within the last 6 months with negative urine testing and cystoscopy and that provider will also be following for IC [id number] Sekou Cortez MD [facility] [address] [place] [address] 04/24/2025 12:56:50 04/24/2025 13:32:29 Pruritic rash 19851630 L28.2 Essential hypertension 71851379 I10 Health Concerns Section Related Observation LastModified by Organization Detai ls LastModified Time None Recorded Concern Status LastModified by Organization Details LastModified Time None Recorded Payers Encounter Date Sequence Insurance Name Policy Number Policy Ortiz Covered Member ID Ortiz Member ID Guarantor Name 04/29/2025 1 [place]MEDICARE REPLACEMENT HMO) [id number] Preet Otoole [id number] Preet Otoole Notes Date Note Type Note Provider Name and Address Organization Details Recorded Time 04/29/2025 text/html Patient is a 69 year old who presents today as an established patient for an annual exam. Her previous annual exam was 10/31/23 with myself. She is surgically menopausal. She has had Subtotal abd. hysterectomywith BSO in 02/22/1994 [place] abnormal bleeding[place]. She has previously tried HRT following hysterectomy in her 40s but never did well with She admits having the following menopausal related symptoms that concern her none and she denies hot flashes/night sweats. She is no longersexually activewith the same partner as last visit. Other than needing a preventive exam, is also being followed for IC.She is not currently taking any medications prescribed by our practice CHRONIC DISEASE AND BP ASSESSMENT : In addition to the above reviewed DIRECTOR OF CARDIAC REHABILITATION issues, she does have a history of chronic disease(s), noted in PMH, for which she is advised to follow up regularly with her PCP (and/or specialists involved).Significant changes in personal medical history : NoneCurrently prescribed medications reviewed :reconciled and patient states compliance Today's BP reading was within normal limits with goal of 140/90 She has previously been diagnosed with hypertension. She is currently using antihypertensive medication. BMI/EXERCISE and DIET COUNSELLING:Her current BMI is 31. She is advised that her BMI is in obesity category . Her weight is documented as increasing over the last year.Diet and physical activities addressed today included patient's activity level.patients current exercise status : Kristi states she does not attempt to actively monitor her diet for attempts to lose weight or manage a medical condition.It is recommended that she continue current diet regimen.It is recommended that she increase current exercise status TOBACCO and SUBSTANCE ABUSE SCREENING:Patient is not a tobacco user. She denies the use of drugs. She denies the use of alcohol. DEPRESSION SCREENING:Patient completed a PHQ-9 form and scored a 0. See result on attached form. She does not have any risk factors for depression. She does not need to schedule with Comprehend or mental health specialist.She is not using a psychoactive prescription currently. OTHER SOCIAL HISTORY:She has not had significant social history changes or issues this year. 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 see specifics on vaccine panel.Influenza : Current?No - advised and declined todayTD/Tdap: Current?:2014 TDShingles: Current?:Yes 2018 shingrixGardasil:Kirtie nt?:Pneumovax:Current? :No, advised to pursue with PCPPrevnar 13: Current?:Other indicated: :Curr ent?:Covid yes SCREENING STATUS:Her most recent screening test are reviewed as documented above. Currently overdue for:pelvic and breast exam, mammography----- .Recent abnormal screening tests:colonoscopy----- . Based on her age and risk factors, she is DUE FOR THE FOLLOWING SCREENS :Pelvic and Breast exam: todayCervical cancer screening: no longer indicated due to > 65 and has had adequate and negative screening documented . Test(s) indicated N/A: Pap with HPV Co-TestCervical Cultures: N/AMammogram : 01/22/24-overdue, scheduled for April5Colonoscopy:05/2020 tubular adenoma polyp, follow up 5 years-due this yearDEXA: 8 19 normal-due this yearLipids: follow with PCP as advisedUK Ovarian Cancer screening :N/A Patient should return in 1 year for an annual wellness exam and sooner as needed for other problems. Patient returns for annual exam. She is also being followed for interstitial cystitis. Since she was last here she states she really has not required any maintenance medication but is really trying to watch her diet and has found several triggers with liquids that she tries to avoid. On 1 or 2 occasions if symptoms get bad she will use [id number] Azo and a small amount of the topical lidocaine I had given her last year. She still has enough of this. She has not been using any vaginal estrogen. She is not sexually active. She does not have any dryness or vaginal irritation on a daily basis but after reviewing that this might also help prevent recurrence of intermittent urinary symptoms she would be glad to restart this as maintenance. She has seen Dr. Escobedo urology at [facility] within the last 6 months and had cystoscopy and urine culture and was told everything was okay but will plan to maintain follow-up with her regarding the IC diagnosis as well. In addition since last here she has been noted to have diagnosis of atrial fibrillation and is being treated through [facility] cardiology. She had a 4-day hospital stay about 4 months ago and was apparently cardioverted to sinus rhythm. She required a heart cath by Dr. Downs's colleague but no stents were required. She has been maintained on Plavix and Eliquis and metoprolol since the diagnosis. She has already had to decrease metoprolol once from initial.dose of 25 mg twice daily to 12.5 twice daily. She has had problems 3 times, most recently yesterday, with fairly significant nosebleeds, all have been eventually tamponade with pressure and tampons. Following yesterday's nosebleed she states she has not felt quite right a little headachy and lightheaded but not frankly orthostatic. She is having no shortness of breath or chest pain. We noted pulse in the low 40s here with regular rhythm, did not do EKG. We were able to get Jocelyn Browne APRN at cardiology on the phone and reviewed this. She advised decreasing metoprolol to 12.5 mg once a day and for patient to follow pulse at home with goal between low 50s to 60. She was also going to discuss with her attending if patient still needed to stay on Plavix as well as Eliquis given the nosebleed side effect history. Milind Bhagat MD [address], [place], [address], [place] - [facility] 04/29/2025 15:25:18 OBGyn Episode No OBEpisode recorded.
--- OUTSIDE RECORDS SUMMARY | 2025-05-19 22:17 | XMS_ITS | Clinical Summary ---
Author Organization 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 Active lisinopril (PRINIVIL;ZESTRI L) 10 mg Oral Tablet Take 10 mg by mouth daily. Active Calcipotriene 0.005 % sclp Solution Apply once daily to scalp 60 mL 3 7 Active clobetasol (TEMOVATE) 0.05 % sclp Solution Apply once daily to scalp 50 mL 3 7 Active amLODIPine (NORVASC) 5 mg Oral Tablet Take by mouth daily. Active desonide (DESOWEN) 0.05 % Top CreamIndications :Eczema, unspecified type Apply topically 2 times daily. To affected areas 60 g 3 7 Active tacrolimus (PROTOPIC) 0.1 % Top Ointment Apply topically 2 times daily. 60 g 7 Active crisaborole (EUCRISA) 2 % Top OintmentIndicati ons:Psoriasis of scalp Apply 1 Dose topically 2 times daily. 60 g 8 Active mometasone (ELOCON) 0.1 % Top CreamIndications :Eczema of external ear, bilateral Apply small amount with Q-Tip to outer ear twice a day for 14 days then use prn. 15 g 2 5 Active diazePAM (VALIUM) 5 mg Oral Tablet 5 Active chlorhexidine (PERIDEX) 0.12 % MM Mouthwash Place 15 mL twice a day by mucous membrane route for 10 days. Active acetaminophen-co deine (TYLENOL #3) 300-30 mg Oral Tablet TAKE ONE (1) TABLET THREE (3) TIMES A DAY BY ORAL ROUTE AFTER MEAL(S) FOR 7 DAYS. Active diclofenac (VOLTAREN) 1 % Top Gel APPLY 2 GRAMS TO THE AFFECTED AREA BY TOPICAL ROUTE 4 TIMES PER DAY 2 Active ELIQUIS 5 mg Oral Tablet Take 5 mg by mouth 2 times daily. 5 Active atorvastatin (LIPITOR) 40 mg Oral Tablet Take 40 mg by mouth nightly. 5 Active clopidogreL (PLAVIX) 75 mg Oral Tablet Take 75 mg by mouth daily. 5 Active metoprolol succinate (TOPROL-XL) 25 mg Oral Tablet Sustained Release 24 hr Take 12.5 mg by mouth daily. 5 Active estradioL (ESTRACE) 0.01 % (0.1 mg/gram) Vagl CreamIndications :Recurrent UTI,Atrophic urethritis Apply a toothpaste-siz ed amount (1gm) to urethral opening (pee hole) nightly for two weeks then 3 times a week at night after that 42.5 g 3 5 Active Active Problems No known active problems Encounters Date Type Department Care Team Description 04/11/2025 Telephone [place] [address] [facility] [employer] [address] Yasmeen Dominguez RN Vaginal Pain 04/10/2025 1:30 PM EDT Office Visit [facility] [address] [facility] [place] [employer] [address] MD Encounter for routine gynecologic examination in Medicare patient (Primary Dx); Visit for screening mammogram; Osteoporosis screening; Other specified menopausal and perimenopausal disorders 04/10/2025 10:00 AM EDT Procedure visit [facility] Urology [address] [address] Racheal Escobedo MD Interstitial cystitis (Primary Dx); Chronic pelvic pain in female; Atrophic urethritis; Recurrent UTI from Last 3 Months Surgical History Surgery Date Site/Laterality Comments CYSTOSCOPY 04/10/[address] 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 Eczema Family History Medical History Relation Name Comments Eczema Maternal Grandmother Eczema Mother Relation Name Status Comments Father Maternal Grandmother Mother Alive Social History Tobacco Use Types Packs/Day Years [...] on file Sexual Orientation Not on file Obstetrics History Para Term AB IAB SAB Ectopic Multiple Livin g Live Births 4 3 1 1 3 Date Outcome GA Total Labor Labor/2nd/3rd Weight Sex Type Anes PTL Nancy A1 A5 Name Clin Para Vag-Spo nt Para Vag-Spo nt Para Vag-Spo nt SAB Last Filed Vital Signs Vital Sign Reading Time Taken Comments Blood Pressure 114/72 04/10/2025 1:12 PM EDT Pulse 93 04/10/2025 10:43 AM EDT Temperature 36.3 C (97.3 F) 04/10/2025 10:43 AM EDT Respiratory Rate 12 01/20/2025 11:07 AM EST Oxygen Saturation 97% 04/10/2025 10:43 AM EDT Inhaled Oxygen Concentration - - Weight 90.3 kg (199 lb) 04/10/2025 1:12 PM EDT Height 170.2 cm (5' 7 ) 04/10/2025 1:12 PM EDT Body Mass Index 31.17 04/10/2025 1:12 PM EDT Plan of Treatment Upcoming Encounters Date Type Department Care Team (Late st Contact Info) Description 08/11/2025 1:30 PM EDT Office Visit [facility] [address] [place] [address] Echo Barreto, BAKE ROOM WORKER [address], [place] [address] 01/07/2026 1:10 PM EST Office Visit [facility] [place] [address] [place] [address] [address] [place] [address] Markell Ayoub MD [address] [place] [address] Health Maintenance Due Date Last Done Comments Wellness Exam Medicare 1958 Hepatitis C Screening 1975 Cologuard 2002 Colon Cancer Screening 2002 Colonoscopy 2002 FIT 2002 Sigmoidoscopy 2002 Virtual Colonography 2002 Pneumococcal Vaccine 50+ (1 of 1 - PCV) 2007 Breast Cancer Screening 10/25/2014 10/25/20 12, 04/24/2009, 04/08/2008, Additional history exists DTaP/TDaP/Td (1 - Tdap) 11/28/2014 11/27/2014 Bone Density Screening 2022 COVID-19 Vaccine ( season) 2024 10/26/2022, 03/29/2022, 10/06/2021, Additional history exists Influenza Vaccine (Season Ended) 2025 Zoster Completed 09/18/2019, 04/17/2019 Hepatitis B Vaccine Aged Out No longe r eligible based on patient's age to complete this topic Meningococcal B Vaccine Aged Out No l onger eligible based on patient's age to complete this topic Procedures Procedure Name Priority Date/Time Associated Diagnosis Comments URINE CULTURE (NO STAIN) Routine 04/10/2025 3:24 PM EDT Recurrent UTI [facility] URINALYSIS POC Routine 04/10/2025 10 :20 AM EDT Interstitial cystitis Chronic pelvic pain in female Recurrent UTI Atrophic urethritis MM MAMMO DIGITAL DIAGNOSTIC W CAD BILAT Routine 10/25/2012 1:40 PM EST Mass of breast, right from Last 3 Months or Most Recently Relevant to Health Maintenance Results * URINE CULTURE (NO STAIN) (04/10/2025 3:24 PM EDT) Culture No growth at 30 hours. 04/12/2025 7:30 AM EDT [employer] Urine STRUCTURE OF URINARY TRACT PROPER / Unknown 04/10/2025 3:24 PM EDT 04/10/2025 3:24 PM EDT us Racheal Escobedo MD MICROBIOLOGY - GENERAL ORDERAB LES Final Result [employer] [address] [facility] [facility], [place] [address] * (ABNORMAL) SEP URINALYSIS POC (04/10/2025 10:20 [...] 10:23 AM EDT [facility] UA SG POC 1.010 1.001 - 1.035 no units 04/10/2025 10:23 AM EDT [facility] UA Blood POC Trace-Intact (A) Negative 04/10/2025 10:23 AM EDT [facility] UA pH POC 6.0 5.0 - 8.0 pH 04/10/2025 10:23 AM EDT [facility] UA Protein POC Negative Negative mg/dL 04/10/2025 10:23 AM EDT [facility] UA Urobilinogen POC 0.2 0.2, 1.0 04/10/2025 10:23 AM EDT [facility] UROLOGY [facility] UA Nitrite POC Negative Negative 04/10/2025 10:23 AM EDT [facility] [place] UA Leuk Est POC Small(A) Negative 10:23 AM EDT [facility] UROLOGKristyn JANINE Urine STRUCTURE OF URINARY TRACT PROPER / Unknown 04/10/2025 10:20 AM EDT 04/10/2025 10:23 AM EDT us Racheal Escobedo MD POINT OF CARE TEST ORDERABLES Final Result [facility] [place] [address] [place] [address] * MM MAMMO DIGITAL DIAGNOSTIC W CAD BILAT (10/25/2012 1:40 PM EST) Anatomical Region Laterality Modality Breast Bilateral Mammography 10/25/2012 2:11 PM EST Impressions 10/25/2012 4:25 PM EST : Incomplete-need additional imaging evaluation ([id number]) ~ No suspicious mammographic findings. Breast ultrasound will be obtained and will be reported separately. ~ RECOMMENDATION: Ultrasound of the right breast, this ultrasound examination was performed on 10-25-12 and will be reported separately. ~ * The patient with a palpable abnormality, unexplained by breast imaging, should be managed on clinical basis by the attending physician. * Breast imaging has a false negative rate of 15%. * The patient was notified by mail of the results of this examination. *The patient's information was entered into a reminder system with a target due date for the next mammogram. The mammogram was reviewed by a Radiologist and CAD. Narrative 10/25/2012 4:25 PM EST Procedure:MM MAMMO DIGITAL DIAGNOSTIC W CAD BILAT ~ Reason for exam: clinical finding. Indicated problem(s): lump or thickening in the right breast. ~ MM MAMMO DIGITAL DIAG CAD BILAT Bilateral CC and MLO view(s) were taken. DIAGNOSTIC MAMMOGRAM BOTH BREAST, 10-25-12: Indication: The patient reports a recent palpable abnormality in the retro-areolar right breast. At time of this exam, she is no longer able to feel this abnormality, however. ~ Compare prior studies, most recent March. ~ There are scattered fibroglandular densities. Density distribution is stable. No dominant mass or suspicious calcification. ~ No focal mammographic abnormality at level of reported retro-areolar palpable abnormality on the right is seen. ~ Procedure Note Sekou Lozada MD - 10/25/2012 Procedure:MM MAMMO DIGITAL DIAGNOSTIC W CAD BILAT ~ Reason for exam: clinical finding. Indicated problem(s): lump or thickening in the right breast. ~ MM MAMMO DIGITAL DIAG CAD BILAT Bilateral CC and MLO view(s) were taken. DIAGNOSTIC MAMMOGRAM BOTH BREAST, 10-25-12: Indication: The patient reports a recent palpable abnormality in the retro-areolar right breast. At time of this exam, she is no longer ableto feel this abnormality, however. ~ Compare prior studies, most recent March. ~ There are scattered fibroglandular densities. Density distribution is stable. No dominant mass or suspicious calcification. ~ No focal mammographic abnormality at level of reported retro-areolar palpable abnormality on the right is seen. ~ IMPRESSION: Incomplete-need additional imaging evaluation ([id number]) ~ No suspicious mammographic findings. Breast ultrasound will be obtained and will be reported separately. ~ RECOMMENDATION: Ultrasound of the right breast, this ultrasound examination wasperformed on 10-25-12 and will be reported separately. ~ * The patient with a palpable abnormality, unexplained by breast imaging, should be managed on clinical basis by the attending physician. * Breast imaging has a false negative rate of 15%. * The patient was notified by mail of the results of this examination. *The patient's information was entered into a reminder system with atarget due date for the next mammogram. The mammogram was reviewed by a Radiologist and CAD. Vern Decker Sr., MD IM MAMMOGRAPHY DEVORAH MONAE Final Result from Last 3 Months or Most Recently Relevant to Health Maintenance Insurance [facility] MEDICARE ADVANTAGE MR Care Teams Chemical Plant Operator Supervisor Relationship Specialty Start Date End Date Vern Decker Sr., MD [address] [place] [address] [place] [address] PCP - General 05/31/12
--- OUTSIDE RECORDS SUMMARY | 2025-05-19 22:18 | XMS_ITS | Data Portability ---
Author Organization Formerly [facility], [facility] Address [address] [address] Assessment Encounter Date Assessment Date Assessment LastModified by Organization Details LastModified Time 02/04/2025 02/04/2025 -Medications wer e reviewed and any necessary updates and renewals were made, patient instructed to complete as prescribed. -The potential side effects of medications were discussed. -Counseling was done on care goals and ways to prevent future hospitalizations. -Further treatment per orders listed below. [email or web address] Not available 02/04/2025 10:56:09 04/29/2025 04/29/2025 Annual gynecological exam performed. Patient will come back in a year unless there are new symptoms. Not available 01/06/2025 09:49:41 05/12/2025 05/12/2025 Patient presente d to office today for their Medicare Annual Wellness Visit. Education was provided on healthy nutrition, including a diet rich in fruits and vegetables, minimizing simple carbohydrates, salt, and saturated fats. Encouraged regular cardiovascular exercise such as walking at least 30 minutes daily, 5 times per week. Emphasized preventive health measures and educated pt on fall prevention and community-based lifestyle interventions to help reduce health risks and promote healthy living. Medicare Preventive Services Check List reviewed and printed for patient. [email or web address] Not available 04/28/2025 07:38:07 Plan of Treatment Reminders Order Date Submit Date Provider Last Modified By Organization Details Last Modified Time Details Appointments None recorded. Lab lipid panel, serum 2024 025 PAN [facility], [address], Keshawn F, [place], [address], 14:37:19 HbA1c (hemoglobin A1c), blood 2024 025 PAN [facility], [address], [place], [place], [address], 5 14:37:21 CMP, serum or plasma 2024 025 PAN [facility], [address], [place] F, [place], [address], 5 14:37:18 CBC w/ auto diff 2024 025 PAN [facility], [address], [place], [place], [address], 5 14:37:17 microalbumi n/creatinin e, mass ratio, urine 2024 025 PAN [facility], [address], [place] F, [place], [address], 5 14:37:20 TSH + free T4, serum 2024 025 PAN [facility], [address], [place] F, [place], [address], 5 14:37:16 Referral gastroenter ologist referral - Should be due for surveillanc e colonoscopy May 2025 per our records, history of adenomatous polyps 2024 025 PAN Jackson MD, [address] [place] [address] Belgica De Leon, [facility] [address], [place], [address], 5 08:36:01 Procedures None recorded. Surgeries None recorded. Imaging DEXA, vertebral fracture assessment 2024 025 leonie Ybarra (Centralized Scheduling), [address] [place] [address] Belgica De Leon, [place], [address], 5 11:16:19 XR, knee, 3 view 2024 025 [facility], [address] [place] [address], [place], [address], 5 09:03:30 Medication Orders Premarin 0.625 mg/gram vaginal cream 2024 025 [email or web address] [facility] - [address], [place], [address], 5 15:44:16 triamcinolo ne acetonide 0.1 % topical cream 2024 025 [email or web address] [facility] [place], [address] [place] [address], [place], [address], 5 15:38:38 hydroxyzine HCl 25 mg tablet 2024 025 [email or web address] [facility] - [address], [place], [address], 5 15:38:38 diclofenac 1 % topical gel 2024 025 PAN [facility] [place], [address] [place] [address], [place], [address], 5 13:36:44 Patient TargetsNo targets recorded. Patient Instructions Encounter Date Encounter Id Patient Instructions Last Modified By Organization Details Last Modified Time 03/24/2025 [id number] knee arthritis: exercises [email or web address] Not available 03/24/2025 13:36:41 04/24/2025 [id number] high blood pressure: care instructions [email or web address] Not available 04/24/2025 16:29:18 learning about h igh blood pressure [email or web address] Not available 04/24/2025 16:29:18 This lady comes [...] sinus rhythm at this moment thank you [email or web address] Not available 04/24/2025 16:28:48 04/29/2025 [id number] medical record request* - Requesting any office or procedure notes from visits within the last year. Thank you Not available 05/06/2025 15:25:26 learning about healthy weight [email or web address] Not available 04/29/2025 15:44:16 body mass index: care instructions [email or web address] Not available 04/29/2025 15:44:16 A healthy lifestyle: care instructions [email or web address] Not available 04/29/2025 15:44:16 bradycardia: car e instructions lshower Not available 04/29/2025 15:44:16 05/12/2025 [id number] advance directiv es: care instructions [email or web address] Not available 05/12/2025 09:34:43 learning about depression [email or web address] Not available 05/12/2025 09:34:44 preventing falls : care instructions [email or web address] Not available 05/12/2025 09:34:43 medicare prevent leander services guide [email or web address] Not available 05/12/2025 09:34:44 Patient presente d to office today for their Medicare Annual Wellness Visit. Education was provided on healthy nutrition, including a diet rich in fruits and vegetables, minimizing simple carbohydrates, salt, and saturated fats. Encouraged regular cardiovascular exercise such as walking at least 30 minutes daily, 5 times per week. Emphasized preventive health measures and educated pt on fall prevention and community-based lifestyle interventions to help reduce health risks and promote healthy living. Patient advised to follow up with his ironer or presser and dentist regularly for preventative exams. Not available 05/12/2025 10:18:03 Discussed with patient right wrist pain as it has been ongoing since heart cath. Right wrist noted with TTP palmar side and trace edema to area, no erythema present. Discussed risks with procedures with possible nerve damage. Also discussed inflammation and recommended patient start some stretching exercises reviewed in office visit with handout, cool compresses to site and that otc wrist brace would be beneficial to rest her wrist and reduce pain/inflammation. Also discussed post nasal drip as likely secondary to allergies, recommended to use otc cetirizine as needed for drainage. Supportive measures with humidifier vics at home, stay hydrated. F/U in 2-3 weeks as needed or if unable to purchase otc wrist brace call sooner. Not available 05/12/2025 10:19:58 Reason for Referral Manager Park Referral for Screening for malignant neoplasm of colon Should be due for surveillance colonoscopy May 2025 per our records, history of adenomatous polyps Referring Physician: Milind Bhagat, FOOD SERVICE AMBASSADOR, Encounter Date: 04/29/2025 Results Created Date Observation Date Name Description Value Unit Range Abnormal Flag Note LastModifiedBy Organization Detail LastModifiedTime 05/12/2005/13/2025 TSH+F REE T4 TSH 2.200 uIU/m L 0.450- 4.500 normal Not Available [facility] ([facility]) [address] [place], [address], 05/13/2025 14:37:16 05/12/20 25 05/13/2025 TSH+F REE T4 T4,free(dire ct) 1.08 NG/dL 0.82-1 .77 normal Not Available [facility] ([facility]) [address] [place], [address], 05/13/2025 14:37:16 05/12/20 25 05/13/2025 CBC WITH DIFFE RENTI AL/PL ATELE T WBC 6.3 x10e3 /uL 3.4-10 .8 normal Not Available [facility] ([facility]) [address] [place], [address], 05/13/2025 14:37:17 05/12/20 25 05/13/2025 CBC WITH DIFFE RENTI AL/PL ATELE T RBC 4.02 x10e6 /uL 3.77-5 .28 normal Not Available [facility] ([facility]) [address] [place], [address], 05/13/2025 14:37:17 05/12/20 25 05/13/2025 CBC WITH DIFFE RENTI AL/PL ATELE T hemoglobin 13.0 g/dL 11.1-1 5.9 normal Not Available [facility] ([facility]) [address] [place], [address], 05/13/2025 14:37:17 05/12/20 25 05/13/2025 CBC WITH DIFFE RENTI AL/PL ATELE T hematocrit 39.4 % 34.0-4 6.6 normal Not Available [facility] ([facility]) [address] [place], [address], 05/13/2025 14:37:17 05/12/20 25 05/13/2025 CBC WITH DIFFE RENTI AL/PL ATELE T MCV 98 fL 79-97 above high normal Not Available [facility] ([facility]) [address] [place], [address], 05/13/2025 14:37:17 05/12/20 25 05/13/2025 CBC WITH DIFFE RENTI AL/PL ATELE T MCH 32.3 pg 26.6-3 3.0 normal Not Available [facility] ([facility]) [address] [place], [address], 05/13/2025 14:37:17 05/12/20 25 05/13/2025 CBC WITH DIFFE RENTI AL/PL ATELE T MCHC 33.0 g/dL 31.5-3 5.7 normal Not Available [facility] ([facility]) [address] [place], [address], 05/13/2025 14:37:17 05/12/20 25 05/13/2025 CBC WITH DIFFE RENTI AL/PL ATELE T RDW 12.9 % 11.7-1 5.4 Not Available [facility] ([facility]) [address] [place], [address], 05/13/2025 14:37:17 05/12/20 25 05/13/2025 CBC WITH DIFFE RENTI AL/PL ATELE T platelets 262 x10e3 /uL 150-45 0 normal Not Available [facility] ([facility]) [address], [place], [address], 05/13/2025 14:37:17 05/12/20 25 05/13/2025 CBC WITH DIFFE RENTI AL/PL ATELE T neutrophils 65 % not estab. normal Not Available [facility] ([facility]) [address], [place], [address], 05/13/2025 14:37:17 05/12/20 25 05/13/2025 CBC WITH DIFFE RENTI AL/PL ATELE T lymphs 25 % not estab. normal Not Available [facility] ([facility]) [address], [place], [address], 05/13/2025 14:37:17 05/12/20 25 05/13/2025 CBC WITH DIFFE RENTI AL/PL ATELE T monocytes 8 % not estab. normal Not Available [facility] ([facility]) [address], [place], [address], 05/13/2025 14:37:17 05/12/20 25 05/13/2025 CBC WITH DIFFE RENTI AL/PL ATELE T eos 1 % not estab. normal Not Available [facility] ([facility] [facility]) [address], [place], [address], 05/13/2025 14:37:17 05/12/20 25 05/13/2025 CBC WITH DIFFE RENTI AL/PL ATELE T basos 1 % not estab. normal Not Available [facility] ([facility]) [address], [place], [address], 05/13/2025 14:37:17 05/12/20 25 05/13/2025 CBC WITH DIFFE RENTI AL/PL ATELE T immature cells PRINT DECORATOR Not Available [facility] ([facility]) [address] [place], [address], 05/13/2025 14:37:17 05/12/20 25 05/13/2025 CBC WITH DIFFE RENTI AL/PL ATELE T neutrophils (absolute) 4.1 x10e3 /uL 1.4-7. 0 normal Not Available [facility] ([facility]) [address] [place], [address], 05/13/2025 14:37:17 05/12/20 25 05/13/2025 CBC WITH DIFFE RENTI AL/PL ATELE T lymphs (absolute) 1.6 x10e3 /uL 0.7-3. 1 normal Not Available [facility] ([facility]) [address] [place], [address], 05/13/2025 14:37:17 05/12/20 25 05/13/2025 CBC WITH DIFFE RENTI AL/PL ATELE T monocytes(ab solute) 0.5 x10e3 /uL 0.1-0. 9 normal Not Available [facility] ([facility]) [address] [place], [address], 05/13/2025 14:37:17 05/12/20 25 05/13/2025 CBC WITH DIFFE RENTI AL/PL ATELE T eos (absolute) 0.1 x10e3 /uL 0.0-0. 4 normal Not Available [facility] ([facility]) [address] [place], [address], 05/13/2025 14:37:17 05/12/20 25 05/13/2025 CBC WITH DIFFE RENTI AL/PL ATELE T baso (absolute) 0.0 x10e3 /uL 0.0-0. 2 normal Not Available [facility] ([facility]) [address] [place], [address], 05/13/2025 14:37:17 05/12/20 25 05/13/2025 CBC WITH DIFFE RENTI AL/PL ATELE T immature granulocytes 0 % not estab. Not Available [facility] ([facility]) [address], [place], [address], 05/13/2025 14:37:17 05/12/20 25 05/13/2025 CBC WITH DIFFE RENTI AL/PL ATELE T immature grans (abs) 0.0 x10e3 /uL 0.0-0. 1 Not Available [facility] ([facility]) [address], [place], [address], 05/13/2025 14:37:17 05/12/20 25 05/13/2025 CBC WITH DIFFE RENTI AL/PL ATELE T NRBC PRINT DECORATOR Not Available [facility] ([facility]) [address], [place], [address], 05/13/2025 14:37:17 05/12/20 25 05/13/2025 CBC WITH DIFFE RENTI AL/PL ATELE T hematology comments: PRINT DECORATOR Not Available [facility] ([facility]) [address], [place], [address], 05/13/2025 14:37:17 05/12/20 25 05/13/2025 COMP. METAB OLIC PANEL (14) glucose 96 mg/dL 70-99 normal Not Available [facility] ([facility]) [address], [place], [address], 05/13/2025 14:37:18 05/12/20 25 05/13/2025 COMP. METAB OLIC PANEL (14) BUN 18 mg/dL 8-27 normal Not Available [facility] ([facility]) [address] [place], [address], 05/13/2025 14:37:18 05/12/20 25 05/13/2025 COMP. METAB OLIC PANEL (14) creatinine 1.05 mg/dL 0.57-1 .00 above high normal Not Available [facility] ([facility]) [address] [place], [address], 05/13/2025 14:37:18 05/12/20 25 05/13/2025 COMP. METAB OLIC PANEL (14) eGFR 58 mL/mi n/1.7 3 >59 below low normal Not Available [facility] ([facility]) [address], [place], [address], 05/13/2025 14:37:18 05/12/20 25 05/13/2025 COMP. METAB OLIC PANEL (14) BUN/creatini ne ratio 17 12-28 normal Not Available [facility] ([facility]) [address] [place], [address], 05/13/2025 14:37:18 05/12/20 25 05/13/2025 COMP. METAB OLIC PANEL (14) sodium 139 mmol/ L 134-14 4 normal Not Available [facility] ([facility]) [address] [place], [address], 05/13/2025 14:37:18 05/12/20 25 05/13/2025 COMP. METAB OLIC PANEL (14) potassium 4.3 mmol/ L 3.5-5. 2 normal Not Available [facility] ([facility]) [address] [place], [address], 05/13/2025 14:37:18 05/12/20 25 05/13/2025 COMP. METAB OLIC PANEL (14) chloride 102 mmol/ L 96-106 normal Not Available [facility] ([facility]) [address] [place], [address], 05/13/2025 14:37:18 05/12/20 25 05/13/2025 COMP. METAB OLIC PANEL (14) carbon dioxide, total 22 mmol/ L 20-29 normal Not Available [facility] ([facility]) [address] [place], [address], 05/13/2025 14:37:18 05/12/20 25 05/13/2025 COMP. METAB OLIC PANEL (14) calcium 9.4 mg/dL 8.7-10 .3 normal Not Available [facility] ([facility]) [address] [place], [address], 05/13/2025 14:37:18 05/12/20 25 05/13/2025 COMP. METAB OLIC PANEL (14) protein, total 6.9 g/dL 6.0-8. 5 normal Not Available [facility] ([facility]) [address] [place], [address], 05/13/2025 14:37:18 05/12/20 25 05/13/2025 COMP. METAB OLIC PANEL (14) albumin 4.2 g/dL 3.9-4. 9 normal Not Available [facility] ([facility]) [address] [place], [address], 05/13/2025 14:37:18 05/12/20 25 05/13/2025 COMP. METAB OLIC PANEL (14) globulin, total 2.7 g/dL 1.5-4. 5 Not Available [facility] ([facility]) [address] [place], [address], 05/13/2025 14:37:18 05/12/20 25 05/13/2025 COMP. METAB OLIC PANEL (14) bilirubin, total 0.5 mg/dL 0.0-1. 2 normal Not Available [facility] ([facility]) [address] [place], [address], 05/13/2025 14:37:18 05/12/20 25 05/13/2025 COMP. METAB OLIC PANEL (14) alkaline phosphatase 160 IU/L 44-121 above high normal Not Available [facility] ([facility]) [address] [place], [address], 05/13/2025 14:37:18 05/12/20 25 05/13/2025 COMP. METAB OLIC PANEL (14) AST (SGOT) 32 IU/L 0-40 normal Not Available [facility] ([facility]) [address] [place], [address], 05/13/2025 14:37:18 05/12/20 25 05/13/2025 COMP. METAB OLIC PANEL (14) ALT (SGPT) 26 IU/L 0-32 normal Not Available [facility] ([facility]) [address] [place], [address], 05/13/2025 14:37:18 05/12/20 25 05/13/2025 LIPID PANEL cholesterol, total 190 mg/dL 100-19 9 normal Not Available [facility] ([facility]) [address] [place], [address], 05/13/2025 14:37:19 05/12/20 25 05/13/2025 LIPID PANEL triglyceride s 141 mg/dL 0-149 normal Not Available [facility] ([facility]) [address] [place], [address], 05/13/2025 14:37:19 05/12/20 25 05/13/2025 LIPID PANEL HDL cholesterol 60 mg/dL >39 normal Not Available [facility] ([facility]) [address] [place], [address], 05/13/2025 14:37:19 05/12/20 25 05/13/2025 LIPID PANEL VLDL cholesterol klaus 25 mg/dL 5-40 Not Available [facility] ([facility]) [address] [place], [address], 05/13/2025 14:37:19 05/12/20 25 05/13/2025 LIPID PANEL LDL chol calc ([facility]) 105 mg/dL 0-99 above high normal Not Available [facility] ([facility]) [address] [place], [address], 05/13/2025 14:37:19 05/12/20 25 05/13/2025 LIPID PANEL LDL calc comment: PRINT DECORATOR Not Available [facility] ([facility]) [address] [place], [address], 05/13/2025 14:37:19 05/12/20 25 05/13/2025 ALBUM IN/CR EAT RATIO , RANDO M UR creatinine, urine 156.4 mg/dL not estab. normal Not Available [facility] ([facility]) [address] [place], [address], 05/13/2025 14:37:20 05/12/20 25 05/13/2025 ALBUM IN/CR EAT RATIO , RANDO M UR albumin, urine <3.0 ug/mL not estab. Not Available [facility] ([facility]) [address] [place], [address], 05/13/2025 14:37:20 05/12/20 25 05/13/2025 ALBUM IN/CR EAT RATIO , RANDO M UR alb/creat ratio <2 mg/g_ creat 0-29 Ju l: 0 - 29 Moder ately incre ased: 30 - 300 Sever richard incre ased: >300 Not Available [facility] ([facility]) [address] [place], [address], 05/13/2025 14:37:20 05/12/20 25 05/13/2025 HEMOG LOBIN A1C hemoglobin A1C 6.2 % 4.8-5. 6 above high normal Predi abete s: 5.7 - 6.4 Diabe yamila: >6.4 Glyce mc contr ol for adult s with diabe yamila: <7.0 Not Available [facility] ([facility]) [address] [place], [address], 05/13/2025 14:37:21 01/28/20 25 01/27/2025 XR, chest , 2 view No observ ation record ed. [address], [place], [address], 01/28/2025 13:55:00 01/28/20 25 01/27/2025 rhyth m strip , EKG* No observ ation record ed. [address], [place], [address], 01/28/2025 13:55:11 01/28/20 25 01/27/2025 elect rocar diogr am No observ ation record ed. [address], [place], [address], 01/28/2025 13:55:20 01/29/20 25 01/27/2025 elect rocar diogr am No observ ation record ed. [address], [place], [address], 01/28/2025 13:55:39 01/29/20 25 01/27/2025 US, echoc ardio gram No observ ation record ed. [address], [place], [address], 01/31/2025 10:52:00 01/31/20 25 01/28/2025 CT, angio gram, coron erick arter ies, w/ contr ast No observ ation record ed. [address], [place], [address], 01/31/2025 10:52:24 02/05/20 25 02/01/2025 elect rocar diogr am No observ ation record ed. [address], [place], [address], 02/07/2025 12:48:40 02/15/20 25 02/14/2025 US, kendra zheng, debi id arter y No observ ation record ed. [email or web address] [facility] [address], [place], [address], 02/17/2025 09:14:55 03/26/20 25 03/26/2025 XR, knee, 3 view No observ ation record ed. [email or web address] [address] [place], [address], 04/01/2025 09:48:43 05/09/20 25 05/09/2025 - scn dig breas t tomos yn carmen [facility] Ce Name: PREET BELLA [employer] Phys: [place] [address] : 1954 Age: 69 Sex: F Acct: [id number] Loc: G.MAMM PHONE #: Exam Date: 2024 Status : REG CLI FAX #: Rad# [id number] Unit# [id number] Admit Date: 2024 EXAMS: CPT CODE: [id number] 805 SCN DIG BREAST TOMOSY N CARMEN 48717 EXAM DESCRI PTION: SCN DIG BREAST TOMOSY [...] PM EDT RP Workst ation: SEALWR [id number] [facility] FOLLOW -UP CODE Electr onical ly Signed by MARIPOSA Willosn on 2024 at 1836 Report ed and signed by: HARINDER HUANG PAGE 1 Signed Report (PHILL NUMARIN) [facility] Name: PREET BELLA [facility] [facility] Phys: MD [place] [address] : 1954 Age: 69 Sex: F Acct: [id number] Loc: G.MAMM PHONE #: [phone] Exam Date: 2024 Status : REG CLI FAX #: [phone] Rad# [id number] Unit# [id number] Admit Date: 2024 EXAMS: CPT CODE: [id number] [id number] SCN DIG BREAST TOMOSY N CARMEN [address] CC: MEMO DAN MD; Milind Bhagat Dictat ed Date/T [...] SHOWER MILIND Consul ting Provid er: SY [email or web address] , [place], [address], 05/13/2025 10:45:44 05/13/20 25 05/12/2025 DEXA, verte bral fract ure asses [facility] Ce Name: PREET BELLA [facility] [address] Phys: [place] [address] : 1954 Age: 69 Sex: F Acct: [id number] Loc: G.MAMM PHONE #: Exam Date: 2024 Status : DEP CLI FAX #: [phone] Rad# [id number] Unit# [id number] Admit Date: 2024 EXAMS: CPT CODE: [id number] [id number] DEXA BONE DENSIT Y WITH VFA 44069 EXAMIN ATION: DUAL X-RAY ABSORP TIOMET RY (DXA) FOR BONE MINERA L DENSIT Y. CLINIC AL INDICA TION: 69 years old, Female . Postme nopaus al. Osteop orosis screen ing. TECHNI QUE: An axial (e.g., hips, spine) and/or append icular (e.g., radius ) exam was perfor med, as approp riate, using [employer] Pro[employer] y densit ometer . Images are [...] . PAGE 1 Signed Report (PHILL NUED) [facility] Name: PREET BELLA [employer] Phys: MD [place] [address] : 1954 Age: 69 Sex: F Acct: [id number] Loc: G.MAMM PHONE #: [phone] Exam Date: 2024 Status : DEP CLI FAX #: Rad# [id number] Unit# [id number] Admit Date: 2024 EXAMS: CPT CODE: [id number] 806 DEXA BONE DENSIT Y WITH VFA 44051 No fractu re is identi fied. IMPRES [...] treatm ent can be found at the [facility] Osteop [facility]rosis [facility] t[facility]'s websit e [...] 2HQ9 PAGE 2 Signed Report (PHILL NUED) [facility] Name: PREET BELLA [address] Phys: [place] [address] : 1954 Age: 69 Sex: F Acct: [id number] Loc: JessMAMM PHONE #: Exam Date: 2024 Status : DEP CLI FAX #: Rad# [id number] Unit# [id number] Admit Date: 2024 EXAMS: CPT CODE: [id number] 806 DEXA BONE DENSIT Y WITH VFA 17476 Electr onical ly Signed by DENIS CLAROS on 2024 at 1534 Report ed and signed by: Nico CLAROS CC: MEMO DAN MD; Milind Bhagat Dictat ed Date/T edgardo: 2024 (1534) Techno logist : IRENA BECKET T Transc ribed Date/T edgardo: 2024 (1534) Transc riptio nist: DR.BUC ELICEO [place] onic Signat ure Date/T edgardo: 2024 (1534) Printe d Date/T edgardo: 2024 (0816) BATCH NO: N/A PAGE 3 Signed Report CC'ed Logic: Orderi ng Provid er: SHOWER MIILND Attend ing Provid er: SHOWER MILIND Referr ing Provid er: SHOWER MILIND Consul ting Provid er: SY OGDEN [address] [place], [address], 05/15/2025 15:51:16 Result Notes Documentation Provider Name and Address Organization Details Recorded Time Dexa, Vertebral Fracture Assessment : [facility] Ce Name: JENAVARSHAPAM [address] [place] [address] Phys: [place] [address] : 1955 Age: 69 Sex: F Acct: [id number] Loc: JessMAMM PHONE #: Exam Date: 05/09/2025 Status: DEP CLI FAX #: Rad# [id number] Unit# [id number] Admit Date: 05/09/2025 EXAMS: CPT CODE: [id number] DEXA BONE DENSITY WITH VFA 91367 EXAMINATION: DUAL X-RAY ABSORPTIOMETRY (DXA) FOR BONE MINERAL DENSITY. CLINICAL INDICATION: 69 years old, Female. Postmenopausal. Osteoporosis screening. TECHNIQUE: An axial (e.g., hips, spine) and/or appendicular (e.g., radius) exam was performed, as appropriate, using Tizra densitometer. Images are obtained for bone mineral density measurement and are not obtained for diagnostic purposes. [id number] Vertebral fracture assessment was performed. COMPARISON: 07/23/2019. FINDINGS: Scan quality: Good. LUMBAR SPINE (L1-L4): BMD (in g/cm*2): 1.256. T-score: 0.5. Z-score: 2.1. Rate of change from previous exam: 4.5%. LEFT FEMORAL NECK: BMD (in g/cm*2): 0.871. T-score: -1.2. Z-score: 0.4. Rate of change from previous exam: -4.4%. RIGHT FEMORAL NECK: BMD (in g/cm*2): 0.934. T-score: -0.7. Z-score: 0.8. No significant rate of change from previous exam. FRAX 10-YEAR PROBABILITY OF FRACTURE: 10-year fracture risk is performed using the [employer] FRAX calculator based on patient-reported risk factors. Major osteoporotic fracture: 8.6%. Hip fracture: 0.8%. VERTEBRAL FRACTURE ASSESSMENT: Vertebral fracture assessment from T4-L4 is performed using [employer] visual semi-quantitative method. PAGE 1 Signed Report (CONTINUED) [facility] Ce Name: PREET BELLA [address] [place] [address] Phys: MD Екатерина Andre [place] [id number] : 1955 Age: 69 Sex: F Acct: [id number] Loc: GMakenzieMAMM PHONE #: Exam Date: 05/09/2025 Status: DEP CLI FAX #: Rad# [id number] Unit# [id number] Admit Date: 05/09/2025 EXAMS: CPT CODE: [id number] DEXA BONE DENSITY WITH VFA 12173 No fracture is identified. IMPRESSION: Osteopenia based on BMD. World Health Organization criteria for BMD impression classify patients as: - Normal (T-score at or above -1.0). - Osteopenia (T-score between -1.0 and -2.5). - Osteoporosis (T-score at or below -2.5). Per the Bone Health and Osteoporosis Foundation the FRAX tool is most useful in patients with low femoral neck bone mineral density (osteopenia). FRAX is calculated per request. RECOMMENDATIONS: 1. All patients should optimize their calcium and vitamin D intake. 2. Consider FDA-approved medical therapies in postmenopausal women and men aged 50 years and older, based on the following: - A hip or vertebral (clinical or morphometric) fracture. - T-score less than or equal to -2.5 at the femoral neck or spine after appropriate evaluation to exclude secondary causes. - Low bone density (T-score between -1.0 and -2.5 at the femoral neck or spine) and a 10-year probability of a hip fracture greater than or equal to 3% or a 10-year probability of a major osteoporosis-related fracture greater than or equal to 20% based on FRAX calculation. - Clinician judgment and/or patient preferences may indicate treatment for people with 10-year fracture probabilities above or below these levels. - Further guidance on treatment can be found at the National Osteoporosis Foundation's website bonesource.org. 3. Patients with diagnosis of osteoporosis or at high risk for fracture should have regular bone mineral density tests. For patients eligible for Medicare, routine testing is allowed once every 2 years. The testing frequency can be increased to one year for patients who have rapidly progressing disease, those who are receiving or discontinuing medical therapy to restore bone mass or have additional risk factors. Electronically signed by: Denis Claros MD 05/13/2025 08:13 AM EDT PAGE 2 Signed Report (CONTINUED) [facility] Ce Name: PREET BELLA [address] [place] [address] Phys: MD [place] [address] : 1955 Age: 69 Sex: F Acct: [id number] Loc: GREMBERTO PHONE #: Exam Date: 05/09/2025 Status: DEP CLI FAX #: [facility]# [id number] Unit# [id number] Admit Date: 05/09/2025 EXAMS: CPT CODE: [id number] DEXA BONE DENSITY WITH VFA 36433 at 1534 Reported and signed by: DENIS CLAROS CC: MEMO DAN MD; Milind Bhagat Dictated Date/Time: 05/12/2025 (1534) Technologist: IRENA FERRELL Transcribed Date/Time: 05/12/2025 (1534) Letter Stamping Machine Operator: Electronic Signature Date/Time: 05/12/2025 (1534) Printed Date/Time: 05/13/2025 (0816) BATCH NO: N/A PAGE 3 Signed Report CC'ed Logic: Ordering Provider: ЕКАТЕРИНА VAZ Attending Provider: ЕКАТЕРИНА VAZ Referring Provider: ЕКАТЕРИНА VAZ Consulting Provider: SY Pond null, [place] - [facility] 05/15/2025 15:51:16 Problems Name Problem SNOMED Code Status Onset Date Resolution Date Notes Provider Name and Address Organization Details Recorded Time Obesity 404957297 Active 2016 Jaime Epps RN [address], [address], [place] - [facility] 7 15:23:16 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 2018 Denis Waldron null, [place] - [facility] 9 11:39:14 Osteopor osis 44255562 Completed 201810/30/2023 Emma Pitts null, [place] - [facility] 3 12:19:39 History of hysterec navya 248458300 Completed 201808/11/2020 Emma Pitts [place] - [facility] 0 13:47:14 Hyperlip idemia 57837709 Active 2018 Milind Bhagat MD [address], [place], [address], [place] [facility] 9 13:44:52 Body mass index 30+ - obesity 894223477 Completed 201808/11/2020 Milind Bhagat MD [address], [place], [address], [place] - [facility] 0 23:32:12 Vulvodyn ia 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 Active 2018 Milind Bhagat MD [address], [place], [address], [place] - [facility] 9 13:47:53 Body mass index 30+ - obesity 407849180 Active 2019 Milind Bhagat MD [address], [place], [address], [place] [facility] 0 23:32:12 Urinary tract infectio us disease 01019137 Completed 202010/30/2023 Emma Pitts [place], [place] - [facility] 3 12:19:44 Menopaus e Active 2021 Milind Bhagat MD [address], [place], [address], [place] - [facility] 2 20:09:13 Interpha langeal joint of toe stiff 967021359 Active 2021 Cydney Cebolla null, [place] - [facility] 2 17:13:20 Steatoti c liver disease 236264826 Active 2022 Emma Pitts null[place] - [facility] 3 10:06:44 Chronic intersti tial cystitis 860615342 Active 2022 Milind Bhagat MD [address], [place], [address], [place] [facility] 3 22:19:35 Trigger finger of right hand 3253096090 0107674 Active 2022 Cydney Cebolla [place] [facility] 3 10:01:52 Bone spur of vertebra 7235034578 25785 Active 2022 Cydney Cebolla [place] [facility] 3 10:03:16 History of adenomat ous polyp of colon 938689233 Active 2022 Milind Bhagat MD [address], [place], [address], [place] [facility] 5 15:18:52 Situatio nal panic attack 359802435 Active 2024 Miri Fong, [employer] [address], [place], [address], [place] [facility] 5 09:52:13 Pain of knee region 2072433320 Active 2024 lAli Jones, [employer] [address], [place], [address], [place] [facility] 5 13:24:45 Allergic contact dermatit is caused by plant material 3696858288 4031455 Active 2024 Sekou Cortez MD [address], [place], [address], [place] [facility] 5 16:26:41 Atrial fibrilla tion 08406065 Active 2024 Diagnosi s spring 2024. Was successf ully cardiove rted and being maintain ed on metoprol ol Eliquis and Plavix. Followed by [facility] cardiolo Milind Bhagat MD [address], [place], [address], [place] [facility] 5 15:22:35 Endocrin e/metabo lic screenin g Active 2024 Alli Jones, [employer] [address], [place], [address], [place] [facility] 5 08:19:30 Pain of right wrist 1058748395 19455 Active 2024 Alli Jones APRN [address], [place], [address], [place] [facility] 5 09:20:56 Posterio r rhinorrh ea 62150133 Active 2024 Alli Jones, [employer] [address], [place], [address], [place] [facility] 5 09:28:39 Serum creatini ne above referenc e range 815031478 Active 2024 Alli Jones, YOLANDA [address], [place], [address], [place] [facility] 5 14:57:57 Alkaline phosphat ase above referenc e range 851422404 Active 2024 ZohrehMeghan Jones, [employer] [address], [place], [address], [facility] - [facility] 5 14:58:08 History of supracer vical hysterec navya 823231653 Active Jaime Epps RN [address], [place], [address], [facility] - [facility] 7 08:48:21 Hypercho lesterol emia 49857304 Active statin rx's document ed 2011, 11/2015 and 04/2016- all listed as DC'd Milind Bhagat MD [address], [place], [address], [facility] - [facility] 7 22:30:56 Essentia l hyperten scarlet 83444954 Active Jaime Epps RN [address], [place], [address], [facility] - [facility] 7 08:49:54 Graves' disease 637325784 Active Jaime Epps RN [address], [place], [address], [facility] - [facility] 7 08:50:05 Panic attack 220327086 Completed 08/14/2017 Linda [place] [facility] 7 14:17:28 Degenera tion of interver tebral disc 14975876 Active Jaime Epps RN [address], [place], [address], [facility] - [facility] 7 08:50:49 Hypothyr oidism 77734927 Active Jaime Epps RN [address], [place], [address], [facility] - [facility] 7 08:51:06 Problem Notes None recorded. Procedures Surgical History Date Name Laterality Status Provider Name and Address Organization Details Recorded Time 025 Advance Care Planning completed [facility] 04/28/2025 07:38:08 025 Functional Status Assessed completed [facility] 04/28/2025 07:38:08 025 Date of Last Mammogram completed Cary Pond [facility] 05/13/2025 10:45:57 025 Most Recent Bone Density completed Milind Bhagat MD [address], [place], [address], [place] - [facility] 05/13/2025 21:32:08 025 Medication Reconcilliation completed Daina Forrest [place] - [facility] 02/04/2025 10:56:09 024 Advance Care Planning completed Vaughn Davis [place] - [facility] 10/08/2024 14:03:25 024 Functional Status Assessed completed Vaughn Davis [place] - [facility] 10/08/2024 14:03:26 024 Dimethyl Sulfoxide (DMSO) completed Emma Pitts [place] - [facility] 01/05/2024 11:36:06 023 Dimethyl Sulfoxide (DMSO) completed Emma Hong [place] - [facility] 11/24/2023 13:13:08 023 Dimethyl Sulfoxide (DMSO) completed Milind Bhagat MD [address], [place], [address], [place] [facility] 10/13/2023 22:18:08 023 Dimethyl Sulfoxide (DMSO) completed Milind Bhagat MD [address], [place], [address], [place] [facility] 08/30/2023 16:11:56 023 Dimethyl Sulfoxide (DMSO) completed Milind Bhagat MD [address], [place], [address], [place] [facility] 06/22/2023 16:34:48 023 Dimethyl Sulfoxide (DMSO) completed Emma Pitts [place] - [facility] 06/01/2023 14:38:03 023 Dimethyl Sulfoxide (DMSO) completed Milind Bhagat MD [address], [place], [address], [place] [facility] 05/06/2023 15:36:06 023 Advance Care Planning completed March [place] - [facility] 03/30/2023 08:03:14 023 Functional Status Assessed completed March [place] - [facility] 03/30/2023 08:03:14 023 Dimethyl Sulfoxide (DMSO) completed Milind Bhagat MD [address], [place], [address], [place] [facility] 03/25/2023 11:12:47 023 potassium sensitivity test- MOB completed Emma Pitts [place] - [facility] 01/25/2023 15:36:37 023 In and Out Catheterization completed Milind Bhagat MD [address], [place], [address], [place] [facility] 01/03/2023 22:18:15 022 Date of Last Pap Smear completed Emma Pitts [place] - [facility] 10/10/2022 13:55:57 020 Date of Last Colonoscopy completed Milind Bhagat MD [address], [place], [address], [place] [facility] 08/12/2020 16:00:24 020 Medication Reconcilliation completed Krissy Sharp [place] - [facility] 05/25/2020 13:35:17 019 Systolic B/P less than 130 mm Hg completed Kellykatey Akerss [place] - [facility] 01/01/2019 11:10:38 019 Diastolic B/P 80-89 mm Hg completed [facility] [place] - [facility] 01/01/2019 11:10:40 015 Vulvar Biopsy completed Emma Pitts [place] - [facility] 01/03/2023 10:03:20 994 Hysterectomy completed Milind Bhagat MD [address], [place], [address], [place] [facility] 07/20/2017 20:58:31 cardiac catheterization completed Milind Bhagat MD [address], [place], [address], [facility] - [facility] 04/29/2025 15:23:09 Carpal tunnel surgery completed [facility] - [facility] 01/24/2017 13:00:12 Cholecystectomy, laparoscopic completed [facility] - [facility] 01/24/2017 13:00:19 Imaging Results None recorded. Procedure Notes None recorded. Medical Equipment None Reported. Allergies Allergen ID Allergen Name Allergen Category Reaction Reaction Severity Criticality Documentation Date Start Date Code Code System Note Provider Name and Address Organization Details Recorded Time 179851 Macrobid medicatio n diarrhea severe Not available 07/02/2019 37136 1 RxNorm DID use 11/17 and 12/19 witou t SE DOUBT true aller gy/ll s Milind Bhagat MD [address], [place], [address], [place] - [facility] 3 10:21:59 61143 codeine sulfate medicatio n Not available Not available Not available 09/02/20162011 82972 RxNorm Not Available [facility] 6 08:53:10 21692 Lipitor medicatio n nausea Not available Not available 09/02/20162015 92513 5 RxNorm React ion: nause a; Not Available [facility] 6 08:53:10 61709 Cipro medicatio n Not available Not available Not available 09/02/20162012 68626 3 RxNorm hurts stoma ch, no hives Milind Bhagat MD [address], [place], [address], [place] - [facility] 3 10:24:03 96204 cortisone acetate medicatio n Not available Not available Not available 09/02/20162011 51772 RxNorm Not Available [facility] 6 08:53:10 15479 cholecalc iferol medicatio n Not available Not available Not available 09/02/20162011 2418 RxNorm React ion: Sever e GI upset ; Comme nt: Lilli ol and OTC form; OnSet Date: 2011; Not Available [facility] 6 09:23:37 Medications Name Sig Start [...] ser: karina; Est. Completi on: 01/11/20 15;Pharm Yara ied: 01/06/20 15 10:07AM Not Available Not [...] nued on: 10/16/20 14 1:36PM;U ser: monica; EstMakenzie Avilai on: 06/06/20 13;Pharm acyVerif ied: 05/09/20 13 2:36PM Not Available Not [...] 16 1:06PM;U ser: grayn;Es t. Completi on: 03/08/20 16;Indic ation: Allergic Conjunct ivitis - (06.3721 40);Phar Jarrod fied: 03/01/20 16 1:42PM Not [...] TOPICALL Y TO AFFECTED AREA. SAFE FOR LONGTERM USE 01/03 completed Not Available Not Available Not Available Cipro 500 mg tablet take 1 tablet (500 mg) by oral route 2 times per day for 10 days 03/27 completed Cipro 500 mg oral tablet;R ecorded Status: Recorded on: 03/26/20 13 11:20AM; Disconti nued Status: Disconti nued on: 03/27/20 13 12:54PM; User: gored;Mattie Kramer on: 04/05/20 13;Print ed: 03/26/20 13 [...] on: 03/01/20 16 1:12PM;U ser: grayn;Es roberto Kramer on: 01/28/20 16;Pharm acyVerif ied: 12/29/19 [...] nued on: 05/31/20 12 10:51AM; User: nelli;Mattie willson. Completi on: 06/06/20 12 Not Available Not [...] Disconti nued on: 03/06/20 12 11:35AM; User: vinicioMattie mejia Completi on: 06/04/20 12;Indic ation: Vitamin D Deficien cy - (268);Prin quan: 03/06/20 12 Not Available Not Available [...] Disconti nued on: 12/03/19 16 11:59AM; User: chaim;Es roberto Kramer on: 04/03/20 16;Indic ation: Hypercho lesterol emia - ();Phar macyVeri fied: 10/06/20 15 10:28AM Not Available Not Available Not Available fluticaso ne propionat e 50 mcg/actua tion nasal spray,vanessa pension [place] 1 spray every day by intranas al [...] Disconti nued on: 04/20/20 16 1:06PM;U ser: chaim;Mattie mejia Completi on: 03/11/20 16;Pharm acyVerif ied: 03/01/20 16 1:42PM Not Available Not Available Not Available mometason e 0.1 % topical cream 03/24 completed Not Available Not Available Not Available diazepam 5 mg tablet Take 1 tablet every day by oral route as needed for 4 days. 03/24 maria luisa Gibbs [facility] Not Available Not Available [...] Disconti nued on: 03/01/20 16 1:12PM;U ser: dinoraj; Est. Completi on: 05/31/20 16;Pharm acyVerif ied: [...] nued on: 05/31/20 12 10:51AM; User: nelli;Mattie t. Completi on: 06/06/20 12 Not Available [...] completed Not Available Not Available Not Available Fortunatos (camilo sánchez) 50 % topical pads Apply [...] height Body mass index (BMI) Body weight Oxygen saturation Oxygen saturation in Arterial blood by Pulse oximetry Respiratory rate Heart rate Systolic blood pressure Diastolic blood pressure Provider Name and Address Organization Details Last Updated DateTime 5 170.18 cm 31.3 kg/m2 33649.4 7 g 95 % 95 % 18 /min 50 /min 128 mm[Hg] 72 mm[Hg] Daina kaur [place] - [facility] 5 10:58:50 Date Recorded Body height Body mass index (BMI) Body weight Heart rate Oxygen saturation Oxygen saturation in Arterial blood by Pulse oximetry Respiratory rate Body temperature Systolic blood pressure Diastolic blood pressure Provider Name and Address Organization Details Last Updated DateTime 170.18 cm 30.9 kg/m2 80261.4 g 54 /min 98 % 98 % 18 /min 97.9 [degF] 100 mm[Hg] 72 mm[Hg] Daina Torsten mattie [place] - [facility] 5 13:03:55 Date Recorded Body temperature Systolic blood pressure Diastolic blood pressure Provider Name and Address Organization Details Last Updated DateTime 04/24/2025 98.1 [degF] 106 mm[Hg] 80 mm[Hg] Kelly [facility] [place] - [facility] 04/24/2025 13:06:17 Date Recorded Heart rate Oxygen saturation Oxygen saturation in Arterial blood by Pulse oximetry Provider Name and Address Organization Details Last Updated DateTime 04/29/2025 43 /min 97 % 97 % Milind Bhagat MD [address], [place], [address], [place] [facility] 04/29/2025 15:21:47 Date Recorded Body height Body mass index (BMI) Body weight Systolic blood pressure Diastolic blood pressure Provider Name and Address Organization Details Last Updated DateTime 04/29/2025 170.18 cm 31.2 kg/m2 10705.88 g 130 mm[Hg] 82 mm[Hg] Cary Chani [place] - [facility] 5 11:03:14 Date Recorded Body height Body mass index (BMI) Body weight Oxygen saturation Oxygen saturation in Arterial blood by Pulse oximetry Respiratory rate Heart rate Body temperature Systolic blood pressure Diastolic blood pressure Provider Name and Address Organization Details Last Updated DateTime 170.18 cm 31.3 kg/m2 10490.1 7 g 97 % 97 % 18 /min 50 /min 97.6 [degF] 138 mm[Hg] 80 mm[Hg] Daina StClaudiomichelle kaur [place] - [facility] 5 08:44:20 Social History Question Answer Notes LastModified by Organizat ion Details LastModified Time Tobacco Smoking Status Never Smoker Not Available [facility] 09/11/2020 03:13:29 Do You Have An Advance Directive? Yes [id number] Information not available 09/11/2020 Are You Blind Or Do You Have Difficulty Seeing? No [id number] Information not available 09/11/2020 Is Blood Transfusion Acceptable In An Emergency? Yes [id number] Information not available 09/11/2020 What Is Your Level Of Caffeine Consumption? Heavy [id number] Information not available 09/11/2020 How Much Tobacco Do You Chew? None [id number] Information not available 09/11/2020 Are You Deaf Or Do You Have Serious Difficulty Hearing? No [id number] Information not available 09/11/2020 What Type Of Diet Are You Following? REGULAR [id number] Information not available 09/11/2020 Which Illicit Or Recreational Drugs Have You Used? None [id number] Information not available 09/11/2020 What Is The Highest Grade Or Level Of School You Have Completed Or The Highest Degree You Have Received? [id number] [id number] Information not available 09/11/2020 How Many Days Of Moderate To Strenuous Exercise, Like A Brisk Walk, Did You Do In The Last 7 Days? 1 [id number] Information not available 09/11/2020 On Those Days That You Engage In Moderate To Strenuous Exercise, How Many Minutes, On Average, Do You Exercise? 1 [id number] Information not available 09/11/2020 Have There Been Any Changes To Your Family Or Social Situation? No Information no t available 01/06/2025 How Hard Is It For You To Pay For The Very Basics Like Food, Housing, Medical Care, And Heating? [id number] [email or web address] Information not available 12/20/2019 Live Alone Or With Others? With Others Information not available 01/24/2017 What Was The Date Of Your Most Recent Tobacco Screening? 04/29/2025 [email or web address] Information not available 04/29/2025 How Many Children Do You Have? 3 [id number] Information not available 09/11/2020 Performs Monthly Self-breast Exam? Yes Information no t available 01/24/2017 What Is Your Relationship Status? [id number] Information not available 09/11/2020 Seat Belts Used Routinely Yes Information not available 01/24/2017 Are You Sexually Active? No [id number] Information not available 09/11/2020 Do You Have Smoke And Carbon Monoxide Detectors In Your Home? Yes Information not available 01/06/2025 Are You Passively Exposed To Smoke? No Information no t available 01/06/2025 How Much Tobacco Do You Smoke? No [id number] Information not available 09/11/2020 General Stress Level Medium Information not available 01/24/2017 Do You Use Sunscreen Routinely? Yes [id number] Information not available 09/11/2020 Has Tobacco Cessation Counseling Been Provided? No Information not available 02/13/2024 How Many Years Have You Smoked Tobacco? 0 [id number] Information not available 09/11/2020 Do You Have Difficulty Walking Or Climbing Stairs? No [id number] Information not available 09/11/2020 Sex: Female Functional Status Question Answer Note LastModified by Organizat ion Details LastModified Time Do you or have you ever used smokeless tobacco? Never used smokeless tobacco [id number] Information not available 09/11/2020 Are you currently employed? No [id number] Information not available 09/11/2020 Do you have transportation difficulties? No Information not available 02/13/2024 Urinary incontinence assessment performed? Yes [email or web address] Information not available 07/20/2017 Are you able to care for yourself? Yes Information n ot available 02/13/2024 Do you have difficulty dressing or bathing? No [id number] Information not available 09/11/2020 Do you or have you ever used e-cigarettes or vape? Never used electronic cigarettes [id number] Information not available 09/11/2020 What is your exercise level? Moderate [id number] Information not available 09/11/2020 Do you use any illicit or recreational drugs? No Information not available 02/13/2024 Do you or have you ever used any other forms of tobacco or nicotine? No Information not available 02/13/2024 What is your level of alcohol consumption? None [id number] Information not available 09/11/2020 Are you able to walk? YESWOREST [id number] Information not available 09/11/2020 Do you have difficulty doing errands alone? No [id number] Information not available 09/11/2020 Mental Status Question Answer Note LastModified by Organizat ion Details LastModified Time Do you feel stressed (tense, restless, nervous, or anxious, or unable to sleep at night)? [id number] Information not available 09/11/2020 Do you have difficulty concentrating, remembering or making decisions? No [id number] Information no t available 09/11/2020 Family History [...] colitis N Cerebrovascular Disease N Depression N Guillain-[place] N Sleep Apnea N Aneurysm N Bronchitis [...] 022 cancelled patient objection Milind Bhagat MD [address] [place] [address], [address], [place] - [facility] 10/04/2022 20:13:27 pneumococcal polysaccharide PPV23 022 cancelled patient objection Cydneyjuliette bhakta[place] - [facility] 10/19/2022 17:17:13 pneumococcal polysaccharide PPV23 023 cancelled patient objection [place]ydney [place]hakta[place] [facility] 03/30/2023 10:09:06 Td (adult) 015 completed Not Available [facility] 01/05/2024 11:07:25 COVID-19, mRNA, LNP-S, PF, 30 mcg/0.3 mL dose 021 completed Crystal March null, [place] - [facility] 10/19/2022 14:02:04 COVID-19, mRNA, LNP-S, PF, 30 mcg/0.3 mL dose, alexsander-sucrose 022 completed Crystal March null[place] [facility] 10/19/2022 14:02:04 COVID-19, mRNA, LNP-S, PF, 30 mcg/0.3 mL dose 021 completed Crystal March [place] [facility] 10/19/2022 14:02:04 COVID-19, mRNA, LNP-S, PF, 30 mcg/0.3 mL dose 021 completed Crystal March [place] [facility] 10/19/2022 14:02:04 zoster recombinant 019 completed Miri Zornes [place] [facility] 12/02/2022 13:10:07 COVID-19, mRNA, LNP-S, bivalent, PF, 30 mcg/0.3 mL dose 022 completed Miri Zornes [place] [facility] 12/02/2022 13:10:07 zoster recombinant 019 completed Miri Zornes [place] [facility] 12/02/2022 13:10:08 Past Encounters Encounter ID Performer Location Encounter Start Date Encounter Closed Date Diagnosis/Indication Diagnosis SNOMED-CT Code Diagnosis ICD10 Code Diagnosis Note [id number] [facility] [address] [address] 02/23/2012 00:00:[id number] [facility] [address] [place] [address] 04/16/2012 00:00:[id number] [facility] [address] [place] [address] 04/25/2012 00:00:[id number] [facility] [address] [place] [address] 04/26/2012 00:00:[id number] [facility] [address] [place] [address] 05/31/2012 00:00:[id number] [facility] [address] [place] [address] 03/26/2013 00:00:[id number] [facility] [address] [place] [address] 04/09/2013 00:00:[id number] [facility] [facility] [address] [place] [address] 05/02/2013 00:00:[id number] [facility] [address] [place] [address] 5 06/18/2013 00:00:[id number] [facility] [address] [place] [address] 5 11/14/2013 00:00:[id number] [facility] [address] [place] [address] 01/24/2014 00:00:[id number] [facility] [address] [place] [address] 10/16/2014 00:00:[id number] [facility] [address] [place] [address] 01/06/2015 00:00:[id number] [facility] [address] [place] [address] 5 01/21/2015 00:00:[id number] [facility] [address] [place] [address] 5 01/21/2015 00:00:[id number] [facility] [address] [place] [address] 5 10/06/2015 00:00:[id number] [facility] [address] [place] [address] 5 12/29/2015 00:00:[id number] [facility] [address] [place] [address] 5 03/01/2016 00:00:[id number] [facility] [address] [place] [address] 04/20/2016 00:00:[id number] [facility] [address] [place] [address] 5 04/28/2016 00:00:[id number] [facility] [address] [place] [address] 04/28/2016 00:00:00 [id number] DO Donny Bowman [employer] [address] [place] [address] [place] [address] 01/24/2017 12:42:25 01/24/2017 13:32:11 Hemorrhoids 44283859 K64.9 Postmenopausal state 764 82977 Z78.0 [id number] Steven Olivera MD [facility] [address] [place] [address] 04/05/2017 13:51:47 04/05/2017 16:03:03 Body mass index 30+ - obesity 271194152 Z68.39 Depression screening 171 726792 Z13.89 Hypothyroidism 90116633 E03.9 Essential hypertension 46199344 I10 [id number] MD Madhavi Joysville [employer]ICE [employer] [address] [place] [address] [place] [address] 07/20/2017 14:40:54 07/20/2017 16:05:44 Gynecologic examination 05100673 Z01.419 Cervical cancer screening not due this year, see HPI Depression screening 171 622774 Z13.89 Hypertensi on screening 200550632 Z13.6 Patient currently is within goal of less than 140/90. She needs to see primary care provider to have closer blood pressure follow-up in the short-term . She is a treated hypertensi ve Exercises education, guidance, and counseling 652085914 Z71.89 Advise 30 minutes 3 times a week at a minimum of purposeful exercise. Patient is not currently meeting this goal. History of supracervical hysterectomy 677031680 Z90.711 Obesity 253871862 E66.9 Z68.30 Screening for malignant neoplasm of breast 712662147 Z12.31 Patient aware of due date for next Mammogram as indicated below.-Do now- she will be notified by facility of result after completion . Advise yearly Clinical Breast exam with Annual exam.Patie nt unsure what facility, not sure if covered [place]. Last was at [facility]. Request paper order Vaginal discharge 121743 006 N89.8 BV, rule out additional etiologies . Suspect also from inflammato ry atrophy. Not symptomati c but would advise at least BV treatment. Declines any vaginal estrogen [id number] MD Donny Feldman [employer] SERVICE [employer] [address] [place] [address] [place] [address] 07/23/2018 09:54:49 07/23/2018 10:33:45 Routine gynecologic examination done 4109946180 9101 Z01.419 Depression screening 171 738163 Z13.89 Diet education 33403866 Z71.3 Counseling 473548390 Z71 .82 Exercise counseldon pierce Patient encouraged to exercise 30 minutes 5 days a week. 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 She needs to see primary care provider to have closer blood pressure follow-up in the short-term Exercises education, guidance, and counseling 158869573 Z71.82 Advise 30 minutes 3 times a week at a minimum of purposeful exercise. Patient is not currently meeting this goal. 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 Advised PCP follow-up for this. States prior intoleranc e of statins [id number] Steven Olivera MD [address] [place] [address] 12/04/2018 10:34:09 12/04/2018 14:08:17 Hypercholesterolemia 18730155 E78.00 Hypothyroidism 65447538 E03.9 Essential hypertension 27424643 I10 Bursitis of hip 04626554 M70.72 [id number] Ramona Cortez MD [place] [employer] [address] [place] [address] [place] [address] 02/15/2019 09:20:26 02/15/2019 10:49:23 Pain of breast 61385230 N64.4 [id number] Taylor Lopez [address] [place] [address] 04/17/2019 15:05:09 04/17/2019 15:44:54 Active or passive immunization 724806780 Z23 [id number] Denis Waldron MD [address] [place] [address] 05/21/2019 10:27:13 05/21/2019 11:57:12 Low back pain 532299679 M54.5 [id number] Cydney Cole [address] [place] [address] 05/29/2019 14:52:42 05/29/2019 15:48:33 Dysuria 09507553 R30.0 Urinary tr act infectious disease 07625371 N39.0 Chronic low back pain 27 7404688 M54.5 [id number] Cydney Cole [facility] [address] [place], [place] [address] [place] [address] 06/26/2019 09:36:46 06/26/2019 10:23:49 Body mass index 30+ - obesity 198772225 Z68.30 Recurrent urinary tract infection 435090394 N39.0 [id number] Cydney Cole [address] [place] [address] 07/16/2019 12:48:57 07/16/2019 14:14:04 Abdominal pain 76463979 R10.9 nonspecifi c complaints , she denies constipati on, diarrhea, nausea or vomiting, she states she has pain around on her left side and back, she is status post hysterecto my, cholecyste ctomy and has had 3 children, she states no food makes the problem worse or better and that she had a colonoscop y last year Pain of ri ght hip joint 5621173033 48933 M25.551 Screening mammography 24 870161 Z12.31 informatio n given to pt for her to call and get this done, the truck will be here in this parking lot on the [id number] Cydney Cole [address] [place] [place] [address] 09/18/2019 13:40:18 09/18/2019 15:04:12 Active or passive immunization 220737602 Z23 [id number] Cydney Cole [employer] [address] [place] [address] 12/04/2019 09:40:23 12/04/2019 10:45:15 Upper respiratory infection 66310245 J06.9 Otitis externa 8784293 H 60.93 [id number] YOLANDA Ding [employer] SERVICE AMB[employer]ADOR [address] [place] [address] [place] [address] 12/20/2019 14:59:28 12/20/2019 16:00:43 Pain of breast 20592518 N64.4 [id number] MD Donny Joy [employer] SERVICE [employer] [address] [place] [address] [place] [address] 08/12/2020 15:02:18 08/12/2020 16:29:46 Gynecologic examination 30585035 Z01.419 Cervical cancer screening not due this year, see HPI Depression screening 171 674641 Z13.89 Hypertensi on screening 019408955 Z13.6 Patient currently is within goal of less than 140/90. We will rescreen at annual visit, sooner if needed Exercises education, guidance, and counseling 786219316 Z71.82 Advise 30 minutes 3 times a week at a minimum of purposeful exercise. Patient is not currently meeting this goal. Screening for malignant neoplasm of breast 076538519 Z12.31 Patient aware of due date for next Mammogram as indicated below. After 09-24-20 she will be notified by facility of result after completion . Advise yearly Clinical Breast exam with Annual exam. History of supracervical hysterectomy 177568134 Z90.711 Body mass index 30+ - obesity 283819247 Z68.31 Vulvodynia 777254342 N94 .819 Annual/Rec urrent left introitus pain, about twice a year. Extensive work-up did not revealed any focal infectious or dermatolog ic changes. Most recent flare of this is improving without any specific treatment. Has failed empiric trials of steroid and estrogen in the past. Desires expectant management for now Menopause 680495489 Z78. 0 No symptoms. Normal bone density 2019 recheck bone density 4 to 5 years [id number] Taylor Lopez [facility] [address] [place] [address] 01/17/2020 16:21:02 01/20/2020 09:21:02 Lesion of oral mucosa 8357896848 030696 K13.70 On examina tion - herpes labialis-cold sore 181439358 B00.1 [id number] Cydney Cole [employer] [place] [address] [place] [address] 05/13/2020 10:33:37 05/13/2020 11:39:06 Altered bowel function 74983120 R19.4 [id number] Cydney Cole [place] [address] [place] [address] 05/25/2020 13:10:11 05/25/2020 14:53:09 Acute urinary tract infection 046421383 N39.0 shes on Bactrim will call her culture results if an isolate is found Abdominal pain 12653620 R10.9 shes scheduled for a colonoscop y on 06.04.20 [id number] Cydney Cole [employer] [address] [place] [address] 07/15/2020 09:50:12 07/15/2020 10:52:51 Acute urinary tract infection 551390264 N39.0 [id number] YOLANDA Gonzalez [employer] SERVICE [employer] [address] [place] [address] [place] [address] 07/29/2020 10:50:24 07/29/2020 13:07:08 Vaginal irritation 618343399 N89.8 Vulvodynia 989147781 N94 .236 [id number] Cydney Cole [employer] [address] [place] [address] 03/10/2021 08:39:27 03/10/2021 11:00:47 Screening for cardiovascular system disease 040449260 Z13.6 Endocrine/ metabolic screening 927711590 Z13.228 Dietary ma nagement surveillance 173984615 Z71.3 Graves' disease 99176454 4 E05.00 Essential hypertension 54182285 I10 Temporoman dibular pnvrh-vytd-pnfkmmtgem n syndrome 626280297 M26.629 HIV screening 182853597 Z11.4 Viral screening 31643942 4 Z11.59 [id number] Sekou Cortez MD [address] [place] [address] 06/02/2021 13:32:03 06/02/2021 16:38:24 History of urinary tract infection 6369482137 107 Z87.440 Essential hypertension 35770078 I10 Graves' disease 92684093 4 E05.00 Hyperlipidemia 00774067 E78.5 Urinary tr act infectious disease 58227616 N39.0 [id number] Cydney Cebolla, [address] [place] [address] 02/08/2022 10:21:11 02/08/2022 10:55:33 Hypothyroidism 49964865 E03.9 checking status today Hyperlipidemia 49565242 E78.5 checking status today Essential hypertension 27127242 I10 controlled today at 122/72 Prediabetes 877097589 R7 3.03 checking status today Sinusitis 99950000 J32.9 [id number] Cydneyjuliette Cole [address] [place] [address] 03/16/2022 15:53:49 03/16/2022 16:29:34 History of urinary tract infection 4761312549 107 Z87.440 Vaginitis 62671129 N76.0 local irritation [id number] Cydneyjuliette Cole [address] [place] [address] 04/20/2022 08:57:41 04/20/2022 09:51:22 Pain of left hip joint 2923520673 23440 M25.552 Low back pain 597030069 M54.50 radiates down left leg to the knee Pain in pelvis 09975795 R10.2 pain in the groin area bilaterall y [id number] MD Donny Joy FO[employer] SERVICE AMBASSADOR 7 [facility] [place] [address] 10/04/2022 10:34:09 10/04/2022 13:18:45 Gynecologic examination 11114496 Z01.419 Depression screening 171 843095 Z13.89 Hypertensi on screening 390967379 Z13.6 Patient currently iswithin goal of less than 140/90. We will rescreen at annual visit, sooner if needed Exercises education, guidance, and counseling 709625178 Z71.82 Advise 30 minutes 3 times a week at a minimum of purposeful exercise. Patient is not currently meeting this goal. Body mass index 30+ - obesity 342924629 Z68.30 Obesity 813700490 E66.3 Screening for malignant neoplasm of cervix 602564332 Z12.4 This should be a final check necessary past age 67, adequate and negative history Screening for malignant neoplasm of breast 165199813 Z12.31 Patient aware of due date for next Mammogram as indicated below. She will be notified by facility of result after completion . Advise yearly Clinical Breast exam with Annual exam. Dysuria 96499979 R30.0 Menopause 354184548 Z78. 0 No symptoms. Atrophy findings that are not bothersome . normal bone density 2019 recheck bone density 4 to 5 years Immunization due 4534201 08 Z28.39 Declines flu shot here. I have deferred pneumonia series to her PCP Hyperlipidemia 27728606 E78.5 Significan tly high lipids as recently as 02 15. Unsure if she has had full discussion of all alternativ es other than statins with her PCP stating she cannot tolerate these. Advised she can try omega-3 fatty acids over-the-c ounter but doubt this will be enough for her levels. Advised her to make an appointmen t purposeful ly to discuss management options as well as getting her pneumonia vaccines [id number] Cydney Cole [place] [address] [place] [address] 10/19/2022 13:45:43 10/19/2022 15:31:10 Hypercholesterolemia 42321768 E78.00 Hyperlipidemia 68529523 E78.5 discussed medication and dietalso fish oil Interphala ngeal joint of toe stiff 207031413 M25.674 great toe Active or passive immunization 327213377 Z23 Body mass index 30+ - obesity 476895883 Z68.30 Essential hypertension 20412248 I10 controlled today at 126/80 [id number] Memo Dan MD [address] [place] [address] 11/11/2022 15:53:03 11/14/2022 11:08:51 Dysuria 65473131 R30.0 [id number] Zabrina Velasco [address] [place] [place] [address] 12/02/2022 12:57:13 12/02/2022 13:47:55 Essential hypertension 84780399 I10 Patient reports condition is well controlled on current medication Hypothyroidism 04899909 E03.9 Patient reports condition is well controlled on current medication Dysuria 23019710 R30.0 Leukocytes in urine 2757 57028 R82.79 Patient reports she experience d no side effects while previously taking Macrobid [id number] Zabrina Velasco, [facility] [address] [place] [address] 12/22/2022 09:42:23 12/22/2022 10:27:04 Dysuria 21457423 R30.0 Leukocytes in urine 2757 90542 R82.79 Flank pain 168424776 R10 .9 Abdominal pain 41402387 R10.9 [id number] Cydney Cole [facility] [address] [place] [place] [address] 12/28/2022 13:19:31 12/28/2022 14:15:24 History of urinary tract infection 0930130353 107 Z87.440 Abdominal pain 03232374 R10.9 Hypothyroidism 67344808 E03.9 checking status today External hemorrhoids 239 16796 K64.4 [id number] MD Donny Joy FOOD SERVICE AMBASSADOR [address] [facility] [place] [address] 01/03/2023 09:15:23 01/03/2023 11:23:12 Vulvodynia 920288822 N94.819 2013 diagnosis based on presentati on of vulvar burning with negative vulvar biopsy and culture swabs. Suspected atrophy as comorbidit y but had been intolerant of initial vaginal cream trials. Had never had any type of neuromodul ating agent as this had not been a consistent enough symptom for her to desire anything. Urinary tr act infectious disease 64038131 N39.0 12/22/22 Enterocucc us-initial prescripti on Bactrim not likely sensitive, just informed regarding need of alternativ e Rx yesterday. Patient had been told she had E. coli but confirmed with her test result actually showed Enterococc us. I advised finish amoxicilli n,Advised repeat culture on 01/16/23I n setting of negative cultures 11 8, 12-16 and 1-6 with similar symptoms Dysuria 31160853 R30.0 Chronic recurring dysuria/crow prapubic pain symptoms for 20 years per patient with majority of urine cultures documented here over the last 3 years being negative other than one of the more recent ones.. Consistent with an interstiti al cystitis syndrome particular ly in light of previous suspected vulvodynia symptom pattern. Urgent xiomy mamie to urinate 85311657 R39.15 Negative PVR/no true retention Chronic in terstitial cystitis N30.10 Presumptiv e diagnosis, see discussion below [id number] MD Donny Joy [employer] SERVICE [employer] [address] [place] [address] [place] [address] 01/25/2023 13:49:24 01/25/2023 15:54:04 Dysuria 89132442 R30.0 Symptoms improving but still persistent mild symptoms. Chronic in terstitial cystitis N30.10 Suspected by history, recent negative urine culture and positive PST. Reviewed suspected diagnosis, natural history, and multimodal treatment therapy. Offered Elmiron and Elavil. Symptoms do not seem acute enough at this point to warrant DMSO therapy. 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 . We will go on and start Elavil and Elmiron, plan to return for DMSO once we have confirmed a negative culture. If positive culture we will proceed with antibiotic s and then consider for DMSO if symptoms have not acutely improved. May use Pyridium at home over the weekend as well as external lidocaine as needed pending culture results.. Continue to watch diet and baking soda sitz bath are available for external soothing if neededHas 4 28 appointmen t as previously scheduled, keep appointmen t and can have DMSO then if negative culture. If positive culture, will get her antibiotic s early next week, keep 4 28 appointmen t and will review symptoms then and consider for DMSO at a 1 to 2-week later interval Reviewed relative risks benefits and side effects of these medication s. Advised that she should have yearly retinal examinatio ns with use of Elmiron,, and report use of this medication to her ophthalmol ogist, discussed rare but potential reported side effects of pigmented retinopath y with extended use. She has had no retinal problems she is aware of at this point. Vulvodynia 332899214 N94 .819 Pyuria 3515783 R82.81 Large leukocyte on dipstick, with other markers negative. Urine culture sent to confirm/ex clude bacterial UTI. We will hold antibiotic therapy until we confirm culture [id number] MD Donny Joy FOOD SERVICE AMBASSADOR [address] [facility] [place] [address] 03/24/2023 13:50:53 03/24/2023 14:47:34 Chronic interstitial cystitis 795654366 N30.10 IC/vulvody lukas syndrome DMSO today, return 2 weeksConti nue dietary monitoring /alteratio n as needed She does agree to start previously prescribed amitriptyl ine discussed use and potential sedation side effects and dose titration. . Continues to decline Elmiron due to concerns about retina. Desires serial DMSO treatments over the next 2 to 4 weeks. Can continue topical lidocaine to urethra for vulvodynia sensation and as needed phenazopyr idine, Rx given. Discussed if any acute increase in pain or dysuria in the interval between treatments , can submit urine analysis, advised obtain urinalysis specimen before starting Azo, cups given.. Most recent surveillan ce 01-16 and 03-17-2023 cultures negative [id number] Cydney Cole APRN [facility] [address] [address] 03/30/2023 09:19:32 03/30/2023 09:53:44 Adult health examination 630428098 Z00.00 Depression screening 171 798470 Z13.89 Examinatio n of blood pressure 379198082 Z01.30 126/78 Diet education 98076089 Z71.3 discussed diet Counseling 472704332 Z71 .82 Exercise counseling . Patient encouraged to exercise 30 minutes 5 days a week. [facility] ed risk for falls 882399555 Z91.81 STEADI FAST screening score of ___0__. Advance care planning 71 3616121 Z71.89 Finding of body mass index 041910247 Z68.30 Screening for cardiovascular system disease 187191265 Z13.6 Exercises education, guidance, and counseling 131684773 Z71.82 pt is very active and we discussed some of her activities Trigger fi nger of right hand 0369579364 5502528 M65.30 Bone spur of vertebra 31 37636771 41259 M25.78 cervical per pt history Active or passive immunization 575819505 Z23 [id number] MD Donny Joy [employer] [address] [place] [address] [place] [address] 05/03/2023 11:23:08 05/03/2023 12:49:13 Chronic interstitial cystitis 269811099 N30.10 IC/vulvody lukas syndromeFi rst DMSO 03-24-2023, missed advised short-term follow-up but desires to restart therapyCon tinue dietary monitoring /alteratio n as neededCont inues to decline Elavil. Continues to decline Elmiron due to concerns about retina. Desires serial DMSO treatments over the next 2 to 4 weeks. Can continue topical lidocaine to urethra for vulvodynia sensation and as needed phenazopyr idine, refill Rx given. Discussed if any acute increase in pain or dysuria in the interval between treatments , can submit urine analysis, advised obtain urinalysis specimen before starting Azo, cups given.. Most recent surveillan ce 01-16 and 03-17-2023 cultures negative Vulvodynia 482841642 N94 .275 [id number] MD Donny Joy [employer] SERVICE AMB[employer] [address] [place] [address] [place] [address] 06/01/2023 14:24:36 06/01/2023 15:14:41 Chronic interstitial cystitis 884580025 N30.10 IC/vulvody lukas syndromeSt atus post DMSO 4 28, 6 7 and now 7 6 23 as well as as needed treatments with lidocaine and Pyridium at home and starting to see some improvemen t in the intensity and duration of her symptoms We will set up 2 additional follow-up at 3 to 4-week intervalsC ontinue dietary monitoring /alteratio n as neededCont inues to decline Elavil. Continues to decline Elmiron due to concerns about retina.Xiomy ires serial DMSO treatments over the next 2 to 4 weeks. Can continue topical lidocaine to urethra for vulvodynia sensation and as needed phenazopyr idine, currently using about every other day discussed if any acute increase in pain or dysuria in the interval between treatments , can submit urine analysis, advised obtain urinalysis specimen before starting Azo, cups given.. Most recent surveillan ce 01-16 and 03-17-2023 cultures negative Atrophy of vagina 902495 009 N95.2 Continue maintenanc e topical estrogen twice weekly [id number] MD Donny Joy FOOD SERVICE AMBASSADOR 7 [facility] [place] [address] 06/19/2023 10:58:23 06/19/2023 12:16:55 Chronic interstitial cystitis 391355502 N30.10 IC/vulvody lukas syndromeSt atus post DMSO 4 28, 6 7, 7 6 and 7 24 as well as as needed treatments with lidocaine and Pyridium at home and starting to see some improvemen t in the intensity and duration of her symptoms We will set up 2 additional follow-up at 3 to 4-week intervalsC ontinue dietary monitoring /alteratio n as neededCont inues to decline Elavil. Continues to decline Elmiron due to concerns about retina.Xiomy ires serial DMSO treatments over the next 2 to 4 weeks. Can continue topical lidocaine to urethra for vulvodynia sensation and as needed phenazopyr idine, currently using about every other day discussed if any acute increase in pain or dysuria in the interval between treatments , can submit urine analysis, advised obtain urinalysis specimen before starting Azo, cups given.. Most recent surveillan ce 01-16 and 03-17-2023 cultures negative [id number] Zabrina Velasco APRN [facility] [address] [place] [address] 07/21/2023 10:21:57 07/21/2023 11:20:13 Pharyngitis 644822956 J02.9 Viral screening 94886552 4 Z11.59 Acute bronchitis 7973874 2 J20.9 Advised to drink plenty of fluids, run a cool-mist humidifier in room at night, gargle salt water for sore throat, and get plenty of rest. Patient should avoid over-exert ion and reduce exposure to irritants such as smoke, cold, dry air, and dust. Antihistam ine and decongesta nt usage was discussed and recommenda tions made. Begin prescribed medication as written. Patient understood these instructio ns and will follow up in the office in 7-10 days if symptoms not improving. Or sooner if symptoms worsen. Expiratory wheezing 9763 007 R06.2 [id number] Memo Dan MD [facility] [address] [place] [address] 08/22/2023 13:53:24 08/22/2023 15:36:53 Atrophy of vagina 251226551 N95.2 Chronic in terstitial cystitis 922536398 N30.10 Hypothyroidism 61412142 E03.9 Essential hypertension 76383474 I10 Body mass index 30+ - obesity 097704733 Z68.30 Obesity 496790130 E66.9 Congestion of nasal sinus 74278109 R09.81 [id number] MD Donny Joy [employer] SERVICE [employer] [address] [place] [address] [place] [address] 08/30/2023 15:00:01 08/30/2023 16:05:05 Chronic interstitial cystitis 874027838 N30.10 IC/vulvody lukas syndrome Status post DMSO 4 28, 6 7, 7 6 and 7 24 and 08/30/23 as well as as needed treatments with lidocaine and Pyridium at home and starting to see some improvemen t in the intensity and duration of her symptoms. Symptoms gradually worsening during the last month. will set up 6 wk interval tx and come in sooner if symptoms flare Continue dietary monitoring /alteratio n as needed Continues to decline Elavil. Continues to decline Elmiron due to concerns about retina. She has lidocaine and phenazopyr idine at home for as needed use but much less needed in the last 2 months. Most recent surveillan ce 01-16 and 03-17-2023 cultures negative, culture 8 4 with symptoms had been [id number] MD Donny Joy [employer] SERVICE AMBASS[employer] [address] [place] [address] [place] [address] 10/02/2023 15:09:46 10/02/2023 17:21:10 Chronic interstitial cystitis 308698753 N30.10 Underlying condition. Has responded appropriat richard to recurrent DMSO treatment so far although prefers to avoid any systemic treatment. Dysuria 53866534 R30.0 Acute urin erick tract infection 840421390 N39.0 Suspect current UTI. We will treat empiricall y pending culture results [id number] MD Donny Joy [employer] SERV[employer] [address] [place] [address] [place] [address] 10/13/2023 13:33:42 10/13/2023 15:29:53 Chronic interstitial cystitis 977840759 N30.10 Suspected underlying condition. Had initial response to recurrent DMSO treatment so far less in last few treatments , prefers to avoid systemic Elmiron. Overactive urinary bladder 254949627 N32.81 urinary frequency, , UUI== in addition to postvoid discomfort . Prefers trial with anticholin ergic and will add vaginal estrogen [id number] MD Donny Joy [employer] SERVICE [employer] [address] [place] [address] [place] [address] 10/31/2023 10:50:31 10/31/2023 11:59:36 Gynecologic examination 41603187 Z01.419 .Pap test no longer indicated due to patient age, with history of adequate and normal previous screening, Depression screening 171 414276 Z13.31 Negative Hypertensi on screening 694915916 Z13.6 Patient currently iswithin goal of less than 140/90. We will rescreen at annual visit, sooner if needed Exercises education, guidance, and counseling 709054695 Z71.82 Advise 30 minutes 3 times a week at a minimum of purposeful exercise. Patient is not currently meeting this goal. History of supracervical hysterectomy 799678928 Z90.711 1993 Chronic in terstitial cystitis 446461121 N30.10 Symptoms as outlined per HPI including mitten but frequently recurrent dysuria/ur gency and vulvar discomfort . Symptoms have been reproduced by PST and labile IC given January 2023. Symptoms overall improved after total of 5 DMSO treatments between February to August 2023. Declines any ongoing systemic suppressio n of Elavil or Elmiron. She does use Pyridium and lidocaine as needed if gets symptoms. Sample cup given to bring in culture sample prior to starting Pyridium and topical lidocaine if symptoms flare in the future. Negative cultures x5 between December and September 2023. Or she can call for DMSO treatments as well aware of dietary guidelines Screening for malignant neoplasm of breast 508887591 Z12.31 Patient aware of due date for next Mammogram as indicated below. She will be notified by facility of result after completion . Advise yearly Clinical Breast exam with Annual exam. 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 0 No symptoms. Atrophy findings that are not bothersome --but have improved with Vagifem since2022;. normal bone density 2019 [facility]ck [facility] [id number] MD Donny Joy [employer] SERVICE AMBASSADOR [address] [facility] [place] [address] 11/24/2023 12:37:56 11/24/2023 13:16:31 Chronic interstitial cystitis 552841331 N30.10 DMSO completed today. Prior treatments have been at 4 to 6-week intervals: March 24, May 03, June 01 and June 19 and , and October 13, 2023. Continue on as needed basis. Also has Pyridium and lidocaine as needed but declining systemic therapy. Reinforced dietary guidelines . Continue urine culture surveillan ce as needed Epigastric pain 96914720 R10.13 Chronic symptoms that she had not brought up with me until today. Apparently forgot that she had workup with PCP and had seen Dr. Jackson for the same symptoms in January but I think it is a good idea to go back since her symptom was not active when she got the appointmen t. Will also add famotidine in the interim to see if this changes symptoms' ; [id number] MD Donny Joy [employer] SERVICE AMB[employer] [address] [place] [address] [place] [address] 01/05/2024 11:06:14 01/05/2024 12:05:12 Chronic interstitial cystitis 024877082 N30.10 DMSO completed today. Prior treatments have been at 4 to 6-week intervals: March 24, May 03, June 01 and June 19 and , and October 13, and 11-24-2023 . Continue on as needed basis. She desires to set next treatment interval at 8 weeks.. Also has Pyridium and lidocaine as needed but still declining systemic therapy. Reinforced dietary guidelines . Continue urine culture surveillan ce as needed [id number] Memo Dan MD [facility] [address] [place] [address] 02/13/2024 14:00:16 02/13/2024 15:35:15 Hypercholesterolemia 32617190 E78.00 Chronic, Stable at this time; no changes to current regimen. Follow up as below. Hypothyroidism 95056463 E03.9 Chronic, Stable at this time; no changes to current regimen. Follow up as below. Graves' disease 34496881 4 E05.00 Chronic, Stable at this time; no changes to current regimen. Follow up as below. Hyperlipidemia 69292323 E78.5 Chronic, Stable at this time; no changes to current regimen. Follow up as below. Obesity 848658826 E66.9 [id number] MD Donny Joy [employer] SERVICE AMB[employer] [address] [place] [address] [place] [address] 04/04/2024 11:04:07 04/04/2024 11:25:03 Dysuria 42576081 R30.0 Patient stated that she has been taking AZO. Per LLS spoke with patient and told her that LLS could do DMSO, if active infection it will increase her pain. Urine dipstick unable to be read due to AZO. Urine Culture sent. Patient would like to wait on urine culture results before doing DMSO. Per LLS patient can continue AZO for pain relief. Pt will call on Monday for Urine Culture results. If no infection will schedule for DMSO, If infection will treat with antibiotic per LLS [id number] Memo Dan MD [facility] [address] [place] [place] [address] 08/12/2024 14:57:39 08/12/2024 15:54:13 Pain of right knee joint 0951381435 26769 M25.561 Nausea 767936790 R11.0 [id number] Memo Dan MD [facility] [address] [place] [place] [address] [place] [address] 11/07/2024 13:46:09 11/07/2024 14:55:37 Adult health examination 639532883 Z00.00 Depression screening 171 316538 Z13.31 A depression screening was completed via a standardiz ed screening tool. 5 minutes were spent discussing depression screening results and risk factors. Examinatio n of blood pressure 782807691 Z01.30 Diet education 69960797 Z71.3 Counseling 649170640 Z71 .82 Exercise counseling . Patient encouraged to exercise 30 minutes 5 days a week. At [facility] ed risk for falls 941419270 Z91.81 STEADI FAST screening score of __6___. Advance care planning 71 5793362 Z71.89 Body mass index 30+ - obesity 872115927 Z68.31 Obesity 155256090 E66.9 [id number] MD Donny Joy [employer]OD SERVICE AMBASSADOR [address] [facility] [place] [address] 04/29/2025 10:38:36 04/29/2025 12:10:28 Gynecologic examination 57632463 Z01.419 .Pap test no longer indicated due to patient age, with history of adequate and normal previous screening, Depression screening 171 839462 Z13.31 Negative Hypertensi on screening 616203248 Z13.6 Patient currently iswithin goal of less than 140/90. Exercises education, guidance, and counseling 974905080 Z71.82 Advise 30 minutes 3 times a week at a minimum of purposeful exercise. Patient currently meeting this goal. Body mass index 30+ - obesity 346466426 Z68.31 Obesity 359142179 E66.9 Screening for osteoporosis 031550708 Z13.820 Z78.0 Screening for malignant neoplasm of breast 473446678 Z12.31 Patient is scheduled for next week, April 2025. Screening for malignant neoplasm of colon 211765859 Z12.11 Previous adenomatou s polyp. Due summer 2024 Vaginal dryness 45028008 N89.8 No current daily symptoms, not attempted intercours e but would encourage maintenanc e use given history of intermitte nt urinary symptoms. Previous use of Vagifem had been successful Bradycardia 09825807 R00 .1 Pulse in the low 40s, mild symptoms of lightheade dness. Consulted cardiology today, patient advised to take Metoprolol 25 mg 1/2 tablet ONCE daily, instead of TWICE daily., To maintain monitoring of this with home blood pressure cuff and follow-up sooner than currently advised May cardiology visit if baseline pulse not improving or any new symptoms History of supracervical hysterectomy 156398174 Z90.711 1993. Still has cervix. Has had adequate cervical screening up until age 67 and held currently History of adenomatous polyp of colon 179929996 Z86.0101 Chronic pr imary bladder pain syndrome 4291552407 7104 N30.10 Diagnosis here 2022. Being managed well with dietary changes and as needed Azo and/or topical lidocaine. Does not need refills. States has had urology visit at [facility] within the last 6 months with negative urine testing and cystoscopy and that provider will also be following for IC [id number] Memo Dan MD [facility] [address] [place] [place] [address] 02/04/2025 10:42:29 02/04/2025 11:54:06 Atrial fibrillation 63747221 I48.91 Pt responding very well to rate control, modest fatigue at this time [id number] Alli Jones APRN [facility] [address] [place] [place] [address] 03/24/2025 12:52:43 03/24/2025 13:40:15 Pain of knee region 0092515094 M25.561 M25.562 S89.90XA PE noted with bilateral [...] continued pain/weakn ess would consider ortho consult. [id number] Sekou Cortez MD [facility] [address] [place] [address] 04/24/2025 12:56:50 04/24/2025 13:32:29 Pruritic rash 89098577 L28.2 Essential hypertension 05160871 I10 [id number] Alli Jones APRN [facility] [address] [place] [address] 05/12/2025 08:29:31 05/12/2025 10:00:00 Adult health examination 518460830 Z00.00 PE unremarkab le. Depression screening 171 442509 Z13.31 A depression screening was completed via a standardiz ed screening tool. 5 minutes were spent discussing depression screening results and risk factors. Examinatio n of blood pressure 611260578 Z01.30 BP 138/80 Diet education 29295947 Z71.3 Advised on healthy diet and exercise. Recommende d limited processed foods, carbs, simple sugars and to focus on whole foods vegetables lean meats. Counseling 300276379 Z71 .82 Exercise counseling . Patient encouraged to exercise 30 minutes 5 days a week. At [facility] ed risk for falls 830035540 Z91.81 STEADI FAST screening score of _6____. Advance care planning 71 6730880 Z71.89 Discussed advance care planning and [place] MOST form as a reference and also to have filled out if she wishes but at the least to review with family so they are aware of her wishes if she is unable to make decisions. Essential hypertension 55459235 I10 BP stable 138/80 stable, continue current medication regimen. Hyperlipidemia 32807250 E78.5 Hypothyroidism 91255924 E03.9 Endocrine/ metabolic screening 386546899 Z13.228 Health Concerns Section Related Observation LastModified by Organization Detai ls LastModified Time None Recorded Concern Status LastModified by Organization Details LastModified Time None Recorded Advance Directives Directive Y: Payers Insurance Date Sequence Insurance Name Policy Number Policy Ortiz Covered Member ID Ortiz Member ID Guarantor Name 05/19/2025 1 [place]MED[place]ACEMENT HMO[place] [id number] Preet [place] [id number] Preet Bella 04/24/2025 3 [place] [id number] Preet Bella 04/24/2025 1 [place] [id number] Preet Bella [id number] Preet Bella Notes Date Note Type Note Provider Name and Address Organization Details Recorded Time 02/04/2025 text/html Pt presents for hospitalization f/u for acute onset AFib. Pt with HTN/CAD but no other prior cardiac events. AFib with RVR on admit, HR 134. Pt responded well to labetalol and antihypertensives. Cath showed no areas of significant stenosis. Amlodipine d/c'd with metoprolol and carvedilol added. Pt states slow but steady recovery in the interval. Next f/u with Cards in 2 weeks. Memo Dan MD [facility] [address] [place], [address], [place] [facility] 02/04/2025 17:50:31 03/24/2025 text/html 69 yo presents f or bilateral knee pain for last 3-4 weeks. She reports that she had a fall while on trip in [place]. She reports that she fell directly down on both knees. She states she is having pain around center of knee cap of left knee and then right knee more to lateral side is still causing pain. She rates pain 4-5/10 now. She states that left knee only hurts with pressure/ambulation. She reports that right knee is having [...] denies any other concerns today. Alli Jones, YOLANDA [address], [place], [address], [place] [facility] 03/24/2025 13:39:13 04/24/2025 text/html rash facialleft eye painpatient verbalizes she has been doing yard work and is allergic to poison elmer Cortez MD [address], [place], [address], [place] - [facility] 04/24/2025 16:29:22 04/29/2025 text/html Patient is a 69 year old who presents today as an established patient for an annual exam. Her previous annual exam was 10/31/23 with myself. She is surgically menopausal. She has had Subtotal abd. hysterectomywith BSO in 02/22/1994 for abnormal bleedingin [place]. 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 :No, advised to pursue with PCPPrevmargaux 13: Current?:Other indicated: :Curr ent?:Covid yes SCREENING [...] if symptoms get bad she will use [id number] Azo and a small amount of the [...] She has seen Dr. Escobedo urology at [facility] within the last 6 months and had cystoscopy and urine culture and was told everything was okay but will plan to maintain follow-up with her regarding the IC diagnosis as well. In addition since last here she has been noted to have diagnosis of atrial fibrillation and is being treated through [facility] cardiology. She had a 4-day hospital [...] history. Milind Bhagat MD [address], [place], [address], [place] - [facility] 04/29/2025 15:25:18 05/12/2025 text/html Medicare Annual Wellness VisitReported bypatient.Diet and Nutrition:healthy diet; discussed portion control; discussed maintaining calcium balance; discussed diet improvement Fracture Risk:no history of fractures; no recent explained fracture; no sudden unexplained fractures; no previous musculoskeletal injuries Physical Activity:recent increase in physical activity; good physical condition;does not exercise on a regular basis; discussed weightbearing activities Depression Risk:no loss of interest in activities; no significant changes in weight; no sleep disturbances or insomnia; no agitation; no loss of energy; no feelings of worthlessness or guilt; no thoughts of suicide;feels sad, empty, or tearful(reports some depressive symptoms since having heart problems this year, states ongoing pain in right wrist since procedure) Orientation:no disorientation to time; no disorientation to date; no disorientation to place Concentration and Memory:no decreased concentrating ability; no memory lapses or loss; does not forget words Speech/Motor difficulties:no speech difficulties; no difficulty expressing formulated concepts; no difficulty with fine manipulative tasks; no difficulty writing/copying; no slowed reaction time; does not knock things over when trying to pick them up 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 Vision:no vision problems (cataracts both eyes but states does not have to have sx at this time) Activities of Daily Living:able to bathe with limited or no assistance; able to contol urination and bowels; able to dress with limited or no assistance; able to feed self with limited or no assistance; able to get out of chair or bed with limited or no assistance; able to groom with limited or no assistance; able to toilet with limited or no assistance Instrumental Activities of Daily Living:able to do house work with limited or no assistance; able to grocery shop with limited or no assistance; able to manage medications with limited or no assistance; able to manage money with limited or no assistance; able to prepare meals with limited or no assistance; able to use the phone with limited or no assistance Falls Risk Assessment:no frequent falls while walking; no fall since last visit; no dizziness/vertigo; fall(s) in the past year 2 (last fall occurred February while at daughters home she was visiting, states she tripped) Home Safety:reviewed sun protection; no unsafe joslyn hazzards; no unsafe stairs; no unsafe gas appliances; working smoke/CO detectors; wears protective head gear for biking/high velocity; use of seatbelts; no fire arms; good lighting in the home;vision or hearing loss while driving;does not have hand bars in the bathroom/shower Current level of painPain Present; rates pain at 4/10 achy sensation in right wrist 69 yo present for MAWE. She reports she has had an ongoing pain in right wrist that had started occurring since January 2025 after heart cath completed on that side. She reports she had went into afib. She states that she did not require stents thst she had collateral circulation despite blockage. She follows with cardiology, Dr. Downs office. She reports that discomfort is worse with activities and hurts all the time. She reports that she has mild swelling in right wrist where cath was inserted. She reports discussing with cardiology and that they reported this could be from nerve damage from procedure. She reports that the discomfort has gotten worse and hasn't improved. Describes as achy in nature with occasional sharp pains. She denies any weakness, paresthesia in hands fingers. She reports she has had some recent nosebleeds and is on multiple blood thinners currently and were managed at home. She also reports having clear nasal drainage with post nasal drainage intermittently. She also reports some depression associated with family stress, recent afib and heart cath, and wrist pain. Denies any thoughts of harming self or others. No other concerns reported. Alli Jones, AIR TRAFFIC CONTROL SUPERVISOR [address], [place], [address], [facility] - [facility] 05/12/2025 10:36:49 OBGyn Episode No OBEpisode recorded.
--- OUTSIDE RECORDS SUMMARY | 2025-05-19 22:18 | XMS_ITS | Continuity of Care Document ---
Author Organization SHAQUILLE Van Amaro trent [facility] Address [address] [place] [address] Assessment Encounter Date Assessment Date Assessment LastModified by Organization Details LastModified Time 05/12/2025 05/12/2025 Patient presente d to office [...] Check List reviewed and printed for patient. [email or web address] Not available 04/28/2025 07:38:07 Plan of Treatment Reminders Order Date Submit Date Provider Last Modified By Organization Details Last Modified Time Details Appointments None recorded . Lab lipid panel, serum 025 05/12/20 PAN [facility], [address], [place] [address], [place], [address], 5 14:37:19 HbA1c (hemoglo bin A1c), blood 025 05/12/20 25 PAN [facility], [address], [place] [address], [place], [address], 5 14:37:21 CMP, serum or plasma 025 05/12/20 25 PAN [facility], [address], [place] [address], [place], [address], 5 14:37:18 CBC w/ auto diff 025 05/12/20 25 PAN [facility], [address], [place] [address], [place], [address], 5 14:37:17 microalb umin/cre atinine, mass ratio, urine 025 05/12/20 25 PAN [facility], [address], [place] [address], [place], [address], 5 14:37:20 TSH + free T4, serum 025 05/12/20 25 PAN [facility], [address], [place] [address], [place], [address], 5 14:37:16 Referral None recorded . Procedures None recorded . Surgeries None recorded . Imaging None recorded . Medication Orders None recorded . Patient TargetsNo targets recorded. Patient Instructions Encounter Date Encounter Id Patient Instructions Last Modified By Organization Details Last Modified Time 05/12/2025 [id number] advance directiv es: care instructions [email or web address] Not available 05/12/2025 09:34:43 learning about depression [email or web address] Not available 05/12/2025 09:34:44 preventing falls : care instructions [email or web address] Not available 05/12/2025 09:34:43 medicare prevent leander services guide [email or web address] Not available 05/12/2025 09:34:44 Patient presente d [...] Patient advised to follow up with his psychiatric therapist and dentist regularly for preventative exams. [email or web address] Not available 05/12/2025 10:18:03 Discussed with patient [...] to purchase otc wrist brace call sooner. [email or web address] Not available 05/12/2025 10:19:58 Reason for Referral None Reported. Results Created Date Observation Date Name Description Value Unit Range Abnormal Flag Note LastModifiedBy Organization Detail LastModifiedTime 05/09/2005/09/2025 - scn dig breas t tomos yn carmen [facility] Name: PREET OTOOLE formerly [facility] Medica l Expandly Phys: MD Milind Bhagat [facility] [place] [address] : 1954 Age: 69 Sex: F Acct: [id number] Loc: G.MAMM PHONE #: [phone] Exam Date: 2024 Status : REG CLI FAX #: [phone] Rad# [id number] Unit# [id number] Admit Date: 2024 EXAMS: CPT CODE: [id number] 805 SCN DIG BREAST TOMOSY N CARMEN [id number] EXAM DESCRI PTION: SCN DIG BREAST TOMOSY [...] PM EDT RP Workst ation: SEALWR [id number] [facility] BIRADS [facility] FOLLOW -UP CODE Electr onical ly Signed by MARIPOSA Willson on 2024 at 1836 Report ed and signed by: HARINDER HUANG PAGE 1 Signed Report (PHILL NUED) [facility] Medica [facility] Ce Name: PREET OTOOLE Plisten Phys: [place] [address] : 1954 Age: 69 Sex: F Acct: [id number] Loc: G.MAMM PHONE #: Exam Date: 2024 Status : REG CLI FAX #: Rad# [id number] Unit# [id number] Admit Date: 2024 EXAMS: CPT CODE: [id number] 805 SCN DIG BREAST TOMOSY N CARMEN [id number] CC: ALIN DAN MD; Milind Bhagat Dictat ed Date/T edgardo: 2024 (1835) Techno logist : IRENA Willson Transc ribed Date/T edgardo: 2024 (1835) Transc riptio nist: DR.THA MELÉNDEZ Electr onic Signat ure Date/T edgardo: 2024 (1835) Printe d Date/T edgardo: 2024 (184) BATCH NO: N/A PAGE 2 Signed Report CC'ed Logic: Orderi ng Provid er: SHOWER MILIND Attend ing Provid er: SHOWER MILIND Referr ing Provid er: SHOWER MILIND Consul ting Provid er: SY OGDEN [address] [place], [address], 05/13/2025 10:45:44 05/13/20 25 05/12/2025 DEXA, verte bral fract ure asses sment [facility] Name: PREET OTOOLE Medica l Expandly Phys: [place] [address] : 1954 Age: 69 Sex: F Acct: [id number] Loc: G.MAMM PHONE #: [phone] Exam Date: 2024 Status : DEP CLI FAX #: [phone] Rad# [id number] Unit# [id number] Admit Date: 2024 EXAMS: CPT CODE: [id number] 806 DEXA BONE DENSIT Y WITH VFA 20796 EXAMIN ATION: DUAL X-RAY ABSORP TIOMET RY (DXA) FOR BONE MINERA L DENSIT Y. CLINIC AL INDICA TION: 69 years old, Female . Postme nopaus al. Osteop orosis screen ing. TECHNI QUE: An axial (e.g., hips, spine) and/or append icular (e.g., radius ) exam was perfor med, as approp riate, using Dizzionar Prodig y densit ometer . Images are [...] re risk is perfor med using the Belener sitjacinta of Parveen hernandes FRAX calcul ator based on patien t-repo rted risk factor s. Major osteop orotic fractu re: 8.6%. Hip fractu re: 0.8%. VERTEB RAL FRACTU RE ASSESS MENT: Verteb ral fractu re assess ment from T4-L4 is perfor med using Genant visual semi-q uantit ative method . PAGE 1 Signed Report (PHILL NUED) [facility] Name: PREET OTOOLE Ezuzaa ScanDigital Phys: MD Milind Bhagat [facility] [place] [address] : 1954 Age: 69 Sex: F Acct: [id number] Loc: G.MAMM PHONE #: Exam Date: 2024 Status : DEP CLI FAX #: Rad# [id number] Unit# [id number] Admit Date: 2024 EXAMS: CPT CODE: [id number] 806 DEXA BONE DENSIT Y WITH VFA 25782 No fractu re is identi fied. IMPRES [...] treatm ent can be found at the [facility] al Osteop orosis Founda tion's websit [...] 2HQ9 PAGE 2 Signed Report (PHILL NUED) [facility] Name: PREET OTOOLE [facility] Expandly Phys: [place] [address] : 1954 Age: 69 Sex: F Acct: [id number] Loc: G.MAMM PHONE #: Exam Date: 2024 Status : DEP CLI FAX #: [phone] Rad# [id number] Unit# [id number] Admit Date: 2024 EXAMS: CPT CODE: [id number] 806 DEXA BONE DENSIT Y WITH VFA 81306 Electr onical ly Signed by DENIS CLAROS on 2024 at 1534 Report ed and signed by: Nico CLAROS CC: ALIN DAN MD; Milind Showcirilo Dictat ed Date/T edgardo: 2024 (1534) Techno [...] SHOWER MILIND Consul ting Provid er: SY GODEN [address] [place], [address], 05/15/2025 15:51:16 Result Notes None recorded. 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 Active 2018 Denis bhakta [place] - [facility] 9 11:39:14 Osteopor osis 27190058 Completed 201810/30/2023 Emma bhakta [place] - [facility] 3 12:19:39 History of hysterec navya 962415119 Completed 201808/11/2020 Emma bhakta [place] - [facility] 0 13:47:14 Hyperlip idemia 10248436 Active 2018 Milind Bhagat MD [address], [place], [address], [place] - [facility] 9 13:44:52 Body mass index 30+ - obesity 755977045 Completed 201808/11/2020 Milind Bhagat MD [address], [place], [address], [place] [facility] 0 23:32:12 Vulvodyn ia 489017600 Active 2018 Milind Bhagat MD [address], [place], [address], [place] [facility] 9 13:47:53 Body mass index 30+ - obesity 842876743 Active 2019 Milind Bhagat MD [address], [place], [address], [place] [facility] 0 23:32:12 Urinary tract infectio us disease 47324615 Completed 202010/30/2023 Emma Pitts null, [place] - [facility] 3 12:19:44 Menopaus e Active 2021 Milind Bhagat MD [address], [place], [address], [place] [facility] 2 20:09:13 Interpha langeal joint of toe stiff 144580840 Active 2021 Cydney Cole null, [place] - [facility] 2 17:13:20 Steatoti c liver disease 847178330 Active 2022 Emma Hong null, [place] - [facility] 3 10:06:44 Chronic intersti tial cystitis 425257621 Active 2022 Milind Bhagat MD [address], [place], [address], [place] [facility] 3 22:19:35 Trigger finger of right hand 0700086888 8849490 Active 2022 Cydney Cole null[place] - [facility] 3 10:01:52 Bone spur of vertebra 6115114012 95193 Active 2022 Cydney bhakta, [place] - [facility] 3 10:03:16 History of adenomat ous polyp of colon 901445081 Active 2022 Milind Bhagat MD [address], [place], [address], [place] - [facility] 5 15:18:52 Situatio nal panic attack 419663464 Active 2024 Miri Fong, SILVICULTURE TEACHER [address], [place], [address], [place] - [facility] 5 09:52:13 Pain of knee region 0627818075 Active 2024 Alli Jones, SILVICULTURE TEACHER [address], [place], [address], [place] [facility] 5 13:24:45 Allergic contact dermatit is caused by plant material 2336393385 2301767 Active 2024 Sekou Cortez MD [address], [place], [address], [place] - [facility] 5 16:26:41 Atrial fibrilla tion 38868410 Active 2024 Diagnosi s spring 2024. Was successf ully cardiove rted and being maintain ed on metoprol ol Eliquis and Plavix. Followed by [facility] cardiolo gy Milind Bhagat MD [address], [place], [address], [place] - [facility] 5 15:22:35 Endocrin e/metabo lic screenin g Active 2024 Alli Jones, YOLANDA [address], [place], [address], [place] - [facility] 5 08:19:30 Pain of right wrist 2258965077 95249 Active 2024 Alli Jones APRN [address], [place], [address], [place] [facility] 5 09:20:56 Posterio r rhinorrh ea 94311097 Active 2024 Alli Jones APRN [address], [place], [address], [facility] - [facility] 5 09:28:39 Serum creatini ne above referenc e range 804396073 Active 2024 Alli Jones, SILVICULTURE TEACHER [address], [place], [address] [place] [address], [facility] - [facility] 5 14:57:57 Alkaline phosphat ase above referenc e range 009974306 Active 2024 Alli Jones, SILVICULTURE TEACHER [address], [place], [address] [place] [address], [facility] - [facility] 5 14:58:08 History of supracer vical hysterec navya 767345241 Active Jaime Epps RN [address], [place], [address] [place] [address], [facility] 7 08:48:21 Hypercho lesterol emia 62459009 Active statin rx's document ed 2011, 11/2015 and 04/2016- all listed as DC'd Milind Bhagat MD [address], [place], [address] [place] [address], [facility] 7 22:30:56 Essentia l hyperten scarlet 46883416 Active Jaime Epps RN [address], [place], [address] [place] [address], [facility] 7 08:49:54 Graves' disease 168145324 Active Jaime Epps RN [address], [place], [address] [place] [address], [facility] 7 08:50:05 Panic attack 119520211 Completed 08/14/2017 Linda Menon [facility] 7 14:17:28 Degenera tion of interver tebral disc 15465246 Active Jaime Epps RN [address], [place], [address] [place] [address], [facility] 7 08:50:49 Hypothyr oidism 96496432 Active Jaime Epps RN [address], [place], [address] [place] [address], [facility] 7 08:51:06 Problem Notes None recorded. Procedures Surgical History Date Name Laterality Status Provider Name and Address Organization Details Recorded Time 025 Advance Care Planning completed Kelly Gonzalez [place] - [facility] 04/28/2025 07:38:08 025 Functional Status Assessed completed Kelly Gonzalez [place] - [facility] 04/28/2025 07:38:08 025 Date of Last Mammogram completed Cary Pond [place] - [facility] 05/13/2025 10:45:57 025 Most Recent Bone Density completed Milind Bhagat MD [address], [place], [address], [place] - [facility] 05/13/2025 21:32:08 025 Medication Reconcilliation completed Daina Forrest [place] - [facility] 02/04/2025 10:56:09 024 Advance Care Planning completed Vaughn Davis [place] - [facility] 10/08/2024 14:03:25 024 Functional Status Assessed completed Vaughn Davis [place] - [facility] 10/08/2024 14:03:26 024 Dimethyl Sulfoxide (DMSO) completed Emma Pitts [place] - [facility] 01/05/2024 11:36:06 023 Dimethyl Sulfoxide (DMSO) completed Emma Hong [place] - [facility] 11/24/2023 13:13:08 023 Dimethyl Sulfoxide (DMSO) completed Milind Bhagat MD [address], [place], [address], [place] [facility] 10/13/2023 22:18:08 023 Dimethyl Sulfoxide (DMSO) completed Milind Bhagat MD [address], [place], [address], [place] [facility] 08/30/2023 16:11:56 023 Dimethyl Sulfoxide (DMSO) completed Milind Bhagat MD [address], [place], [address], [place] [facility] 06/22/2023 16:34:48 023 Dimethyl Sulfoxide (DMSO) completed Emma Hong [place] - [facility] 06/01/2023 14:38:03 023 Dimethyl Sulfoxide (DMSO) completed Milind Bhagat MD [address], [place], [address], [place] [facility] 05/06/2023 15:36:06 023 Advance Care Planning completed March [place] - [facility] 03/30/2023 08:03:14 023 Functional Status Assessed completed March [place] - [facility] 03/30/2023 08:03:14 023 Dimethyl Sulfoxide (DMSO) completed Milind Bhagat MD [address], [place], [address], [place] [facility] 03/25/2023 11:12:47 023 potassium sensitivity test- MOB completed Emma Pitts [place] - [facility] 01/25/2023 15:36:37 023 In and Out Catheterization completed Milind Bhagat MD [address], [place], [address], [place] [facility] 01/03/2023 22:18:15 022 Date of Last Pap Smear completed Emma Pitts [place] - [facility] 10/10/2022 13:55:57 020 Date of Last Colonoscopy completed Milind Bhagat MD [address], [place], [address], [place] [facility] 08/12/2020 16:00:24 020 Medication Reconcilliation completed Krissy Radha [place] - [facility] 05/25/2020 13:35:17 019 Systolic B/P less than 130 mm Hg completed Kellykatey Akerss [place] - [facility] 01/01/2019 11:10:38 019 Diastolic B/P 80-89 mm Hg completed [facility] [place] [facility] 01/01/2019 11:10:40 015 Vulvar Biopsy completed Emma Ptits [place] - [facility] 01/03/2023 10:03:20 994 Hysterectomy completed Milind Bhagat MD [address], [place], [address], [facility] - [facility] 07/20/2017 20:58:31 cardiac catheterization completed Milind Bhagat MD [address], [place], [address], [facility] 04/29/2025 15:23:09 Carpal tunnel surgery completed Asuncion Nichols [facility] 01/24/2017 13:00:12 Cholecystectomy, laparoscopic completed Asuncion Nichols [facility] 01/24/2017 13:00:19 Imaging Results None recorded. Procedure Notes None recorded. Medical Equipment None Reported. Allergies Allergen ID Allergen Name Allergen Category Reaction Reaction Severity Criticality Documentation Date Start Date Code Code System Note Provider Name and Address Organization Details Recorded Time 330336 Macrobid medicatio n diarrhea severe Not available 07/02/2019 94831 1 RxNorm DID use 11/17 and 12/19 witou t SE DOUBT true aller gy/ll s Milind Bhagat MD [address], [place], [address], [facility] 3 10:21:59 72153 codeine sulfate medicatio n Not available Not available Not available 09/02/20162011 24273 RxNorm Not Available [facility] 6 08:53:10 59396 Lipitor medicatio n nausea Not available Not available 09/02/20162015 23598 5 RxNorm React ion: nause a; Not Available [facility] 6 08:53:10 26500 Cipro medicatio n Not available Not available Not available 09/02/20162012 53020 3 RxNorm hurts stoma ch, no hives Milind Bhagat MD [address], [place], [address], [facility] 3 10:24:03 41677 cortisone acetate medicatio n Not available Not available Not available 09/02/20162011 73041 RxNorm Not Available [facility] 6 08:53:10 48416 cholecalc iferol medicatio n Not available Not available Not available 09/02/20162011 2418 RxNorm React ion: Sever e GI upset ; Comme nt: Drisd ol and OTC form; OnSet Date: 2011; Not Available [facility] 6 09:23:37 Medications Name Sig [...] ser: karina; Est. Completi on: 01/11/20 15;Pharm acyVwarrenf ied: 01/06/20 15 10:07AM Not Available Not [...] ser: monica; Est. Completi on: 06/06/20 13;Pharm acyVerif ied: 05/09/20 13 [...] 03/08/20 16;Indic ation: Allergic Conjunct ivitis - (.3722 40);Phar macyVeri fied: 03/01/20 16 1:42PM Not [...] angela; Est. Completi on: 04/29/20 12;Indic ation: Deboraia sis, Vulvovag inal - (616.10) ;Printed : [...] TOPICALL Y TO AFFECTED AREA. 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 Completi on: 04/05/20 13;Print ed: 03/26/20 13 [...] nued on: 03/01/20 16 1:12PM;U ser: grayn;Es t. Completi on: 01/28/20 16;Pharm acyVerif ied: 12/29/19 16 [...] nued on: 05/31/20 12 10:51AM; User: nelli;Mattie demetrisMakenzie Austini on: 06/06/20 12 Not Available Not Available [...] Disconti nued on: 03/06/20 12 11:35AM; User: mauriAlexiMattie Kramer on: 06/04/20 12;Indic ation: Vitamin D Deficien cy - (2788 00);Prin quan: 03/06/20 12 Not Available Not [...] Disconti nued on: 12/03/19 16 11:59AM; User: Maverick Kramer on: 04/03/20 16;Indic ation: Hypercho lesterol emia - (8673 00);Phar macyVeri fied: 10/06/20 15 10:28AM Not Available Not Available Not Available fluticaso ne propionat e 50 mcg/actua tion nasal spray,vanessa pension [place] 1 spray every day by intranas al [...] Disconti nued on: 04/20/20 16 1:06PM;U ser: chaunceymaxineMattie roberto Kramer on: 03/11/20 16;Pharm acyVerif ied: 03/01/20 [...] 16 1:06PM;U ser: chaim;Es t. Completi on: 03/15/20 16;Pharm acyVerif ied: [...] nued on: 05/31/20 12 10:51AM; User: Brock mejia Completi on: 06/06/20 12 Not Available Not [...] Not Available Not Available Not Available Tucks (camilo sánchez) 50 % topical pads Apply [...] Updated DateTime 5 170.18 cm 31.3 kg/m2 73309.1 7 g 97 % 97 % 18 /min 50 /min 97.6 [degF] 138 mm[Hg] 80 mm[Hg] Daina Sarmiento [place] - [facility] 5 08:44:20 Social History Question Answer Notes LastModified by Organizat ion Details LastModified Time Tobacco Smoking Status Never Smoker Not Available [facility] 09/11/2020 03:13:29 Do You Have An Advance Directive? Yes [id number] Information not available 09/11/2020 Are You Blind Or Do You Have Difficulty Seeing? No [id number] Information not available 09/11/2020 Is Blood Transfusion Acceptable In An Emergency? Yes [id number] Information not available 09/11/2020 What Is Your Level Of Caffeine Consumption? Heavy [id number] Information not available 09/11/2020 How Much Tobacco Do You Chew? None [id number] Information not available 09/11/2020 Are You Deaf Or Do You Have Serious Difficulty Hearing? No [id number] Information not available 09/11/2020 What Type Of Diet Are You Following? REGULAR [id number] Information not available 09/11/2020 Which Illicit Or Recreational Drugs Have You Used? None [id number] Information not available 09/11/2020 What Is The Highest Grade Or Level Of School You Have Completed Or The Highest Degree You Have Received? QG10479-2 [id number] Information not available 09/11/2020 How Many Days Of Moderate To Strenuous Exercise, Like A Brisk Walk, Did You Do In The Last 7 Days? 1 [id number] Information not available 09/11/2020 On Those Days That You Engage In Moderate To Strenuous Exercise, How Many Minutes, On Average, Do You Exercise? 1 [id number] Information not available 09/11/2020 Have There Been Any Changes To Your Family Or Social Situation? No Information no t available 01/06/2025 How Hard Is It For You To Pay For The Very Basics Like Food, Housing, Medical Care, And Heating? [id number] [email or web address] Information not available 12/20/2019 Live Alone Or With Others? With Others Information not available 01/24/2017 What Was The Date Of Your Most Recent Tobacco Screening? 04/29/2025 [email or web address] Information not available 04/29/2025 How Many Children Do You Have? 3 [id number] Information not available 09/11/2020 Performs Monthly Self-breast Exam? Yes Information no t available 01/24/2017 What Is Your Relationship Status? [id number] Information not available 09/11/2020 Seat Belts Used Routinely Yes Information not available 01/24/2017 Are You Sexually Active? No [id number] Information not available 09/11/2020 Do You Have Smoke And Carbon Monoxide Detectors In Your Home? Yes Information not available 01/06/2025 Are You Passively Exposed To Smoke? No Information no t available 01/06/2025 How Much Tobacco Do You Smoke? No [id number] Information not available 09/11/2020 General Stress Level Medium Information not available 01/24/2017 Do You Use Sunscreen Routinely? Yes [id number] Information not available 09/11/2020 Has Tobacco Cessation Counseling Been Provided? No Information not available 02/13/2024 How Many Years Have You Smoked Tobacco? 0 [id number] Information not available 09/11/2020 Do You Have Difficulty Walking Or Climbing Stairs? No [id number] Information not available 09/11/2020 Sex: Female Functional Status Question Answer Note LastModified by Organizat ion Details LastModified Time Do you or have you ever used smokeless tobacco? Never used smokeless tobacco [id number] Information not available 09/11/2020 Are you currently employed? No [id number] Information not available 09/11/2020 Do you have transportation difficulties? No Information not available 02/13/2024 Urinary incontinence assessment performed? Yes [email or web address] Information not available 07/20/2017 Are you able to care for yourself? Yes Information n ot available 02/13/2024 Do you have difficulty dressing or bathing? No [id number] Information not available 09/11/2020 Do you or have you ever used e-cigarettes or vape? Never used electronic cigarettes [id number] Information not available 09/11/2020 What is your exercise level? Moderate [id number] Information not available 09/11/2020 Do you use any illicit or recreational drugs? No Information not available 02/13/2024 Do you or have you ever used any other forms of tobacco or nicotine? No Information not available 02/13/2024 What is your level of alcohol consumption? None [id number] Information not available 09/11/2020 Are you able to walk? YESWOREST [id number] Information not available 09/11/2020 Do you have difficulty doing errands alone? No [id number] Information not available 09/11/2020 Mental Status Question Answer Note LastModified by Organizat ion Details LastModified Time Do you feel stressed (tense, restless, nervous, or anxious, or unable to sleep at night)? [id number] Information not available 09/11/2020 Do you have difficulty concentrating, remembering or making decisions? No [id number] Information no t available 09/11/2020 Family History [...] colitis N Cerebrovascular Disease N Depression N Guillain-Seward N Sleep Apnea N Aneurysm N Bronchitis [...] objection Milind Bhagat MD [address], [place], [address], [place] [facility] 10/04/2022 20:13:27 pneumococcal polysaccharide PPV23 022 cancelled patient objection Cydney Anmoore null, [place] - [facility] 10/19/2022 17:17:13 pneumococcal polysaccharide PPV23 023 cancelled patient objection Cydney Anmoore [place] - [facility] 03/30/2023 10:09:06 Td (adult) 015 completed Not Available [facility] 01/05/2024 11:07:25 COVID-19, mRNA, LNP-S, PF, 30 mcg/0.3 mL dose completed Crystal May null, [facility] 10/19/2022 14:02:04 COVID-19, mRNA, LNP-S, PF, 30 mcg/0.3 mL dose, alexsander-sucrose 022 completed Crystal May null, [facility] 10/19/2022 14:02:04 COVID-19, mRNA, LNP-S, PF, 30 mcg/0.3 mL dose 021 completed Crystal May null, [place] - [facility] 10/19/2022 14:02:04 COVID-19, mRNA, LNP-S, PF, 30 mcg/0.3 mL dose 021 completed Crystal May null, [facility] 10/19/2022 14:02:04 zoster recombinant 019 completed Miri Zornes null, [facility] 12/02/2022 13:10:07 COVID-19, mRNA, LNP-S, bivalent, PF, 30 mcg/0.3 mL dose 022 completed Miri Zornes null, [place] - [facility] 12/02/2022 13:10:07 zoster recombinant 019 completed Miri Zornes [place] - [facility] 12/02/2022 13:10:08 Past Encounters Encounter ID Performer Location Encounter Start Date Encounter Closed Date Diagnosis/Indication Diagnosis SNOMED-CT Code Diagnosis ICD10 Code Diagnosis Note [id number] MD Donny Joy [employer] [address] [facility] [place] [address] 04/29/2025 10:38:36 04/29/2025 12:10:28 Gynecologic examination 95687670 Z01.419 .Pap test no longer indicated due to patient age, with history of adequate and normal previous screening, Depression screening 171 036005 Z13.31 Negative Hypertensi on screening 300632381 Z13.6 Patient currently iswithin goal of less than 140/90. Exercises education, guidance, and counseling 516008368 Z71.82 Advise 30 minutes 3 times a week at a minimum of purposeful exercise. Patient currently meeting this goal. Body mass index 30+ - obesity 369817874 Z68.31 Obesity 681835490 E66.9 Screening for osteoporosis 184481476 Z13.820 Z78.0 Screening for malignant neoplasm of breast 219579398 Z12.31 Patient is scheduled for next week, April 2025. Screening for malignant neoplasm of colon 710191550 Z12.11 Previous adenomatou s polyp. Due summer 2024 Vaginal dryness 97867605 N89.8 No current daily symptoms, not attempted intercours e but would encourage maintenanc e use given history of intermitte nt urinary symptoms. Previous use of Vagifem had been successful Bradycardia 05714268 R00 .1 Pulse in the low 40s, mild symptoms of lightheade dness. Consulted cardiology today, patient advised to take Metoprolol 25 mg 1/2 tablet ONCE daily, instead of TWICE daily., To maintain monitoring of this with home blood pressure cuff and follow-up sooner than currently advised May cardiology visit if baseline pulse not improving or any new symptoms History of supracervical hysterectomy 208383779 Z90.711 1993. Still has cervix. Has had adequate cervical screening up until age 67 and held currently History of adenomatous polyp of colon 077798301 Z86.0101 Chronic pr imary bladder pain syndrome 5427280955 7104 N30.10 Diagnosis here 2022. Being managed well with dietary changes and as needed Azo and/or topical lidocaine. Does not need refills. States has had urology visit at [place] within the last 6 months with negative urine testing and cystoscopy and that provider will also be following for IC [id number] Sekou Cortez MD [facility] [address] [place] [address] 04/24/2025 12:56:50 04/24/2025 13:32:29 Pruritic rash 47822825 L28.2 Essential hypertension 71153049 I10 [id number] Alli Jones APRN [facility] [address] [place] [address] 05/12/2025 08:29:31 05/12/2025 10:00:00 Adult health examination 447549124 Z00.00 PE unremarkab le. Depression screening 171 831745 Z13.31 A depression screening was completed via a standardiz ed screening tool. 5 minutes were spent discussing depression screening results and risk factors. Examinatio n of blood pressure 440622453 Z01.30 BP 138/80 Diet education 67930203 Z71.3 Advised on healthy diet and exercise. Recommende d limited processed foods, carbs, simple sugars and to focus on whole foods vegetables lean meats. Counseling 131615856 Z71 .82 Exercise counseling . Patient encouraged to exercise 30 minutes 5 days a week. At [facility] ed risk for falls 554276462 Z91.81 STEADI FAST screening score of _6____. Advance care planning 71 7860290 Z71.89 Discussed advance care planning and [place] MOST form as a reference and also to have filled out if she wishes but at the least to review with family so they are aware of her wishes if she is unable to make decisions. Essential hypertension 07564302 I10 BP stable 138/80 stable, continue current medication regimen. Hyperlipidemia 34134421 E78.5 Hypothyroidism 34953870 E03.9 Endocrine/ metabolic screening 609048332 Z13.228 Health Concerns Section Related Observation LastModified by Organization Detai ls LastModified Time None Recorded Concern Status LastModified by Organization Details LastModified Time None Recorded Payers Encounter Date Sequence Insurance Name Policy Number Policy Ortiz Covered Member ID Ortiz Member ID Guarantor Name 05/12/2025 1 [employer]: [employer] [place] - [employer] (MEDICARE REPLACEMENT HMO) [id number] Preet Otoole [id number] Preet Otoole Notes Date Note Type Note Provider Name and Address Organization Details Recorded Time 05/12/2025 text/html Medicare Annual Wellness VisitReported bypatient.Diet [...] others. No other concerns reported. Alli Jones, [employer] [address], [place], [address], [place] - [facility] 05/12/2025 10:36:49 OBGyn Episode No OBEpisode recorded.
--- OUTSIDE RECORDS SUMMARY | 2025-05-19 22:18 | XMS_ITS | Clinical Summary ---
Author Organization [facility] Address [facility] [place] [address] Care Team Providers Care Oral Hygienist Name Role Phone Cydney Cole [facility] Primary Care Provider + [phone] Source Comments This information has been disclosed to you from confidential records protectedfrom disclosure by state law. You shall make no further disclosure of thisinformation without the specific, written, and informed release of theindividual to whom it pertains, or as otherwise permitted by law. A generalauthorization for the release of medical or other information is not sufficientfor the purposes of therelease of HIV test results or diagnoses. [id number] [facility] Allergies Active Allergy Reactions Criticality Noted Date Comments Codeine 04/26/2017 rash Cortisone 04/26/2017 rash Lidocaine 04/26/2017 headache Medications tacrolimus (PROTOPIC) 0.1 % ointment Apply daily to affected area, safe for lobsterman use 30 g 5 2 Active amLODIPine (NORVASC) 5 MG tablet amlodipine 5 mg tablet Active lisinopriL (PRINIVIL) 10 MG tablet lisinopril 10 mg tablet Active levothyroxine (SYNTHROID) 75 MCG tablet Euthyrox 75 mcg tablet TAKE 1 TABLET BY MOUTH ONCE DAILY FOR 90 DAYS Active icosapent ethyL (VASCEPA) 1 gram Cap icosapent ethyl 1 gram capsule Take 2 capsules twice a day by oral route for 30 days. Active clobetasoL (TEMOVATE) 0.05 % Gel Apply once daily to affected area for up to a month at a time 60 g 5 3 Active pimecrolimus (ELIDEL) 1 % creamIndication s:Intrinsic atopic dermatitis Apply once daily to dermatitis of the face and other sensitive skin areas, safe for long-term use 60 g 3 4 Active desonide (DESOWEN) 0.05 % ointment Apply once daily to affected area for up to a month at a time 15 g 3 4 Active fluocinolone (SYNALAR) 0.01 % external solution Apply once daily to affected area for up to a month at a time 60 mL 3 4 Active Social History Tobacco Use Types Packs/Day Years Used Date Smoking Tobacco: Never Smokeless Tobacco: Never Alcohol Use Standard Drinks/Week Comments Not Currently 0 (1 standard drink = 0.6 oz pur e alcohol) Comments Unknown Sex and Gender Information Value Date Recorded Sex Assigned at Not on file Legal Sex Female 4:19 PM EST Gender Identity Not on file Sexual Orientation Not on file Last Filed Vital Signs Vital Sign Reading Time Taken Comments Blood Pressure - - Pulse - - Temperature - - Respiratory Rate - - Oxygen Saturation - - Inhaled Oxygen Concentration - - Weight 83.9 kg (185 lb) 09/06/2022 10:41 AM EDT Height 170.2 cm (5' 7 ) 09/06/2022 10:41 AM EDT Body Mass Index 28.98 09/06/2022 10:41 AM EDT Plan of Treatment Health Maintenance Due Date Last Done Comments Abnormal Colonoscopy Follow Up 1957 Hepatitis C Screening (MyChart) 1957 Depression Screening 1975 Immunization: DTaP/Tdap/Td ( 1 - Tdap) 1976 Mammogram (MyChart) 1997 Cologuard (FIT-DNA) 2002 Colonoscopy 2002 Colorectal Cancer Screening (MyChart) 2002 Stool Testing (gFOBT) 2002 Immunization: Pneumococcal ( 1 of 1 - PCV) 2007 Osteoporosis Screening (DXA Scan) 2007 Immunization: COVID-19 ( season) 2024 10/26/2022, 03/29/2022, 10/06/2021, Additional history exists Immunization: Influenza (MyC horne) (Season Ended) 2025 Immunization: RSV (Adult) (1 - 1-dose 75+ series) 2032 Immunization: Zoster Completed 09/18/2019, 04/17/20 19 Insurance BLUE MEDICARE ADVANTAGE Care Teams Oral Hygienist Relationship Specialty Start Date End Date Cydney Cole FNP [address] [place] [address] PCP - General 04/28/21
--- NOTE | 2025-05-19 22:19 | PC.NURSE ---
Triage done by Cathy Kim; primary nurse is Ninoska Martin
--- OUTSIDE RECORDS SUMMARY | 2025-05-19 22:19 | XMS_ITS | Data Portability ---
Author Organization [facility] ADMIN Address [address] [place] [id number] Care Team Providers Care Resp Therapist Name Role Phone ALIN DAN Primary Care Provider [phone] Assessment No assessment recorded. Plan of Treatment Reminders Order Date Submit Date Provider Last Modified By Organization Details Last Modified Time Details Appointments None record ed. Lab amylas e + lipase , serum 2023 024 [facility] ([facility] ), [facility] [place], [address], 4 16:07:27 hepati c functi on panel, serum 2023 024 [facility] (Registration ), [place], [address], 4 14:40:07 Referral None record ed. Procedures esopha tang roduod enosco py with biopsy (PROC) - PHYSIC PILAR ORDERS 1. Ensure patien t is NPO.0. 9% normal saline @kvo prefer ably in right arm; IV patent to gravit y.3. verify consen t. EGD with possib le biopsy with possib le dilati on.4. On-Klaus l to Endosc opy.5. Draw pt/inr if patien t on Coumad in Hold 2023 024 efe Ybarra (Outpatient Surgery), [address], [place], [address], 4 16:08:07 Surgeries None record ed. Imaging None record ed. Medication Orders sucral fate 1 gram tablet [address], [address], 4 14:25:49 sucral fate 1 gram tablet [address], [address], 4 13:40:44 Pepcid 40 mg tablet 2023 [address], [address], 4 13:07:02 Patient TargetsNo targets recorded. Patient InstructionsNo instructions recorded. Reason for Referral None Reported. Results Created Date Observation Date Name Description Value Unit Range Abnormal Flag Note LastModifiedBy Organization Detail LastModifiedTime 02/08/2002/08/2024 LIVER PROFI LE note SEE NOTE Order ing Provi zane: Rashad faith MD Not Available [address] , [place], [address], 02/08/2024 14:40:07 02/08/2002/08/2024 LIVER PROFI LE total protein 7.3 g/dL 6.4-8. 2 normal Not Available [address] [place], [place], [address], 02/08/2024 14:40:07 02/08/2002/08/2024 LIVER PROFI LE albumin 3.8 g/dL 3.4-5. 0 normal Not Available [address] , [place], [address], 02/08/2024 14:40:07 02/08/20 24 02/08/2024 LIVER PROFI LE bilirubin total 0.5 mg/dL 0.2-1. 0 normal Use of this assay is not recom darren d for patie nts under going treat ment with Eltro mbopa g due to the poten tial for false ly eleva quan resul ts. Not Available [address] , [place], [address], 02/08/2024 14:40:07 02/08/20 24 02/08/2024 LIVER PROFI LE bilirubin direct 0.1 mg/dL 0.0-0. 3 normal Not Available [address] , [place], [address], 02/08/2024 14:40:07 02/08/20 24 02/08/2024 LIVER PROFI LE bilirubin indirect 0.4 mg/dL 0-0.7 normal Not Available [address] , [place], [address], 02/08/2024 14:40:07 02/08/20 24 02/08/2024 LIVER PROFI LE SGOT/AST 36 U/L 15-37 normal Not Available [address] , [place], [address], 02/08/2024 14:40:07 02/08/20 24 02/08/2024 LIVER PROFI LE SGPT/ALT 42 U/L 14-59 normal Not Available [address] , [place], [address], 02/08/2024 14:40:07 02/08/20 24 02/08/2024 LIVER PROFI LE alkaline phosphatase total 110 U/L 46-116 normal Not Available [address] , [place], [address], 02/08/2024 14:40:07 02/08/20 24 02/08/2024 LIVER PROFI LE performing lab SEE NOTE ML - [facility] [address] [place] [address] Not Available [address] , [place], [address], 02/08/2024 14:40:07 02/08/20 24 02/08/2024 AMYLA SE note See Note Order ing Provi zane: Rashad faith MD Not Available [address] , [place], [address], 02/08/2024 14:40:09 02/08/20 24 02/08/2024 AMYLA SE amylase 31 U/L 25-115 normal Not Available [address] , [place], [address], 02/08/2024 14:40:09 02/08/20 24 02/08/2024 AMYLA SE performing lab see note ML - [facility] [address] [facility] [address] Not Available [address] , [place], [address], 02/08/2024 14:40:09 02/08/20 24 02/08/2024 LIPAS E note See Note Order ing Provi zane: Rashad faith MD Not Available [address] , [place], [address], 02/08/2024 14:40:09 02/08/20 24 02/08/2024 LIPAS E lipase 45 U/L 16-77 normal Not Available [address] , [place], [address], 02/08/2024 14:40:09 02/08/20 24 02/08/2024 LIPAS E performing lab see note ML - [facility] [address] [facility] [address] Not Available [address] , [place], [address], 02/08/2024 14:40:09 03/14/20 24 03/14/2024 AB ANTI PARIE INGA CELL note SEE NOTE Order ing Provi zane: Rashad faith MD Not Available [address] , [place], [address], 03/17/2024 14:09:39 03/14/20 24 03/14/2024 AB ANTI [...] with perni cious anemi a. Not Available [address] , [place], [address], 03/17/2024 14:09:39 03/14/20 24 03/14/2024 AB ANTI PARIE INGA CELL performing lab SEE NOTE LC2 - LABCO RP CLIEN T# [id number] [address] [place] [address] Not Available [address] , [place], [address], 03/17/2024 14:09:39 03/14/20 24 03/14/2024 AB INTRI NSIC FACTO R note SEE NOTE Order ing Provi zane: Rashad faith MD Not Available [address] [place], [address], 03/17/2024 14:09:40 03/14/20 24 03/14/2024 AB INTRI NSIC FACTO R Ab intrinsic factor 1.0 AU/mL 0.0-1. 1 Perfo rmed At: CB, [facility] [place] n [address] [facility], [place], [address] Raz medina, PhD, Phone : [phone] Perfo rmed At: BN, [facility] [place]ian soler [address] [facility] , [place], [address] Yasemin man MD, Phone : [phone] Not Available [address] , [place], [address], 03/17/2024 14:09:40 03/14/20 24 03/14/2024 AB INTRI NSIC FACTO R performing lab SEE NOTE LC2 - LABCO RP CLIEN T# [id number] [address] [place] [address] Not Available [address] , [place], [address], 03/17/2024 14:09:40 03/19/20 24 03/19/2024 CBC W/AUT O DIFFE RENTI AL note SEE NOTE Order ing Provi zane: Rashad faith MD Not Available [address] , [place], [address], 03/19/2024 13:44:11 03/19/20 24 03/19/2024 CBC W/AUT O DIFFE RENTI AL white blood cell 5.1 10e3/ uL 4.5-13 .0 normal Not Available [address] , [place], [address], 03/19/2024 13:44:11 03/19/20 24 03/19/2024 CBC W/AUT O DIFFE RENTI AL red blood cell 4.31 10e6/ uL 3.80-5 .10 normal Not Available [address] , [place], [address], 03/19/2024 13:44:11 03/19/20 24 03/19/2024 CBC W/AUT O DIFFE RENTI AL hemoglobin 13.9 g/dL 11.5-1 5.3 normal Not Available [address] , [place], [address], 03/19/2024 13:44:11 03/19/20 24 03/19/2024 CBC W/AUT O DIFFE RENTI AL hematocrit 40.9 % 34.0-4 6.0 normal Not Available [address] [place], [place], [address], 03/19/2024 13:44:11 03/19/20 24 03/19/2024 CBC W/AUT O DIFFE RENTI AL mean cell volume 95 fL 78.0-9 8.0 normal Not Available [address] , [place], [address], 03/19/2024 13:44:11 03/19/20 24 03/19/2024 CBC W/AUT O DIFFE RENTI AL mean cell HGB 32.3 pg 25.0-3 5.0 normal Not Available [address] , [place], [address], 03/19/2024 13:44:11 03/19/20 24 03/19/2024 CBC W/AUT O DIFFE RENTI AL mean cell HGB concentratio n 34.0 g/dL 31.0-3 6.0 normal Not Available [address] [place], [place], [address], 03/19/2024 13:44:11 03/19/20 24 03/19/2024 CBC W/AUT O DIFFE RENTI AL red cell distribution width 12.6 % 11.0-1 5.0 normal Not Available [address] , [place], [address], 03/19/2024 13:44:11 03/19/20 24 03/19/2024 CBC W/AUT O DIFFE RENTI AL platelet count 263 10e3/ uL 150-40 0 normal Not Available [address] [place], [place], [address], 03/19/2024 13:44:11 03/19/20 24 03/19/2024 CBC W/AUT O DIFFE RENTI AL immature granulocyte % 0 0-1 normal Not Available [address] [place], [place], [address], 03/19/2024 13:44:11 03/19/20 24 03/19/2024 CBC W/AUT O DIFFE RENTI AL neutrophil % 61 % 35-75 normal Not Available [address] , [place], [address], 03/19/2024 13:44:11 03/19/20 24 03/19/2024 CBC W/AUT O DIFFE RENTI AL lymphocyte % 30 % 10-50 normal Not Available [address] , [place], [address], 03/19/2024 13:44:11 03/19/20 24 03/19/2024 CBC W/AUT O DIFFE RENTI AL monocyte % 7 % 0-15 normal Not Available [address] [place], [place], [address], 03/19/2024 13:44:11 03/19/20 24 03/19/2024 CBC W/AUT O DIFFE RENTI AL eosinophil % 1 % 0-5 normal Not Available [address] [place], [place], [address], 03/19/2024 13:44:11 03/19/20 24 03/19/2024 CBC W/AUT O DIFFE RENTI AL basophil % 0 % 0-5 normal Not Available [address] [place], [place], [address], 03/19/2024 13:44:11 03/19/20 24 03/19/2024 CBC W/AUT O DIFFE RENTI AL immature granulocyte # 0.02 x1000 /uL 0-0.05 normal Not Available [address] [place], [place], [address], 03/19/2024 13:44:11 03/19/20 24 03/19/2024 CBC W/AUT O DIFFE RENTI AL neutrophil # 3.15 x1000 /uL 1.50-8 .00 normal Not Available [address] [place], [place], [address], 03/19/2024 13:44:11 03/19/20 24 03/19/2024 CBC W/AUT O DIFFE RENTI AL lymphocyte # 1.52 x1000 /uL 1.20-5 .20 normal Not Available [address] [place], [place], [address], 03/19/2024 13:44:11 03/19/20 24 03/19/2024 CBC W/AUT O DIFFE RENTI AL monocyte # 0.36 x1000 /uL 0.40-0 .90 low Not Available [address] [place], [place], [address], 03/19/2024 13:44:11 03/19/20 24 03/19/2024 CBC W/AUT O DIFFE RENTI AL eosinophil # 0.07 x1000 /uL 0.00-0 .50 normal Not Available [address] [place], [address], 03/19/2024 13:44:11 03/19/20 24 03/19/2024 CBC W/AUT O DIFFE RENTI AL basophil # 0.01 x1000 /uL 0.00-0 .30 normal Not Available [address] [place], [place], [address], 03/19/2024 13:44:11 03/19/20 24 03/19/2024 CBC W/AUT O DIFFE LYNNE AL NRBC automated 0.0 /100_ WBC Not Available [address] , [place], [address], 03/19/2024 13:44:11 03/19/20 24 03/19/2024 CBC W/AUT O DIFFE RENRODNEY AL performing lab SEE NOTE ML - [facility] [address] [facility] [address] Not Available [address] , [place], [address], 03/19/2024 13:44:11 03/19/20 24 03/19/2024 FE W/TOT AL IRON LAURA NG CAP note See Note Order ing Provi zane: Rashad faith MD Not Available [address] , [place], [address], 03/19/2024 14:35:51 03/19/20 24 03/19/2024 FE W/TOT AL IRON LAURA NG CAP iron 68 ug/dL 50-170 normal Not Available [address] [place], [place], [address], 03/19/2024 14:35:51 03/19/20 24 03/19/2024 FE W/TOT AL IRON LAURA NG CAP total iron binding capacity 327 ug/dL 260-44 5 normal Not Available [address] [place], [place], [address], 03/19/2024 14:35:51 03/19/20 24 03/19/2024 FE W/TOT AL IRON LAURA NG CAP iron saturation 21 % 20-50 normal Not Available [address] , [place], [address], 03/19/2024 14:35:51 03/19/20 24 03/19/2024 FE W/TOT AL IRON LAURA NG CAP performing lab see note ML - [facility] [address] [facility] [address] Not Available [address] , [place], [address], 03/19/2024 14:35:51 03/19/20 24 03/19/2024 BRANDON TIN note See Note Order ing Provi zane: Rashad faith MD Not Available [address] , [place], [address], 03/19/2024 15:04:53 03/19/20 24 03/19/2024 BRANDON TIN ferritin 149 NG/mL 8-252 normal Not Available [address] , [place], [address], 03/19/2024 15:04:53 03/19/20 24 03/19/2024 BRANDON TIN performing lab see note [facility] [address] [facility] [address] [facility] [address] Not Available [address] , [place], [address], 03/19/2024 15:04:53 03/19/20 24 03/19/2024 VITAM IN B12 FOLAT E note See Note Order ing Provi zane: Rashad faith MD Not Available [address] , [place], [address], 03/20/2024 10:38:12 03/19/20 24 03/19/2024 VITAM IN B12 FOLAT E vitamin B12 62 pg/mL 232-12 45 low Not Available [address] , [place], [address], 03/20/2024 10:38:12 03/19/20 24 03/19/2024 VITAM IN B12 FOLAT E folic acid 11.3 NG/mL >3.0 . A serum folat e alfredito ntrat ion of less than 3.1 ng/mL is consi dered to repre sent clini klaus defic iency . Perfo rmed At: CB, [facility] Ellis n [address] [facility], [place], [address] Raz al[place]ia medina, PhD, Phone : [phone] Not Available [address] , [place], [address], 03/20/2024 10:38:12 03/19/20 24 03/19/2024 VITAM IN B12 FOLAT E performing lab see note LC2 - LABCO RP CLIEN T# [id number] 022 [address] [place] [address] Not Available [address] , [place], [address], 03/20/2024 10:38:12 03/19/20 24 03/19/2024 GASTR IN note SEE NOTE Order ing Provi zane: Rashad faith MD Not Available [address] , [place], [address], 03/21/2024 16:15:26 03/19/20 24 03/19/2024 GASTR IN [...] t be inter prete d as absol dariusz evide nce of the prese nce or absen ce of alivia carrion . Perfo rmed At: BN, [facility] [place] soler [address] [place], [address] Yasemin man MD, Phone : [phone] Not Available [address] [place], [address], 03/21/2024 16:15:26 03/19/20 24 03/19/2024 GASTR IN performing lab SEE NOTE LC2 - LABCO RP CLIEN T# [id number] [id number] [address] [place] [address] Not Available [address] [place], [address], 03/21/2024 16:15:26 Result Notes None recorded. Problems Name Problem SNOMED Code Status Onset Date Resolution Date Notes Provider Name and Address Organization Details Recorded Time Sensorineural hearing loss 51496317 Active 2022 SHAQUILLE Landeros - [facility] - [place] & [place] 3 09:29:47 Abdominal pain 92403745 Active 2022 SHAQUILLE Landeros - [facility] - [place] & [place] 3 09:29:46 Hypercholester olemia 71957951 Active Michelet bhakta [place] - [facility] - [place] & [place] 3 09:29:46 History of hysterectomy 220163645 Active 2018 Michelet bhakta, [place] - [facility] - [place] & [place] 3 09:29:46 Body mass index 30+ - obesity 373042900 Active 2018 Michelet bhakta [place] - [facility] - [place] & [place] 3 09:29:46 Discoid lupus erythematosus 978837254 Active 2018 Michelet bhakta [place] [facility] [place] 3 09:29:46 Panic attack 695661685 Active SHAQUILLE Landeros - [facility] - [place] & [place] 3 09:29:46 Vulvodynia 084790438 Active 2018 Michelet bhakta [place] - [facility] - [place] & [place] 3 09:29:46 Interphalangea l joint of toe stiff 144833760 Active 2021 Michelet Magana null, [place] - LP[facility] - y & [place] 3 09:29:46 Graves' disease 376552403 Active Michelet Magana null, [place] - [facility] - [place] & [place] 3 09:29:46 Hypothyroidism 43722038 Active Michelet Magana null[place] - LP[facility] - [place] & [place] 3 09:29:47 Obesity 654239784 Active 2016 Michelet Magana null[place] - [facility] - [place] & [place] 3 09:29:47 Hyperlipidemia 69076618 Active 2018 Michelet Magana null[place] - LP[facility] - y & [place] 3 09:29:47 Essential hypertension 46115013 Active Michelet Magana null[place] - [facility] - [place] & [place] 3 09:29:47 Osteoporosis 65052299 Active 2018 Michelet Magana null[place] - [facility] - [place] & [place] 3 09:29:47 Urinary tract infectious disease 51189256 Active 2020 Michelet Magana null, [place] - [facility] - [place] & [place] 3 09:29:47 History of supracervical hysterectomy 188615672 Active Michelet Magana null, [place] - LP[facility] - [place] & [place] 3 09:29:47 Degeneration of intervertebral disc 91862160 Active Michelet Magana null[place] - LP[facility] - y & [place] 3 09:29:47 Steatotic liver disease 698111903 Active 2022 Kumar Jackson MD [address], [place], [address], [place] - LPNT - y & [place] 3 15:02:50 Epigastric pain 61858230 Active 2023 Kumar Jackson MD [address], [place], [address], [place] - LPNT - y & [place] 4 14:12:18 Chronic gastritis 8512536 Active 2023 Kumar Jackson MD [address] [place] [address],[address], [address] [facility] SHAQUILLE - JAIRONNT [facility] & [place] 4 13:39:22 Notes:Some problems listed i n Document: #[id number] could not be added to this patient's chart. Please review this document and add these problems to the patient's chart manually as needed. Problem Notes None recorded. Procedures Surgical History Date Name Laterality Status Provider Name and Address Organization Details Recorded Time 02/03/20 23 Liver elastography completed Michelet CORBIN - JAIRONNT - [place] & [place] 04/03/2023 14:04:48 06/04/20 20 Colonoscopy completed Michelet Toro LPNT [facility] & [place] 01/30/2023 09:32:13 09/07/20 16 [facility] [place] 01/30/2023 09:32:21 mammography completed Michelet Toro LPNT - [place] & [place] 01/30/2023 09:32:02 Carpal tunnel surgery completed Michelet Toro LPNT - [place] & [place] 01/30/2023 09:32:34 Hysterectomy completed Michelet Toro LPNT - [place] & [place] 01/30/2023 09:32:50 Cholecystectomy completed Michelet Toro LPNT - [place] & [place] 01/30/2023 09:32:59 fasciotomy of foot completed William CORBIN - LPNT [facility] & [place] 01/30/2023 09:33:24 Imaging Results None recorded. Procedure Notes None recorded. Medical Equipment None Reported. Allergies Allergen ID Allergen Name Allergen Category Reaction Reaction Severity Criticality Documentation Date Start Date Code Code System Note Provider Name and Address Organization Details Recorded Time 90725 ergocalci ferol medicatio n Not available Not available Not available 01/30/20232011 4018 RxNorm SHAQUILLE Landeros - LPNT - [place] & [place] 3 09:29:41 68964 Cipro medicatio n Not available Not available Not available 01/30/20232012 19570 3 RxNorm Michelet bhakta, SHAQUILLE BERNAL [facility] & [place] 3 09:29:41 40468 Lipitor medicatio n nausea Not available Not available 01/30/20232015 31302 5 RxNorm SHAQUILLE Landeros LPNT [facility] & [place] 3 09:29:41 88278 Macrobid medicatio n diarrhea severe Not available 01/30/2023 55264 1 RxNorm Michelet bhakta, SHAQUILLE BERNAL [facility] & [place] 3 09:29:41 22308 codeine sulfate medicatio n Not available Not available Not available 01/30/20232011 23413 RxNorm SHAQUILLE Landeros [facility] & [place] 3 09:29:41 89008 cortisone acetate medicatio n Not available Not available Not available 01/30/20232011 45562 RxNorm Michelet bhakta, SHAQUILLE Toro LPNT [facility] & [place] 3 09:29:41 41502 ergocalci ferol medicatio n Not available Not available Not available 01/30/2023 4018 RxNorm Michelet bhakta, SHAQUILLE BERNAL [facility] & [place] 3 09:30:22 46820 cholecalc iferol medicatio n Not available Not available Not available 01/30/2023 2418 RxNorm Michelet bhakta, SHAQUILLE Toro LPNT [facility] & [place] 3 09:30:37 Medications Name Sig Start Date [...] Available Not Available amoxicillin 500 mg capsule 03/06 /2023 completed Not Available Not Available Not Available [...] DAILY TOPICALLY TO AFFECTED AREA. SAFE FOR ALF USE 01/19 completed Not Available Not Available [...] propionate 50 mcg/actuati on nasal spray,suspe nsion [place] 1 spray every day by intranasa l [...] Updated DateTime 4 170.18 cm 31.3 kg/m2 16246.7 6 g 97.6 [degF] 16 /min 67 /min 132 mm[Hg] 83 mm[Hg] Rosa Durand [place] - LP[facility] & [place] 4 13:35:29 Date Recorded Body height Body mass index (BMI) Body weight Body temperature Heart rate Systolic blood pressure Diastolic blood pressure Provider Name and Address Organization Details Last Updated DateTime 4 170.18 cm 31.4 kg/m2 05331.6 3 g 98.1 [degF] 65 /min 130 mm[Hg] 94 mm[Hg] Jose Montes [place] - [facility] & [place] 4 13:12:45 Date Recorded Body height Body mass index (BMI) Body weight Body temperature Heart rate Systolic blood pressure Diastolic blood pressure Provider Name and Address Organization Details Last Updated DateTime 4 170.18 cm 30.6 kg/m2 35196.2 3 g 97.3 [degF] 71 /min 132 mm[Hg] 78 mm[Hg] Jocelyn Nickchie [place] - [facility] & [place] 4 14:02:50 Social History Question Answer Notes LastModified by [employer] Details LastModified Time Tobacco Smoking Status Never Smoker Michelet Magana [facility], [facility] & [place] 01/30/2023 09:31:14 What Is Your Level Of Caffeine Consumption? Moderate Information not available 01/30/2023 What Type Of Diet Are You Following? REGULAR Information not available 01/30/2023 What Was The Date Of Your Most Recent Tobacco Screening? 01/19/2024 [email or web address] Information not available 01/19/2024 Sex: Unknown Functional Status Question Answer Note LastModified by [employer] Details LastModified Time Do you use any illicit or recreational drugs? No [email or web address] Information not available 01/19/2024 What is your level of alcohol consumption? None Information not available 01/30/2023 What is your exercise level? Occasional Information not available 01/30/2023 Mental Status None recorded. Family History Relationship Description Onset Age of this Age Resolved Age Notes LastModified by Organization Details LastModified Time Father No current problems or disability efe Not available 01/30 09:30:55 Mother No current problems or disability efe Not available 01/30 09:30:55 Medical History Condition Response Coronary Artery Disease N Gout N None N Colon Cancer N Kidney Stones N Hyperthyroidism N Depression N COPD N Hypothyroidism Y Diverticulitis/Diverticulosis N Anxiety Disorder N Arthritis N Cancer N Stroke N Liver Disease N Kidney Disease N Osteoporosis/Osteopenia Y Colon Polyps N Diabetes N Bleeding Disorder N Seizures/Epilepsy N Tuberculosis N Hyperlipidemia Y Asthma N Sleep Apnea N GERD/Reflux N Hepatitis N Cirrhosis N Heart Disease N Hypertension Y Gynecological HistoryNo gynecological history recorded. Obstetrics History GPAL:G 0 P 0 0 0 0 Immunizations Vaccine Type Date Status Note Provider Nam e and Address Organization Details Recorded Time zoster recombinant 04/17/2019 completed Michelet Magana null, [place] - [facility] & [place] 01/30/2023 09:29:47 zoster recombinant 09/18/2019 completed Michelet Magana null[place] - [facility] & [place] 01/30/2023 09:29:47 COVID-19, mRNA, LNP-S, PF, 30 mcg/0.3 mL dose 01/27/2021 completed Michelet Magana null[place] - [facility] & [place] 01/30/2023 09:29:47 COVID-19, mRNA, LNP-S, PF, 30 mcg/0.3 mL dose 02/19/2021 completed Michelet Magana null[place] - [facility] & [place] 01/30/2023 09:29:47 COVID-19, mRNA, LNP-S, PF, 30 mcg/0.3 mL dose 10/06/2021 completed Michelet Magana null, [place] - [facility] & [place] 01/30/2023 09:29:47 COVID-19, mRNA, LNP-S, PF, 30 mcg/0.3 mL dose, alexsander-sucrose 03/29/2022 completed Michelet Magana null[place] - [facility] & [place] 01/30/2023 09:29:47 COVID-19, mRNA, LNP-S, bivalent, PF, 30 mcg/0.3 mL dose 10/26/2022 completed Michelet Magana liv[place] SHAQUILLE BERNAL [facility] & [place] 01/30/2023 09:29:47 Td (adult) 11/27/2014 completed Michelet Magana liv[place] SHAQUILLE BERNAL [facility] & [place] 01/30/2023 09:29:47 Past Encounters Encounter ID Performer Location Encounter Start Date Encounter Closed Date Diagnosis/Indication Diagnosis SNOMED-CT Code Diagnosis ICD10 Code Diagnosis Note [id number] ELIZABETH GRIM[facility]DO [facility] [address] MELISSA [address] [place] [address] 8 09/05/2022 14:27:42 09/05/2022 14:49:35 Sensorineural hearing loss 61194688 H90.3 [id number] ELIZABETH GRIMALDO [facility] [place] [id number] 8 10/24/2022 15:01:38 10/24/2022 15:17:24 Sensorineural hearing loss 90385983 H90.3 [id number] [facility] [place] [address] 8 11/04/2022 08:41:38 11/04/2022 09:14:30 Sensorineural hearing loss 50350822 H90.3 [id number] ELIZABETH GRIMALDO [facility] [place] [id number] 8 12/26/2022 14:54:36 12/26/2022 15:07:50 Sensorineural hearing loss [id number] H90.3 [id number] Kumar Jackson MD [facility] [address] [place] [address] Drive,[address] [place] [phone] 01/30/2023 14:00:20 01/30/2023 15:08:39 Steatotic liver disease [id number] K76.0 The patient's imaging suggests steatosis, but [...] and diet further recommenda tion will follow. [id number] Kumar Jackson MD [facility] [address] [place] [address] 02/02/2023 09:31:11 02/02/2023 10:41:15 Steatotic liver disease [id number] K76.0 The patient's imaging suggests steatosis, but [...] and diet further recommenda tion will follow. [id number] ELIZABETH GRIMALDO [facility] [address] TORRES [address] [place] [phone] 02/20/2023 13:50:33 02/20/2023 14:10:59 Sensorineural hearing loss [id number] H90.3 [id number] Kumar Jackson MD [facility] [address] [place] [address],[address] [address] 04/03/2023 13:32:54 04/03/2023 14:17:57 Steatotic liver disease [id number] K76.0 Additional examinatio n via Fibroscan demonstrat ed no significan t steatosis, or fibrosis. Given LFTs are also unremarkab le no further investigat ion is necessary at this time. We did encourage the patient to remain active, suggesting an aerobic activity 5 times a week being ideal, and continued weight control, follow-up p.r.n. History of polyp of colon [id number] Z86.010 follow-up colonoscop y 2024 [id number] ELIZABETH GRIMALDO [address] TORRES [address] [place] [address] 8 04/26/2023 13:11:43 04/26/2023 13:42:17 Sensorineural hearing loss [id number] H90.3 [id number] ELIZABETH GRIMALDO [address] TORRES [address] [place] [address] 8 10/13/2023 08:55:29 10/13/2023 09:10:51 Sensorineural hearing loss [id number] H90.3 [id number] ELIZABETH GRIMALDO [address] TORRES [address] [place] [address] 8 10/27/2023 09:48:44 10/27/2023 10:02:50 Sensorineural hearing loss [id number] H90.3 [id number] Kumar Jackson MD [facility] [address] [place] [address],[address] 0 01/19/2024 13:03:20 01/19/2024 14:27:21 Steatotic liver disease [id number] K76.0 Previous studies demonstrat ed normal LFTs, and no significan t fibrosis. Weight stable, recheck LFTs today. Continue to encourage regular aerobic activity. History of polyp of colon [id number] Z86.010 follow-up colonoscop y 2024 Epigastric pain [id number] R10.13 Chronic intermitte nt epigastric pain. Etiology unclear differenti al is broad, check pancreatic enzymes, LFTs, begin Pepcid and schedule EGD for evaluation . 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 Additional serologies have been ordered but Apparently were never completed, on Carafate the patient is entirely asymptomat ic. Will reorder serologies , continue Carafate follow-up 6 months biopsies also demonstrat ed intestinal metaplasia , as well as mild neuroendoc rine hyperplasi a Steatotic liver disease [id number] K76.0 normal LFTs, and no significan t fibrosis. Weight stable, encourage regular aerobic activity. [id number] ELIZABETH GRIMALDO [facility] [place] [address] 10/23/2024 11:13:29 10/23/2024 11:31:18 Sensorineural hearing loss [id number] H90.3 Health Concerns Section Related Observation LastModified by Organization Detai ls LastModified Time None Recorded Concern Status LastModified by Organization Details LastModified Time None Recorded Advance Directives Directive None Recorded Payers Insurance Date Sequence Insurance Name Policy Number Policy Ortiz Covered Member ID Ortiz Member ID Guarantor Name 09/05/2022 1 [employer] VINNIE Otoole [id number] Gregg Otoole 02/03/2025 1 [place]MEDICARE REPLACEMENT REGIONAL PPO) [id number] Gregg Otoole [id number] Gregg Otoole 06/15/2024 1 [place]/AD VANTAGE - HMO) [id number] Gregg Otoole [id number] Gregg Otoole Notes Date Note Type Note Provider Name and Address Organization Details Recorded Time 10/27/2023 text/html Patient was seen today for a hearing aid service. Cleaned and adjusted hearing aids this date. ELIZABETH GRIMALDO [address] [place] [address],[address], [place], [address], [facility] 10/27/2023 10:19:50 01/19/2024 text/html this is a [...] diarrhea or constipation problems. Kumar Jackson MD [address] [place] [address],[address], [place], [address], [facility] 01/19/2024 14:18:36 02/12/2024 text/html this this is [...] globus but no heartburn. Kumar Jackson MD [address] [place] [address],[address], [place], [address], [facility] 02/12/2024 13:45:01 03/14/2024 text/html this 68-year-old female [...] at her last visit. Kumar Jackson MD [address] [place] [address],[address], [place], [address], [facility] [place] 03/14/2024 14:25:51 10/23/2024 text/html Patient was seen today for a hearing aid service. Cleaned and adjusted hearing aids this date. ELIZABETH GRIMALDO [address] [place] [address],[address], [place], [address], [facility] [place] 10/23/2024 12:08:21 OBGyn Episode No OBEpisode recorded.
--- NOTE | 2025-05-19 22:26 | XR_ITS ---
PROCEDURE INFORMATION: Exam: XR Chest Exam date and time: 05/19/2025 10:25 PM Age: 69 years old Clinical indication: Pain; Chest pressure; Additional info: Chest pain TECHNIQUE: Imaging protocol: Radiologic exam of the chest. Views: 2 views. COMPARISON: CR XR CHEST 2V 03/01/2025 5:59 PM FINDINGS: Lungs: Unremarkable. No consolidation. Pleural spaces: Unremarkable. No pleural effusion. No pneumothorax. Heart/Mediastinum: Unremarkable. No cardiomegaly. Diaphragm: Eventration of the right hemidiaphragm. Bones/joints: Unremarkable. Organs: Cholecystectomy clips. IMPRESSION: No acute findings.
--- NOTE | 2025-05-19 22:27 | ED_ITS ---
Discharge Plan Disposition Patient Disposition: Home, Self-Care Condition: Good Prescriptions Prescriptions: No Action lisinopril 10 mg tablet 10 mg PO DAILY Qty: 90 3RF Eliquis 5 mg tablet 0RF Eliquis 5 mg tablet 5 mg PO BID 90 Days Qty: 180 3RF atorvastatin 40 mg tablet 40 mg PO HS 90 Days Qty: 90 3RF metoprolol succinate 25 mg tablet extended release 24 hr 12.5 mg PO HS Qty: 90 3RF aspirin [Adult Aspirin Regimen] 81 mg tablet,delayed release (DR/EC) 81 mg PO DAILY Qty: 30 2RF levothyroxine 75 mcg tablet 75 mcg PO DAILY Patient Comments: TAKE ONE (1) TABLET EVERY DAY BY ORAL ROUTE Referrals Follow up/Referrals: Provider,Referral, MD [Primary Care Provider, Medical] - See instructions Activity Restrictions/Add. Instructions Additional Instructions/Restrictions: Please follow-up with your primary care provider. Please return to the emergency department if you develop any new or worsening symptoms or become concerned for your health. Clinical Impressions Clinical Impression: Chest pain, Hypertension Print Language Print Language: Jamaican Discharge ED Provider: Hugo Osman HPI <Susana Luo DO - Last Filed: 05/19/25 22:57> General Chief Complaint: Chest Pain Stated Complaint: chest pain Time Seen by Provider: 05/19/25 22:14 Mode of Arrival: Ambulatory Source of Information: Patient Description of Symptoms (Recalled from ER Triage Doc. by RN): patient reports central chest pressure along with elevated blood pressure and palpitations starting around 8pm History of Present Illness HPI narrative: This patient is a 69-year-old female with a history of CAD, hypertension, hyperlipidemia, and atrial fibrillation on Eliquis presented to the emergency department with concern for palpitations, high blood pressure, and chest pain. Patient states that several hours ago she started experiencing a sensation that she can feel her heart pounding as well as chest tightness. She notes that she is also having some back pain. She denies any significant exertion today. She states she had been indoors most of the day not doing anything strenuous. She denies any recent illnesses such as fevers, cough, congestion, or other concerns. She denies any associated abdominal pain, nausea, or vomiting. She notes that this feels different than her prior episodes of paroxysmal atrial fibrillation. Related Data Home Medications ?Medication ?Instructions ?Recorded ?Confirmed levothyroxine 75 mcg tablet 75 mcg PO DAILY 01/27/25 0 03/18/25 Previous Rx's ?Medication ?Instructions ?Recorded lisinopril 10 mg tablet 10 mg PO DAILY #90 tabs 01/25 07/21 apixaban 5 mg tablet (Eliquis) 5 mg PO BID 90 days #18 0 tabs 02/24/25 atorvastatin 40 mg tablet 40 mg PO HS 90 days #90 tabs 02/24/25 aspirin 81 mg tablet,delayed 81 mg PO DAILY #30 tabs 0 04/29/25 release (Adult Aspirin Regimen) metoprolol succinate 25 mg 12.5 mg (1/2 x 25 mg) PO HS #90 04/29/25 tablet,extended release 24 hr tabs Allergies Allergy/AdvReac Type Severity Reaction Status Date / Time codeine (CODEINE) Allergy Unknown Nausea Verified 03/18/25 08:34 cortisone (CORTISONE) Allergy Unknown Rash Verified 03/18/25 08:34 [facility] <Susana Luo DO - Last Filed: 05/19/25 22:57> [facility] Disclaimer: The information contained in this section may have been updated after the patient was seen, as this information can be updated by other users. Medical History Coronary artery disease Bruising Fatigue Pain in right radius Abnormal ECG Bradycardia NSTEMI (non-ST elevated myocardial infarction) PAF (paroxysmal atrial fibrillation) Hyperlipidemia Atrial fibrillation with rapid ventricular response Abnormal findings diagnostic imaging of heart and coronary circulation Heart murmur Elevated troponin HTN (hypertension) Interstitial cystitis Surgical History Hx of cardiac cath Social History Smoking Status: Never smoker alcohol intake: never current occupational status: other Travel in the last 8 weeks?: None Have you lived/traveled outside US in past 30 days?: No Contact w/someone who lives/traveled outside US past 30 days?: No Exposure to someone with infectious disease in past 14 days?: No Do you have a fever (greater than 100.4 F or 38 C)?: No Have you tested positive for COVID-19?: No Exposed to someone with COVID-19 in past 14 days?: No Do you have a sore throat?: No Do you have a cough?: No Do you have any weakness?: No Do you have any diarrhea?: No Are you experiencing any unusual bleeding?: No Do you have any muscle aches/pain?: No Do you have any abdominal pain?: No Are you experiencing loss of taste or smell?: No Other Medical History Have you received the Flu Vaccine for this season: No Have you received the Pneumonia Vaccine: No <Susana Luo DO - Last Filed: 05/19/25 22:57> ROS Obtained: Yes All systems reviewed & no additional complaints except as documented Physical Exam <Susana Luo DO - Last Filed: 05/19/25 22:57> General General appearance: alert and in no apparent distress Head Head exam: atraumatic and normocephalic Eye Eye exam: Present normal appearance, PERRL and EOMI ENT ENT exam: Present normal exam, normal oropharynx, mucous membranes moist and normal external ear exam Neck Neck exam: Present normal inspection, full ROM and trachea midline; Absent tenderness Chest Chest inspection: Present normal inspection and symmetric chest wall rise; Absent tenderness Respiratory Respiratory exam: Present normal lung sounds bilaterally; Absent respiratory distress, wheezes, stridor or accessory muscle use Cardiovascular Cardiovascular exam: Present regular rate and normal rhythm Abdominal Exam Abdominal exam: Present soft; Absent distention, tenderness or guarding Extremities Exam Extremities exam: Present normal inspection, full ROM and normal capillary refill; Absent tenderness or edema Back Exam Back exam: Present normal inspection and full ROM; Absent tenderness Neurological Exam Neurological exam: Present alert, oriented X3, CN II-XII intact and normal gait; Absent motor sensory deficit Psychiatric Psychiatric exam: Present normal affect and normal mood Skin Skin exam: Present warm and dry HEART Score <Susana Luo DO - Last Filed: 05/19/25 22:57> HEART Score HEART Score assessment performed?: Yes History (anamnesis): Slightly suspicious ECG: Normal Age: >65 years Risk factors: Atherosclerosis history Troponin: </= normal limit HEART Score: 4 <Hugo Osman MD - Last Filed: 05/20/25 06:42> HEART Score HEART Score: 4 Critical Care <DO Cortez Tamayo Last Filed: 05/19/25 22:57> Critical Care Time Critical Care Time: No Medical Decision Making <Susana Luo, DO - Last Filed: 05/19/25 22:57> Adryan Inquiry Pt receiving controlled substance: No Vital Signs Vital Signs: 05/19/25 22:16 05/19/25 22:31 05/19/25 23:00 Temperature 98.9 F Temperature Source Oral Pulse Rate 66 76 Pulse Rate [Right Radial] 82 Respiratory Rate 16 17 16 Blood Pressure 161/74 H 151/91 H Blood Pressure [Right Arm] 201/101 H Blood Pressure Mean [Right Arm] 134 Blood Pressure Source Blood Pressure Source [Right Arm] Automatic Cuff Blood Pressure Position Blood Pressure Position [Right Arm] Supine 02 Sat by Pulse Oximetry 97 96 94 L Oxygen Delivery Method 05/19/25 23:30 05/20/25 00:00 05/20/25 01:28 Temperature 98 F Temperature Source Oral Pulse Rate 58 L 57 L 65 Pulse Rate [Right Radial] Respiratory Rate 16 16 18 Blood Pressure 130/70 127/70 139/85 Blood Pressure [Right Arm] Blood Pressure Mean [Right Arm] Blood Pressure Source Automatic Cuff Blood Pressure Source [Right Arm] Blood Pressure Position Sitting Blood Pressure Position [Right Arm] 02 Sat by Pulse Oximetry 94 L 93 L Oxygen Delivery Method Room Air Lab Data Labs: Lab Results 05/19/25 22:15: WBC 6.7, RBC 4.21, Hgb 13.3, Hct 39.8, MCV 94.5, MCH 31.6 H, MCHC 33.4, RDW 12.9, Plt Count 247, MPV 9.4, Neut % (Auto) 63.0, Lymph % (Auto) 27.4, [place] % (Auto) 7.6, Eos % (Auto) 1.3, Baso % (Auto) 0.4, Neut # (Auto) 4.2, Lymph # (Auto) 1.8, [place] # (Auto) 0.5, Eos # (Auto) 0.1, Baso # (Auto) 0.0, D- Dimer 0.49, Sodium 138, Potassium 3.9, Chloride 106, Carbon Dioxide 29, Anion Gap 6.9, BUN 12, Creatinine 0.90, Estimated Creat Clear 72, Estimated GFR 62, Est GFR ( Amer) 76, Glucose 132 H, Calcium 10.5 H, Total Bilirubin 0.5, A ST 43 H, ALT 34, Alkaline Phosphatase 130 H, Troponin I < 0.01, Total Protein 8.1, Albumin 4.6, Globulin 3.5 H, Albumin/Globulin Ratio 1.3, Lipase 163, TSH 2.59, Thyroxine (T4) 8.9 05/20/25 00:49: Troponin I < 0.01 05/19/25 22:15 05/19/25 22:15 Response Orders (Tests/Meds): ED MEDICATIONS Discontinued Medications Generic Name Dose Route Start Last Admin Trade Name Samira PRN Reason Stop Dose Admin Aspirin 324 mg 05/19/25 22:26 05/19/25 22:42 Aspirin 81mg Chewable Tablet PO 05/19/25 22:27 324 mg ONCE ONE Administration Belladonna Alkaloids 60 ml 05/19/25 22:26 05/19/25 22:42 Belladonna Alkaloids 60 Ml Ml PO 05/19/25 22:27 60 ml ONCE ONE Administration ORDERS Category Date Time Status CXR 2 view (NOT portable) [XR chest 2V] Stat Exams 05/19/25 22:26 Completed Complete Blood Count Auto Diff Stat Lab 05/19/25 22:15 Completed Comprehensive Metabolic Panel Stat Lab 05/19/25 22:15 Completed D-Dimer Stat Lab 05/19/25 22:15 Completed Lipase Stat Lab 05/19/25 22:15 Completed T4 (Thyroxine) Stat Lab 05/19/25 22:15 Completed TSH [Thyroid Stimulating Hormone] Stat Lab 05/19/25 22:15 Completed Trop I [Troponin I] Stat Lab 05/19/25 22:15 Completed Troponin I Q3H Lab 05/20/25 00:49 Completed ECG Data Tracing #1: Attestation: I reviewed this ECG and interpreted as documented below: ECG Narrative: Normal sinus rhythm with a ventricular rate of [address] changes concerning for STEMI. ECG initial impression date: 05/19/25 ECG initial impression time: 22:16 MDM Narrative Medical Decision Narrative: In summary, this patient is a 69-year-old female presenting to the Emergency Department for evaluation of chest tightness, palpitations, back pain, and high blood pressure readings at home that started a few hours prior to arrival. Differential diagnoses considered include but are not limited to ACS, dysrhythmia, anxiety, PE, aortic dissection, hypertensive urgency. Ruling out the most morbid conditions drove assessment. It should be noted patient's history includes hypertension, hyperlipidemia, CAD, paroxysmal atrial fibrillation which may or may not be at goal therapy. This complicates all aspects of care by increasing patient's risk for morbidity. I reviewed patient's past medical records and noted prior cardiac catheterization with multiple critical areas of stenosis with collateral flow noted. Medical management was recommended, as there was difficulty intervening. On exam, the patient is lying in bed in no acute distress. She is severely hypertensive with systolics in the 200s, but otherwise vitals are reassuring on cardiac telemetry. Initial EKG obtained is reassuring without acute ischemic change. workup included CBC, CMP, troponin, D-dimer, chest x-ray, lipase, EKG. Patient was given oral aspirin, GI cocktail for symptomatic improvement. On reassessment, patient is lying in bed in no acute distress. Repeat blood pressure 160s over 70s. Vitals otherwise still reassuring on cardiac telemetry. I independently interpreted chest x-ray prior to radiology read and noted no large focal consolidation concerning for pneumonia, no pneumothorax. CBC is reassuring with no significant leukocytosis or anemia. Chemistry is reassuring with normal kidney function. She has mildly elevated AST and alkaline phosphatase, which is nonspecific. Bilirubin is normal. D-dimer is negative, so I do not feel the patient requires CTA for further workup of possible aortic pathology or PE. Initial troponin negative. Given that symptoms started not long prior to arrival, I feel she would benefit from obtaining a second troponin to rule out acute cardiac pathology. At 2300, patient was placed in ED observation status pending second troponin to determine whether or not the patient would be appropriate for discharge versus admission. The patient was provided serial reevaluations and cardiac monitoring while awaiting ultimate disposition. Patient care signed out to the oncoming provider, Dr. Osman, pending second troponins. <Hugo Osman MD - Last Filed: 05/20/25 06:42> Vital Signs Vital Signs: 05/19/25 22:16 05/19/25 22:31 05/19/25 23:00 Temperature 98.9 F Temperature Source Oral Pulse Rate 66 76 Pulse Rate [Right Radial] 82 Respiratory Rate 16 17 16 Blood Pressure 161/74 H 151/91 H Blood Pressure [Right Arm] 201/101 H Blood Pressure Mean [Right Arm] 134 Blood Pressure Source Blood Pressure Source [Right Arm] Automatic Cuff Blood Pressure Position Blood Pressure Position [Right Arm] Supine 02 Sat by Pulse Oximetry 97 96 94 L Oxygen Delivery Method 05/19/25 23:30 05/20/25 00:00 05/20/25 01:28 Temperature 98 F Temperature Source Oral Pulse Rate 58 L 57 L 65 Pulse Rate [Right Radial] Respiratory Rate 16 16 18 Blood Pressure 130/70 127/70 139/85 Blood Pressure [Right Arm] Blood Pressure Mean [Right Arm] Blood Pressure Source Automatic Cuff Blood Pressure Source [Right Arm] Blood Pressure Position Sitting Blood Pressure Position [Right Arm] 02 Sat by Pulse Oximetry 94 L 93 L Oxygen Delivery Method Room Air Lab Data Labs: Lab Results 05/19/25 22:15: WBC 6.7, RBC 4.21, Hgb 13.3, Hct 39.8, MCV 94.5, MCH 31.6 H, MCHC 33.4, RDW 12.9, Plt Count 247, MPV 9.4, Neut % (Auto) 63.0, Lymph % (Auto) 27.4, [place] % (Auto) 7.6, Eos % (Auto) 1.3, Baso % (Auto) 0.4, Neut # (Auto) 4.2, Lymph # (Auto) 1.8, [place] # (Auto) 0.5, Eos # (Auto) 0.1, Baso # (Auto) 0.0, D- Dimer 0.49, Sodium 138, Potassium 3.9, Chloride 106, Carbon Dioxide 29, Anion Gap 6.9, BUN 12, Creatinine 0.90, Estimated Creat Clear 72, Estimated GFR 62, Est GFR ( Amer) 76, Glucose 132 H, Calcium 10.5 H, Total Bilirubin 0.5, A ST 43 H, ALT 34, Alkaline Phosphatase 130 H, Troponin I < 0.01, Total Protein 8.1, Albumin 4.6, Globulin 3.5 H, Albumin/Globulin Ratio 1.3, Lipase 163, TSH 2.59, Thyroxine (T4) 8.9 05/20/25 00:49: Troponin I < 0.01 Response Orders (Tests/Meds): ED MEDICATIONS Discontinued Medications Generic Name Dose Route Start Last Admin Trade Name Freq PRN Reason Stop Dose Admin Aspirin 324 mg 05/19/25 22:26 05/19/25 22:42 Aspirin 81mg Chewable Tablet PO 05/19/25 22:27 324 mg ONCE ONE Administration Belladonna Alkaloids 60 ml 05/19/25 22:26 05/19/25 22:42 Belladonna Alkaloids 60 Ml Ml PO 05/19/25 22:27 60 ml ONCE ONE Administration ORDERS Category Date Time Status CXR 2 view (NOT portable) [XR chest 2V] Stat Exams 05/19/25 22:26 Completed Complete Blood Count Auto Diff Stat Lab 05/19/25 22:15 Completed Comprehensive Metabolic Panel Stat Lab 05/19/25 22:15 Completed D-Dimer Stat Lab 05/19/25 22:15 Completed Lipase Stat Lab 05/19/25 22:15 Completed T4 (Thyroxine) Stat Lab 05/19/25 22:15 Completed TSH [Thyroid Stimulating Hormone] Stat Lab 05/19/25 22:15 Completed Trop I [Troponin I] Stat Lab 05/19/25 22:15 Completed Troponin I Q3H Lab 05/20/25 00:49 Completed MDM Narrative Medical Decision Narrative: In summary, this patient is a 69-year-old female presenting to the Emergency Department for evaluation of chest tightness, palpitations, back pain, and high blood pressure readings at home that started a few hours prior to arrival. Differential diagnoses considered include but are not limited to ACS, dysrhythmia, anxiety, PE, aortic dissection, hypertensive urgency. Ruling out the most morbid conditions drove assessment. It should be noted patient's history includes hypertension, hyperlipidemia, CAD, paroxysmal atrial fibrillation which may or may not be at goal therapy. This complicates all aspects of care by increasing patient's risk for morbidity. I reviewed patient's past medical records and noted prior cardiac catheterization with multiple critical areas of stenosis with collateral flow noted. Medical management was recommended, as there was difficulty intervening. On exam, the patient is lying in bed in no acute distress. She is severely hypertensive with systolics in the 200s, but otherwise vitals are reassuring on cardiac telemetry. Initial EKG obtained is reassuring without acute ischemic change. workup included CBC, CMP, troponin, D-dimer, chest x-ray, lipase, EKG. Patient was given oral aspirin, GI cocktail for symptomatic improvement. On reassessment, patient is lying in bed in no acute distress. Repeat blood pressure 160s over 70s. Vitals otherwise still reassuring on cardiac telemetry. I independently interpreted chest x-ray prior to radiology read and noted no large focal consolidation concerning for pneumonia, no pneumothorax. CBC is reassuring with no significant leukocytosis or anemia. Chemistry is reassuring with normal kidney function. She has mildly elevated AST and alkaline phosphatase, which is nonspecific. Bilirubin is normal. D-dimer is negative, so I do not feel the patient requires CTA for further workup of possible aortic pathology or PE. Initial troponin negative. Given that symptoms started not long prior to arrival, I feel she would benefit from obtaining a second troponin to rule out acute cardiac pathology. At 2300, patient was placed in ED observation status pending second troponin to determine whether or not the patient would be appropriate for discharge versus admission. The patient was provided serial reevaluations and cardiac monitoring while awaiting ultimate disposition. Patient care signed out to the oncoming provider, Dr. Osman, pending second troponins. Jacqui PATRICK: I assumed care of the patient at the time of handoff from the prior provider. At reassessment, patient reports complete symptomatic resolution. Second troponin was performed early per patient request, she did not want to wait for the 3 hours. I explained that this limits the utility of the test but patient was okay with this. Second opponent returned undetectably low. Given this, patient seemed appropriate for discharge with outpatient management, does not require admission. Therefore observation status was discontinued. Less than a half an hour was utilized in preparing discharge. Interactive discussion was had with patient after presentation. Patient was discharged in stable condition with return precautions.
[2025-05-19 22:30] LABS: Basophils % 0.4 % (0.1-2.0); Eosinophils # 0.1 Kmm3 (0.0-0.4); Eosinophils % 1.3 % (0.1-12.0); Hematocrit 39.8 % (37.0-47.0); Hemoglobin 13.3 g/dL (12.2-16.2); Immature Granulocytes # 0.02 10^3uL; Immature Granulocytes % 0.3 %; Lymphocytes # 1.8 K/mm3 (0.7-4.5); Lymphocytes % 27.4 % (10-50); Mean Corpuscular HGB Conc 33.4 g/dL (31.8-35.4); Mean Corpuscular Hemoglobin 31.6 pg (27.0-31.2); Mean Corpuscular Volume 94.5 fl (81-99); Mean Platelet Volume 9.4 fl (7.4-10.4); Monocytes # 0.5 K/mm3 (0.1-1.0); Monocytes % 7.6 % (1.7-9.3); Neutrophils # 4.2 K/mm3 (1.8-7.8); Nucleated Red Blood Cells # 0 10^3/uL; Nucleated Red Blood Cells % 0 %; Platelet Count 247 K/mm3 (142-424); Red Blood Count 4.21 M/mm3 (4.20-5.40); Red Cell Distribution Width 12.9 % (11.5-17.5); Red Cell Distribution Width-SD 44.4 fL; White Blood Count 6.7 K/mm3 (4.8-10.8)
[2025-05-19 22:31] VITALS: BP 161/74; PULSE 66; RESP 17; O2SAT 96
[2025-05-19 22:37] LABS: Alanine Aminotransferase 34 U/L (12-78); Albumin Level 4.6 g/dl (3.5-5.0); Albumin/Globulin Ratio 1.3 (1.1-1.8); Alkaline Phosphatase 130 U/L (38-126); Anion Gap 6.9 mEq/L (5-15); Aspartate Amino Transferase 43 U/L (14-36); Bilirubin,Total 0.5 mg/dl (0.2-1.3); Blood Urea Nitrogen 12 mg/dl (7-17); Calcium 10.5 mg/dl (8.4-10.2); Carbon Dioxide 29 mmol/L (22.0-30.0); Chloride 106 mmol/L (98-107); Creatinine Clearance Estimated 72 mL/min (50-200); Estimated Glomerular Filt Rate 62 ml/min (>60); GFR (African American) 76 ML/MIN (>60); Globulin 3.5 g/dL (1.3-3.2); Glucose 132 mg/dl (74-100); Lipase 163 U/L (23-300); Potassium 3.9 mmoL/L (3.5-5.1); Sodium 138 mmol/L (136-145); Total Protein,Serum 8.1 g/dl (6.3-8.2)
[2025-05-19 22:41] LABS: D-Dimer 0.49 ug/mL (0.0-0.5)
[2025-05-19] MEDS: ASPIRIN 81MG CHEWABLE TABLET 324 MG PO (22:42)
[2025-05-19] MEDS: BELLADONNA ALKALOIDS 60 ML ML PO (22:42)
[2025-05-19 22:51] LABS: Troponin I < 0.01 ng/ml (0.00-0.034)
[2025-05-19 22:55] LABS: T4 (Thyroxine) 8.9 ug/dl (5.53-11.0)
[2025-05-19 23:00] VITALS: BP 151/91; PULSE 76; RESP 16; O2SAT 94
[2025-05-19 23:08] LABS: Thyroid Stimulating Hormone 2.59 uIU/mL (0.465-4.68)
[2025-05-19 23:30] VITALS: BP 130/70; PULSE 58; RESP 16; O2SAT 94
[2025-05-20] VITALS: BP 127/70; PULSE 57; RESP 16; O2SAT 93
[2025-05-20 01:22] LABS: Troponin I < 0.01 ng/ml (0.00-0.034)
[2025-05-20 01:28] VITALS: BP 139/85; PULSE 65; RESP 18; TEMP 36.6; O2SAT 96
--- NOTE | 2025-05-20 01:29 | PC.NURSE ---
IV discontinued. Catheter tip intact. Bleeding controlled.
== END 2025-05-20 01:34 | disposition home or self-care (01) ==
PROVIDERS: Emergency Medicine; Emergency Provider Emergency Medicine
DX: R07.89 Other chest pain (principal); I10 Essential (primary) hypertension; I25.10 Atherosclerotic heart disease of native coronary artery without angina pectoris; E78.5 Hyperlipidemia, unspecified
CPT/HCPCS: 71046; 80053; 83690; 84436; 84443; 84484; 85025; 85378; 93005; 99285

== ENCOUNTER 2025-06-24 14:53 | Outpatient (CLI) | payer MEDICARE, SELFPAY ==
--- OUTSIDE RECORDS SUMMARY | 2025-05-01 13:03 | XMS_ITS | Encounter Summary ---
Author Organization [facility] Address [address] [place] [address] Care Team Providers Care Circuit Tester Name Role Phone Jasvir Abbott MD Unavailable [phone] Cydney Cole APRN Primary Care Provider [phone] Rashel Hernandez MD Unavailable Reason for Referral * Imaging (Routine) - Closed Specialty Diagnoses / Procedures Referred By Prince willson Referred To Contact Radiology Diagnoses Meningioma (CMS/HCC) Procedures MR Head w and wo IV Contrast Rashel Hernandez MD [address] [address] Phone: tel: fax: Referral ID Status Reason Start Date Expiration Date Visits Re quested Visits Authorized [id number] Closed 01/18/2024 07/19/2025 1 1 Reason for Visit * Imaging (Routine) - Closed Specialty Diagnoses / Procedures Referred By Prince willson Referred To Contact Radiology Diagnoses Meningioma (CMS/HCC) Procedures MR Head w and wo IV Contrast Rashel Hernandez MD [address] [address] Phone: tel: fax: Referral ID Status Reason Start Date Expiration Date Visits Re quested Visits Authorized [id number] Closed 01/18/2024 07/19/2025 1 1 Encounter Details Date Type Department Care Team (Latest Contact Info) Description 05/01/2025 1:03 PM EDT - 05/01/2025 11:59 PM EDT Hospital Encounter [facility] Radiology [address] [place] [address] Meningioma ([facility]) Discharge Disposition: Home or Self Care Social History Tobacco Use Types Packs/Day Years Used Date Smoking Tobacco: Never Smokeless Tobacco: Never Alcohol Use Standard Drinks/Week Comments Never 0 (1 standard drink = 0.6 oz pur e alcohol) Comments Unknown Sex and Gender Information Value Date Recorded Sex Assigned at Not on file Legal Sex Female 4:07 PM EST Gender Identity Not on file Sexual Orientation Not on file documented as of this encounter Medications at Time of Discharge amLODIPine (Norvasc) 5 MG tablet Take by mouth 1 (one) time each day. apixaban (Eliquis) 5 MG tablet Take 1 tablet by mouth 2 times a day. Aspirin Low Dose 81 MG EC tablet take one (1) tablet by mouth daily 04/29/2025 atorvastatin (Lipitor) 40 MG tablet TAKE ONE (1) TABLET BY MOUTH EVERY NIGHT AT BEDTIME clobetasol (Temovate) 0.05 % gel APPLY ONCE DAILY TO AFFECTED AREA FOR UP TO A MONTH AT A TIME 06/23/2023 clopidogrel (Plavix) 75 MG tablet Take 1 tablet by mouth daily. diclofenac (Voltaren) 1 % topical gel APPLY 2 GRAMS TO THE AFFECTED AREA BY TOPICAL ROUTE 4 TIMES PER DAY 07/12/2022 Elmiron 100 MG capsule Take 1 capsule (100 mg) by mouth 3 (three) times a day. 01/09/2024 estradiol (Estrace) 0.1 MG/GM vaginal cream APPLY A TOOTHPASTE-SIZED AMOUNT (1 GRAM) TO URETHRAL OPENING (PEE HOLE) NIGHTLY FOR 2 WEEKS, THEN 3 TIMES WEEKLY AT NIGHT THEREAFTER 04/10/2025 fluticasone (Flonase) 50 MCG/ACT nasal spray 02/18/2022 hydroxychloroqui ne (Plaquenil) 200 MG tablet Take 200 mg by mouth 1 (one) time each day. 11/02/2021 hydrOXYzine HCl (Atarax) 25 MG tablet take one (1) tablet three (3) times a day by oral route as needed. 04/24/2025 levothyroxine (Synthroid, Levoxyl) 75 MCG tablet Take 1 tablet (75 mcg) by mouth 1 (one) time each day. lidocaine (Xylocaine) 5 % ointment APPLY TO AFFECTED AREA(S) BY TOPICAL ROUTE 1-4 TIMES DAILY NEEDED lisinopril 10 MG tablet Take 1 tablet (10 mg) by mouth 1 (one) time each day. metoprolol succinate XL (Toprol-XL) 25 MG 24 hr tablet TAKE (1/2) TABLET BY MOUTH TWICE DAILY 02/20/2025 mometasone (Elocon) 0.1 % cream Apply small amount with Q-Tip to outer ear twice a day for 14 days then use prn. 01/08/2025 nystatin (Mycostatin) cream APPLY TO THE AFFECTED AREA(S) BY TOPICAL ROUTE TWO (2) TIMES PER DAY 03/16/2022 pimecrolimus (Elidel) 1 % cream 07/14/2022 Premarin vaginal cream Insert 1/2 gram by vaginal route 2x weekly 04/29/2025 SSD 1 % cream APPLY A 1/16 INCH (1.5 MM) THICK LAYER TO ENTIRE BURN AREA BY TOPICAL ROUTE TWO (2) TIMES PER DAY 01/16/2025 sucralfate (Carafate) 1 g tablet TAKE ONE (1) TABLET FOUR (4) TIMES A DAY BY ORAL ROUTE FOR 30 DAYS. tacrolimus (Protopic) 0.1 % ointment APPLY OINTMENT DAILY TOPICALLY TO AFFECTED AREA. SAFE FOR SEAMAN USE 09/06/2022 triamcinolone (Kenalog) 0.1 % cream APPLY A THIN LAYER TO HANDS BY TOPICAL ROUTE TWO (2) TIMES PER DAY documented as of this encounter Plan of Treatment Not on file documented as of this encounter Procedures Procedure Name Priority Date/Time Associated Diagnosis Comments MR HEAD W AND WO IV CONTRAST Routine 05/01/2025 2:11 PM EDT Meningioma (CMS/HCC) documented in this encounter Results * MR Head w and wo IV Contrast (05/01/2025 2:11 PM EDT) Anatomical Region Laterality Modality Head Magnetic Resonan ce Addenda Addendum by Niki Lee MD on 05/06/2025 9:09 AM EDT Addendum: ADDENDUM: New right transverse venous sinus finding, concerning for possible age-indeterminate venous sinus thrombosis, discussed with Vickie Kaye of Neurosurgery 05/06/2025 at 0906 hours via telephone. A dedicated MR venogram also was suggested to confirm the finding. Drafted by Niki eLe MD on 05/06/2025 9:07 AM Final report signed by Niki Lee MD on 05/06/2025 9:09 AM Impressions 05/06/2025 9:01 AM EDT No significant interval change of the three extra-axial lesions, most compatible with meningiomas. Again one of the meningiomas located between the posterior parietal lobes may invade or produce significant mass effect upon the adjacent superior sagittal sinus. New thin irregular filling defect in a segment of proximal right transverse sinus. A nonobstructing, age-indeterminate thrombus is a consideration. Dedicated MR venogram recommended for further evaluation. CRITICAL RESULT: No. COMMUNICATION: Per this written report. Drafted by Niki Lee MD on 05/06/2025 8:09 AM Final report signed by Niki Lee MD on 05/06/2025 9:01 AM Narrative 05/06/2025 9:01 AM EDT CLINICAL INDICATION: Meningioma. TECHNIQUE: MRI of the brain was performed without and with intravenous contrast. Multiplanar multiecho sequences were performed through the brain utilizing T1 and T2 weighting, as well as either axial susceptibility weighted or gradient echo sequences, and axial diffusion weighted images. Postcontrast imaging was performed after intravenous administration of 8.2 mL of Gadavist. COMPARISON: 01/18/2024. FINDINGS: Diagnostic Quality: Adequate There has been no significant change of three extraaxial enhancing lesions of the brain, all located along the falx. -Largest lesion, centered along the right side of the falx next to the right frontal lobe. It again measures up to 21 mm in greatest axial dimension. -Lobular lesion located along the falx between the posterior aspect of the parietal lobes. It again measures up to 14 mm in greatest axial dimension. Mass effect upon or invasion of the adjacent superior sagittal sinus is again seen. -Lesion centered the right side of the falx between the parietal lobes, near the superior anterior aspect of the straight sinus. It again measures up to 12 mm in greatest axial dimension. Again there is nonspecific restricted diffusion along the periphery of this lesion. Although this study is not optimized to evaluate the venous sinuses, there is an irregular filling defect within a segment of the proximal right transverse sinus, although there is unremarkable appearing opacification of the rest of the right transverse sinus and right sigmoid sinus. The filling defect is somewhat thin, incompletely filling this portion of the right transverse sinus, mostly eccentric in location. This finding is separate from the arachnoid granulations seen in the distal half of both transverse sinuses. Susceptibility artifact at these lesions most likely represents ossification. There is local mass effect adjacent to these lesions. There is no significant midline shift. Basilar cisterns are patent. Mildly enlarged, mostly fluid-filled sella. There is a mild amount of white matter hypodensity which is nonspecific and could represent chronic small vessel ischemia. Vascular Flow Voids: The expected major arterial flow voids at the skull base are present. Paranasal Sinuses and Mastoid Air Cells: Unremarkable. Orbits: No definite masses within the limitations of the study. Extracranial Findings: Retropharyngeal course of the carotid arteries. On the left plastic table Craniocervical Junction and Skull Base: No tonsillar ectopia or mass is present. Procedure Note Niki Lee MD - 05/06/2025 CLINICAL INDICATION: Meningioma. TECHNIQUE: MRI of the brain was performed without and with intravenous contrast.Multiplanar multiecho sequences were performed through the brain utilizingT1 and T2 weighting, as well as either axial susceptibility weighted orgradient echo sequences, and axial diffusion weighted images. Postcontrastimaging was performed after intravenous administration of 8.2 mL ofGadavist. COMPARISON: 01/18/2024. FINDINGS: Diagnostic Quality: Adequate There has been no significant change of three extraaxial enhancing lesionsof the brain, all located along the falx. -Largest lesion, centered along the right side of the falx next to theright frontal lobe. It again measures up to 21 mm in greatest axialdimension. -Lobular lesion located along the falx between the posterior aspect of theparietal lobes. It again measures up to 14 mm in greatest axial dimension.Mass effect upon or invasion of the adjacent superior sagittal sinus isagain seen. -Lesion centered the right side of the falx between the parietal lobes,near the superior anterior aspect of the straight sinus. It again measuresup to 12 mm in greatest axial dimension. Again there is nonspecificrestricted diffusion along the periphery of this lesion. Although this study is not optimized to evaluate the venous sinuses, thereis an irregular filling defect within a segment of the proximal righttransverse sinus, although there is unremarkable appearing opacificationof the rest of the right transverse sinus and right sigmoid sinus. Thefilling defect is somewhat thin, incompletely filling this portion of theright transverse sinus, mostly eccentric in location. This finding isseparate from the arachnoid granulations seen in the distal half of bothtransverse sinuses. Susceptibility artifact at these lesions most likely representsossification. There is local mass effect adjacent to these lesions. There is nosignificant midline shift. Basilar cisterns are patent. Mildly enlarged,mostly fluid-filled sella. There is a mild amount of white matterhypodensity which is nonspecific and could represent chronic small vesselischemia. Vascular Flow Voids: The expected major arterial flow voids at the skullbase are present. Paranasal Sinuses and Mastoid Air Cells: Unremarkable. Orbits: No definite masses within the limitations of the study. Extracranial Findings: Retropharyngeal course of the carotid arteries. Onthe left plastic table Craniocervical Junction and Skull Base: No tonsillar ectopia or mass ispresent. IMPRESSION: No significant interval change of the three extra-axial lesions, mostcompatible with meningiomas. Again one of the meningiomas located betweenthe posterior parietal lobes may invade or produce significant mass effectupon the adjacent superior sagittal sinus. New thin irregular filling defect in a segment of proximal righttransverse sinus. A nonobstructing, age-indeterminate thrombus is aconsideration. Dedicated MR venogram recommended for further evaluation. CRITICAL RESULT: No. COMMUNICATION: Per this written report. Drafted by Niki Lee MD on 05/06/2025 8:09 AM Final report signed by Niki Lee MD on 05/06/2025 9:01 AM Rashel Hernandez MD IMG MRI PROCEDURES Edited Resu lt - Final documented in this encounter Visit Diagnoses Diagnosis Meningioma (CMS/HCC) Benign neoplasm of cerebral meninges documented in this encounter Administered Medications Inactive Administered Medications - up to 3 most recent administrations Medication Order MAR Action Action Date Dose Rate Site gadobutrol (Gadavist) injection 8.2 mL 8.2 mL (0.1 mL/kg 82 kg), Intravenous, Once in imaging, 1 dose, Starting on Diann 05/01/25 at 1349, Until Diann 05/01/25 at 1353, Routine, Imaging Protocol Orders Given 05/01/2025 1:53 PM EDT 8.2 mL documented in this encounter Additional Health Concerns Assessment Noted Time A fall risk assessment has been complete d for the patient 05/01/2025 2:41 PM EDT A Body Mass Index follow-up plan has been documented for the patient 05/01/2025 3:07 PM EDT documented as of this encounter Care Teams Circuit Tester Relationship Specialty Start Date End Date Cydney Cole APRN [address] [place] [address] PCP - General 12/01/21 Jasvir Abbott MD [address] [address] Consulting Physician Neurology 11/24/21 Rashel Hernandez MD [address] [address] Surgeon Neurosurgery 01/06/22 documented as of this encounter
--- OUTSIDE RECORDS SUMMARY | 2025-05-01 14:45 | XMS_ITS | Encounter Summary ---
Author Organization Healthcare Address [address] [place] [address] Care Team Providers Care Federal Aid Coordinator Name Role Phone Jasvir Abbott MD Unavailable [phone] Cydney Cole APRN Primary Care Provider [phone] Rashel Hernandez MD Unavailable [phone] Reason for Visit * Reason Comments Follow-up Encounter Details Date Type Department Care Team (Late st Contact Info) Description 05/01/2025 2:45 PM EDT Office Visit [place] [facility] [address] [place] [address] Rashel Hernandez MD [address] [place] [address] Meningioma (CMS/HCC) (Primary Dx) Social [...] do not hesitate to contact usat the [facility] if there are any questions or concerns. Vashti Arredondo MD Resident Physician, PGY-2 Department of Neurosurgery [facility] Cosigned by Rashel Hernandez MD at 05/01/2025 [...] documented as of this encounter Care Teams Federal Aid Coordinator Relationship Specialty Start Date End Date Cydney Cole APRN [address] [place] [address] PCP - General 12/01/21 Jasvir Abbott MD [address] [place] [address] Consulting Physician Neurology 11/24/21 Rashel Hernandez MD [address] [place] [address] Surgeon Neurosurgery 01/06/22 documented as of this encounter
--- OUTSIDE RECORDS SUMMARY | 2025-06-24 14:56 | XMS_ITS | Clinical Summary ---
Author Organization [facility] Address [address] [place] [address] Care Team Providers Care Coppersmith Helper Name Role Phone Jasvir Abbott MD Unavailable [phone] Cydney Cole APRN Primary Care Provider [phone] Rashel Hernandez MD Unavailable [phone] Allergies Active Allergy Reactions Criticality Noted [...] DAILY TOPICALLY TO AFFECTED AREA. 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 Active Elmiron 100 MG capsule [...] Description 05/01/2025 2:45 PM EDT Office Visit [place] [facility] [address] [place] [address] Rashel Hernandez MD Meningioma ([facility]) (Primary Dx) 05/01/2025 1:03 PM EDT - 05/01/2025 11:59 PM EDT Hospital Encounter [facility] [address] [place] [address] Meningioma ([facility]) Discharge Disposition: Home or Self Care 05/01/2025 Travel from Last 3 Months Social History Tobacco [...] Screening 1957 [facility]-Medicare Annual Wellness (AWV) 1957 [facility]-/Child/Adol SDOH Screenings 1957 [facility]- SDOH Screenings 1975 [...] - Risk 60-74 years 1-dose series) 2017 [id number] Vaccine ( season) 2024 10/26/2022, 03/29/2022, 10/06/2021, Additional history exists [facility]-Influenza Vaccine (#1) 2025 [facility]-Zoster Vaccines Completed 09/18/2019, 9 [facility]-Obesity [...] - Final from Last 3 Months Insurance [facility] Care Teams Coppersmith Helper Relationship Specialty Start Date End Date Cydney Cole APRN [address] [place], [place] [id number] PCP - General 12/01/21 Jasvir Abbott MD [address] [facility] [place] [address] Consulting Physician Neurology 11/24/21 Rashel Hernandez MD [address] [place] [address] Surgeon Neurosurgery 01/06/22
--- OUTSIDE RECORDS SUMMARY | 2025-06-24 14:56 | XMS_ITS | Encounter Summary ---
Author Organization Healthcare Address [address] [place] [address] Care Team Providers Care Chief Controller Center Name Role Phone Jasvir Abbott MD Unavailable [phone] Cydney Cole APRN Primary Care Provider [phone] Rashel Hernandez MD Unavailable [phone] Encounter Details Date Type Department Care Team ([facility] st Contact Info) Description 10/16/2024 [facility] [address] [place] [address] Memo Thompson MD [address] [facility] [address] [place] [address] Social History Tobacco Use Types [...] documented as of this encounter Care Teams Chief Controller Center Relationship Specialty Start Date End Date Cydney Cole APRN [address] [place] [id number] PCP - General 12/01/21 Jasvir Abbott MD [address] [place] [address] Consulting Physician Neurology 11/24/21 Rashel Hernandez MD [address] [place] [address] Surgeon Neurosurgery 01/06/22 documented as of this encounter
--- OUTSIDE RECORDS SUMMARY | 2025-06-24 14:56 | XMS_ITS | Clinical Summary ---
Author Organization [facility] Address [address] [place] [address] Phone Care Team Providers Care Class B Driver Name Role Phone Jeronimo Browne MD, Vern [place] Primary Care Provid er Allergies Active Allergy [...] Type Department Care Team Description 04/11/2025 Telephone [place] [address] [address] [facility] [place] [address] Yasmeen Dominguez RN Vaginal Pain 04/10/2025 1:30 PM EDT Office Visit [facility] [address] [facility] [place] [address] MD Encounter for routine gynecologic examination in Medicare patient (Primary Dx); Visit for screening mammogram; Osteoporosis screening; Other specified menopausal and perimenopausal disorders 04/10/2025 10:00 AM EDT Procedure visit [facility] U[facility] [address] [address] Racheal Escobedo MD Interstitial cystitis [...] EDT Office Visit [facility] Janine [address] [facility] [address] [place] [address] Echo Barreto, BIKE SHOP MANAGER [address], [place] [address] 01/07/2026 1:10 PM EST Office Visit [facility] [place] [address] [place] [address] Dr [address] [place] [address] Markell Ayoub MD [address] [facility] [address] [place] [address] Health Maintenance Due Date Last [...] 03/29/2022, 10/06/2021, Additional history exists Influenza Vaccine (#1) 2025 Zoster Completed 09/18/2019, 04/17/2019 Hepatitis B [...] at 30 hours. 04/12/2025 7:30 AM EDT [facility] STRUCTURE OF URINARY TRACT PROPER / Unknown 04/10/2025 3:24 PM EDT 04/10/2025 3:24 PM EDT us Racheal Escobedo MD MICROBIOLOGY - GENERAL ORDERAB LES Final Result [facility] [address] [facility], [place] [address] * (ABNORMAL) [facility] URINALYSIS POC (04/10/2025 10:20 [...] 0.2 0.2, 1.0 04/10/2025 10:23 AM EDT [facility] UROLOGY JANINE UA Nitrite POC Negative Negative 04/10/2025 10:23 AM EDT [facility]OLOGY [place] UA Leuk Est POC Small(A) Negative 10:23 AM EDT [facility] [place] UROLOGKristyn JANINE Urine STRUCTURE OF URINARY TRACT PROPER / Unknown 04/10/2025 10:20 AM EDT 04/10/2025 10:23 AM EDT us Racheal Escobedo MD POINT OF CARE TEST ORDERABLES Final Result [facility] [place] [address] [place] [address] * MM MAMMO DIGITAL DIAGNOSTIC W CAD BILAT (10/25/2012 1:40 PM EST) Anatomical Region Laterality Modality Breast Bilateral Mammography 10/25/2012 2:11 PM EST Impressions 10/25/2012 4:25 PM EST : Incomplete-need additional imaging evaluation ([id number]-[id number]-1) ~ No suspicious mammographic findings. Breast ultrasound [...] seen. ~ IMPRESSION: Incomplete-need additional imaging evaluation (LFX-[id number]-3) ~ No suspicious mammographic findings. Breast ultrasound [...] Most Recently Relevant to Health Maintenance Insurance [facility] MEDICARE ADVANTAGE MR Care Teams Class B Driver Relationship Specialty Start Date End Date Vern Decker Sr., MD [address] [place] [address] [place] [address] PCP - General 05/31/12
--- OUTSIDE RECORDS SUMMARY | 2025-06-24 14:56 | XMS_ITS | Encounter Summary ---
Author Organization [facility] Address [address] [place] [address] Care Team Providers Care Quick Print Operator Name Role Phone Jasvir Abbott MD Unavailable [phone] Cydney Cole APRN Primary Care Provider [phone] Rashel Hernandez MD Unavailable [phone] Encounter Details Date Type Department Care Team [...] documented as of this encounter Care Teams Quick Print Operator Relationship Specialty Start Date End Date Cydney Cole APRN [address] [place], [place] [id number] PCP - General 12/01/21 Jasvir Abbott MD [address] [place] [address] Consulting Physician Neurology 11/24/21 Rashel Hernandez MD [address] [facility] [address] [place] [address] Surgeon Neurosurgery 01/06/22 documented as of this encounter
--- OUTSIDE RECORDS SUMMARY | 2025-06-24 14:56 | XMS_ITS | Encounter Summary ---
Author Organization [place] [address] Care Team Providers Care Explosives Engineer Name Role Phone Jeronimo Browne MD, [facility] Primary Care Provid er Reason for Visit * Reason Onset Date Comments Vaginal Pain 04/11/2025 Encounter Details Date Type Department Care Team (Late st Contact Info) Description 04/11/2025 Telephone [facility] [place] [address] [place] [address] Yasmeen Dominguez, RN Vaginal Pain Social History Tobacco Use [...] 1:30 PM EDT Office Visit [facility] [address] [address] Echo Barreto APRN [address] [place] [address] 01/07/2026 1:10 PM EST Office Visit [facility] [address] [place] [address] Markell Ayoub MD [address] [facility] [address] [place] [address] documented as of this encounter Visit Diagnoses Not on filedocumented in this encounter Additional Health Concerns Assessment Noted Time A fall risk assessment has been complete d for the patient 04/10/2025 1:14 PM EDT documented as of this encounter Care Teams Explosives Engineer Relationship Specialty Start Date End Date Vern Decker Sr., MD [address] [place] [address] PCP - General 05/31/12 documented as of this encounter
--- OUTSIDE RECORDS SUMMARY | 2025-06-24 14:57 | XMS_ITS | Clinical Summary ---
Author Organization [facility] Address [facility] [place] [address] Care Team Providers Care Cable Tool Operator Name Role Phone Cydnye Cole [facility] Primary Care Provider + [phone] Source Comments This information has been disclosed [...] therelease of HIV test results or diagnoses. [id number] [facility] Allergies Active Allergy Reactions Criticality Noted Date Comments Codeine 04/26/2017 rash Cortisone 04/26/2017 rash Lidocaine 04/26/2017 headache Medications tacrolimus (PROTOPIC) 0.1 % ointment Apply daily to affected area, safe for intermediate project manager use 30 g 5 2 Active amLODIPine [...] Additional history exists Immunization: Influenza (MyC horne) (#1) 2025 Immunization: RSV (Adult) (1 - 1-dose 75+ series) 2032 Immunization: Zoster Completed 09/18/2019, 04/17/20 19 Insurance BLUE MEDICARE ADVANTAGE Care Teams Cable Tool Operator Relationship Specialty Start Date End Date Cydney Cole FNP [address] [place] [address] PCP - General 04/28/21
== END 2025-06-24 23:59 | disposition home or self-care (01) ==
LOC: RT 14:54
PROVIDERS: Visit Provider Nurse Practitioner Family
DX: I49.1 Atrial premature depolarization (principal); I47.19 Other supraventricular tachycardia; I49.3 Ventricular premature depolarization; M25.531 Pain in right wrist; I48.0 Paroxysmal atrial fibrillation
CPT/HCPCS: 93270

== ENCOUNTER 2025-07-29 13:09 | Outpatient (CLI) | payer MEDICARE, SELFPAY ==
--- OUTSIDE RECORDS SUMMARY | 2025-07-29 13:12 | XMS_ITS | Clinical Summary ---
Author Organization [facility] Address [facility] [place] [address] Phone Care Team Providers Care White Lead Filterer Name Role Phone Jeronimo Browne MD, Vern [place] Primary Care Provid er Allergies Active Allergy [...] Active Active Problems No known active problems Surgical History Surgery Date Site/Laterality Comments CYSTOSCOPY 04/10/[address] 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 Eczema Family History [...] 1:30 PM EDT Office Visit [facility] [address] [place] [address] Echo Barreto, PAPER COATING MACHINE OPERATOR [address] [place] [address] 01/07/2026 1:10 PM EST Office Visit [facility] [place] [address] [place] [address] Dr [address] [place] [address] Markell Ayoub MD [address] [facility] [address] [place] [address] Health Maintenance Due Date Last [...] Procedure Name Priority Date/Time Associated Diagnosis Comments MM MAMMO DIGITAL DIAGNOSTIC W CAD BILAT Routine 10/25/2012 1:40 PM EST Mass of breast, right from Last 3 Months or Most Recently Relevant to Health Maintenance Results * MM MAMMO DIGITAL DIAGNOSTIC W CAD BILAT (10/25/2012 1:40 PM EST) Anatomical Region Laterality Modality Breast Bilateral Mammography 10/25/2012 2:11 PM EST Impressions 10/25/2012 4:25 PM EST : Incomplete-need additional imaging evaluation ([id number]-2) ~ No suspicious mammographic findings. Breast ultrasound [...] seen. ~ IMPRESSION: Incomplete-need additional imaging evaluation (PKZ-[id number]-2) ~ No suspicious mammographic findings. Breast ultrasound [...] was reviewed by a Radiologist and CAD. us Vern Decker Sr., MD IMG MAMMOGRAPHY ORDE LETHA Final Result from Last 3 Months or Most Recently Relevant to Health Maintenance Insurance [employer] MED[employer]ARE ADVANTAGE MR [employer] MEDICARE ADVANTAGE MR Care Teams White Lead Filterer Relationship Specialty Start Date End Date Vern Decker Sr., MD [address] [place] [address] PCP - General 05/31/12
--- OUTSIDE RECORDS SUMMARY | 2025-07-29 13:13 | XMS_ITS | Clinical Summary ---
Author Organization [facility] Address [facility] [place] [address] Care Team Providers Care Primary Special Educator Name Role Phone Cydney Cole [facility] Primary Care Provider + [phone] Source Comments This information has been disclosed [...] therelease of HIV test results or diagnoses. [id number] [facility] Allergies Active Allergy Reactions Criticality Noted Date Comments Codeine 04/26/2017 rash Cortisone 04/26/2017 rash Lidocaine 04/26/2017 headache Medications tacrolimus (PROTOPIC) 0.1 % ointment Apply daily to affected area, safe for prison use 30 g 5 2 Active amLODIPine [...] (DXA Scan) 2007 Immunization: COVID-19 ( season) 2025 10/26/2022, 03/29/2022, 10/06/2021, Additional history exists Immunization: Influenza (MyC horne) (#1) 2025 Immunization: RSV (Adult) (1 - 1-dose 75+ series) 2032 Immunization: Zoster Completed 09/18/2019, 04/17/20 19 Insurance BLUE MEDICARE ADVANTAGE Care Teams Primary Special Educator Relationship Specialty Start Date End Date Cydney Cole FNP [address] [place] [address] PCP - General 04/28/21
--- OUTSIDE RECORDS SUMMARY | 2025-07-29 13:13 | XMS_ITS | Encounter Summary ---
Author Organization [facility] Address [address] [place] [address] Care Team Providers Care Hoop Punch And Coiler Operator Helper Name Role Phone Jasvir Abbott MD Unavailable [phone] Cydney Cole APRN Primary Care Provider [phone] Rashel Hernandez MD Unavailable [phone] Encounter Details Date Type Department Care Team ([facility] st Contact Info) Description 10/16/2024 [facility] [address] [place] [address] Memo Thompson MD [address] [place] [address] Social History Tobacco Use Types [...] documented as of this encounter Care Teams Hoop Punch And Coiler Operator Helper Relationship Specialty Start Date End Date Cydney Cole APRN [address] [place] [address] PCP - General 12/01/21 Jasvir Abbott MD [address] [place] [address] Consulting Physician Neurology 11/24/21 Rashel Hernandez MD [address] [place] [address] Surgeon Neurosurgery 01/06/22 documented as of this encounter
--- OUTSIDE RECORDS SUMMARY | 2025-07-29 13:13 | XMS_ITS | Clinical Summary ---
Author Organization [facility] Address [address] [place] [address] Care Team Providers Care Farmworker Brooder Farm Name Role Phone Jasvir Abbott MD Unavailable [phone] Cydney Cole APRN Primary Care Provider Rashel Hernandez MD Unavailable [phone] Allergies Active Allergy Reactions Criticality Noted [...] DAILY TOPICALLY TO AFFECTED AREA. SAFE FOR HALFWAY USE 2 Active Elmiron 100 MG capsule [...] Description 05/01/2025 2:45 PM EDT Office Visit [facility] [address] [place] [address] Rashel Hernandez MD Meningioma ([facility]) (Primary Dx) 05/01/2025 1:03 PM EDT - 05/01/2025 11:59 PM EDT Hospital Encounter [facility] [address] [place] [address] Meningioma ([facility]) Discharge Disposition: Home or Self [...] - Risk 60-74 years 1-dose series) 2017 [id number] Vaccine ( season) 2024 10/26/2022, 03/29/2022, 10/06/2021, [...] - Final from Last 3 Months Insurance [facility] MEDICARE Care Teams Farmworker Brooder Farm Relationship Specialty Start Date End Date Cydney Cole APRN [address] [place], [place] [phone] PCP - General 12/01/21 Jasvir Abbott MD [address] [facility] [place] [address] Consulting Physician Neurology 11/24/21 Rashel Hernandez MD [address] [place] [address] Surgeon Neurosurgery 01/06/22
--- NOTE | 2025-07-29 13:45 | CA_ITS ---
FINAL REPORT CLINICAL HISTORY: M25.531 - Pain in right wrist,PT HAD HEART CATH 01/29/25 WITH RIGHT RADIAL ACCESS HAS HAD PAIN SINCE PROCEDURE COMPARISON: None FINDINGS: RIGHT RADIAL ARTERY ULTRASOUND: Ultrasound examination of the right radial artery at the level of the wrist was performed in this patient who has undergone a previous heart catheterization through the right radial artery. There is no evidence of radial artery occlusion or significant stenosis. There is no AV fistula or pseudoaneurysm identified. No thrombus is identified. IMPRESSION: No evidence of AV fistula, pseudoaneurysm, or right radial artery thrombus. Reviewed, Interpreted and Dictated by Thai Cm MD Transcribed by Erika Haque Authenticated and . [facility]
== END 2025-07-29 23:59 | disposition home or self-care (01) ==
LOC: RT 13:10
PROVIDERS: PCP Family Medicine; Visit Provider Nurse Practitioner Family
DX: M25.531 Pain in right wrist (principal); I48.0 Paroxysmal atrial fibrillation; G89.18 Other acute postprocedural pain
CPT/HCPCS: 93931